=== PATIENT | male | born 1950 | race Caucasian/White ===

== ENCOUNTER 2024-11-09 11:34 | Day surgery (SDC) | payer MEDICARE, SELFPAY ==
--- NOTE | 2024-11-06 12:59 | PAT.ANESEVAL ---
Pre-Assessment Diagnosis/Proposed Procedure Planned Operative Procedure(s): LEFT ANKLE OPEN REDUCTION W/ SYNDESMOSIS FIXATION Anesthesia History Anesthesia History - building services coordinator: Anesthesia History - building services coordinator Hx Hospitalization No 11/06/24 10:42 Any Problems With Anesthesia Yes: N&V 11/06/24 10:42 Cholinesterase deficiency No 11/06/24 10:42 You/Your Family Experience No 11/06/24 10:42 fever (hyperthermia) with Relationship Recent Exposure to Contagious Disease Does patient have nerve No 11/06/24 10:42 stimulator Patient instructed to have device shut off --Does patient have Pacemaker or ICD? When Was Last Pacemaker Check QUESTION #4 FULL TEXT: You/Your Family Experience fever (hyperthermia) with Anesthesia Last Oral Intake Last Oral intake: Last Oral Intake NPO since Meds taken in AM with sips of water? Meds patient instructed to take am of surgery PONV PONV - building services coordinator: PONV - building services coordinator Female No 11/06/24 10:42 HX of Motion Sickness Yes 11/06/24 10:42 HX of N/V After Surgery Yes 11/06/24 10:42 Non-Smoker Yes 11/06/24 10:42 Duration of Surgery greater Yes 11/06/24 10:42 than 60 minutes Number of Risk Factors 4 11/06/24 10:42 PONV Score Severe Risk 11/06/24 10:42 Respiratory Assessment Respiratory Assessment - building services coordinator: Respiratory Tract Infection Hx - building services coordinator Hx Respiratory Tract Infection No 11/06/24 10:42 STOP Sleep Apnea STOP Sleep Apnea - building services coordinator: STOP Sleep Apnea - building services coordinator Hx Hypertension Yes: CONTROLLED ON MED 11/06/24 10:42 Hx Sleep Apnea No 11/06/24 10:42 CPAP BIPAP Do you snore loudly (louder No 11/06/24 10:42 than talking or can be heard Do you often feel tired/ No 11/06/24 10:42 fatigued/ sleepy during daytime? Has anyone observed you stop No 11/06/24 10:42 breathing during sleep? STOP Results Negative 11/06/24 10:42 QUESTION #5 FULL TEXT : Do you snore loudly (louder than talking or can be heard through closed doors)? Tobacco Use History Tobacco Use History - building services coordinator: Tobacco Use History - building services coordinator Tobacco Use Smoking Status Never smoker 11/06/24 10:42 Hx Tobacco Use No 11/06/24 10:42 Years Smoking Packs Smoked per Day Smoking Cessation Date was within the last 15 years Hx Smoking Cessation Date Hx Smoking Cessation Counseling Hematologic Medial History Hematologic Hx - building services coordinator: Hematologic Medical Hx - treasury director Hx of Blood Transfusion No 11/06/24 10:42 Hx of Transfusion in last 3 No 11/06/24 10:42 Months Date of Last Transfusion (if within last 3 months) Ever experience any problems No 11/06/24 10:42 with transfusion(s)? Specify any problems Hx of Preganancy in last 3 N/A 11/06/24 10:42 Months Nurse Filling Out Transfusion VCHRISTIN 11/06/24 10:42 & Questions: Date: 11/06/24 11/06/24 10:42 Time: 10:44 11/06/24 10:42 Patient unable to answer at this time (ie. confused, unrespo /Reproduction History /Reproductive History - building services coordinator: /Reproductive Hx- building services coordinator Hx Now No 11/06/24 10:42 Gestational Age (in weeks): EDC: Hx Hx Para Hx Section SAB No 11/06/24 10:42 Active Medications Active Medications: Current Medications Generic Name Dose Route Start Last Admin Trade Name Freq PRN Reason Stop Dose Admin Cefazolin Sodium 2 gm/ Sodium 110 mls @ 150 mls/hr 11/09/24 13:15 Chloride IV 11/09/24 13:58 INTRAOP ONE REPLACED BY [facility] Medical History (Updated 11/06/24 @ 10:42 by Erin Xiao) Wears hearing aid Wears glasses History of steroid therapy Lyme disease Swartz's palsy Gout Kidney stones High cholesterol Non-smoker History of stress test Hypertension Hx of sepsis Home Medications ?Medication ?Instructions ?Recorded ?Last Taken ?Type acyclovir 400 mg tablet 400 mg PO 5X/DAY 11/06/24 Unknown History allopurinol 300 mg tablet 300 mg PO DAILY 11/06/24 Unknown History aspirin 81 mg tablet 81 mg PO BID 11/06/24 Unknown History atenolol 50 mg tablet 50 mg PO QPM 11/06/24 Unknown History coenzyme Q10 100 mg capsule (Co 100 mg PO DAILY 11/06/24 11/05/24 History Q-10) doxycycline monohydrate 100 mg 100 mg PO BID 11/06/24 Unknown History tablet fenofibrate micronized 134 mg 134 mg PO DAILY 11/06/24 Unknown History capsule ginkgo biloba 40 mg tablet 40 mg PO DAILY 11/06/24 11/05/24 History losartan 100 mg tablet 100 mg PO DAILY 11/06/24 Unknown History niacin 500 mg tablet 500 mg PO BID 11/06/24 Unknown History omega 6-zta-olv-fish oil 1,200 mg 1 cap PO DAILY 11/06/24 11/05/24 History (144 mg-216 mg) capsule (Fish Oil) prednisone 20 mg tablet 20 mg PO BID 11/06/24 Unknown History psyllium husk 0.4 gram capsule 0.4 g PO DAILY 11/06/24 Unknown History (Daily Fiber) rosuvastatin 40 mg tablet 40 mg PO DAILY 11/06/24 Unknown History Allergy/AdvReac Type Severity Reaction Status Date / Time DOMONIQUE Inhibitors Allergy Severe Rash Verified 11/06/24 10:27 gemfibrozil Allergy Severe Other Verified 11/06/24 10:27 Surgical History (Updated 11/06/24 @ 10:42 by Erin Xiao) Hx of hemorrhoidectomy Hx of hernia repair Hx of appendectomy 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 Sinus rhythm frequent premature ventricular contractions. 78 bpm. Pulmonary disease pattern looks like approximately 10 PVCs per minute. [facility] Recommendation Anesthesia Recommendation Anesthesia recommendation: OPTIMIZED for anesthesia
[2024-11-09] VITALS (9 sets, daily range): BP systolic 132–172; BP diastolic 77–94; PULSE 59–63; RESP 16; TEMP 36.2–36.4; O2SAT 96–100; BMI 24.5
[2024-11-09] MEDS: Lactated Ringers 1,000 ML 15 ML IV (12:21)
--- NOTE | 2024-11-09 12:50 | PCM.PRE.AN2 ---
ASA Classification* ASA Classification ASA Classification: 2 Assessment & Plan Anesthesia* Anesthesia Assessment Anesthesia Assessment: Discussed sedation and/or anesthesia options, risks, benefits, and alternatives with patient/parents/legal guardian/POA. Questions invited. The patient/parents/legal guardian/POA seems to understand and agrees to proceed with anesthesia plan. Reviewed the physical assessment, medical history, allergy history and patient home medications list prior to surgery/procedure/anesthetic and documented any changes. Performed airway and anesthesia risk assessments. Anesthesia Type Anesthesia Type: General and Block (Patient is consented for postop block for pain.) History Source History Obtained from:: Patient and Chart Anesthesia Focused Assessment* Temperature: 97.4 F Pulse Rate: 63 Blood Pressure: 132/94 Respiratory Rate: 16 Pulse Ox: 99 Oxygen Delivery Method: Room Air Airway Assessment Mouth opens: >3 cm Mallampati Score: IV Teeth Condition: Intact Neck Range of motion (ROM): Limited ROM (Slight decrease in extension) Labs Anesthesia Preop lab: CBC CHEMISTRY COAG Pre-Assessment Diagnosis/Proposed Procedure Planned Operative Procedure(s): LEFT ANKLE OPEN REDUCTION W/ SYNDESMOSIS FIXATION Anesthesia History 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 When Was Last Pacemaker Check QUESTION #4 FULL TEXT: You/Your Family Experience fever (hyperthermia) with Anesthesia Last Oral Intake Last Oral intake: Last Oral Intake NPO since 19:30 11/09/24 12:05 Meds taken in AM with sips of Yes 11/09/24 12:05 water? Meds patient instructed to take am of surgery Any additional information?: Yes Meds taken in AM with sips of water?: Yes Meds patient instructed to take am of surgery: Losartan PONV PONV - sewing machine repairer: PONV - sewing machine repairer Female No 11/06/24 10:42 HX of Motion Sickness Yes 11/06/24 10:42 HX of N/V After Surgery Yes 11/06/24 10:42 Non-Smoker Yes 11/06/24 10:42 Duration of Surgery greater Yes 11/06/24 10:42 than 60 minutes Number of Risk Factors 4 11/06/24 10:42 PONV Score Severe Risk 11/06/24 10:42 Height & Weight Height & Weight: Anesthesia: Height & Weight Height 5 ft 4 in 11/09/24 12:05 Weight: 65 kg 11/09/24 12:05 Body Mass Index (BMI) 24.5 11/09/24 12:05 Respiratory Assessment Respiratory Assessment - sewing machine repairer: Respiratory Tract Infection Hx - sewing machine repairer Hx Respiratory Tract Infection No 11/06/24 10:42 STOP Sleep Apnea STOP Sleep Apnea - sewing machine repairer: STOP Sleep Apnea - sewing machine repairer Hx Hypertension Yes: CONTROLLED ON MED 11/06/24 10:42 Hx Sleep Apnea No 11/06/24 10:42 CPAP BIPAP Do you snore loudly (louder No 11/06/24 10:42 than talking or can be heard Do you often feel tired/ No 11/06/24 10:42 fatigued/ sleepy during daytime? Has anyone observed you stop No 11/06/24 10:42 breathing during sleep? STOP Results Negative 11/06/24 10:42 QUESTION #5 FULL TEXT : Do you snore loudly (louder than talking or can be heard through closed doors)? Tobacco Use History Tobacco Use History - sewing machine repairer: Tobacco Use History - sewing machine repairer Tobacco Use Smoking Status Never smoker 11/06/24 10:42 Hx Tobacco Use No 11/06/24 10:42 Years Smoking Packs Smoked per Day Smoking Cessation Date was within the last 15 years Hx Smoking Cessation Date Hx Smoking Cessation Counseling Hematologic Medial History Hematologic Hx - sewing machine repairer: Hematologic Medical Hx - orthopedic dentist Hx of Blood Transfusion No 11/06/24 10:42 Hx of Transfusion in last 3 No 11/06/24 10:42 Months Date of Last Transfusion (if within last 3 months) Ever experience any problems No 11/06/24 10:42 with transfusion(s)? Specify any problems Hx of Preganancy in last 3 N/A 11/06/24 10:42 Months Nurse Filling Out Transfusion VCHRISTIN 11/06/24 10:42 & Questions: Date: 11/06/24 11/06/24 10:42 Time: 10:44 11/06/24 10:42 Patient unable to answer at this time (ie. confused, unrespo /Reproduction History /Reproductive History - sewing machine repairer: /Reproductive Hx- sewing machine repairer Hx Now No 11/06/24 10:42 Gestational Age (in weeks): EDC: Hx Hx Para Hx Section SAB No 11/06/24 10:42 Active Medications Active Medications: Current Medications Generic Name Dose Route Start Last Admin Trade Name Freq PRN Reason Stop Dose Admin Cefazolin Sodium 2 gm/ Sodium 110 mls @ 150 mls/hr 11/09/24 13:15 Chloride IV 11/09/24 13:58 INTRAOP ONE Lactated Ringer's 1,000 mls @ 15 mls/hr 11/09/24 12:00 11/09/24 12:21 IV 15 mls/hr .Q48H RODOLFO Administration PFSH Medical History Wears hearing aid Wears glasses History of steroid therapy Lyme disease Swartz's palsy Gout Kidney stones High cholesterol Non-smoker History of stress test Hypertension Hx of sepsis Home Medications ?Medication ?Instructions ?Recorded ?Last Taken ?Type acyclovir 400 mg tablet 400 mg PO 5X/DAY 11/06/24 Unknown History allopurinol 300 mg tablet 300 mg PO DAILY 11/06/24 Unknown History aspirin 81 mg tablet 81 mg PO BID 11/06/24 11/08/24 History atenolol 50 mg tablet 50 mg PO QPM 11/06/24 11/08/24 History coenzyme Q10 100 mg capsule (Co 100 mg PO DAILY 11/06/24 11/05/24 History Q-10) doxycycline monohydrate 100 mg 100 mg PO BID 11/06/24 Unknown History tablet fenofibrate micronized 134 mg 134 mg PO DAILY 11/06/24 Unknown History capsule ginkgo biloba 40 mg tablet 40 mg PO DAILY 11/06/24 11/05/24 History losartan 100 mg tablet 100 mg PO DAILY 11/06/24 11/09/24 07:00 History niacin 500 mg tablet 500 mg PO BID 11/06/24 Unknown History omega 9-kgo-bww-fish oil 1,200 mg 1 cap PO DAILY 11/06/24 11/05/24 History (144 mg-216 mg) capsule (Fish Oil) prednisone 20 mg tablet 20 mg PO BID 11/06/24 Unknown History psyllium husk 0.4 gram capsule 0.4 g PO DAILY 11/06/24 Unknown History (Daily Fiber) rosuvastatin 40 mg tablet 40 mg PO DAILY 11/06/24 Unknown History Allergy/AdvReac Type Severity Reaction Status Date / Time DOMONIQUE Inhibitors Allergy Severe Rash Verified 11/09/24 12:02 gemfibrozil Allergy Severe Other Verified 11/09/24 12:02 Surgical History Hx of hemorrhoidectomy Hx of hernia repair Hx of appendectomy 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
[2024-11-09] MEDS: Cefazolin 2 GM in 0.9% Normal Saline (100mL Bag) 100 ML IV (13:06)
--- NOTE | 2024-11-09 13:20 | RAD_ITS ---
PROCEDURE: ANKLE 2 VIEWS 11/09/2024 REASON FOR EXAM: ORIF LT ANKLE TECHNIQUE: ANKLE 2 VIEWS Intraoperative fluoroscopic images. Fluoroscopy time 10.5 seconds. Radiation dose 0.47 mGy. COMPARISON: None. FINDINGS: Intraoperative fluoroscopic images. Unremarkable distal tibial and fibular metallic hardware. RAD/Ankle 2 Views IMPRESSION: Intraoperative fluoroscopic images. Reading Location: [facility]
[2024-11-09] MEDS: Bupiv/Epi 0.25% 30 ML Vial (13:46)
--- NOTE | 2024-11-09 13:46 | PCM.OPRPT ---
Operative Report (Standard) Operative Information Date of Procedure: 11/09/24 Pre-Operative Diagnosis: Left ankle syndesmosis rupture with Maisonneuve fracture Post-Operative Diagnosis: Left ankle syndesmosis rupture with Maisonneuve fracture Surgery/Procedure Performed: Open reduction internal fixation left ankle syndesmosis portrait consultant: Yes Hydroelectric Machinery Mechanic Helper: Shauna Prescott Tasks completed by first coat operator: Opening & closing and Hemostasis: Electrocautery Type of Anesthesia: General RN Documented Start/Stop Times: Operation Date: 11/09/24 13:15 Case Time Into Pre-Op 11/09/24 11:46 Out of Pre-Op 11/09/24 13:04 Anesthesia Start 11/09/24 13:06 Into Room 11/09/24 13:06 Procedure Start 11/09/24 13:24 Procedure Start Time: 13:24 Procedure Stop Time: 13:53 Select all DRAINS/GRAFTS/IMPLANTS that apply: Implanted device Implanted device details: Arthrex tight rope 2 x 2, 2 hole third tubular plate Estimated Blood Loss: 2 cc Specimen collected: No Description of surgery: Patient was greeted in the same-day surgery holding area and identified by name, medical record number, and date of . The operative extremity was marked. All questions were answered to the patient's satisfaction. At time of his procedure, patient was brought the operative suite positioned supine a standard operating table. General anesthesia was induced and LMA placed. The left lower extremity was then prepared for surgery. Leg was elevated on bath blankets and a hip was placed in the patient's left hip. We prepped and draped the left lower extremity in a normal, sterile orthopedic fashion. We performed a timeout confirming the side, site, and operation to be performed. No concerns were voiced and we opted to proceed with surgery. 2 g Ancef administered IV prior to incision by anesthesia staff. I then exsanguinated the left lower extremity with Esmarch bandage. Tourniquet was inflated 250 mmHg which remained elevated for 14 minutes. Esmarch was removed. Lateral approach to the distal fibula was performed in standard fashion, approximately 4 cm incision. Skin flaps were developed down to level of the periosteum. Periosteum was left intact. I then performed external rotation stress test which revealed syndesmotic instability as well as a cotton test. I then proceeded with reduction of the syndesmosis. I was able to palpate the syndesmosis and without articular incongruity noted I applied a gentle press on the lateral fibula. I then selected our 2 hole plate and secured to bone with a BB tack. Appropriate positioning was noted on orthogonal fluoroscopy. I then used a long K wire to plantar trajectory of the tight ropes which were placed in the orientation of the syndesmosis parallel with the tibial plafond. I then drilled across the 4 cortices. Tight ropes were placed in standard fashion and deployed and sequentially tightened. Repeat stress testing was now stable. Orthogonal fluoroscopy was obtained demonstrated good positioning. Tourniquet deflated. Hemostasis was excellent. Wound was irrigated with saline. Dermis was reapproximated buried 2-0 Vicryl suture and skin reapproximated with interrupted horizontal mattress 3-0 nylon suture. Medial and lateral field blocks were administered with 10 cc total quarter percent bupivacaine with epinephrine. Bulky sterile compression dressing was applied. Patient was placed in a short leg 3 sided AO type fiberglass splint in maximal dorsiflexion. He was safely awakened in the operative suite and extubated. He was transferred to his gurney and subsequently PACU in stable condition. He tolerated the procedure well without apparent complication. Need for skilled assistant manager bilingual: Shauna Prescott PA-C was critical to the outcome of the case. During the course of the procedure the physician assistant manager bilingual played a vital role. Her intimate knowledge of my steps in the procedure aided in safe and expedient completion of the procedure. The PA played a vital role in positioning particularly in obtaining the appropriate positioning. The PA was also vital in the retraction of soft tissues during the exposure and protecting vital structures. The PA was also vital and obtaining bony reduction and assisting with hardware placement. She also played a vital role in closure and splint application with my direct supervision. Postoperative plan: Nonweightbearing to the operative extremity x 6 weeks. Transition to cam boot in 2 weeks for early range of motion of physical therapy. Multimodal pain management with Tylenol, NSAIDs and oxycodone. Ice and elevation. X-rays in splint 2 weeks postop. Aspirin 81 mg twice daily for DVT prophylaxis x 6 weeks. Surgical Findings: Syndesmosis instability, stable following failure of fixation x 2 Complications Complications: No Admit VTE Documentation VTE Present on Admission: No VTE Mechan Device Prophylaxis: SCD's VTE Pharm Prophylaxis ordered?: Yes
--- NOTE | 2024-11-09 14:04 | PCM.POST.ANE ---
Anesthesia: Postop Eval I Current Vital Signs Temperature: 97.2 F Pulse Rate: 62 Blood Pressure: 148/84 Respiratory Rate: 16 Pulse Ox: 96 Oxygen Delivery Method: Room Air Assessment Airway patent: Yes Spontaneous unlabored respirations: Yes Mental status: Awake nausea: No Vomiting: No Anesthesia Complication: No Fluid Hydration Crystalloid volume administer (ml): 800 Total IV fluid infused: 800 Progress Note Anesthesia document: Postop Eval 1 completed: Yes
--- NOTE | 2024-11-09 18:48 | POSTOPAN2_ITS ---
Anesthesia Postop Eval I Sum Postop Eval Completion status Anesthesia document: Postop Eval 1 completed: Yes Anesthesia Postop Eval I Summary Anesthesia Postop Eval I Summary: Anesthesia Postop Eval I: Assessment Summary Airway patent Yes 11/09/24 14:05 SENIOR CONSTRUCTION ESTIMATOR.JDEF Spontaneous unlabored Yes 11/09/24 14:05 SENIOR CONSTRUCTION ESTIMATOR.JDEF respirations Mental status Awake 11/09/24 14:05 SENIOR CONSTRUCTION ESTIMATOR.JDEF nausea No 11/09/24 14:05 SENIOR CONSTRUCTION ESTIMATOR.JDEF Vomiting No 11/09/24 14:05 SENIOR CONSTRUCTION ESTIMATOR.JDEF Anesthesia Postop Eval I: Fluid Summary Crystalloid volume administer 800 11/09/24 14:05 SENIOR CONSTRUCTION ESTIMATOR.JDEF (ml) Colloids volume administered ( ml) Blood Product volume administered (ml) Total IV fluid infused 800 11/09/24 14:05 SENIOR CONSTRUCTION ESTIMATOR.JDEF Anesthesia Postop Eval I: Summary Notes Anesthesia Complication No 11/09/24 14:05 SENIOR CONSTRUCTION ESTIMATOR.JDEF Anesthesia Complication Comment: Post-operative progress note Anesthesia: Postop Eval II Evaluation Mental status: Awake and Calm Pain Level: 2 (Postop block done in PACU with good relief of pain.) nausea: No Vomiting: No Complications Anesthesia Complication: No
--- NOTE | 2024-11-09 18:48 | PCM.POSTANE2 ---
Anesthesia Postop Eval I Sum Postop Eval Completion status Anesthesia document: Postop Eval 1 completed: Yes Anesthesia Postop Eval I Summary Anesthesia Postop Eval I Summary: Anesthesia Postop Eval I: Assessment Summary Airway patent Yes 11/09/24 14:05 SHANK INSPECTOR.JDEF Spontaneous unlabored Yes 11/09/24 14:05 SHANK INSPECTOR.JDEF respirations Mental status Awake 11/09/24 14:05 SHANK INSPECTOR.JDEF nausea No 11/09/24 14:05 SHANK INSPECTOR.JDEF Vomiting No 11/09/24 14:05 SHANK INSPECTOR.JDEF Anesthesia Postop Eval I: Fluid Summary Crystalloid volume administer 800 11/09/24 14:05 SHANK INSPECTOR.JDEF (ml) Colloids volume administered ( ml) Blood Product volume administered (ml) Total IV fluid infused 800 11/09/24 14:05 SHANK INSPECTOR.JDEF Anesthesia Postop Eval I: Summary Notes Anesthesia Complication No 11/09/24 14:05 SHANK INSPECTOR.JDEF Anesthesia Complication Comment: Post-operative progress note Anesthesia: Postop Eval II Evaluation Mental status: Awake and Calm Pain Level: 2 (Postop block done in PACU with good relief of pain.) nausea: No Vomiting: No Complications Anesthesia Complication: No
--- OUTSIDE RECORDS SUMMARY | 2024-11-09 23:01 | XMS RPT_ITS | CCD ---
Author Organization [facility] Care Team Providers Care Vegetable I Farmworker Name Role Phone JOVAN KRISHNA Unavailable Unavailable Lee HOLBROOK Unavailable Unavailable JOVAN KRISHNA Unavailable Unavailable JOVAN KRISHNA Unavailable Unavailable Lee HOLBROOK Unavailable Unavailable NAJMA OCONNOR Unavailable Unavailable Lee HOLBROOK Unavailable Unavailable Leonardo Holbrook Primary Care Provider Leonardo Holbrook MD Primary Care Provider Aurea Mckenna MD Unavailable Leonardo Holbrook MD Primary Care Provider Aurea Mckenna MD Unavailable Isaias Kaba MD Primary Care Provider ISAIAS KABA MD Attending Unavailable ISAIAS KABA MD Admitting Unavailable ISAIAS KABA MD Consulting Unavailable ISAIAS KABA MD Primary Care Unavailable PROVIDER, UNKNOWN Consulting Unavailable PROVIDER, UNKNOWN Consulting Unavailable PROVIDER, UNKNOWN Consulting Unavailable ISAIAS KABA MD Consulting Unavailable ISAIAS KABA MD Attending Unavailable ISAIAS KABA MD Admitting Unavailable ISAIAS KABA MD Primary Care Unavailable PROVIDER, UNKNOWN Consulting Unavailable PROVIDER, UNKNOWN Consulting Unavailable PROVIDER, UNKNOWN Consulting Unavailable CALIN, OMAR PAC Primary Care Unavailable CALIN, OMAR PAC Attending Unavailable ISAIAS KABA MD Consulting Unavailable CALIN, OMAR PAC Admitting Unavailable PROVIDER, UNKNOWN Consulting Unavailable PROVIDER, UNKNOWN Consulting Unavailable PROVIDER, UNKNOWN Consulting Unavailable ISAIAS KABA MD Primary Care Unavailable ISAIAS KABA MD Consulting Unavailable ISAIAS KABA MD Attending Unavailable ISAIAS KABA MD Admitting Unavailable PROVIDER, UNKNOWN Consulting Unavailable PROVIDER, UNKNOWN Consulting Unavailable PROVIDER, UNKNOWN Consulting Unavailable PITO CASE DO Primary Care Unavailable PITO CASE DO Attending Unavailable ISAIAS KABA MD Consulting Unavailable PITO CASE DO Admitting Unavailable PROVIDER, UNKNOWN Consulting Unavailable PROVIDER, UNKNOWN Consulting Unavailable PROVIDER, UNKNOWN Consulting Unavailable ISAIAS KABA MD Primary Care Unavailable ISAIAS KABA MD Consulting Unavailable ISAIAS KABA MD Attending Unavailable ISAIAS KABA MD Admitting Unavailable PROVIDER, UNKNOWN Consulting Unavailable PROVIDER, UNKNOWN Consulting Unavailable PROVIDER, UNKNOWN Consulting Unavailable ISAIAS KABA MD Consulting Unavailable ISAIAS KABA MD Attending Unavailable LATISAIAS PRADO MD Admitting Unavailable ISAIAS KABA MD Primary Care Unavailable PROVIDER, UNKNOWN Consulting Unavailable PROVIDER, UNKNOWN Consulting Unavailable PROVIDER, UNKNOWN Consulting Unavailable SESAR, ISAIAS Primary Care Unavailable AUREA MCKENNA Referring Unavailable Dawood Hernandez Attending Unavailable Sesar, Isaias Primary Care Unavailable Dr. Dawood Hernandez DO Attending Provider Dr. Dawood Hernandez DO Referring Provider Dr. Isaias Kaba MD Primary Care Provider [phone] Allergies Allergy Classification Reported Allergen(s) Allergy Type Date of Onset Reaction(s) Facility (2 sources) Angiotensin-conv erting enzyme inhibitor agent; Translations: [DOMONIQUE INHIBITORS] Drug Allergy 05-16-2021 Rash [facility] (5 sources) cefTRIAXone; Translations: [CEFTRIAXONE] Drug Allergy 05-16-2021 Myalgia [facility] (6 sources) Gemfibrozil; Translations: [GEMFIBROZIL] Drug Allergy 05-16-2021 Rash [facility] Comment on above: [facility] (3 sources) Angiotensin-conv erting enzyme inhibitor agent Drug Allergy 05-16-2021 Rash [facility] (1 source) Angiotensin Converting Enzyme (Domonique) Inhibitors Drug allergy (disorder) [facility] (1 source) Gemfibrozil Drug Allergy [facility] (1 source) Angiotensin Converting Enzyme (Domonique) Inhibitors Drug allergy (disorder) 11-06-2024 [facility] Rep[facility] (1 source) Gemfibrozil Drug Allergy 11-06-2024 [facility] (1 source) Angiotensin Converting Enzyme (Domonique) Inhibitors Allergy to substance 11-09-2024 [facility] Medications Current Medications Medication Drug Class(es) Dates Sig (Normalized) Sig (Original) acyclovir 400 mg oral tablet (1 source) Herpesvirus Nucleoside Analog DNA Polymerase Inhibitor, Herpes Simplex Virus Nucleoside Analog DNA Polymerase Inhibitor, Herpes Zoster Virus Nucleoside Analog DNA Polymerase Inhibitor Start: 11-06-2024 take 1 tablet by mouth five times daily Acyclovir 400 mg tablet Active 400 mg PO 5 TIMES DAILY November 06, 2024 12:00am allopurinol 300 mg oral tablet (5 sources) Xanthine Oxidase Inhibitor Start: 11-06-2024 take 1 tablet by mouth once daily Allopurinol 300 mg tablet Active 300 mg PO DAILY November 06, 2024 12:00am Start: 12-07-2008 ALLOPURINOL 30 0 MG TAB Indications: Unspecified essential hypertension , Mixed hyperlipidemia Take one(1) tablet daily. 30 11 12/07/2008 Active Comment on above: Take one(1) tablet d aily. aspirin 81 mg oral tablet (5 sources) Platelet Aggregation Inhibitor, Nonsteroidal Anti-inflammatory Drug Start: 11-06-2024 take 1 tablet by mouth twice daily Aspirin 81 mg tablet Active 81 mg PO TWICE A DAY November 06, 2024 12:00am Start: 06-27-2007 aspirin(JAVIER LOW STRENGTH 81 MG TAB) Indications: Unspecified essential hypertension , Mixed hyperlipidemia Take one(1) tablet daily. 0 06/27/2007 Active Comment on above: Take one(1) tablet d aily. atenolol 50 mg oral tablet (5 sources) beta-Adrenergic Chyna Start: 11-06-2024 take 1 tablet by mouth once daily in the evening Atenolol 50 mg tablet Active 50 mg PO EVERY EVENING November 06, 2024 12:00am take 1 tablet by joan th once daily in the evening atenolol (TENORMIN) 50 mg tablet Take 50 mg by mouth every evening. Active Comment on above: Take 50 mg by mouth every evening. doxycycline monohydrate 100 mg oral tablet (1 source) Tetracycline-class Drug Start: take 1 tablet by mouth twice daily Doxycycline Monohydrate 100 mg tablet Active 100 mg PO TWICE A DAY November 06, 2024 12:00am fenofibrate 134 mg oral capsule (6 sources) Peroxisome Proliferator Receptor alpha Agonist Start: 5 take 1 capsule by mouth once daily Fenofibrate Micronized 134 mg capsule Active 134 mg PO DAILY November 06, 2024 12:00am Start: 02-24-2022 [facility] fenofibrate (LOFIBRA) 134 mg capsule Take 134 mg by mouth once daily. 02/24/2022 Active Start: 05-31-2009 End: 06-19-2022 FENOFIBRATE 54 MG TAB one ta b daily with breakfast 30 3 05/31/2009 06/19/2022 Discontinued (.All criteria met for discontinuation) Comment on above: one tab daily with b reakfast Take 134 mg by mouth once daily. Ginkgo Biloba (1 source) Start: 11-06-2024 take 1 tablet by mouth once daily Ginkgo Biloba 40 mg tablet Active 40 mg PO DAILY November 06, 2024 12:00am give with meal/snack linezolid 600 mg oral tablet (1 source) Oxazolidinone Antibacterial Start: 05-23-2021 End: 06-02-2021 take 1 tablet by mouth every twelve hours linezolid (ZYVOX) 600 mg tablet Take 1 tablet by mouth every 12 hours for 10 days. 20 tablet 0 05/23/2021 06/02/2021 Active Comment on above: Take 1 tablet by joan every 12 hours for 10 days. losartan potassium 100 mg oral tablet (4 sources) Angiotensin 2 Receptor Chyna Start: 11-06-2024 take 1 tablet by mouth once daily Losartan 100 mg tablet Active 100 mg PO DAILY November 06, 2024 12:00am Start: 09-30-2021 take 1 tablet by joan once daily at bedtime losartan (COZAAR) 100 mg tablet Take 100 mg by mouth daily at bedtime. 09/30/2021 Active Comment on above: Take 100 mg by mouth daily at bedtime. MULTIVITAMIN TABLET (4 sources) Start: 2 MULTIVITAMIN TABLET Take one(1) tablet daily. 0 04/16/2002 Active Comment on above: Take one(1) tablet d aily. niacin 500 mg oral tablet (1 source) Nicotinic Acid Start: take 1 tablet by mouth twice daily Niacin 500 mg tablet Active 500 mg PO TWICE A DAY November 06, 2024 12:00am Graham 2-Rcp-Exi-Fish Oil (Fish Oil) 1,200 (144-216) mg capsule (1 source) Start: Graham 1-Faf-Czw-Fish Oil (Fish Oil) 1,200 (144-216) mg capsule Active 1 NMA PO DAILY November 06, 2024 12:00am Znmby-5-JOP-EPA-Fish Oil (FISH OIL) 1,000 mg (120 mg-180 mg) cap (4 sources) take 1 capsule by mouth three times daily Grpkp-0-WRP-EPA-Fish Oil (FISH OIL) 1,000 mg (120 mg-180 mg) cap Take 4 g by mouth three times daily. Active take 1 capsule by [facility] three times daily Hulza-9-QMZ-EPA-Fish Oil (FISH OIL) 1,00 0 mg (120 mg-180 mg) cap Take 4 g by mouth three times daily. 0 Active Comment on above: Take 4 g by mouth th ree times daily. ondansetron 4 mg oral tablet (1 source) Serotonin-3 Receptor Antagonist Start: 11-10-19 25 take 1 tablet by mouth every eight hours as needed for nausea and vomiting Ondansetron Hcl 4 mg tablet Active 4 mg PO Q8H as needed for nausea and vomiting 15 5 November 09, 2024 12:00am oxyCODONE hydrochloride 5 mg oral tablet (1 source) Opioid Agonist Start: 11-10-19 25 take 1 tablet by mouth every six hours as needed for pain Oxycodone 5 mg tablet Active 5 mg PO EVERY 6 HOURS as needed for pain 20 5 November 09, 2024 predniSONE 20 mg oral tablet (1 source) Start: 11-07-19 25 take 1 tablet by mouth twice daily Prednisone 20 mg tablet Active 20 mg PO TWICE A DAY November 06, 2024 12:00am psyllium 400 mg oral capsule (1 source) Start: 11-07-19 25 Psyllium Husk (Daily Fiber) 0.4 gram capsule Active 0.4 g PO DAILY November 06, 2024 12:00am psyllium seed/sucrose(METAMUCIL ORAL POWDER) (4 sources) Start: 05-31-19 10 psyllium seed/sucrose(METAMUC IL ORAL POWDER) Take one powder packet daily 0 05/31/2009 Active Comment on above: Take one powder pack et daily rosuvastatin calcium 40 mg oral tablet (5 sources) HMG-CoA Reductase Inhibitor Start: 11-07-19 take 1 tablet by mouth once daily Rosuvastatin 40 mg tablet Active 40 mg PO DAILY November 06, 2024 12:00am Start: 05-16-2021 rosuvastatin c alcium(CRESTOR 20 MG TAB) Take 40 mg by mouth once daily. 30 11 05/16/2021 Active Comment on above: Take 40 mg by mouth once daily. ubidecarenone 100 mg oral capsule (1 source) Start: 11-06-2024 Coenzyme Q10 (Co Q-10) 100 mg capsule Active 100 mg PO DAILY November 06, 2024 12:00am ubidecarenone/vitamin E mixed (COQ10 SG 100 ORAL) (4 sources) ubidecarenone/vi tamin E mixed (COQ10 SG 100 ORAL) Take 100 mg by mouth five times a week. sat thrsat Active ubidecarenone/vi tamin E mixed (COQ10 SG 100 ORAL) Take 100 mg by mouth five times a week. sat thrsat 0 Active Comment on above: Take 100 mg by mouth five times a week. sat thru sat Completed/Discontinued Medications Medication Drug Class(es) Dates Sig (Normalized) Sig (Original) cholecalciferol 2000 unt / soy protein isolate 64 mg oral tablet (2 sources) Vitamin D Start: 06-07-2021 End: 06-20-2022 take 1 tablet by mouth once daily Cholecalciferol-So y Isoflavone 2,000-64 unit-mg tab Indications: Chronic kidney disease, unspecified CKD stage , Hyponatremia , Essential hypertension, benign Take 1 tablet by mouth once daily. 30 tablet 5 06/07/2021 06/20/2022 Discontinued (.All criteria met for discontinuation) Comment on above: Take 1 tablet by joan th once daily. ferrous sulfate 325 mg oral tablet (2 sources) Start: 06-07-2021 End: 06-20-2022 take 1 tablet by mouth once daily at breakfast ferrous sulfate (IRON) 325 mg (65 mg iron) tablet Indications: Chronic kidney disease, unspecified CKD stage , Hyponatremia , Essential hypertension, benign Take 1 tablet by mouth daily with breakfast. 30 tablet 5 06/07/2021 06/20/2022 Discontinued (.All criteria met for discontinuation) Comment on above: Take 1 tablet by joan th daily with breakfast. meclizine hydrochloride 25 mg oral tablet (2 sources) Antiemetic Start: 05-23-2021 End: 12-20-2021 take 1 tablet by mouth every eight hours as needed meclizine (ANTIVERT) 25 mg tab Take 1 tablet by mouth three times daily as needed (Dizziness). 30 tablet 0 05/23/2021 12/20/2021 Discontinued (.All criteria met for discontinuation) Comment on above: Take 1 tablet by joan th three times daily as needed (Dizziness). Problems Active Problems Problem Classification Problem Date Documented Date Episodic/Chronic Acute and unspecified renal failure (4 sources) Acute injury of kidney; Translations: [Acute kidney failure, unspecified] 05-23-2021 Episodic Administrative/socia l admission (3 sources) Patient encounter status; Translations: [Dietary counseling and surveillance] Episodic Chronic kidney disease (12 sources) Chronic kidney disease; Translations: [Chronic kidney disease, unspecified] Onset: 5 Chronic Chronic kidney disease (2 sources) Chronic kidney disease; Translations: [Chronic kidney disease, stage 3b] Onset: 5 Deficiency and other anemia (1 source) Anemia in chronic kidney disease; Translations: [Anemia of renal disease] Onset: 5 Chronic Disorders of lipid metabolism (5 sources) Mixed hyperlipidemia; Translations: [Mixed hyperlipidemia] Onset: 3 09-20-2003 Chronic Essential hypertension (13 sources) Benign essential hypertension; Translations: [Essential (primary) hypertension] Onset: 7 Chronic Gout and other crystal arthropathies (1 source) Gout, unspecified; Translations: [Gout, unspecified] Onset: 5 Chronic Nutritional deficiencies (9 sources) Vitamin D deficiency; Translations: [Vitamin D deficiency, unspecified] Onset: 1 Chronic Other connective tissue disease (2 sources) Unspecified rotator cuff tear or rupture of right shoulder, not specified as traumatic; Translations: [UNS ROT CUFF TEAR/RUPT R] Onset: 8 Episodic Other diseases of kidney and ureters (1 source) Hyperparathyroidism due to renal insufficiency; Translations: [Secondary hyperparathyroidism of renal origin] Chronic Other male genital disorders (3 sources) Male erectile dysfunction, unspecified; Translations: [Male erectile dysfunction, unspecified] Onset: 5 Chronic Other nutritional; endocrine; and metabolic disorders (3 sources) Hyperuricemia; Translations: [Hyperuricemia without signs of inflammatory arthritis and tophaceous disease] Episodic Other screening for suspected conditions (not mental disorders or infectious disease) (1 source) Encounter for screening for malignant neoplasm of prostate; Translations: [Encounter for screening for malignant neoplasm of prostate] Onset: 5 Episodic Unclassified (1 source) Unknown / UNK(Unknown) Onset: 8 Past or Other Problems Problem Classification Problem Date Documented Date Episodic/Chronic Biliary tract disease (4 sources) Biliary calculus; Translations: [Calculus of gallbladder without cholecystitis without obstruction] Onset: 05-16-2021 05-23-2021 Episodic Diabetes mellitus without complication (1 source) Hyperglycemia, unspecified; Translations: [Hyperglycemia, unspecified] Onset: 01-24-2024 Episodic Fluid and electrolyte disorders (5 sources) Hyponatremia; Translations: [Hypo-osmolality and hyponatremia] Onset: 05-17-2021 Resolved: 05-23-2021 05-23-2021 Episodic Genitourinary symptoms and ill-defined conditions (4 sources) Proteinuria; Translations: [Other proteinuria] Onset: 06-02-2024 Episodic Other liver diseases (4 sources) Enzyme level - finding; Translations: [Transaminitis] Onset: 05-16-2021 05-23-2021 Episodic Skin and subcutaneous tissue infections (4 sources) Cellulitis of left upper limb; Translations: [Cellulitis of left upper limb] Onset: 05-16-2021 05-23-2021 Episodic Unclassified (1 source) M75.101 Onset: 12-18-2017 Results Test Name Value Interpretation Reference Range Facility MR/Hortensia 11-06-2024 /[facility] Department [address] [place] [address] PAT - Anesthesia 11/06/24 1259 MR#: [id number] Acct: [id number] Name: MYCHAL SWANSON Rep #: [id number] : 1950 74 From: Moses John MD PCP: Dr. 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 When Was Last Pacemaker Check QUESTION #4 FULL TEXT: You/Your Family Experience fever (hyperthermia) with Anesthesia Last Oral Intake Last Oral intake: Last Oral Intake NPO since Meds taken in AM with sips of water? Meds patient instructed to take am of surgery PONV PONV - school guidance counselor: PONV - school guidance counselor Female No 11/06/24 10:42 HX of Motion Sickness Yes 11/06/24 10:42 HX of N/V After Surgery Yes 11/06/24 10:42 Non-Smoker Yes 11/06/24 10:42 Duration of Surgery greater Yes 11/06/24 10:42 than 60 minutes Number of Risk Factors 4 11/06/24 10:42 PONV Score Severe Risk 11/06/24 10:42 Respiratory Assessment Respiratory Assessment - school guidance counselor: Respiratory Tract Infection Hx - school guidance counselor Hx Respiratory Tract Infection No 11/06/24 10:42 STOP Sleep Apnea STOP Sleep Apnea - school guidance counselor: STOP Sleep Apnea - school guidance counselor Hx Hypertension Yes: CONTROLLED ON MED 11/06/24 10:42 Hx Sleep Apnea No 11/06/24 10:42 CPAP BIPAP Do you snore loudly (louder No 11/06/24 10:42 than talking or can be heard Do you often feel tired/ No 11/06/24 10:42 fatigued/ sleepy during daytime? Has anyone observed you stop No 11/06/24 10:42 breathing during sleep? STOP Results Negative 11/06/24 10:42 QUESTION #5 FULL TEXT : Do you snore loudly (louder than talking or can be heard through closed doors)? 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 Specify any problems Hx of Preganancy in last 3 N/A 11/06/24 10:42 Months Nurse Filling Out Transfusion VCHRISTIN 11/06/24 10:42 Questions: Date: 11/06/24 11/06/24 10:42 Time: 10:44 11/06/24 10:42 Patient unable to answer at this time (ie. confused, unrespo /Reproduction History /Reproductive History - school guidance counselor: /Reproductive Hx- school guidance counselor Hx Now No 11/06/24 10:42 Gestational Age (in weeks): EDC: Hx Hx Para Hx Section SAB No 11/06/24 10:42 Active Medications Active Medications: Current Medications Generic Name Dose Route Start Last Admin Trade Name Freq PRN Reason Stop Dose Admin Cefazolin Sodium 2 gm/ Sodium 110 mls @ 150 mls/hr 11/09/24 13:15 Chloride IV 11/09/24 13:58 INTRAOP [facility] Medical History (Updated 11/06/24 @ 10:42 by Erin Xiao) Wears hearing aid Wears glasses History of steroid therapy Lyme disease Swartz's palsy Gout Kidney stones High cholesterol Non-smoker History of stress test Hypertension Hx of sepsis Home Medications ???Medication ???Instructions ???Recorded ???Last Taken ???Type acyclovir 400 mg tablet 400 mg PO 5X/DAY 11/06/24 Unknown History allopurinol 300 mg tablet 300 mg PO DAILY 11/06/24 Unknown H istory aspirin 81 mg tablet 81 mg PO BID 11/06/24 Unknown Hist ory atenolol 50 mg tablet 50 mg PO QPM 11/06/24 Unknown Hist ory coenzyme Q10 100 mg capsule (Co 100 mg PO DAILY 11/06/24 11/05/24 History Q-10) doxycycline monohydrate 100 mg 100 mg PO BID 11/06/24 Unknown His (more content not included)... Normal [facility] ED MED ADMINISTRATION DETAIL on 11-05-2024 ED MED ADMINISTRATION DETAIL Tack Driller Medication Administration Record [address] [address] [id number] 11/04/2024 Patient: MYCHAL SWANSON Sex: Male : 1950 Age: 74y MEASUREMENTS: Wt: 63.5 kg, Ht/Chacorta: 64.0 in, BMI: 24.03 ALLERGIES: gemfibrozil Medication Ordered Medication Administration Date/Time 1 of 1 Normal [facility] ED NURSES CLINICAL NOTEon ED NURSES CLINICAL NOTE Nurse Narrative Nurse Clinical Narrative [address] [address] [id number] 11/04/2024 12:19:00 Patient: MYCHAL SWANSON Sex: Male : 1950 Age: 74y Disposition: Discharge to Home Disposition Decision Time: 16:20 11/04/2024 Departure Time: 16:29 11/04/2024 TRIAGE Historian: (patient). Arrived in wheelchair (surgery) and accompanied by family. Primary physician (LAtgarrickf). Triage time: 14:33 11/04/2024. Acuity: LEVEL 2. Chief Complaint: ALTERED MENTAL STATUS. This started yesterday. Patient was last known well (09:30 11/03/2024). -- 14:44 11/04/24 SAET Alyx Powers R.N. 14:43 11/04/24. BP: 164/89 MAP: 114. HR: 63. RR: 17. O2 saturation: 98% Temperature: 98.5 F. -- 14:44 11/04/24 LOKESH Powers R.N. 14:55 11/04/24. SEPSIS SCREEN: NEGATIVE. SIRS criteria negative. No possible sources of infection. -- 14:55 11/04/24 LOKESH Powers R.N. Measurements: 14:43 11/04/24 Wt: 63.5 kg, Ht/Chacorta: 64.0 in, BMI: 24.03 -- 14:43 11/04/24 LOKESH Powers R.N. Medications: coenzyme Q10 (ubiquinol) 200 mg capsule: 1 capsule once a day. -- 14:53 11/04/24 LOKESH Powers R.N. Fish Oil 120 mg-180 mg capsule: 4 capsule twice a day. -- 14:11/04/24 LOKESH Powers R.N. 1 of 4 Nurse Narrative ginkgo biloba 40 mg tablet: 1 tablet twice a day. -- 14:11/04/24 LOKESH Powers R.N. Metamucil 3.4 gram/5.4 gram oral powder: 1 scoop once a day. -- 14:11/04/24 LOKESH Powers R.N. niacin 500 mg tablet: 2 tablet once a day. -- 14:11/04/24 LOKESH Powers R.N. tadalafil 10 mg tablet: TAKE 1 TABLET BY MOUTH APPROXIMATELY 30 MINUTES PRIOR TO SEXUAL ACTIVITY. DO NOT USE MORE THAN 1 DOSE PER 24 HOURS Stopped 11/04/2024. -- 14:11/04/24 LOKESH Powers R.N. losartan 100 mg tablet: TAKE ONE TABLET BY MOUTH EVERY MORNING -- 14:11/04/24 LOKESH Powers R.N. fenofibrate micronized 134 mg capsule: 1 capsule once a day TAKE ONE CAPSULE BY MOUTH DAILY. -- 14:11/04/24 LOKESH Powers R.N. rosuvastatin 40 mg tablet: TAKE ONE TABLET BY MOUTH EVERY DAY -- 14:11/04/24 LOKESH Powers R.N. aspirin 81 mg tablet: 1 tablet twice a day. -- 14:11/04/24 LOKESH Powers R.N. atenolol 50 mg tablet: 1 tablet once a day. -- 14:53 11/04/24 LOKESH Powers R.N. allopurinol 300 mg tablet: TAKE ONE TABLET BY MOUTH DAILY -- 14:53 11/04/24 LOKESH Powers R.N. 14:33 11/04/24. Preferred Pharmacy: ([facility] in [place]). -- 14:44 11/04/24 LOKESH Powers R.N. Allergies: gemfibrozil -- 14:39 11/04/24 LOKESH Powers R.N. Home Medications/Allergy Information Source: patient -- 14:39 11/04/24 LOKESH Powers R.N. Problems: Hypercholesterolemia -- 14:39 11/04/24 LOKESH Powers R.N. Hypertension -- 14:39 11/04/24 LOKESH Powers R.N. Gout -- 14:39 11/04/24 LOKESH Powers R.N. Fibromyalgia -- 14:39 11/04/24 LOKESH Powers R.N. Surgeries: Appendectomy -- 14:40 11/04/24 LOKESH Powers R.N. kidney stone -- 14:40 11/04/24 LOKESH Powers R.N. Hip Surgery. left -- 14:40 11/04/24 LOKESH Powers R.N. 2 of 4 Nurse Narrative Hernia Repair -- 14:40 11/04/24 LOKESH Powers R.N. Rotator Cuff Surgery -- 14:40 11/04/24 LOKESH Powers R.N. History 14:33 11/04/24. PAST MEDICAL HX: Immunizations: up-to-date. SOCIAL HX: Never smoker. No alcohol use or drug use. The patient has not traveled outside the [place] Infectious disease exposure: No infectious disease exposure. ABUSE ASSESSMENT: The patient answered yes to the question(s) Do you feel safe in your home? and no to the question(s) Are you afraid to go home?. Abuse denied. No suspicion of abuse. SELF HARM ASSESSMENT: Self harm assessment was performed. The patient answered no to the question(s) Have you recently felt down, depressed, or hopeless? and Do you have thoughts of harming or killing yourself?. FALL RISK ASSESSMENT: Fall risk assessment completed. Risk factors identified include patient medications, age greater than 65 years and impairment of mobility. Fall interventions initiated. Bed in low position. Brakes on. Patient identified as a fall risk by ID band. -- 14:44 11/04/24 EDT Alyx Powers R.N. Interventions 14:33 11/04/24. Advanced care plan discussed with patient (Full Code). -- 14:44 11/04/24 EDT Alyx Powers R.N. PHYSICAL ASSESSMENT 14:58 11/04/24. GENERAL / NEURO / PSYCH: Alert. Oriented X 4. Appears in no acute distress. Speech within normal limits. NIH Stroke Scale: score 2. Level of Consciousness: alert (0). LOC Questions: both (0). LOC Commands: both (0). Best gaze: normal (0). Visual field loss: none (0). Facial palsy: partial (2). Motor arm: no drift right arm (0) and no drift left arm (0). Motor leg: no drift right leg (0) and no drift left leg (0). Limb ataxia: none (0). Sensory loss: none (0). A (more content not included)... Normal [facility] ED ORDER SHEET (CPOE ONLY)on 11-05-2024 ED ORDER SHEET (CPOE ONLY) Order Sheet Order Sheet [address] [address] [id number] 11/04/2024 Patient: MYCHAL SWANSON Sex: Male : 1950 Age: 74y MEASUREMENTS: Wt: 63.5 kg, Ht/Chacorta: 64.0 in, BMI: 24.03 ALLERGIES: gemfibrozil MEDICATION/IV/DRIP/FLUID ORDERS Order Description Priority Entered Acknowledged Completed LAB ORDERS Order Description Priority Entered Acknowledged Collected Completed CBC w Diff Stat Stat 15:13 11/04/2024 15:14 11/04/2024 15:14 11/04/2024 Emerald Chavez Alisha Whytsell, D.O. R.N. R.N. CMP Stat Stat 15:13 11/04/2024 15:14 11/04/2024 15:14 11/04/2024 Emerald Chavez Alisha Whytsell, D.O. R.NKristina R.N. Glucose Bedside Stat Stat 15:13 11/04/2024 15:14 11/04/2024 15:14 11/04/2024 Emerald Chavez Alisha Whytsell, D.O. R.N. R.N. EKG - ED Stat Stat 15:13 11/04/2024 15:14 11/04/2024 15:14 11/04/2024 Emerald Chavez Alisha Whytsell, 1 of 2 Order Sheet D.O. R.N. R.N. Lyme Early Stat 15:35 11/04/2024 15:52 11/04/2024 15:52 11/04/2024 (Signs/Symp <=30 Emerald Chavez, Emerald Hernandez, Days) [CCL] Stat D.O. R.N. R.N. DIAGNOSTIC STUDY ORDERS Order Description Priority Entered Acknowledged Completed CT Brain wo Cont Stat Stat 15:13 11/04/2024 15:14 15:35 Eusebio Wu, 11/04/2024 11/04/2024 D.OEmerald Fernandes, R.N. R.N. Reason for Study: Weakness STAFF ORDERS Order Description Priority Entered Acknowledged Collected Completed IV Saline Lock 15:13 11/04/2024 15:14 11/04/2024 15:14 11/04/2024 Emerald Chavez Alisha Whytsell, D.O. R.N. R.N. [Electronically signed by Eusebio Wu D.O. (11/05/2024 17:32 EDT)] 2 of 2 Normal [facility] ED PHYSICIAN CLINICAL REPORT on 11-05-2024 ED PHYSICIAN CLINICAL REPORT Narrative Physician Clinical [address] [address] [id number] 11/04/2024 12:19:00 Patient: MYCHAL SWANSON Sex: Male : 1950 Age: 74y Disposition: Discharge to Home Disposition Decision Time: 16:20 11/04/2024 Departure Time: 16:29 11/04/2024 Measurements Wt: 63.5 kg, Ht/Chacorta: 64.0 in, BMI: 24.03 Initial Vital Sign Measured Time BP MAP HR RR O2Sat ETCO2 Temp Pain GCS RTS 14:43 11/04/2024 164/89 114 63 17 98% 98.5 F 0 Time Seen: 15:01 11/04/2024. Arrived- By private vehicle. Historian- patient. Independent historian- family. HISTORY OF PRESENT ILLNESS Chief Complaint: FACIAL DROOP. Patient came in he had left-sided facial droop. He can not tell me close his eyes he had a hard time talking and putting a straw to his lips to drink. He denied any problems with his arms or legs. Was all on the left side of the face. He is not able to wrinkle his forehead totally. He actually had surgery on his left ankle scheduled. However because of this weakness they were concerned about a stroke and sent him into the emergency department to be further evaluated. This started yesterday and patient was last known well (17:02 11/03/2024). The patient has had weakness and difficulty with speech. No numbness, tingling, visual disturbance or impaired swallowing. No difficulty walking. No dizziness or seizure. REVIEW OF SYSTEMS 11 Narrative GI: No abdominal pain, nausea or vomiting. RESPIRATORY: No difficulty breathing. CVS: No chest pain. NEUROLOGICAL: No headache or head injury. CONSTITUTIONAL: No fever. SKIN: No skin rash. THROAT: No sore throat. PAST HISTORY See nurses notes. Fibromyalgia Gout Hypercholesterolemia Hypertension Surgeries: Appendectomy Hernia Repair Hip Surgery: Body Site left kidney stone Rotator Cuff Surgery Medications: allopurinol 300 mg tablet: TAKE ONE TABLET BY MOUTH DAILY aspirin 81 mg tablet: 1 tablet twice a day. atenolol 50 mg tablet: 1 tablet once a day. coenzyme Q10 (ubiquinol) 200 mg capsule: 1 capsule once a day. fenofibrate micronized 134 mg capsule: 1 capsule once a day TAKE ONE CAPSULE BY MOUTH DAILY. Fish Oil 120 mg-180 mg capsule: 4 capsule twice a day. ginkgo biloba 40 mg tablet: 1 tablet twice a day. losartan 100 mg tablet: TAKE ONE TABLET BY MOUTH EVERY MORNING Metamucil 3.4 gram/5.4 gram oral powder: 1 scoop once a day. niacin 500 mg tablet: 2 tablet once a day. rosuvastatin 40 mg tablet: TAKE ONE TABLET BY MOUTH EVERY DAY tadalafil 10 mg tablet: TAKE 1 TABLET BY MOUTH APPROXIMATELY 30 MINUTES PRIOR TO SEXUAL ACTIVITY. DO NOT USE MORE THAN 1 DOSE PER 24 HOURS Stopped 11/04/2024. Allergies: gemfibrozil 2 of 11 Narrative Home Medications/Allergy Information Source: patient - David HubbardKristinaVikaKristina, 11/04/2024 14:39 EDT SOCIAL HISTORY Never smoker. No alcohol use. ADDITIONAL NOTES The nursing notes have been reviewed. PHYSICAL EXAM Appearance: Alert. No acute distress. Head: Head atraumatic. Eyes: Pupils equal, round and reactive to light. No nystagmus. ENT: Normal ENT inspection. Airway intact. Neck: Normal inspection. Neck supple. CVS: Normal heart rate and rhythm. Heart sounds normal. Respiratory: No respiratory distress. Painless inspiration. Abdomen: Soft and nontender. Skin: Skin warm. Normal skin color. Normal skin turgor. Extremities: Extremities exhibit normal ROM. No lower extremity edema. Neuro: Alert. Oriented X 3. No alteration in mental status. Not disoriented. Alertness is not decreased. Verbal response is not abnormal. Response to pain is not abnormal. No aphasia. Mood/affect normal. Abnormal speech. Cranial nerves normal (as tested). Moderate left-sided facial weakness. No sparing of forehead. The patient has constant, localized weakness of the left face (mild). Sensory deficit present. Altered sensation to light touch on the left face. No pronator drift. LABS, X-RAYS, AND EKG 12-LEAD EKG: EKG time: 14:41 11/04/2024. No acute process. Q waves in lead II, III and aVF. Normal axis. Left axis deviation. Interpretation time: 15:00 11/04/2024. Laboratory Tests: CBC + DIFF Final MAAME: 11/04/2024 14:37:00 EDT MsgRcvd: 11/04/2024 15:34 EDT 3 of 11 Narrative Lab Test Result Reference Status Received Comments 11/04/2024 15:34 CBC-COMPLETE CBC + DIFF Final EDT BLOOD COUNT 11/04/2024 15:34 WBC 8.5 x 10/UL 4.5 - 10.8 Final EDT 3.93 x 10/UL 11/04/2024 15:34 RBC 4.50 - 6.00 Final Below low normal EDT 11.7 g/dl 11/04/2024 15:34 HEMOGLOBIN 13.0 - 17.5 Final Below low normal EDT 33.6 % 11/04/2024 15:34 HEMATOCRIT 40.0 - 52.0 Final Below low normal EDT 11/04/2024 15:34 MCV 86 fl 81 - 98 Final EDT 11/04/2024 15:34 MCH 30 pg 27 - 33 Final EDT 11/04/2024 15:34 MCHC 35 X10 3 3 (more content not included)... Normal [facility] ED SUPER BILLon 11-05-2024 ED [facility]ILL [facility] [address] [place] [address] [id number] 11/04/2024 Patient: MYCHAL SWANSON Sex: Male : 1950 Age: 74y Professional Category Item Description Facility Code Code Quantity Fee Total Nurse/E/M EMERGENCY 244101 1 $0.00 $0.00 DEPT VISIT HIGH SEVERITYFUNCJ (42239-69) Grand Total $0.00 Providers Eusebio Wu D.O. Chief Complaint FACIAL DROOP. Patient came in he had left-sided facial droop. He can not tell me close his eyes he had a hard time talking and putting a straw to his lips to drink. He denied any problems with his arms or legs. Was all on the left side of the face. He is not able to wrinkle his forehead totally. He actually had surgery on his left ankle scheduled. However because of this weakness they were concerned about a stroke and sent him into the emergency department to be further evaluated. 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 1 of 2 [facility] ICD-10 Codes G51.0: Swartz's palsy 2 of 2 Normal [facility] ED VISIT SUMMARYon ED VISIT SUMMARY Visit Overview Visit Overview [address] [place] [address] [id number] 11/04/2024 Patient: MYCHAL SWANSON Sex: Male : 1950 Age: 74y 11/05/2024 05:32 PM EDT ED Arrival:14:32 11/04/2024 EDT Status: Recent Travel:no Language:eng Adv Directive: Isolation Status: Ethnicity:N Fall Risk:risk Infectious Disease Exposure:no Measurements:5'4 / 162.6 Self-Harm Status:risk Sepsis Screen:negative cm 140.0 lb / 63.5 kg Chief Complaint:ALTERED MENTAL STATUS, ([place]), and (surgery ) ALLERGIES gemfibrozil HOME MEDICATIONS allopurinol 300 mg tablet: TAKE ONE TABLET BY MOUTH DAILY aspirin 81 mg tablet: 1 tablet twice a day. atenolol 50 mg tablet: 1 tablet once a day. coenzyme Q10 (ubiquinol) 200 mg capsule: 1 capsule once a day. fenofibrate micronized 134 mg capsule: 1 capsule once a day TAKE ONE CAPSULE BY MOUTH DAILY. 4 Visit Overview Fish Oil 120 mg-180 mg capsule: 4 capsule twice a day. ginkgo biloba 40 mg tablet: 1 tablet twice a day. losartan 100 mg tablet: TAKE ONE TABLET BY MOUTH EVERY MORNING Metamucil 3.4 gram/5.4 gram oral powder: 1 scoop once a day. niacin 500 mg tablet: 2 tablet once a day. rosuvastatin 40 mg tablet: TAKE ONE TABLET BY MOUTH EVERY DAY tadalafil 10 mg tablet: TAKE 1 TABLET BY MOUTH APPROXIMATELY 30 MINUTES PRIOR TO SEXUAL ACTIVITY. DO NOT USE MORE THAN 1 DOSE PER 24 HOURS Stopped 11/04/2024. PAST MEDICAL HISTORY / PROBLEMS Fibromyalgia Gout Hypercholesterolemia Hypertension Immunizations: up-to-date See nurses notes PAST SURGICAL HISTORY Appendectomy Hernia Repair Hip Surgery. left kidney stone Rotator Cuff Surgery SOCIAL HISTORY Smoking status: No Alcohol use: No Drug use: No ED COURSE MEDICATIONS GIVEN IN EMERGENCY DEPARTMENT IV SITE INFORMATION INTAKE 4 Visit Overview OUTPUT REASSESMENT (most recent) 14:58 11/04/24. GENERAL / NEURO / PSYCH: Alert. Oriented X 4. Appears in no acute distress. Speech within normal limits. NIH Stroke Scale: score 2. Level of Consciousness: alert (0). LOC Questions: both (0). LOC Commands: both (0). Best gaze: normal (0). Visual field loss: none (0). Facial palsy: partial (2). Motor arm: no drift right arm (0) and no drift left arm (0). Motor leg: no drift right leg (0) and no drift left leg (0). Limb ataxia: none (0). Sensory loss: none (0). Aphasia: none (0). Dysarthria: normal (0). Extinction and inattention: none (0). RESPIRATORY: Respirations not labored. Breath sounds within normal limits. CVS: Normal sinus rhythm noted. Capillary refill less than 2 seconds. SKIN: Skin is warm and dry. Normal skin turgor. VITAL SIGNS First Vitals Last Vitals Temp 14:43 11/04/24 98.5 F Temp 16:23 11/04/24 BP 14:43 11/04/24 164/89 BP 16:23 11/04/24 HR 14:43 11/04/24 63 HR 16:23 11/04/24 69 RR 14:43 11/04/24 17 RR 16:23 11/04/24 O2 Sat 14:43 11/04/24 98% O2 Sat 16:23 11/04/24 96% Pain 14:43 11/04/24 0 Pain 16:23 11/04/24 ETCO2 14:43 11/04/24 ETCO2 16:23 11/04/24 GCS 14:43 11/04/24 GCS 16:23 11/04/24 RTS 14:43 11/04/24 RTS 16:23 11/04/24 PROCEDURES NURSING INTERVENTIONS LABS / STUDIES LABS / STUDIES ORDERED CBC w Diff CMP CT Brain wo Cont EKG - ED Glucose Bedside Lyme Early (Signs/Symp <=30 Days) [CCL] 3 of 4 Visit Overview CLINICAL IMPRESSION SWARTZ'S PALSY ON THE LEFT SIDE 4 of 4 Normal [facility] ED VITALS FLOW SHEETon 11-05 ED VITALS FLOW SHEET Vitals Vital Sign Flow Sheet [place] [address] [place] [address] [phone] 11/04/2024 Patient: MYCHAL SWANSON Sex: Male : 1950 Age: 74y Measurements Wt: 63.5 kg, Ht/Chacorta: 64.0 in, BMI: 24.03 Measured Time BP MAP HR RR O2Sat ETCO2 Temp Pain GCS RTS 16:23 11/04/2024 69 96% 16:19 11/04/2024 141/78 109 69 16:18 11/04/2024 60 97% 16:13 11/04/2024 67 97% 16:08 11/04/2024 67 93% 16:05 11/04/2024 158/75 102 70 16:03 11/04/2024 71 95% 15:58 11/04/2024 63 97% 15:53 11/04/2024 60 95% 15:50 11/04/2024 146/82 91 68 15:48 11/04/2024 52 97% 15:43 11/04/2024 59 95% 15:38 11/04/2024 67 96% 15:34 11/04/2024 135/85 94 68 15:33 11/04/2024 55 98% 1 of 2 Vitals Measured Time BP MAP HR RR O2Sat ETCO2 Temp Pain GCS RTS 15:28 11/04/2024 51 97% 15:23 11/04/2024 74% 15:20 11/04/2024 68 97% 15:19 11/04/2024 158/76 103 69 15:15 11/04/2024 57 95% 15:14 11/04/2024 51 96% 15:09 11/04/2024 61 97% 15:04 11/04/2024 157/90 138 72 15:04 11/04/2024 66 97% 14:59 11/04/2024 63 96% 14:54 11/04/2024 65 97% 14:50 11/04/2024 147/85 126 69 14:49 11/04/2024 60 98% 14:43 11/04/2024 164/89 114 63 17 98% 98.5 F 0 2 of 2 Normal [facility] LYME EARLY (SIGNS/SYMP <=30 DAYS) [CCL]on 11-05-2024 Lyme Antibodies, Screen Positive Abnormal Negative [facility] Comment on above: Result Comment: Borr willie burgdorferi antibody screening test indicates possible presence of Lyme-specific antibodies. Current testing guidelines recommend that all positive or equivocal screen test results be confirmed by a standardized Lyme immunoblot assay following CDC criteria. For final interpretation please refer to Lyme immunoblot result(s). Clinical and epidemiological correction is required. Lyme Western Blot confirmation test has been ordered and billed. [facility] [address] [place] [address] Marques Joseph III, M.D. [id number] Performed By: #### 2 [id number] #### [facility],[address] [place] [address] B. burgdorferi IgG and IgM p toni (S)on 11-04-2024 B. burgdorferi IgG+IgM Qn (S) Positive Abnormal Negative [facility] Comment on above: Order Comment: Speci men Type: BLOOD SPECIMEN Ordering Facility: [facility] Address: [address] [place] [address] Result Comment: Borr willie burgdorferi antibody screening test indicates possible presence of Lyme-specific antibodies. Current testing guidelines recommend that all positive or equivocal screen test results be confirmed by a standardized Lyme immunoblot assay following CDC criteria. For final interpretation please refer to Lyme immunoblot result(s). Clinical and epidemiological correction is required. Lyme Western Blot confirmation test has been ordered and billed. Performed By: #### 3 4942-3 #### [facility] CLIA [id number] [address] [place] [address] [place] B. burgdorferi IgG+IgM IB Ql (S)on 11-04-2024 B. burgdorferi Ab band pattern IB (S) [Interp] Both IgM and IgG antibodies against Borrelia burgdorferi were detected by Western Blot. 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 Normal [facility] Comment on above: Order Comment: Speci men Type: BLOOD SPECIMEN Ordering Facility: [facility] Address: [address] [place] [address] Performed By: #### 2 986-8, 2731-8 #### [facility] CLIA [id number] [address] [place] [address] [place] B. burgdorferi IgG band pattern IB (S) [Interp] p-66 Normal [facility] Comment on above: Order Comment: Speci men Type: BLOOD SPECIMEN Ordering Facility: [facility] Address: [address] [place] [address] Result Comment: p-45 p-41 p-39 p-23 p-18 Performed By: #### 2 986-8, 8 #### [facility] CLIA [id number] [address] [place] [address] [place] B. burgdorferi IgG IB Ql (S) Positive Abnormal Negative [facility] Comment on above: Order Comment: Speci men Type: BLOOD SPECIMEN Ordering Facility: [facility] Address: [address] [place] [address] Result Comment: CDC criteria for a positive Western blot are the presence of >=5 bands for IgG. Performed By: #### 2 986-8, 8 #### [facility] CLIA [id number] [address] [place] [address] [place] B. burgdorferi IgM band pattern IB (S) [Interp] p-41 Normal [facility] Comment on above: Order Comment: Speci arvin Type: BLOOD SPECIMEN Ordering Facility: [facility] Address: [address] [place] [address] Result Comment: p-39 p-23 Performed By: #### 2 986-8, 2730-12 #### [facility] CLIA [id number] [address] [place] [address] [place] B. burgdorferi IgM IB Ql (S) Positive Abnormal Negative [facility] Comment on above: Order Comment: Speci men Type: BLOOD SPECIMEN Ordering Facility: [facility] Address: [address] [place] [address] Result Comment: CDC criteria for a positive Western Blot are the presence of >=2 bands for IgM. Performed By: #### 2 986-8, 2738 #### [facility] CLIA [id number] [address] [place] [address] [place] CBC + DIFFon 11-04-2024 Baso # 0.06 x10EE3/UL Normal 0.00 - 0.10 [facility] Comment on above: Performed By: #### 2 37149 #### [place] [address] Basophils/100 WBC (Bld) 0.7 % Normal 0.0 - 2.0 [facility] Comment on above: Performed By: #### 2 77034 #### [facility],[address] [place] [address] CBC + DIFF Normal [facility] Comment on above: Result Comment: CBC- COMPLETE BLOOD COUNT Performed By: #### 2 30596 #### [place] [address] EO # 0.27 x10EE3/UL Normal 0.00 - 0.50 [facility] Comment on above: Performed By: #### 2 27502 #### [place] [address] Eosinophils/100 WBC (Bld) 3.2 % Normal 0.0 - 7.0 [facility] Comment on above: Performed By: #### 2 36133 #### [place] [address] Erythrocyte distribution width (RBC) [Ratio] 14.1 % Normal 12.0 - 15.6 [facility] Comment on above: Performed By: #### 2 73517 #### [place] [address] Hematocrit (Bld) [Volume fraction] 33.6 % Low 40.0 - 52.0 [facility] Comment on above: Performed By: #### 2 09898 #### [place] [address] Hemoglobin (Bld) [Mass/Vol] 11.7 g/dL Low 13.0 - 17.5 [facility] Comment on above: Performed By: #### 2 98757 #### [facility],[address] [place] [address] Lymph # 3.19 x10EE3/UL High 0.80 - 2.80 [facility] Comment on above: Performed By: #### 2 56763 #### [facility],[address] [place] [address] Lymphocytes/100 WBC (Bld) 37.7 % Normal 20.0 - 45.0 [facility] Comment on above: Performed By: #### 2 25308 #### [facility],[address] [place] [address] MANUAL DIFF N/A Normal [facility] Comment on above: Performed By: #### 2 63092 #### [facility],[address] [place] [address] MCH (RBC) [Entitic mass] 30 pg Normal 27 - 33 [facility] Comment on above: Performed By: #### 2 03623 #### [place] [address] MCHC 35 X10 3 Normal 32 - 36 [facility] Comment on above: Performed By: #### 2 58728 #### [place] [address] MCV (RBC) [Entitic vol] 86 fL Normal 81 - 98 [facility] Comment on above: Performed By: #### 2 02259 #### [place] [address] [place] # 0.63 x10EE3/UL Normal 0.20 - 1.00 [facility] Comment on above: Performed By: #### 2 55087 #### [place] [address] MONOS % 7.5 % Normal 0.0 - 10.0 [facility] Comment on above: Performed By: #### 2 55315 #### [facility],[address],[place] [address] Morphology [place] (Bld) [Interp] N/A Normal [facility] Comment on above: Performed By: #### 2 06938 #### [facility],[address] [place], [place] [id number] Neut # 4.30 x10EE3/UL Normal 1.50 - 7.10 [facility] Comment on above: Performed By: #### 2 89915 #### [facility],[address] [place] [address] Neutrophils/100 WBC (Bld) 50.9 % Normal 46.0 - 76.0 [facility] Comment on above: Performed By: #### 2 67749 #### [facility],[address] [place] [address] PLATELET 346 x10EE3/UL Normal 150 - 450 [facility] Comment on above: Performed By: #### 2 62583 #### [facility],[address] [place] [address] Platelet mean volume (Bld) [Entitic vol] 7.7 fL Normal 6.4 - 10.5 [facility] Comment on above: Result Comment: AUTO MATED DIFFERENTIAL Performed By: #### 2 80134 #### [facility],[address] [place] [address] RBC 3.93 x 10EE6/UL Low 4.50 - 6.00 [facility] Comment on above: Performed By: #### 2 85408 #### [facility],[address] [place], [place] [id number] WBC 8.5 x 10EE3/UL Normal 4.5 - 10.8 [facility] Comment on above: Performed By: #### 2 04236 #### [facility],[address] [place] [address] CMP with eGFRon 11-04-2024 AGE 74 years Normal [facility] Comment on above: Performed By: #### 2 70756 ####[facility],[address] [place] [address] Albumin [Mass/Vol] 3.3 g/dL Low 3.4 - 5.0 [facility] Comment on above: Performed By: #### 2 41647 ####[facility],[address] [place] [address] Albumin/Globulin [Mass ratio] 0.7 {ratio} Low 0.9 - 1.6 [facility] Comment on above: Performed By: #### 2 83982 ####[facility],[address] [place] [address] 58989 ALK PHOS 76 U/L Normal 46 - 116 [facility] Comment on above: Performed By: #### 2 58314 ####[facility],[address] [place] [address] 30136 ALT [Catalytic activity/Vol] 26 U/L Normal 16 - 63 [facility] Comment on above: Performed By: #### 2 11580 ####[facility],[address] [place] [address]100 Anion gap [Moles/Vol] 19 mmol/L Normal 10 - 20 [facility] Comment on above: Performed By: #### 2 23358 ####[facility],[address] [place] [address] 72747 AST [Catalytic activity/Vol] 33 U/L Normal 15 - 37 [facility] Comment on above: Performed By: #### 2 36686 ####[facility],[address] [place] [address]307 B/C RATIO 17 ratio Normal 0 - 30 [facility] Comment on above: Performed By: #### 2 71823 ####[facility],[address] [place] [address] 57748 Bilirubin [Mass/Vol] 0.4 mg/dL Normal 0.2 - 1.0 [facility] Comment on above: Performed By: #### 2 13881 ####[facility],[address] [place] [address]2818 Calcium [Mass/Vol] 9.4 mg/dL Normal 8.5 - 10.1 [facility] Comment on above: Performed By: #### 2 77807 ####[facility],[address] [place] [address] 11442 Chloride [Moles/Vol] 99 mmol/L Normal 98 - 107 [facility] Comment on above: Performed By: #### 2 12494 ####[facility],[address] [place] [address] [address] CMP with eGFR Normal [facility] Comment on above: Result Comment: COMP REHENSIVE METABOLIC PANEL Performed By: #### 2 08788 ####[facility],[address] [place] [address] 46179 CO2 [Moles/Vol] 22.5 mmol/L Normal 21.0 - 32.0 [facility] Comment on above: Performed By: #### 2 85461 ####[facility],[address] [place] [address] 21144 Creatinine [Mass/Vol] 1.52 mg/dL High 0.70 - 1.30 [facility] Comment on above: Performed By: #### 2 10656 ####[facility],[address] [place] [address] 74753 eGFR 45 ML/MINUTE Low 60 - 999 [facility] Comment on above: Performed By: #### 2 84785 ####[facility],[address] [place] [address] 43863 eGFR(AA) 55 ML/MINUTE Low 60 - 999 [facility] Comment on above: Result Comment: ACCO RDING TO THE NATIONAL KIDNEY DISEASE EDUCATION PROGRAM(NKDE), A NORMAL eGFR IS A VALUE GREATER THAN OR EQUAL TO 60 ML/MIN/1.73 SQ METERS. CHRONIC KIDNEY DISEASE: <60mL/MIN/1.73 SQ METERS KIDNEY FAILURE: <15mL/MIN/1.73 SQ METERS THIS TEST SHOULD ONLY BE USED FOR PATIENTS 18 YEARS OF AGE AND OLDER. Performed By: #### 2 69836 ####[facility],[address] [place] [address] 62832 Globulin (S) [Mass/Vol] 4.5 g/dL High 1.5 - 3.8 [facility] Comment on above: Performed By: #### 2 68466 ####[facility],[address] [place] [address] 16791 Glucose [Mass/Vol] 68 mg/dL Low 74 - 106 [facility] Comment on above: Performed By: #### 2 33446 ####[facility],[address] [place] [address] 32078 Potassium [Moles/Vol] 4.8 mmol/L Normal 3.5 - 5.1 [facility] Comment on above: Performed By: #### 2 92253 ####[facility],[address] [place] [address] 37116 Protein [Mass/Vol] 7.8 g/dL Normal 6.4 - 8.2 [facility] Comment on above: Performed By: #### 2 52652 ####[facility],[address] [place] [address] 14487 Sodium [Moles/Vol] 136 mmol/L Normal 136 - 145 [facility] Comment on above: Performed By: #### 2 41587 ####[facility],[address] [place] [address] 34502 Urea nitrogen [Mass/Vol] 26 mg/dL High 7 - 18 [facility] Comment on above: Performed By: #### 2 87243 ####[facility],[address] [place] [address] BRAIN W/O CONTRASTon 10-25 CT BRAIN W/O CONTRAST [place] [id number] Patient: MYCHAL SWANSON Phone#: : [phone] Age: 74 Gender: M Pt. Type: ER Account: [id number] Location: 052 Ordering: DR. PITO CASE Exam Date: 11/04/2024/15:18 Family Phys: ISAIAS KABA Charge Code: 722628 Physician: Patrick Order #: [id number] Dose#: [id number] PROCEDURE: CT BRAIN WITHOUT CONTRAST COMPARISON: None. INDICATIONS: Slurred Speech. TECHNIQUE: CT images were obtained without contrast material. All CT scans at this facility use dose modulation, iterative reconstruction, and/or weight based dosing when appropriate to reduce radiation dose to as low as reasonably achievable. IV CONTRAST: No IV contrast used,0ml TOTAL DOSE: 57.5 CTDIvol(mGy) FINDINGS: CEREBRUM: Age-appropriate atrophy is present, without visible acute hemorrhage or lesion. CEREBELLUM: No edema, hemorrhage, mass, acute infarction, or inappropriate atrophy. BRAINSTEM: No edema, hemorrhage, mass, acute infarction, or inappropriate atrophy. CSF SPACES: Ventricles, cisterns, and sulci are appropriate for age. No hydrocephalus, subarachnoid hemorrhage, or mass. SKULL: No mass or other significant visible lesion. SINUSES: There is partial opacification of the right mastoid air cells. Mucosal thickening is present in the ethmoid and sphenoid sinuses. ORBITS: Limited views are unremarkable. OTHER: Negative. CONCLUSION: 1. There is no evidence of acute intracranial abnormality. 2. Paranasal sinus disease. Dictated by: Kimmy Bravo MD on 11/04/2024 at 15:24 Approved by: Kimmy Bravo MD on 11/04/2024 at 15:26 Normal [facility] BMP with eGFRon 10-29-2024 AGE 74 years Normal [facility] Comment on above: Performed By: #### 2 29087 #### [facility],[address] [place] [address] Anion gap [Moles/Vol] 14 mmol/L Normal 10 - 20 [facility] Comment on above: Performed By: #### 2 87075 #### [facility],[address] [place] [address] BMP with eGFR Normal [facility] Comment on above: Result Comment: BASI C METABOLIC PANEL Performed By: #### 2 62530 #### [facility],[address] [place], [place] [address] Calcium [Mass/Vol] 9.4 mg/dL Normal 8.5 - 10.1 [facility] Comment on above: Performed By: #### 2 62992 #### [facility],[address] [place], [place] [address] Chloride [Moles/Vol] 103 mmol/L Normal 98 - 107 [facility] Comment on above: Performed By: #### 2 98632 #### [place] [id number] CO2 [Moles/Vol] 27.4 mmol/L Normal 21.0 - 32.0 [facility] Comment on above: Performed By: #### 2 30051 #### [facility],[address] [place], [place] [address] Creatinine [Mass/Vol] 1.76 mg/dL High 0.70 - 1.30 [facility] Comment on above: Performed By: #### 2 43896 #### [facility],[address] [place] [address] 45917 eGFR 38 ML/MINUTE Low 60 - 999 [facility] Comment on above: Performed By: #### 2 48013 #### [address] [address] eGFR(AA) 46 ML/MINUTE Low 60 - 999 [facility] Comment on above: Result Comment: ACCO RDING TO THE NATIONAL KIDNEY DISEASE EDUCATION PROGRAM(NKDE), A NORMAL eGFR IS A VALUE GREATER THAN OR EQUAL TO 60 ML/MIN/1.73 SQ METERS. CHRONIC KIDNEY DISEASE: <60mL/MIN/1.73 SQ METERS KIDNEY FAILURE: <15mL/MIN/1.73 SQ METERS THIS TEST SHOULD ONLY BE USED FOR PATIENTS 18 YEARS OF AGE AND OLDER. Performed By: #### 2 46334 #### [place] [address],[place] [address] Glucose [Mass/Vol] 76 mg/dL Normal 74 - 106 [facility] Comment on above: Performed By: #### 2 98935 #### [facility],[address] [place] [address] 76024 Potassium [Moles/Vol] 4.9 mmol/L Normal 3.5 - 5.1 [facility] Comment on above: Performed By: #### 2 03159 #### [facility],[address] [place] [address] 25609 Sodium [Moles/Vol] 139 mmol/L Normal 136 - 145 [facility] Comment on above: Performed By: #### 2 79451 #### [facility],[address] [place] [address] 99500 Urea nitrogen [Mass/Vol] 34 mg/dL High 7 - 18 [facility] Comment on above: Performed By: #### 2 82394 #### [facility],[address] [place] [address] 49903 CBC + DIFFon 10-29-2024 Baso # 0.07 x10EE3/UL Normal 0.00 - 0.10 [facility] Comment on above: Performed By: #### 2 02548 #### [facility],[address] [place] [address] 89985 Basophils/100 WBC (Bld) 0.9 % Normal 0.0 - 2.0 [facility] Comment on above: Performed By: #### 2 64656 #### [facility],[address] [place] [address] 55367 CBC + DIFF Normal [facility] Comment on above: Result Comment: CBC- COMPLETE BLOOD COUNT Performed By: #### 2 76194 #### [facility],[address] [place] [address] 89501 EO # 0.23 x10EE3/UL Normal 0.00 - 0.50 [facility] Comment on above: Performed By: #### 2 47430 #### [facility],[address] [place], [place] [address] Eosinophils/100 WBC (Bld) 2.9 % Normal 0.0 - 7.0 [facility] Comment on above: Performed By: #### 2 69787 #### [facility],[address] [place] [address] Erythrocyte distribution width (RBC) [Ratio] 14.1 % Normal 12.0 - 15.6 [facility] Comment on above: Performed By: #### 2 62269 #### [place] [address] Hematocrit (Bld) [Volume fraction] 32.2 % Low 40.0 - 52.0 [facility] Comment on above: Performed By: #### 2 09133 #### [facility],[address] [place] [address] Hemoglobin (Bld) [Mass/Vol] 11.0 g/dL Low 13.0 - 17.5 [facility] Comment on above: Performed By: #### 2 43672 #### [place] [address] Lymph # 2.90 x10EE3/UL High 0.80 - 2.80 [facility] Comment on above: Performed By: #### 2 85533 #### [place] [address] Lymphocytes/100 WBC (Bld) 35.7 % Normal 20.0 - 45.0 [facility] Comment on above: Performed By: #### 2 07610 #### [place] [address] MANUAL DIFF N/A Normal [facility] Comment on above: Performed By: #### 2 63571 #### [place] [address] MCH (RBC) [Entitic mass] 29 pg Normal 27 - 33 [facility] Comment on above: Performed By: #### 2 48068 #### [facility],[address] [place] [address] 34585 MCHC 34 X10 3 Normal 32 - 36 [facility] Comment on above: Performed By: #### 2 45533 #### [facility],[address] [place] [address] 47051 MCV (RBC) [Entitic vol] 86 fL Normal 81 - 98 [facility] Comment on above: Performed By: #### 2 95899 #### [facility],[address] [place] [address] 40664 [place] # 0.63 x10EE3/UL Normal 0.20 - 1.00 [facility] Comment on above: Performed By: #### 2 03625 #### [facility],[address] [place] [address] 14138 MONOS % 7.8 % Normal 0.0 - 10.0 [facility] Comment on above: Performed By: #### 2 86355 #### [facility],[address] [place] [address] 97680 Morphology Chaparro (Bld) [Interp] N/A Normal [facility] Comment on above: Performed By: #### 2 96151 #### [facility],[address] [place] [address] 36656 Neut # 4.28 x10EE3/UL Normal 1.50 - 7.10 [facility] Comment on above: Performed By: #### 2 72890 #### [address] [address] Neutrophils/100 WBC (Bld) 52.8 % Normal 46.0 - 76.0 [facility] Comment on above: Performed By: #### 2 48806 #### [address] [address] PLATELET 462 x10EE3/UL High 150 - 450 [facility] Comment on above: Performed By: #### 2 92207 #### [facility],[address] [place] [address] 49141 Platelet mean volume (Bld) [Entitic vol] 7.0 fL Normal 6.4 - 10.5 [facility] Comment on above: Result Comment: AUTO MATED DIFFERENTIAL Performed By: #### 2 80921 #### [facility],[address] [place] [address] 86366 RBC 3.76 x 10EE6/UL Low 4.50 - 6.00 [facility] Comment on above: Performed By: #### 2 94643 #### [facility],[address] [place], [place] [address] WBC 8.1 x 10EE3/UL Normal 4.5 - 10.8 [facility] Comment on above: Performed By: #### 2 90339 #### [facility],[address] [place], [place] [address] 25(OH)D3 [facility] 2024 25-hydroxyvitamin D3 [Mass/Vol] 34.3 ng/mL Normal 31.0-80.0 [facility] Comment on above: Order Comment: Speci men Type: BLOOD SPECIMEN Ordering Facility: [facility] Address: [address] [place] [address] Result Comment: Clas sification of 25 [place] Vitamin D status: Deficiency/Insufficiency: < or = 30 ng/ml. Sufficiency/Optimal Levels: 31-80 ng/mL Toxicity: > 100 ng/mL. Test performed by chemiluminescent immunoassay. Performed By: #### 1 989-3 #### [facility] CLIA [id number] [address] [place] [address] [place] ALBUMIN/CREATININE RATIO, UR INEon 06-02-2024 Albumin DL <= 20 mg/L (U) [Mass/Vol] 35.8 mg/L Normal [facility] Comment on above: Order Comment: Speci men Type: URINE SPECIMEN Ordering Facility: [facility] Address: [address] [place] [address] Performed By: #### U ACR #### [facility] CLIA [id number] [address] [place] [address] [place] Albumin/Creatinine (U) [Mass ratio] 43 mg/g High <30 [facility] Comment on above: Order Comment: Speci men Type: URINE SPECIMEN Ordering Facility: [facility] Address: [address] [place] [address] Result Comment: Adul t Male and Female Nephrotic Criteria: <30 mg/g is considered normal to mildly increased 30-300 mg/g is considered moderately increased >300 mg/g is considered severely increased KDIGO. (2013). KDIGO 2012 Clinical Practice Guideline for the Evaluation and Management of Chronic Kidney Disease. Official Journal of the International Society of Nephrology, 3(1), 1-150. Performed By: #### U ACR #### [facility] CLIA [id number] [address] [place] [address] [place] Creatinine (U) [Mass/Vol] 83.2 mg/dL Normal 20.0-300.0 [facility] Comment on above: Order Comment: Speci men Type: URINE SPECIMEN Ordering Facility: [facility] Address: [address] [place] [address] Performed By: #### U ACR #### [facility] CLIA [id number] [address] [place] [address] [place] CBC W Auto Differential pane l (Bld)on 06-02-2024 Basophils (Bld) [#/Vol] 0.08 10*3/uL Normal <0.11 [facility] Comment on above: Order Comment: Speci men Type: BLOOD SPECIMEN Ordering Facility: [facility] Address: [address] [place] [address] Performed By: #### 5 7021-8 #### [facility] CLIA [id number] [address] [place] [address] [place] Basophils/100 WBC (Bld) 0.9 % Normal [facility] Comment on above: Order Comment: Speci men Type: BLOOD SPECIMEN Ordering Facility: [facility] Address: [address] [place] [address] Performed By: #### 5 7021-8 #### [facility] CLIA [id number] [address] [place] [address] [place] Differential cell count method Nom (Bld) Auto Normal [facility] Comment on above: Order Comment: Speci men Type: BLOOD SPECIMEN Ordering Facility: [facility] Address: [address] [place] [address] Performed By: #### 5 7021-8 #### [facility] CLIA [id number] [address] [place] [address] [place] Eosinophils (Bld) [#/Vol] 0.15 10*3/uL Normal <0.46 [facility] Comment on above: Order Comment: Speci men Type: BLOOD SPECIMEN Ordering Facility: [facility] Address: [address] [place] [address] Performed By: #### 5 7021-8 #### [facility] CLIA [id number] [address] [place] [address] [place] Eosinophils/100 WBC (Bld) 1.7 % Normal [facility] Comment on above: Order Comment: Speci men Type: BLOOD SPECIMEN Ordering Facility: [facility] Address: [address] [place] [address] Performed By: #### 5 7021-8 #### [facility] CLIA [id number] [address] [place] [address] [place] Erythrocyte distribution width (RBC) [Ratio] 13.9 % Normal 11.5-15.0 [facility] Comment on above: Order Comment: Speci men Type: BLOOD SPECIMEN Ordering Facility: [facility] Address: [address] [place] [address] Performed By: #### 5 7021-8 #### [facility] CLIA [id number] [address] [place] [address] [place] Hematocrit (Bld) [Volume fraction] 37.0 % Low 39.0-51.0 [facility] Comment on above: Order Comment: Speci men Type: BLOOD SPECIMEN Ordering Facility: [facility] Address: [address] [place] [address] Performed By: #### 5 7021-8 #### [facility] CLIA [id number] [address] [place] [address] [place] Hemoglobin (Bld) [Mass/Vol] 12.0 g/dL Low 13.0-17.0 [facility] Comment on above: Order Comment: Speci men Type: BLOOD SPECIMEN Ordering Facility: [facility] Address: [address] [place] [address] Performed By: #### 5 7021-8 #### [facility] CLIA [id number] [address] [place] [address] [place] Immature granulocytes (Bld) [#/Vol] 10*3/uL Normal <0.10 [facility] Comment on above: Order Comment: Speci men Type: BLOOD SPECIMEN Ordering Facility: [facility] Address: [address] [place] [address] Performed By: #### 5 7021-8 #### [facility] CLIA [id number] [address] [place] [address] [place] Immature granulocytes/100 WBC (Bld) 0.2 % Normal [facility] Comment on above: Order Comment: Speci men Type: BLOOD SPECIMEN Ordering Facility: [facility] Address: [address] [place] [address] Performed By: #### 5 7021-8 #### [facility] CLIA [id number] [address] [place] [address] [place] Lymphocytes (Bld) [#/Vol] 3.05 10*3/uL Normal 1.00-4.00 [facility] Comment on above: Order Comment: Speci men Type: BLOOD SPECIMEN Ordering Facility: [facility] Address: [address] [place] [address] Performed By: #### 5 7021-8 #### [facility] CLIA [id number] [address] [place] [address] [place] Lymphocytes/100 WBC (Bld) 35.0 % Normal [facility] Comment on above: Order Comment: Speci men Type: BLOOD SPECIMEN Ordering Facility: [facility] Address: [address] [place] [address] Performed By: #### 5 7021-8 #### [id number] [address] [place] [address] [place] MCH (RBC) [Entitic mass] 28.6 pg Normal 26.0-34.0 [facility] Comment on above: Order Comment: Speci men Type: BLOOD SPECIMEN Ordering Facility: [facility] Address: [address] [place] [address] Performed By: #### 5 7021-8 #### [id number] [address] [place] [address] [place] MCHC (RBC) [Mass/Vol] 32.4 g/dL Normal 30.5-36.0 [facility] Comment on above: Order Comment: Speci men Type: BLOOD SPECIMEN Ordering Facility: [facility] Address: [address] [place] [address] Performed By: #### 5 7021-8 #### [id number] [address] [place] [address] [place] MCV (RBC) [Entitic vol] 88.3 fL Normal 80.0-100.0 [facility] Comment on above: Order Comment: Speci men Type: BLOOD SPECIMEN Ordering Facility: [facility] Address: [address] [place] [address] [place] [address] Performed By: #### 5 7021-8 #### [facility] CLIA [id number] [address] [place] [address] [place] Monocytes (Bld) [#/Vol] 0.61 10*3/uL Normal <0.87 [facility] Comment on above: Order Comment: Speci men Type: BLOOD SPECIMEN Ordering Facility: [facility] Address: [address] [place] [address] Performed By: #### 5 7021-8 #### [facility] CLIA [id number] [address] [place] [address] [place] Monocytes/100 WBC (Bld) 7.0 % Normal [facility] Comment on above: Order Comment: Speci men Type: BLOOD SPECIMEN Ordering Facility: [facility] Address: [address] [place] [address] Performed By: #### 5 7021-8 #### [facility] CLIA [id number] [address] [place] [address] [place] Neutrophils (Bld) [#/Vol] 4.80 10*3/uL Normal 1.45-7.50 [facility] Comment on above: Order Comment: Speci men Type: BLOOD SPECIMEN Ordering Facility: [facility] Address: [address] [place] [address] Performed By: #### 5 7021-8 #### [facility] CLIA [id number] [address] [place] [address] [place] Neutrophils/100 WBC (Bld) 55.2 % Normal [facility] Comment on above: Order Comment: Speci men Type: BLOOD SPECIMEN Ordering Facility: [facility] Address: [address] [place] [address] Performed By: #### 5 7021-8 #### [facility] CLIA [id number] [address] [place] [address] [place] Nucleated RBC (Bld) [#/Vol] 10*3/uL Normal <0.01 [facility] Comment on above: Order Comment: Speci men Type: BLOOD SPECIMEN Ordering Facility: [facility] Address: [address] [place] [address] Performed By: #### 5 7021-8 #### [facility] CLIA [id number] [address] [place] [address] [place] Nucleated RBC/100 WBC (Bld) [Ratio] 0.0 /100 WBC Normal [facility] Comment on above: Order Comment: Speci men Type: BLOOD SPECIMEN Ordering Facility: [facility] Address: [address] [place] [address] Performed By: #### 5 7021-8 #### [facility] CLIA [id number] [address] [place] [address] [place] Platelet mean volume (Bld) [Entitic vol] 9.7 fL Normal 9.0-12.7 [facility] Comment on above: Order Comment: Speci men Type: BLOOD SPECIMEN Ordering Facility: [facility] Address: [address] [place] [address] Performed By: #### 5 7021-8 #### [facility] CLIA [id number] [address] [place] [address] [place] Platelets (Bld) [#/Vol] 311 10*3/uL Normal 150-400 [facility] Comment on above: Order Comment: Speci men Type: BLOOD SPECIMEN Ordering Facility: [facility] Address: [address] [place] [address] Performed By: #### 5 7021-8 #### [facility] CLIA [id number] [address] [place] [address] [place] RBC (Bld) [#/Vol] 4.19 10*6/uL Low 4.20-6.00 [facility] Comment on above: Order Comment: Speci men Type: BLOOD SPECIMEN Ordering Facility: [facility] Address: [address] [place] [address] Performed By: #### 5 7021-8 #### [facility] CLIA [id number] [address] [place] [address] [place] WBC (Bld) [#/Vol] 8.71 10*3/uL Normal 3.70-11.00 [facility] Comment on above: Order Comment: Speci men Type: BLOOD SPECIMEN Ordering Facility: [facility] Address: [address] [place] [address] Performed By: #### 5 7021-8 #### [id number] [address] [place] [address] [place] Magnesium SerPl-nc 06-02 Magnesium [Mass/Vol] 2.1 mg/dL Normal 1.7-2.3 [facility] Comment on above: Order Comment: Speci men Type: BLOOD SPECIMEN Ordering Facility: [facility] Address: [address] [place] [address] Performed By: #### 3 084-1, 61475-5, 91210-9 #### [id number] [address] [place] [address] [place] PTH-Intact SerPl-mCncon -0 Parathyrin.intact [Mass/Vol] 31 pg/mL Normal 15-65 [facility] Comment on above: Order Comment: Speci men Type: BLOOD SPECIMEN Ordering Facility: [facility] Address: [address] [place] [address] Performed By: #### 2 986-8, 2731-8 #### [facility] CLIA [id number] [address] [place] [address] [place] [address] [place] Renal function 2000 panelon 06-02-2024 Albumin [Mass/Vol] 4.5 g/dL Normal 3.9-4.9 [facility] Comment on above: Order Comment: Speci men Type: BLOOD SPECIMEN Ordering Facility: [facility] Address: [address] [place] [address] Performed By: #### 3 084-1, 98207-0, #### [facility] CLIA [id number] [address] [place] [address] [place] Anion gap [Moles/Vol] 16 mmol/L High 8-15 [facility] Comment on above: Order Comment: Speci men Type: BLOOD SPECIMEN Ordering Facility: [facility] Address: [address] [place] [address] Performed By: #### 3 084-1, 63687-6, #### [facility] CLIA [id number] [address] [place] [address] [place] Calcium [Mass/Vol] 9.6 mg/dL Normal 8.5-10.2 [facility] Comment on above: Order Comment: Speci men Type: BLOOD SPECIMEN Ordering Facility: [facility] Address: [address] [place] [address] Performed By: #### 3 084-1, , #### [facility] CLIA [id number] [address] [place] [address] [place] Chloride [Moles/Vol] 98 mmol/L Normal 98-107 [facility] Comment on above: Order Comment: Speci men Type: BLOOD SPECIMEN Ordering Facility: [facility] Address: [address] [place] [address] Performed By: #### 3 084-1, 34983-0, #### [facility] CLIA [id number] [address] [place] [address] [place] CO2 [Moles/Vol] 23 mmol/L Normal 22-30 [facility] Comment on above: Order Comment: Speci men Type: BLOOD SPECIMEN Ordering Facility: [facility] Address: [address] [place], [place] [address] Performed By: #### 3 084-1, 89049-3, #### [facility] CLIA [id number] [address] [place] [address] [place] Creatinine [Mass/Vol] 1.32 mg/dL High 0.73-1.22 [facility] Comment on above: Order Comment: Speci men Type: BLOOD SPECIMEN Ordering Facility: [facility] Address: [address] [place], [place] [address] Performed By: #### 3 084-1, 19731-2, #### [facility] CLIA [id number] [address] [place] [address] [place] Creatinine and Glomerular filtration rate.predicted panel (S/P/Bld) 57 mL/min/1.73m??? Low >=60 [facility] Comment on above: Order Comment: Sherri sheridan Type: BLOOD SPECIMEN Ordering Facility: [facility] Address: [address] [place] [address] Result Comment: Iris mated Glomerular Filtration Rate (eGFR) is calculated using the 2020 CKD-EPI creatinine equation. This equation utilizes serum creatinine, sex, and age as parameters. The creatinine assay has traceable calibration to isotope dilution-mass spectrometry. Refer to KDIGO guidelines for clinical interpretation. In patients with unstable renal function, e.g. those with acute kidney injury, the eGFR may not accurately reflect actual GFR. Performed By: #### 3 084-1, 09184-8, #### [facility] CLIA [id number] [address] [place] [address] [place] Glucose [Mass/Vol] 80 mg/dL Normal 74-99 [facility] Comment on above: Order Comment: Sherri sheridan Type: BLOOD SPECIMEN Ordering Facility: [facility] Address: [address] [place], [place] [address] Result Comment: The [place] Diabetes Association (ADA) provides guidance for cutoff values for fasting glucose and random glucose. The ADA defines fasting as no caloric intake for at least 8 hours. Fasting plasma glucose results between 100 to 125 mg/dL indicate increased risk for diabetes (prediabetes). Fasting plasma glucose results greater than or equal to 126 mg/dL meet the criteria for diagnosis of diabetes. In the absence of unequivocal hyperglycemia, results should be confirmed by repeat testing. In a patient with classic symptoms of hyperglycemia or hyperglycemic crisis, random plasma glucose results greater than or equal to 200 mg/dL meet the criteria for diagnosis of diabetes. Reference: Standards of Medical Care in Diabetes 2016, [place] Diabetes Association. Diabetes Care. 2016.39(Suppl 1). Performed By: #### 3 084-1, 07173-9, #### [facility] CLIA [id number] [address] [place] [address] [place] Phosphate [Mass/Vol] 3.3 mg/dL Normal 2.7-4.8 [facility] Comment on above: Order Comment: Specmalina sheridan Type: BLOOD SPECIMEN Ordering Facility: [facility] Address: [address] [place] [address] Performed By: #### 3 084-1, 07000-3, #### [id number] [address] [place] [address] [place] Potassium [Moles/Vol] 4.4 mmol/L Normal 3.7-5.1 [facility] Comment on above: Order Comment: Bunnyi arvin Type: BLOOD SPECIMEN Ordering Facility: [facility] Address: [address] [place], [place] [address] Performed By: #### 3 084-1, 45753-7, #### [facility] [id number] [address] [place] [address] [place] Sodium [Moles/Vol] 137 mmol/L Normal 136-144 [facility] Comment on above: Order Comment: Bunnyi men Type: BLOOD SPECIMEN Ordering Facility: [facility] Address: [address] [place] [address] Performed By: #### 3 084-1, 35539-8, #### [facility] CLIA [id number] [address] [place] [address] [place] Urea nitrogen [Mass/Vol] 27 mg/dL High 9-24 [facility] Comment on above: Order Comment: Speci men Type: BLOOD SPECIMEN Ordering Facility: [facility] Address: [address] [place], [place] [address] Performed By: #### 3 084-1, 36985-1, #### [facility] CLIA [id number] [address] [place] [address] [place] Testost SerPl-mCncon 025 Testosterone [Mass/Vol] 425 ng/dL Normal 193-824 [facility] Comment on above: Order Comment: Speci men Type: BLOOD SPECIMEN Ordering Facility: [facility] Address: [address] [place] [address] Result Comment: A te stosterone level in the 193-320 ng/dL range with associated clinical symptoms is considered low and may indicate hypogonadism (from [facility] 2010 363:123-135). Results >320 ng/dL are considered normal. Performed By: #### 2 986-8, 2731-8 #### [facility] CLIA [id number] [address] [place] [address] [place] Urate SerPl-mCncon 5 Urate [Mass/Vol] 5.8 mg/dL Normal 4.0-8.1 [facility] Comment on above: Order Comment: Speci men Type: BLOOD SPECIMEN Ordering Facility: [facility] Address: [address] [place] [address] Performed By: #### 3 084-1, 40757-7, #### [facility] CLIA [id number] [address] [place] [address] [place] Urinalysis complete panel (U )on 06-02-2024 Bacteria LM.HPF (Urine sed) [#/Area] Negative Normal Negative [facility] Comment on above: Order Comment: Speci men Type: URINE SPECIMEN Ordering Facility: [facility] Address: [address] [place] [address] Performed By: #### 2 4356-8 #### [facility] CLIA [id number] [address] [place] [address] [place] Bilirubin Ql (U) Negative Normal Negative [facility] Comment on above: Order Comment: Speci men Type: URINE SPECIMEN Ordering Facility: [facility] Address: [address] [place] [address] Performed By: #### 2 4356-8 #### [facility] CLIA [id number] [address] [place] [address] [place] Clarity (Unsp spec) Clear Normal Clear [facility] Comment on above: Order Comment: Speci men Type: URINE SPECIMEN Ordering Facility: [facility] Address: [address] [place] [address] Performed By: #### 2 4356-8 #### [facility] CLIA [id number] [address] [place] [address] [place] Color (U) Yellow Normal Yellow [facility] Comment on above: Order Comment: Speci men Type: URINE SPECIMEN Ordering Facility: [facility] Address: [address] [place] [address] Performed By: #### 2 4356-8 #### [facility] CLIA [id number] [address] [place] [address] [place] Epithelial cells LM.HPF (Urine sed) [#/Area] None Seen Normal [facility] Comment on above: Order Comment: Speci men Type: URINE SPECIMEN Ordering Facility: [facility] Address: [address] [place] [address] Performed By: #### 2 4356-8 #### [facility] CLIA [id number] [address] [place] [id number] [place] Glucose Test strip (U) [Mass/Vol] Negative Normal Negative [facility] Comment on above: Order Comment: Speci men Type: URINE SPECIMEN Ordering Facility: [facility] Address: [address] [place] [address] Performed By: #### 2 4356-8 #### [facility] CLIA [id number] [address] [place] [address] [place] Hemoglobin Ql (U) Negative Normal Negative [facility] Comment on above: Order Comment: Speci men Type: URINE SPECIMEN Ordering Facility: [facility] Address: [address] [place] [address] Performed By: #### 2 4356-8 #### [facility] CLIA [id number] [address] [place] [address] [place] Hyaline casts (Urine sed) [#/Area] 0 /[LPF] Normal 0 /LPF [facility] Comment on above: Order Comment: Speci men Type: URINE SPECIMEN Ordering Facility: [facility] Address: [address] [place] [address] Performed By: #### 2 4356-8 #### [facility] CLIA [id number] [address] [place] [address] [place] Ketones Ql (U) Negative Normal Negative [facility] Comment on above: Order Comment: Speci men Type: URINE SPECIMEN Ordering Facility: [facility] Address: [address] [place], [place] [address] Performed By: #### 2 4356-8 #### [facility] CLIA [id number] [address] [place] [address] [place] Leukocyte esterase Test strip Ql (U) Negative Normal Negative [facility] Comment on above: Order Comment: Speci men Type: URINE SPECIMEN Ordering Facility: [facility] Address: [address] [place] [address] Performed By: #### 2 4356-8 #### [facility] CLIA [id number] [address] [place] [address] [place] Nitrite Ql (U) Negative Normal Negative [facility] Comment on above: Order Comment: Speci men Type: URINE SPECIMEN Ordering Facility: [facility] Address: [address] [place] [address] Performed By: #### 2 4356-8 #### [facility] CLIA [id number] [address] [place] [address] [place] pH (U) 6.5 [pH] Normal <8.5 [facility] Comment on above: Order Comment: Speci men Type: URINE SPECIMEN Ordering Facility: [facility] Address: [address] [place] [address] Performed By: #### 2 4356-8 #### [facility] CLIA [id number] [address] [place] [address] [place] Protein (U) [Mass/Vol] Negative Normal Negative [facility] Comment on above: Order Comment: Speci men Type: URINE SPECIMEN Ordering Facility: [facility] Address: [address] [place] [address] Performed By: #### 2 4356-8 #### [facility] CLIA [id number] [address] [place] [address] [place] RBC LM.HPF (Urine sed) [#/Area] 0-2 /HPF Normal 0-2 /HPF [facility] Comment on above: Order Comment: Speci men Type: URINE SPECIMEN Ordering Facility: [facility] Address: [address] [place] [address] Performed By: #### 2 4356-8 #### [facility] CLIA [id number] [address] [place] [address] [place] Specific gravity (U) [Rel density] 1.014 Normal 1.005-1.030 [facility] Comment on above: Order Comment: Speci men Type: URINE SPECIMEN Ordering Facility: [facility] Address: [address] [place] [address] Performed By: #### 2 4356-8 #### [facility] CLIA [id number] [address] [place] [address] [place] Urobilinogen Ql (U) 0.2 EU/dL Normal 0.2-1.0 EU/dL [facility] Comment on above: Order Comment: Speci men Type: URINE SPECIMEN Ordering Facility: [facility] Address: [address] [place] [address] Performed By: #### 2 4356-8 #### [facility] CLIA [id number] [address] [place] [address] [place] WBC LM.HPF (Urine sed) [#/Area] 0-5 /HPF Normal 0-5 /HPF [facility] Comment on above: Order Comment: Speci men Type: URINE SPECIMEN Ordering Facility: [facility] Address: [address] [place] [address] Performed By: #### 2 4356-8 #### [facility] CLIA [id number] [address] [place] [address] [place] CV ECHO COMPLETE CV ECHO COMPLETE [place] [address] Patient: MYCHAL SWANSON Phone#: : 1950 Age: 73 Gender: M Pt. Type: Out Account: [id number] Location: [facility] Ordering: ISAIAS TAMAYO Exam Date: 02/04/2024/8:51 Family Phys: Charge Code: [id number] Physician: Patrick Order #: [id number] Dose#: PROCEDURE: ECHOCARDIOGRAM WITH DOPPLER AND COLOR FLOW HISTORY: lithotripsy x3 INDICATIONS: CARDIAC MURMUR COMPARISON: None. TECHNIQUE: A 2-D ultrasound, color spectral Doppler and M-mode evaluation of the heart and great vessels. PATIENT MEASUREMENTS: Height (in.): 64 BSA: 1.7 Weight (lbs.): 144 BP: 147/77 [employer] Velvet: STACY M MODE 2D MEASUREMENTS AND CALCULATIONS: LVIDd: 4.6 cm LVIDs: 2.5 cm IVSd: 0.7 cm LVPWd: 0.7 cm LVOT diam: 2.0 cm FS: 46 % Ao Root diam: 3.07 cm LA diam: 3.5 cm LA Volume Index: 25 mL/m2 LA A4 Area: 15.21 cm2 RA A4 Area: 14.3 cm2 RVDd: 3.15 cm TAPSE: 19 mm DOPPLER MEASUREMENTS AND CALCULATIONS MITRAL MV E MAX laverne: 0.64 m/s MV A MAX laverne: 0.92 m/s MV E-A ratio: 0.70 Lat Peak E' Laverne 7 cm/sec Septal Peak E' LAVERNE 5 cm/sec E/E' lateral 10 E/E' medial 13 Continued Report - Page 2 of 3 Patient: MYCHAL SWANSON Phone#: : 1950 Age: 73 Gender: M Pt. Type: Out Account: [id number] Location: 2 Ordering: OSWALDODIAZ RONIBg Exam Date: 02/04/2024/8:51 Family Phys: Charge Code: [id number] Physician: Patrick Order #: [id number] Dose#: AORTIC Ao V2 max: 1.69 m/s Ao max P.42 mm[Hg] AI max laverne 3.83 m/s AI max PG 58.78 mm[Hg] AI dec Dimmit 2.95 m/s2 AI PHT 376.36 ms LV V1 Max 0.92 m/s LV V1 Max PG 3.39 mm[Hg] PULMONIC PA V2 Max 1.10 m/s PA Max PG 4.81 mm[Hg] TRICUSPID TR Max Laverne 2.55 m/s TR max PG 26.08 mm[Hg] RVSP 29 mm Hg 2D/M-MODE AND COLOR FLOW LEFT VENTRICLE: Left ventricle is normal in size and thickness. Systolic ejection fraction is 55-60%. There are no regional wall motion abnormality seen. Normal diastolic function WALL MOTION: 1 - Basal anterior: Normal. 7 - Mid anterior: Normal. 13 - Apical anterior: Normal. 2 - Basal anteroseptal: Normal. 8 - Mid anteroseptal: Normal. 14 - Apical septal: Normal. 3 - Basal inferoseptal: Normal. 9 - Mid inferoseptal: Normal. 15 - Apical inferior: Normal. 4 - Basal inferior: Normal. 10-Mid inferior: Normal. 16 - Apical lateral: Normal. 5 - Basal inferolateral: Normal. 11-Mid inferolateral: Normal. 6 - Basal anterolateral: Normal. 12-Mid anterolateral: Normal. RIGHT VENTRICLE: Right ventricle is normal in size and systolic function. LEFT ATRIUM: Left atrium is normal size. RIGHT ATRIUM: Right atrium is normal size ATRIAL SEPTUM: There is no large interatrial shunt seen. PFO was not assessed. MITRAL VALVE: There is mild mitral annular calcification seen. Mitral valve leaflets are normal in thickness. There is trivial regurgitation and no stenosis seen. TRICUSPID VALVE: Tricuspid valve is normal structure. There is mild regurgitation and no stenosis seen AORTIC VALVE: Aortic valve is trileaflet with sclerosis. There is mild regurgitation and no stenosis seen. PULMONIC VALVE: Pulmonic valve is inadequately visualized. Doppler shows no significant stenosis or regurgitation. AORTIC ROOT: Aortic root is normal in size. AORTIC ARCH: Inadequately visualized DESC THORACIC AORTA: Inadequately visualized. Doppler shows normal flow Continued Report - Page 3 of 3 Patient: MYCHAL SWANSON Phone#: : 1950 Age: 73 Gender: M Pt. Type: Out Account: [id number] Location: 052 Ordering: ISAIAS KABA Exam Date: 02/04/2024/8:51 Family Phys: Charge Code: [id number] Physician: Patrick Order #: [id number] Dose#: IVC/SVC: IVC is normal in size with no collapse of inspiration. Estimated atrial pressure is 3 mm Hg. PULMONARY VEINS: Normal pulmonic vein flow PERICARDIUM: There is no pericardial effusion seen CONCLUSION: 1. Left ventricle is normal in size and thickness. Systolic ejection fraction 55-60% with normal wall motion. 2. There is mild mitral annular calcification seen and trivial mitral valve regurgitation 3. There is mild tricuspid valve regurgitation seen 4. Aortic valve is trileaflet with sclerosis without stenosis. There is mild aortic valve regurgitation seen 5. Right ventricle is normal in size and systolic function. 6. Estimated right ventricular systolic pressure is 29 mm Hg. Dictated by: GARFIELD DUQUE MD on 02/04/2024 at 9:56 Approved by: GARFIELD DUQUE MD on 02/04/2024 at 10:10 Normal [facility] BMP with eGFRon 01-24-2024 AGE 73 years Normal [facility] Comment on above: Performed By: #### 2 84154 #### [facility],[address] [place] [address] Anion gap [Moles/Vol] 15 mmol/L Normal 10 - 20 [facility] Comment on above: Performed By: #### 2 03046 #### [facility],[address] [place], [place] [address] BMP with eGFR Normal [facility] Comment on above: Result Comment: BASI C METABOLIC PANEL Performed By: #### 2 05527 #### [facility],[address] [place], [place] [address] Calcium [Mass/Vol] 9.3 mg/dL Normal 8.5 - 10.1 [facility] Comment on above: Performed By: #### 2 94819 #### [facility],[address] [place], [place] [address] Chloride [Moles/Vol] 102 mmol/L Normal 98 - 107 [facility] Comment on above: Performed By: #### 2 61993 #### [facility],[address] [place] [address] CO2 [Moles/Vol] 25.7 mmol/L Normal 21.0 - 32.0 [facility] Comment on above: Performed By: #### 2 41648 #### [facility],[address] [place] [address] Creatinine [Mass/Vol] 1.81 mg/dL High 0.70 - 1.30 [facility] Comment on above: Performed By: #### 2 32660 #### [facility],[address] [place] [address] eGFR 37 ML/MINUTE Low 60 - 999 [facility] Comment on above: Performed By: #### 2 89402 #### [facility],[address] [place] [address] eGFR(AA) 45 ML/MINUTE Low 60 - 999 [facility] Comment on above: Result Comment: ACCO RDING TO THE NATIONAL KIDNEY DISEASE EDUCATION PROGRAM(NKDE), A NORMAL eGFR IS A VALUE GREATER THAN OR EQUAL TO 60 ML/MIN/1.73 SQ METERS. CHRONIC KIDNEY DISEASE: <60mL/MIN/1.73 SQ METERS KIDNEY FAILURE: <15mL/MIN/1.73 SQ METERS THIS TEST SHOULD ONLY BE USED FOR PATIENTS 18 YEARS OF AGE AND OLDER. Performed By: #### 2 24049 #### [facility],[address] [place] [address] Glucose [Mass/Vol] 76 mg/dL Normal 74 - 106 [facility] Comment on above: Performed By: #### 2 30260 #### [facility],[address] [place] [address] Potassium [Moles/Vol] 4.8 mmol/L Normal 3.5 - 5.1 [facility] Comment on above: Performed By: #### 2 45180 #### [facility],[address] [place] [address] Sodium [Moles/Vol] 138 mmol/L Normal 136 - 145 [facility] Comment on above: Performed By: #### 2 29565 #### [facility],[address] [place] [address] Urea nitrogen [Mass/Vol] 24 mg/dL High 7 - 18 [facility] Comment on above: Performed By: #### 2 83749 #### [facility],[address] [place] [address] HEMOGLOBIN A1C (POM)on 01-23 Glucose [Mass/Vol] 128.4 mg/dL High 0.0 - 0.0 [facility] Comment on above: Result Comment: BLDo HEMOGLOBIN A1C REFERENCE RANGESBLDo Suggested Diagnosis HbA1c(%) HbA1C (mmol/mol Diabetic >/=6.5 >/=48 Prediabetes 5.7 - 6.4 39 - 47 Normal <5.7 <39 Performed By: #### 2 92492 #### [facility],[address] [place] [address] HbA1c (Bld) [Mass fraction] 6.1 % Normal 0.0 - 6.5 [facility] Comment on above: Performed By: #### 2 12384 #### [facility],[address] [place], [place] [address] AORTA 11-19-2023 [place] [address] Patient: MYCHAL SWANSON Phone#: : 1950 Age: 73 Gender: M Pt. Type: Out Account: [id number] Location: [facility] Ordering: ISAIAS KABA Exam Date: 11/19/2023/9:57 Family Phys: Charge Code: [id number] Physician: Patrick Order #: [id number] Dose#: PROCEDURE: AORTA ULTRASOUND COMPARISON: None. INDICATIONS: Screening TECHNIQUE: Ultrasound was performed of the abdominal aorta. FINDINGS: AORTA: Normal. No aneurysm, significant atherosclerosis, or visible occlusion. OTHER: Negative. CONCLUSION: 1. There is no evidence of aneurysmal dilatation of the aorta. Maximum diameter is 2.2 centimeters. Dictated by: Kimmy Bravo MD on 11/19/2023 at 16:22 Approved by: Kmimy Bravo MD on 11/19/2023 at 16:23 Normal [facility] Final Surgical Pathology Rep ranulfo 09-13-2023 Final Surgical Pathology Report . Pathology Reports Accession: Collected Date/Time: Received Date/Time: Pathologist: [id number] 09/11/2023 12:13 EDT 09/12/2023 09:39 EDT YOLANDA MEDINA MD Final Surgical Pathology Report DIAGNOSIS: A. COLON POLYP AT 25 CM: - CONSISTENT WITH HYPERPLASTIC POLYP B. 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 C. COLON POLYP AT 75 CM: - TUBULAR ADENOMA D. COLON POLYP AT 50 CM: - TUBULAR ADENOMA E. COLON POLYP AT 23 CM: - TUBULAR ADENOMA. F. HEMORRHOID TISSUE AT 2 CM, BIOPSY: - MINUTE, SUPERFICIAL FRAGMENT OF SQUAMOUS MUCOSA WITH NO SIGNIFICANT PATHOLOGIC CHANGES COMMENT: [facility] - [id number] CLINICAL INFORMATION: HISTORY OF COLON POLYPS SPECIMEN: A COLON POLYP BX @ 25 CM B COLON POLYP BX @ 110 CM C COLON POLYP BX @ 75 CM D COLON POLYP BX @ 50 CM E COLON POLYP BX @ 23 CM F HEMORRHOIDAL TISSUE BX @ 2 CM GROSS DESCRIPTION: All parts labelled with patient name and [id number] A. Received in formalin labelled colon polyp BX at 25 cm 3 baird tissue fragments ranging from 0.2 to 0.3 cm. TS-1 B. Received in formalin labelled colon polyp at 110 cm Are 2 baird tissue fragments measuring 0.5 and 0.7 cm. TS-1 C. Received in formalin labelled colon polyp BX at 75 cm 2 baird tissue fragments measuring 0.5 and 0.6 cm. TS-1 D. Received in formalin labelled colon polyp BX at 50 cm 2 baird tissue fragments measuring 0.2 and 0.4 cm. TS-1 E. Received in formalin labelled colon polyp BX at 23 cm Are 2 baird tissue fragments measuring 0.2 and 0.4 cm. TS-1 F. Received in formalin labelled hemorrhoid tissue at 2 cm Is a baird-white tissue fragment measuring 0.2 cm greatest dimension. TS-1 Pathology Reports Accession: Collected Date/Time: Received Date/Time: Pathologist: [id number] 09/11/2023 12:13 EDT 09/12/2023 09:39 EDT YOLANDA MEDINA MD GROSS DESCRIPTION: Geraldine Blackwell, Pathologists' Equipment Validation Specialist (ASCP) Dictated by GERALDINE BLACKWELL MICROSCOPIC DESCRIPTION: The microscopic examination is performed, except in the case of Gross Only. Electronically Signed by Pathology Report verified by [facility] YOLANDA MEDINA Sign out Date: 09/13/2023 10:06 Performing Lab: [facility], [address] [place] [address] Pathology Dept Disclaimer If ancillary studies were utilized, the following Laboratory Developed Test (LDT) disclaimer will apply: Under CLIA requirements, [facility] Pathology Laboratory is qualified to perform high complexity testing. For all ancillary stains, positive and negative controls stain appropriately. Performance characteristics of immunohistochemical and chromogenic in-situ hybridization tests have been determined by [facility] Pathology [facility]. These tests are used for clinical purposes, They should not be regarded as investigational or for research. Normal [facility] ([place]) ALBUMIN/CREAT RATIO RND URon 06-19-2022 Albumin DL <= 20 mg/L (U) [Mass/Vol] [facility] Albumin/Creatinine (U) [Mass ratio] <30 mg/g [facility] Creatinine (U) [Mass/Vol] 60.8 mg/dL 20.0 - 300.0 mg/dL [facility] CBC W Auto Differential pane l (Bld)on 06-19-2022 Basophils (Bld) [#/Vol] 0.12 10*3/uL High <0.11 k/uL [facility] Basophils/100 WBC (Bld) 1.3 % [facility] Differential cell count method Nom (Bld) Auto [facility] Eosinophils (Bld) [#/Vol] 0.42 10*3/uL <0.46 k/uL [facility] Eosinophils/100 WBC (Bld) 4.4 % [facility] Erythrocyte distribution width (RBC) [Ratio] 14.0 % 11.5 - 15.0 % [facility] Hematocrit (Bld) [Volume fraction] 33.5 % Low 39.0 - 51.0 % [facility] Hemoglobin (Bld) [Mass/Vol] 10.7 g/dL Low 13.0 - 17.0 g/dL [facility] Immature granulocytes (Bld) [#/Vol] 0.03 10*3/uL <0.10 k/uL [facility] Immature granulocytes/100 WBC (Bld) 0.3 % [facility] Lymphocytes (Bld) [#/Vol] 3.24 10*3/uL 1.00 - 4.00 k/uL [facility] Lymphocytes/100 WBC (Bld) 33.8 % [facility] MCH (RBC) [Entitic mass] 28.6 pg 26.0 - 34.0 pg [facility] MCHC (RBC) [Mass/Vol] 31.9 g/dL 30.5 - 36.0 g/dL [facility] MCV (RBC) [Entitic vol] 89.6 fL 80.0 - 100.0 fL [facility] Monocytes (Bld) [#/Vol] 0.61 10*3/uL <0.87 k/uL [facility] Monocytes/100 WBC (Bld) 6.4 % [facility] Neutrophils (Bld) [#/Vol] 5.18 10*3/uL 1.45 - 7.50 k/uL [facility] Neutrophils/100 WBC (Bld) 53.8 % [facility] Nucleated RBC (Bld) [#/Vol] <0.01 k/uL [facility] Nucleated RBC/100 WBC (Bld) [Ratio] 0.0 /100 WBC [facility] Platelet mean volume (Bld) [Entitic vol] 9.3 fL 9.0 - 12.7 fL [facility] Platelets (Bld) [#/Vol] 333 10*3/uL 150 - 400 k/uL [facility] RBC (Bld) [#/Vol] 3.74 10*6/uL Low 4.20 - 6.0 0 m/uL [facility] WBC (Bld) [#/Vol] 9.60 10*3/uL 3.70 - 11.00 k/uL [facility] MAGNESIUM [facility] 06-19-2022 Magnesium [Mass/Vol] 2.0 mg/dL 1.7 - 2.3 mg/dL [facility] PTH INTACT [facility] 06-19-2022 Parathyrin.intact [Mass/Vol] 30 pg/mL 15 - 65 pg/mL [facility] Renal function 2000 panelon 06-19-2022 Albumin [Mass/Vol] 4.5 g/dL 3.9 - 4.9 g/dL [facility] Anion gap [Moles/Vol] 14 mmol/L 9 - 18 mmol/L [facility] Calcium [Mass/Vol] 9.1 mg/dL 8.5 - 10. 2 mg/dL [facility] Chloride [Moles/Vol] 103 mmol/L 97 - 105 mmol/L [facility] CO2 [Moles/Vol] 21 mmol/L Low 22 - 30 mmol/L [facility] Creatinine [Mass/Vol] 1.10 mg/dL 0.73 - 1.22 mg/dL [facility] Estimated Glomerular Filtration Rate 72 mL/min/1.73m >=60 mL/min/1.73 m [facility] Glucose [Mass/Vol] 124 mg/dL High 74 - 99 mg/dL [facility] Phosphate [Mass/Vol] 2.6 mg/dL Low 2.7 - 4.8 mg/dL [facility] Potassium [Moles/Vol] 3.9 mmol/L 3.7 - 5.1 mmol/L [facility] Sodium [Moles/Vol] 138 mmol/L 136 - 144 mmol/L [facility] Urea nitrogen [Mass/Vol] 25 mg/dL High 9 - 24 mg/dL [facility] URIC ACID BLOODon 06-19-2022 Urate [Mass/Vol] 5.3 mg/dL 4.0 - 8.1 mg/dL [facility] Urinalysis complete panel (U )on 06-19-2022 Bilirubin Ql (U) Negative Negative [facility] Clarity (Unsp spec) Clear Clear [facility] Color (U) Colorless Yellow [facility] Glucose Test strip (U) [Mass/Vol] Negative Trace, Negative [facility] Hemoglobin Ql (U) Negative Negative, Trace [facility] Ketones Ql (U) Negative Trace, Negative [facility] Leukocyte esterase Test strip Ql (U) Negative Negative, 25 Eve/mL [facility] Nitrite Ql (U) Negative Negative [facility] pH (U) 6.0 [pH] 5.0 - 8.0 [facility] Protein (U) [Mass/Vol] Negative Trace, Negative [facility] RBC LM.HPF (Urine sed) [#/Area] 0-3 /HPF 0-3 /HPF [facility] Specific gravity (U) [Rel density] 1.014 1.005 - 1.030 [facility] Urobilinogen Ql (U) Negative Negative [facility] WBC LM.HPF (Urine sed) [#/Area] 0-5 /HPF 0-5 /HPF [facility] VITAMIN D 25 HYDROXYon 06-19 25-hydroxyvitamin D3 [Mass/Vol] 33.0 ng/mL 31.0 - 80.0 ng/mL [facility] CNCOon 05-24-2021 CNCO Letter Text [facility] CBCon 05-23-2021 Absolute nRBC <0.01 Normal <0.01 [facility] Comment on above: Performed By: #### D NAAB, ANCAP, ANCAC, IFESC, ASO, SEPGRX, ANCA, C3COMP, C4COMP, ANAIFS, KLFRS #### [place] [address] #### GBMBG #### [place] [address] Erythrocyte distribution width (RBC) [Ratio] 14.6 % Normal 11.5-15.0 [facility] Comment on above: Performed By: #### D NAAB, ANCAP, ANCAC, IFESC, ASO, SEPGRX, ANCA, C3COMP, C4COMP, ANAIFS, KLFRS #### [place] [phone] #### GBMBG #### [place] [address] Hematocrit (Bld) [Volume fraction] 26.4 % Low 39.0-51.0 [facility] Comment on above: Performed By: #### D NAAB, ANCAP, ANCAC, IFESC, ASO, SEPGRX, ANCA, C3COMP, C4COMP, ANAIFS, KLFRS #### [facility] [employer] [address] [place] [address] #### GBMBG #### [place] [address] Hemoglobin (Bld) [Mass/Vol] 8.7 g/dL Low 13.0-17.0 [facility] Comment on above: Performed By: #### D NAAB, ANCAP, ANCAC, IFESC, ASO, SEPGRX, ANCA, C3COMP, C4COMP, ANAIFS, KLFRS #### [place] [phone] #### GBMBG #### [facility] [address] [place] [address] MCH 28.7 pG Normal 26.0-34.0 [facility] Comment on above: Performed By: #### D NAAB, ANCAP, ANCAC, IFESC, ASO, SEPGRX, ANCA, C3COMP, C4COMP, ANAIFS, KLFRS #### [place] [phone] [place] [phone] #### GBMBG #### [facility] [address] [place] [address] MCHC (RBC) [Mass/Vol] 33.0 g/dL Normal 30.5-36.0 [facility] Comment on above: Performed By: #### D NAAB, ANCAP, ANCAC, IFESC, ASO, SEPGRX, ANCA, C3COMP, C4COMP, ANAIFS, KLFRS #### [place] [phone] #### GBMBG #### [facility] [address] [place] [address] MCV (RBC) [Entitic vol] 87.1 fL Normal 80.0-100.0 [facility] Comment on above: Performed By: #### D NAAB, ANCAP, ANCAC, IFESC, ASO, SEPGRX, ANCA, C3COMP, C4COMP, ANAIFS, KLFRS #### [place] [address] #### GBMBG #### [facility] [address], [place] [id number] Platelet mean volume (Bld) [Entitic vol] 10.5 fL Normal 9.0-12.7 [facility] Comment on above: Performed By: #### D NAAB, ANCAP, ANCAC, IFESC, ASO, SEPGRX, ANCA, C3COMP, C4COMP, ANAIFS, KLFRS #### [place] [address] #### GBMBG #### [facility] [address] [place] [address] Platelets (Bld) [#/Vol] 281 10*3/uL Normal 150-400 [facility] Comment on above: Performed By: #### D NAAB, ANCAP, ANCAC, IFESC, ASO, SEPGRX, ANCA, C3COMP, C4COMP, ANAIFS, KLFRS #### [place] [phone] [place] [phone] #### GBMBG #### [facility] [address] [place] [address] RBC (Bld) [#/Vol] 3.03 10*6/uL Low 4.20-6.00 [facility] Comment on above: Performed By: #### D NAAB, ANCAP, ANCAC, IFESC, ASO, SEPGRX, ANCA, C3COMP, C4COMP, ANAIFS, KLFRS #### [place] [phone] [place] [phone] #### GBMBG #### [facility] [address] [place] [address] WBC (Bld) [#/Vol] 8.68 10*3/uL Normal 3.70-11.00 [facility] Comment on above: Performed By: #### D NAAB, ANCAP, ANCAC, IFESC, ASO, SEPGRX, ANCA, C3COMP, C4COMP, ANAIFS, KLFRS #### [place] [phone] [place] [address] #### GBMBG #### [facility] [address] [place] [address] CNDSon 05-23-2021 CNDS HNO ID: [id number] Author: Smiley Acosta APRN.OPERATING SYSTEM DESIGNER Service: Hospital Medicine Author Type: Nurse Practitioner Type: Discharge Summary Filed: 05/23/2021 2:55 PM Note Text: Attestation signed by Yusra Nick MD at 06/07/2021 1:11 PM Attending Note I have personally reviewed the PA/LEGAL ANALYST note. Agree with above assessment and plan. Other additions or changes: None SIGNATURE: Yusra Nick MD DATE: June 07, 2021 TIME: 1:11 PM DISCHARGE SUMMARY PATIENT NAME: Mychal Swanson ADMISSION DATE: 05/16/2021 DISCHARGE DATE: 05/23/2021 ATTENDING PHYSICIAN: Yusra Nick MD Code Status: Not on file Highest Readmission Risk Score: 24 The 30 day readmissions risk score is derived from an internally validated risk model which evaluates patient level characteristics, utilization history, medication orders and lab results up until the day of discharge. Patients with a score of 40 or above are considered highest risk for readmission. Specific patient level drivers will be listed at the bottom of the summary. Treatment Team: Attending Provider: Yusra Nick MD Consulting: Jose Francisco Glez MD Consulting: Aurea Mckenna MD Consulting: Lambert Farmer MD Consulting: Caio Mijares MD Nurse Practitioner: Smiley Acosta APRN.OPERATING SYSTEM DESIGNER REASON FOR HOSPITALIZATION: Left arm cellulitis DIAGNOSIS: Principal Problem: Cellulitis of left arm POA: Yes Active Problems: Essential hypertension, benign POA: Yes Acute kidney injury (HCC) POA: Yes Transaminitis POA: Yes Cholelithiasis POA: Yes Hyponatremia POA: Yes Malnutrition of mild degree (HCC) POA: Yes Resolved Problems: Hyperkalemia POA: Yes OPERATIONS DURING HOSPITALIZATION: None PROCEDURES DURING HOSPITALIZATION: ECHO HOSPITAL COURSE: Mychal Swanson is a 70 year old male with a past medical history of HTN and normocytic anemia who presented for evaluation of 5 day history of worsening erythema and edema of the left upper extremity with origin along the olecranon process. Suspect may have started as possible olecranon bursitis with now progression to cellulitis. There was concern for possible septic left elbow joint given significant limited ROM. Ortho consulted, MRI obtained reassuring of cellulitis. Treated empirically with IV Vanco and Zosyn. ID consulted and transitioned to oral linezolid x 10 days at discharge. Leukocytosis resolved, he remained afebrile, and blood cultures NGTD. He was also noted to have LLUVIA with Creatinine on admission 6.95; most recent creatinine prior to admission was 1.01. Nephrology consulted and he was started on bicarb infusion. Losartan and ramipril held on admission. Suspect LLUVIA 2/2 prerenal, intravascular volume depletion, ATN possible post infection GN. Renal US obtained showing normal appearance of the kidneys. Detailed work-up for GN per nephro. Cr improved with bicarb and IVF- down to 3.43 at time of discharge. Will continue to hold losartan and ramipril at discharge. Renal panel in 1 week ordered and to have results faxed to Dr. Aurea Mckenna. During hospitalization, the patient complained of dizziness associated with nausea and precipitated by moving head from side to side. Orthos were negative, no focal neurological deficit on exam. He was started meclizine for possible vertigo component with improvement in symptoms. He also endorsed intermittent shortness of breath, reports gasping for air in the middle of the night, wakes him up from sleep. HDS on room air, no respiratory distress, physical exam is benign. CXR with interval development of bilateral patchy airspace opacities representing atelectasis or infiltrates- suspect FVO, received 1 x dose IV lasix 40mg with resolution of symptoms. Recommend outpatient sleep apnea work up. 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 He remained hemodynamically stable and afebrile on room air. Symptoms overall much improved. He was eager to be discharged home. Follow up with PCP as outpatient, nephrology in 4 weeks and cardiology as outpatient. HOSPITAL PROBLEMS: ? Cellulitis of left arm - Patient presenting with 5 day history of worsening erythema and edema of the left upper extremity with origin along the olecranon process - Suspect may have started as possible olecranon bursitis with now progression to cellulitis - There was concern for possible septic left elbow joint given significant limited ROM - Ortho consulted, MRI obtained reassuring of cellulitis - Started Vanco and Zosyn - ID consulted and transitioned to oral linezolid - Leukocytosis resolved, afebrile, blood cultures NGTD ? Acute kidney injury (HCC) - Creatinine on admission 6.95; most rece (more content not included)... [facility] CONSULT PROGon 05-23-2021 CONSULT PROG HNO ID: [id number] Author: Darvin Coughlin PA-C Service: Orthopaedic Surgery Author Type: Physician Equipment Validation Specialist Type: Consult Progress Note Filed: 05/23/2021 9:58 AM Note Text: ORTHOPAEDIC SURGERY Inpatient Progress Note ERVICE DATE: 05/23/2021 SERVICE TIME: 9:53 AM PRIMARY CARE PHYSICIAN: Lee Holbrook MD ASSESSMENT AND PLAN Cellulitis of left arm - MRI findings consistent with cellulitis. No evidence of abscess or osteomyelitis - Continue Antibiotics/management of cellulitis per ID and primary team - Monitor for worsening elbow pain - No indication for orthopaedic surgical intervention at this time - Orthopaedics will continue following SUBJECTIVE: Patient states that they are comfortable. He denies any pain in the left arm or elbow. Patient states the swelling and redness continues to improve. Denies any new complaints. OBJECTIVE PHYSICAL EXAM: Vitals: BP 140/73 Pulse 67 Temp 36.7 ?C (98.1 ?F) (Oral) Resp 18 Ht 162.6 cm (5' 4) Wt 79.1 kg (174 lb 4.8 oz) SpO2 93% BMI 29.92 kg/m? GENERAL: Alert, no distress, cooperative LUNGS: Normal respiratory rate and rhythm CARDIAC: Palpable peripheral pulses Left Upper extremity Inspection: margin of erythema over the brachium and antebrachium which is receding and improved from prior exam. Edema continues to improve. No tenderness over the erythematous areas Compartments Soft. Neurovascularly intact Radial and Brachial pulses 2+ Cap refill <2sec No pain with PROM or AROM?sup/pro and flex/ext at elbow Sensory: SILT to M/R/U distributions Motor: + FPL/EPL/Finger flexion/extension, sup/pro, elbow flex/ext Problem Review and Assessment: Skin and Abdominal Wall: Patient monitored, no new events overnight Cardiovascular and Vascular: Patient monitored, no new events overnight Respiratory: Patient monitored, no new events overnight Endocrine and Metabolic: Patient monitored, no new events overnight Gastrointestinal: Patient monitored, no new events overnight Genitourinary and Nephrology: Patient monitored, no new events overnight Behavioral, Cerebrovascular and Nervous: Patient monitored, no new events overnight Infectious: Patient monitored, no new events overnight DATA: Diagnostic tests reviewed for today's visit: Most recent labs and imaging results. LABS: Coags: No results for input(s): PT, INR, APTT in the last 24 hours. Hemoglobin Date Value Ref Range Status 05/23/2021 8.7 (L) 13.0 - 17.0 g/dL Final 05/22/2021 8.6 (L) 13.0 - 17.0 g/dL Final Hematocrit Date Value Ref Range Status 05/23/2021 26.4 (L) 39.0 - 51.0 % Final 05/22/2021 25.8 (L) 39.0 - 51.0 % Final Platelet Count Date Value Ref Range Status 05/23/2021 281 150 - 400 k/uL Final 05/22/2021 236 150 - 400 k/uL Final WBC Date Value Ref Range Status 05/23/2021 8.68 3.70 - 11.00 k/uL Final 05/22/2021 8.19 3.70 - 11.00 k/uL Final Creatinine Date Value Ref Range Status 05/23/2021 3.48 (H) 0.73 - 1.22 mg/dL Final 05/23/2021 3.43 (H) 0.73 - 1.22 mg/dL Final Potassium Date Value Ref Range Status 05/23/2021 3.9 3.7 - 5.1 mmol/L Final 05/23/2021 3.9 3.7 - 5.1 mmol/L Final SIGNATURE: Darvin Coughlin PA-C PATIENT NAME: Mychal Swanson DATE: May 23, 2021 TIME: 9:53 AM [facility] CONSULT PROG HNO ID: [id number] Author: Aurea Mckenna MD Service: Nephrology Author Type: Physician Type: Consult Progress Note Filed: 05/23/2021 8:07 AM Note Text: NEPHROLOGY CONSULT PROGRESS NOTE Subjective INTERVAL HISTORY: The patient was seen and examined . No acute event overnight. PERTINENT ROS: GENERAL: No fever/chills. RESPIRATORY: Negative for cough, wheezing or shortness of breath. CARDIOVASCULAR: Negative for chest pain or palpitations. GI: Negative for nausea, vomiting, Diarrhea, abdominal pain. : Negative for dysuria and hematuria MEDICATIONS: Current Facility-Administered Medications Medication Dose Route Frequency - atenolol 50 mg tab(s) (TENORMIN) 50 mg ORAL DAILY - docusate sodium 100 mg cap(s) (COLACE) 100 mg ORAL BID PRN - heparin 5,000 Units injection 5,000 Units SUBCUTANEOUS q 12 H - NaCl 0.9% iv flush bag 20 mL INTRAVENOUS PRN - sodium chloride 0.9 % (flush) 3-5 mL (BD POSIFLUSH) 3-5 mL INTRAVENOUS q 12 H - ondansetron orally disintegrating 4 mg tab(s) (ZOFRAN ODT) 4 mg ORAL q 6 H PRN Or - ondansetron (PF) 4 mg injection (ZOFRAN) 4 mg INTRAVENOUS q 6 H PRN - melatonin 3 mg tab(s) 3 mg ORAL DAILY (8 PM) - psyllium 1 Packet (METAMUCIL) 1 Packet ORAL AT BEDTIME - linezolid 600 mg tab(s) (ZYVOX) 600 mg ORAL q 12 H - sodium chloride 0.65 % 2 [place] (AYR, OCEAN) 2 [place] EACH NOSTRIL PRN - acetaminophen 650 mg tab(s) (TYLENOL) 650 mg ORAL q 6 H PRN - traMADol 50 mg tab(s) (ULTRAM) 50 mg ORAL q 12 H PRN - famotidine 20 mg tab(s) (PEPCID) 20 mg ORAL DAILY - meclizine 25 mg tab(s) (ANTIVERT) 25 mg ORAL TID - LORazepam 0.25 mg tab(s) (ATIVAN) 0.25 mg ORAL HS PRN - benzocaine-menthol 1 Lozenge (CEPACOL) 1 Lozenge MUCOUS MEMBRANE (TOPICAL MOUTH AND THROAT) q 2 H PRN - ipratropium-albuterol 3 mL nebulizer solution (DUONEB) 3 mL INHALATION q 4 H PRN - sodium chloride 0.9 % (flush) 2-10 mL (BD POSIFLUSH) 2-10 mL INTRAVENOUS DIRECTED PRN And - perflutren lipid microspheres 1.1 mg/mL 1.3 mL injection (DEFINITY) 1.3 mL INTRAVENOUS DIRECTED PRN Objective PHYSICAL EXAM: BP 140/73 Pulse 67 Temp 36.7 ?C (98.1 ?F) (Oral) Resp 18 Ht 162.6 cm (5' 4) Wt 79.1 kg (174 lb 4.8 oz) SpO2 93% BMI 29.92 kg/m? Patient Vitals for the past 24 hrs: BP 05/18/21 0741 106/59 05/17/21 2326 105/58 05/17/21 1455 105/50 Intake/Output Summary (Last 24 hours) at 05/23/2021 0805 Last data filed at 05/23/2021 0715 Gross per 24 hour Intake ? Output 2035 ml Net -2035 ml GENERAL: Awake, cooperative, NAD, Orientated x 3 HEENT : NCAT, MMM and pink , oropharynx clear, EYES: Conjunctiva -Pallor, Non icterus sclera. NECK: supple, No JVD, no carotid bruits, , No cervical mass or thyromegaly. LUNGS: clear to auscultation, without rales or wheeze, diminished breath sounds, CV: normal, Regular rate and rhythm, no murmurs, clicks, or gallops. ABDOMEN: Abdomen soft, non-tender, BS normal, No masses or organomegaly EDEMA : no Lower extremity/ mno Dependent edema DATA: Diagnostic tests reviewed for today's visit: Most recent labs and imaging results. Recent Labs 05/23/21 0422 05/22/21 0544 05/21/21 0456 05/20/21 0447 05/19/21 1045 NA 133* 134* 135* 133* 130* 129* 128* K 3.9 3.9 3.8 3.9 3.6* 3.9 3.8 CHLOR 94* 94* 94* 91* 87* 87* 86* CO2 23 25 23 27 24 22 22 BUN 51* 54* 61* 73* 84* 80* 80* CREAT 3.43* 3.48* 3.85* 4.60* 5.12* 6.02* 6.02* GLUC 90 92 84 82 112* 138* 138* ANION 16 15 18 15 19* 20* 20* CA 8.2* 8.1* 7.8* 7.7* 7.6* 7.8* 7.7* P 5.9* 5.6* 5.7* 4.9* 4.2 MG 1.9 1.8 1.9 1.9 2.0 Recent Labs 05/23/21 0422 05/22/21 0544 05/21/21 0456 WBC 8.68 8.19 7.12 HB 8.7* 8.6* 8.1* HCT 26.4* 25.8* 24.0* PLT 281 236 212 Assessment/Plan 1. Acute kidney injury- ATN, --Likely etiology for acute kidney injury is ATN given no active sediment or casts. Also FENa more than 1%. -- Patient also had a significant use of NSAIDs in last 5 days. 2. Hyperkalemia 3. Hypovolemic hyponatremia and in the setting of renal failure 5. Severe metabolic acidosis 6. Hypocalcemia 7. Anemia 8. Bilateral perinephric stranding on the CAT scan 9. Urinary retention with bladder distention partially although no hydronephrosis 10. Left upper extremity cellulitis 11. Elevated LFTs likely in the setting of sepsis or drug-related 12. Leukocytosis/sepsis 13. Cholelithiasis 4. Recent use of NSAIDs ? Plan of management Renal function: Creatinine continues to improve and decreased to 3.43 mg deciliter Serum bicarbonate improved to 23.. All other electrolytes are in acceptable range Patient received IV Lasix yesterday. Urine output of 900 mL documented. Urine output of 1.1 L this morning -Hyponatremia improving, serum sodium is 133 mg/L Continue current IV fluid. GN work-up revealed C4 48 C3 of 147 ASO titer less than 120. Vancomycin level 13.4. P-ANCA and c-ANCA is negative anti-GBM is pendin (more content not included)... [facility] Comp Metabolic Panelon 05-23 Albumin [Mass/Vol] 2.4 g/dL Low 3.9-4.9 [facility] Comment on above: Performed By: #### D NAAB, ANCAP, ANCAC, IFESC, ASO, SEPGRX, ANCA, C3COMP, C4COMP, ANAIFS, KLFRS #### [place] [id number] [place] [phone] #### GBMBG #### [facility] [address] [place] [address] ALP [Catalytic activity/Vol] 90 U/L Normal 38-113 [facility] Comment on above: Performed By: #### D NAAB, ANCAP, ANCAC, IFESC, ASO, SEPGRX, ANCA, C3COMP, C4COMP, ANAIFS, KLFRS #### [place] [address] #### GBMBG #### [address] [address] ALT [Catalytic activity/Vol] 24 U/L Normal 10-54 [facility] Comment on above: Performed By: #### D NAAB, ANCAP, ANCAC, IFESC, ASO, SEPGRX, ANCA, C3COMP, C4COMP, ANAIFS, KLFRS #### [place] [address] #### GBMBG #### [facility] [address] [place] [address] Anion gap [Moles/Vol] 16 mmol/L Normal 9-18 [facility] Comment on above: Performed By: #### D NAAB, ANCAP, ANCAC, IFESC, ASO, SEPGRX, ANCA, C3COMP, C4COMP, ANAIFS, KLFRS #### [place] [id number] [place] [address] #### GBMBG #### [facility] [address] [place] [address] AST [Catalytic activity/Vol] 18 U/L Normal 14-40 [facility] [facility] Comment on above: Performed By: #### D NAAB, ANCAP, ANCAC, IFESC, ASO, SEPGRX, ANCA, C3COMP, C4COMP, ANAIFS, KLFRS #### [place] [phone] #### GBMBG #### [facility] [address] [place] [address] Bilirubin [Mass/Vol] 0.3 mg/dL Normal 0.2-1.3 [facility] Comment on above: Performed By: #### D NAAB, ANCAP, ANCAC, IFESC, ASO, SEPGRX, ANCA, C3COMP, C4COMP, ANAIFS, KLFRS #### [place] [phone] #### GBMBG #### [place] [address] Calcium [Mass/Vol] 8.2 mg/dL Low 8.5-10.2 [facility] Comment on above: Performed By: #### D NAAB, ANCAP, ANCAC, IFESC, ASO, SEPGRX, ANCA, C3COMP, C4COMP, ANAIFS, KLFRS #### [place] [address] #### GBMBG #### [place] [address] CO2 [Moles/Vol] 23 mmol/L Normal 22-30 [facility] Comment on above: Performed By: #### D NAAB, ANCAP, ANCAC, IFESC, ASO, SEPGRX, ANCA, C3COMP, C4COMP, ANAIFS, KLFRS #### [place] [address] #### GBMBG #### [place] [address] Creatinine [Mass/Vol] 3.43 mg/dL High 0.73-1.22 [facility] Comment on above: Performed By: #### D NAAB, ANCAP, ANCAC, IFESC, ASO, SEPGRX, ANCA, C3COMP, C4COMP, ANAIFS, KLFRS #### [facility] [address] [place] [phone] #### GBMBG #### [facility] [address] [place] [address] eGFR- Amer. 22 [facility] Comment on above: Performed By: #### D NAAB, ANCAP, ANCAC, IFESC, ASO, SEPGRX, ANCA, C3COMP, C4COMP, ANAIFS, KLFRS #### [facility] [employer] [facility] [place] [phone] #### GBMBG #### [facility] [address] [place], [place] [id number] Glucose [Mass/Vol] 90 mg/dL Normal 74-99 [facility] Comment on above: Result Comment: The [place] Diabetes Association (ADA) provides guidance for cutoff values for fasting glucose and random glucose. The ADA defines fasting as no caloric intake for at least 8 hours. Fasting plasma glucose results between 100 to 125 mg/dL indicate increased risk for diabetes (prediabetes). Fasting plasma glucose results greater than or equal to 126 mg/dL meet the criteria for diagnosis of diabetes. In the absence of unequivocal hyperglycemia, results should be confirmed by repeat testing. In a patient with classic symptoms of hyperglycemia or hyperglycemic crisis, random plasma glucose results greater than or equal to 200 mg/dL meet the criteria for diagnosis of diabetes. Reference: Standards of Medical Care in Diabetes 2016, [place] Diabetes Association. Diabetes Care. 2016.39(Suppl 1). Performed By: #### D NAAB, ANCAP, ANCAC, IFESC, ASO, SEPGRX, ANCA, C3COMP, C4COMP, ANAIFS, KLFRS #### [facility] [place] [address] #### GBMBG #### [facility] [address] [place] [address] Protein [Mass/Vol] 5.8 g/dL Low 6.3-8.0 [facility] Comment on above: Performed By: #### D NAAB, ANCAP, ANCAC, IFESC, ASO, SEPGRX, ANCA, C3COMP, C4COMP, ANAIFS, KLFRS #### [facility] [address] [place], [place] [address] #### GBMBG #### [address] [address] Sodium [Moles/Vol] 133 mmol/L Low 136-144 [facility] Comment on above: Performed By: #### D NAAB, ANCAP, ANCAC, IFESC, ASO, SEPGRX, ANCA, C3COMP, C4COMP, ANAIFS, KLFRS #### [address] [address] #### GBMBG #### [address] [address] Urea nitrogen [Mass/Vol] 51 mg/dL High 9-24 [facility] Comment on above: Performed By: #### D NAAB, ANCAP, ANCAC, IFESC, ASO, SEPGRX, ANCA, C3COMP, C4COMP, ANAIFS, KLFRS #### [facility] [address] [place], [place] [address] #### GBMBG #### [address] [address] Magnesiumon 05-23-2021 Magnesium [Mass/Vol] 1.9 mg/dL Normal 1.7-2.3 [facility] Comment on above: Performed By: #### D NAAB, ANCAP, ANCAC, IFESC, ASO, SEPGRX, ANCA, C3COMP, C4COMP, ANAIFS, KLFRS #### [place] [address] [place], [place] [address] #### GBMBG #### [address] [address] NUTRITIONon 05-23-2021 NUTRITION HNO ID: [id number] Author: Yen Anderson RD Service: Nutrition Therapy Author Type: Registered Dietitian Type: Nutrition Filed: 05/23/2021 1:18 PM Note Text: NUTRITION THERAPY INITIAL ASSESSMENT SERVICE DATE: 05/23/2021 SERVICE TIME: 11:15 AM Nutrition Assessment: Recommended Malnutrition Diagnosis: Mild Protein-Calorie Malnutrition In the context of: Acute Illness or Injury Based on: Insufficient Energy Intake Nutrition Diagnosis: Estimated kilocalorie needs: Calorie Calculation Method: 20-25 kcals/kg Estimated protein needs (grams): 79-95 Grams protein determined by: 1.0 - 1.2 g/kg Care Plan: Continue current diet Supplements: Mighty Shake No Sugar Added;Zone Perfect Bar Monitor and Evaluation: Meet greater than 75% of estimated needs Physician progress notes and labs reviewed. HPI: 70 year old male admitted with LLUVIA, Nephrology following. Cellulitis of left upper arm present. Recent Hemorrhoidectomy this past October. HTN, Gout, HLD. Intake History: Nutrition Intake Prior to Admission: Less than 75% estimated energy needs greater than 7 days Current Intake: Less than 75% estimated energy needs Over: 6 days Pt reports a decreased appetite with early satiety. Agreeable to Mighty Shake and Zone bar. Diet Orders (From admission, onward) Start Ordered 05/23/21 1315 DIET SUPPLEMENTS NOW Question Answer Comment Supplement 1 MIGHTY SHAKE REDUCED SUGAR STRAWBERRY BANANA Supplement 1 Frequency LUNCH Supplement 2 ZONE BAR STRAWBERRY YOGURT Supplement 2 Frequency DINNER 05/23/21 1312 05/18/21 1730 DIET REGULAR START NOW 05/18/21 1715 Anthropometrics: Height: 162.6 cm (5' 4) Weight: 79.1 kg (174 lb 4.8 oz) Dosing Weight: 79.1 kg (174 lb 6.1 oz) Usual Weight: 68 kg (150 lb) Body mass index is 29.92 kg/m?. Overweight Weight change percentage over time: Pt states Epic weight is inaccurate, denies any significant weight manager change the last year Physical Exam: Subcutaneous fat loss: No fat loss Muscle loss: No muscle loss Potential micronutrient deficiency: Skin GI Symptoms: Early satiety Potential Signs of Inflammation: Chronic condition;Hypoalbuminemia MNT Billing: $ Initial Assessment: 1-15 minutes SIGNATURE: Yen Anderson RD PATIENT NAME: Mychal Swanson DATE: May 23, 2021 TIME: 1:14 PM [facility] Renal Function Panelon 05-23 Albumin [Mass/Vol] 2.6 g/dL Low 3.9-4.9 [facility] Comment on above: Performed By: #### D NAAB, ANCAP, ANCAC, IFESC, ASO, SEPGRX, ANCA, C3COMP, C4COMP, ANAIFS, KLFRS #### [facility] [employer] [address] [place], [place] [address] #### GBMBG #### [address] [address] Anion gap [Moles/Vol] 15 mmol/L Normal 9-18 [facility] Comment on above: Performed By: #### D NAAB, ANCAP, ANCAC, IFESC, ASO, SEPGRX, ANCA, C3COMP, C4COMP, ANAIFS, KLFRS #### [facility] [employer] [address] [place], [place] [address] #### GBMBG #### [address] [address] Calcium [Mass/Vol] 8.1 mg/dL Low 8.5-10.2 [facility] Comment on above: Performed By: #### D NAAB, ANCAP, ANCAC, IFESC, ASO, SEPGRX, ANCA, C3COMP, C4COMP, ANAIFS, KLFRS #### [facility] [employer] [address] [place], [place] [address] #### GBMBG #### [facility] [address] [place] [address] Chloride [Moles/Vol] 94 mmol/L Low 97-105 [facility] Comment on above: Performed By: #### D NAAB, ANCAP, ANCAC, IFESC, ASO, SEPGRX, ANCA, C3COMP, C4COMP, ANAIFS, KLFRS #### [place] [address] [place] [phone] #### GBMBG #### [place] [address] CO2 [Moles/Vol] 25 mmol/L Normal 22-30 [facility] Comment on above: Performed By: #### D NAAB, ANCAP, ANCAC, IFESC, ASO, SEPGRX, ANCA, C3COMP, C4COMP, ANAIFS, KLFRS #### [place] [phone] #### GBMBG #### [place] [address] Creatinine [Mass/Vol] 3.48 mg/dL High 0.73-1.22 [facility] Comment on above: Performed By: #### D NAAB, ANCAP, ANCAC, IFESC, ASO, SEPGRX, ANCA, C3COMP, C4COMP, ANAIFS, KLFRS #### [place] [phone] #### GBMBG #### [place] [address] eGFR- Amer. 21 [facility] Comment on above: Performed By: #### D NAAB, ANCAP, ANCAC, IFESC, ASO, SEPGRX, ANCA, C3COMP, C4COMP, ANAIFS, KLFRS #### [place] [address] #### GBMBG #### [place] [address] eGFR-All Other Races 18 . [facility] Comment on above: Result Comment: eGFR (Estimated GFR) Units of measure: mL/min/1.73 meters squared eGFR is derived from the reexpressed MDRD Study equation using the following parameters: serum creatinine, age, gender and race. The creatinine assay has been calibrated to be traceable to IDMS. An eGFR <60 mL/min/1.73m2 for >3 months is consistent with chronic kidney disease. Refer to KDOQI guidelines for clinical interpretation. In patients with unstable renal function, e.g. those with acute kidney injury, the eGFR may not accurately reflect actual GFR. Note: On 2021, the eGFR calculation will be updated to the NKF-ASN Task Force recommended 2020 CKD-EPI creatinine equation which does not include a race variable. For more information or to access a 2020 CKD-EPI calculator, visit the National Kidney Foundation website at kidney.org/professionals/kdoqi/gfr_calculator. Performed By: #### D NAAB, ANCAP, ANCAC, IFESC, ASO, SEPGRX, ANCA, C3COMP, C4COMP, ANAIFS, KLFRS #### [facility] [employer] [address] [place] [address] #### GBMBG #### [facility] [employer] [address] [place] [address] Glucose [Mass/Vol] 92 mg/dL Normal 74-99 [facility] Comment on above: Result Comment: The [place] Diabetes Association (ADA) provides guidance for cutoff values for fasting glucose and random glucose. The ADA defines fasting as no caloric intake for at least 8 hours. Fasting plasma glucose results between 100 to 125 mg/dL indicate increased risk for diabetes (prediabetes). Fasting plasma glucose results greater than or equal to 126 mg/dL meet the criteria for diagnosis of diabetes. In the absence of unequivocal hyperglycemia, results should be confirmed by repeat testing. In a patient with classic symptoms of hyperglycemia or hyperglycemic crisis, random plasma glucose results greater than or equal to 200 mg/dL meet the criteria for diagnosis of diabetes. Reference: Standards of Medical Care in Diabetes 2016, [place] Diabetes Association. Diabetes Care. 2016.39(Suppl 1). Performed By: #### D NAAB, ANCAP, ANCAC, IFESC, ASO, SEPGRX, ANCA, C3COMP, C4COMP, ANAIFS, KLFRS #### [facility] [employer] [address] [place], [place] [address] #### GBMBG #### [facility] [address] [place] [address] Phosphate [Mass/Vol] 5.9 mg/dL High 2.7-4.8 [facility] Comment on above: Performed By: #### D NAAB, ANCAP, ANCAC, IFESC, ASO, SEPGRX, ANCA, C3COMP, C4COMP, ANAIFS, KLFRS #### [place] [address] [place] [phone] #### GBMBG #### [facility] [address] [place] [address] Potassium [Moles/Vol] 3.9 mmol/L Normal 3.7-5.1 [facility] Comment on above: Performed By: #### D NAAB, ANCAP, ANCAC, IFESC, ASO, SEPGRX, ANCA, C3COMP, C4COMP, ANAIFS, KLFRS #### [place] [phone] #### GBMBG #### [facility] [address] [place] [address] Sodium [Moles/Vol] 134 mmol/L Low 136-144 [facility] Comment on above: Performed By: #### D NAAB, ANCAP, ANCAC, IFESC, ASO, SEPGRX, ANCA, C3COMP, C4COMP, ANAIFS, KLFRS #### [facility] [employer] [address] [place] [phone] #### GBMBG #### [facility] [address] [place] [address] Urea nitrogen [Mass/Vol] 54 mg/dL High 9-24 [facility] Comment on above: Performed By: #### D NAAB, ANCAP, ANCAC, IFESC, ASO, SEPGRX, ANCA, C3COMP, C4COMP, ANAIFS, KLFRS #### [place] [address] #### GBMBG #### [facility] [address] [place] [address] ALLIED HEALTHon 05-22-2021 ALLIED HEALTH HNO ID: [id number] Author: RT Golden(R) Service: ? Author Type: Technologist Type: Allied Health Filed: 05/21/2021 10:32 PM Note Text: Radiology Service Progress Note PATIENT NAME: Mychal Swanson DATE OF SERVICE: May 21, 2021 TIME: 10:32 PM PATIENT IDENTITY VERIFICATION COMPLETED USING TWO (2) IDENTIFIERS: Name and Date of confirmed by patient verbally. FALL SCREENING: Has the patient had 2 falls in the last year or 1 fall with injury or currently using an Ambulatory Assistive Device (Walker, Cane, Wheelchair, Crutches, etc.)? Inpatient: Screened on floor PATIENT GENDER DATA: Male PATIENT RELEVANT IMPLANT DATA REVIEWED: Not Applicable RADIOLOGY DEPARTMENT: General X-ray: Exam(s) Completed: Chest X-Ray PERIPHERAL IV DATA: Not applicable SIGNED BY: RT Golden(R) May 21, 2021 10:32 PM [facility] CASE MANAGEMon 05-22-2021 CASE MANAGEM HNO ID: [id number] Author: TONY Meadows Service: ? Author Type: Special Tester Type: Care Mgt Progress Note Filed: 05/22/2021 10:28 AM Note Text: CARE MANAGEMENT PROGRESS NOTE SERVICE DATE: 05/22/2021 SERVICE TIME: 10:25 am LOS: 6 days EMR reviewed. Renal function and cellulitis improving. Per ID, plan to d/c on oral ABX. CM to continue to follow. SIGNATURE: TONY Meadows PATIENT NAME: Mychal Swanson DATE: May 22, 2021 TIME: 10:26 AM PAGER/CONTACT #: [phone] [facility] CBCon 05-22-2021 Absolute nRBC <0.01 Normal <0.01 [facility] Comment on above: Performed By: #### D NAAB, ANCAP, ANCAC, IFESC, ASO, SEPGRX, ANCA, C3COMP, C4COMP, ANAIFS, KLFRS #### [facility] [address] [place] [address] #### GBMBG #### [facility] [address] [place] [address] Erythrocyte distribution width (RBC) [Ratio] 14.6 % Normal 11.5-15.0 [facility] Comment on above: Performed By: #### D NAAB, ANCAP, ANCAC, IFESC, ASO, SEPGRX, ANCA, C3COMP, C4COMP, ANAIFS, KLFRS #### [place] [phone] #### GBMBG #### [place] [address] Hematocrit (Bld) [Volume fraction] 25.8 % Low 39.0-51.0 [facility] Comment on above: Performed By: #### D NAAB, ANCAP, ANCAC, IFESC, ASO, SEPGRX, ANCA, C3COMP, C4COMP, ANAIFS, KLFRS #### [place] [phone] #### GBMBG #### [place] [address] Hemoglobin (Bld) [Mass/Vol] 8.6 g/dL Low 13.0-17.0 [facility] Comment on above: Performed By: #### D NAAB, ANCAP, ANCAC, IFESC, ASO, SEPGRX, ANCA, C3COMP, C4COMP, ANAIFS, KLFRS #### [place] [address] #### GBMBG #### [facility] [address] [place] [address] MCH 28.5 pG Normal 26.0-34.0 [facility] Comment on above: Performed By: #### D NAAB, ANCAP, ANCAC, IFESC, ASO, SEPGRX, ANCA, C3COMP, C4COMP, ANAIFS, KLFRS #### [place] [address] [place] [phone] #### GBMBG #### [facility] [address] [place] [address] MCHC (RBC) [Mass/Vol] 33.3 g/dL Normal 30.5-36.0 [facility] Comment on above: Performed By: #### D NAAB, ANCAP, ANCAC, IFESC, ASO, SEPGRX, ANCA, C3COMP, C4COMP, ANAIFS, KLFRS #### [place] [address] #### GBMBG #### [place] [address] MCV (RBC) [Entitic vol] 85.4 fL Normal 80.0-100.0 [facility] Comment on above: Performed By: #### D NAAB, ANCAP, ANCAC, IFESC, ASO, SEPGRX, ANCA, C3COMP, C4COMP, ANAIFS, KLFRS #### [place] [address] #### GBMBG #### [facility] [address] [place] [address] Platelet mean volume (Bld) [Entitic vol] 10.5 fL Normal 9.0-12.7 [facility] Comment on above: Performed By: #### D NAAB, ANCAP, ANCAC, IFESC, ASO, SEPGRX, ANCA, C3COMP, C4COMP, ANAIFS, KLFRS #### [place] [address] #### GBMBG #### [facility] [address] [place] [address] Platelets (Bld) [#/Vol] 236 10*3/uL Normal 150-400 [facility] Comment on above: Performed By: #### D NAAB, ANCAP, ANCAC, IFESC, ASO, SEPGRX, ANCA, C3COMP, C4COMP, ANAIFS, KLFRS #### [place] [address] [place] [phone] #### GBMBG #### [facility] [address] [place] [address] RBC (Bld) [#/Vol] 3.02 10*6/uL Low 4.20-6.00 [facility] Comment on above: Performed By: #### D NAAB, ANCAP, ANCAC, IFESC, ASO, SEPGRX, ANCA, C3COMP, C4COMP, ANAIFS, KLFRS #### [place] [phone] #### GBMBG #### [place] [address] WBC (Bld) [#/Vol] 8.19 10*3/uL Normal 3.70-11.00 [facility] Comment on above: Performed By: #### D NAAB, ANCAP, ANCAC, IFESC, ASO, SEPGRX, ANCA, C3COMP, C4COMP, ANAIFS, KLFRS #### [place] [address] #### GBMBG #### [place] [address] CONSULT PROGon 05-22-2021 CONSULT PROG HNO ID: [id number] Author: Aurea Mckenna MD Service: Nephrology Author Type: Physician Type: Consult Progress Note Filed: 05/22/2021 11:34 AM Note Text: NEPHROLOGY CONSULT PROGRESS NOTE Subjective INTERVAL HISTORY: The patient was seen and examined . No acute event overnight. PERTINENT ROS: GENERAL: No fever/chills. RESPIRATORY: Negative for cough, wheezing or shortness of breath. CARDIOVASCULAR: Negative for chest pain or palpitations. GI: Negative for nausea, vomiting, Diarrhea, abdominal pain. : Negative for dysuria and hematuria MEDICATIONS: Current Facility-Administered Medications Medication Dose Route Frequency - atenolol 50 mg tab(s) (TENORMIN) 50 mg ORAL DAILY - docusate sodium 100 mg cap(s) (COLACE) 100 mg ORAL BID PRN - heparin 5,000 Units injection 5,000 Units SUBCUTANEOUS q 12 H - NaCl 0.9% iv flush bag 20 mL INTRAVENOUS PRN - sodium chloride 0.9 % (flush) 3-5 mL (BD POSIFLUSH) 3-5 mL INTRAVENOUS q 12 H - ondansetron orally disintegrating 4 mg tab(s) (ZOFRAN ODT) 4 mg ORAL q 6 H PRN Or - ondansetron (PF) 4 mg injection (ZOFRAN) 4 mg INTRAVENOUS q 6 H PRN - melatonin 3 mg tab(s) 3 mg ORAL DAILY (8 PM) - psyllium 1 Packet (METAMUCIL) 1 Packet ORAL AT BEDTIME - linezolid 600 mg tab(s) (ZYVOX) 600 mg ORAL q 12 H - sodium chloride 0.65 % 2 [place] (AYR, OCEAN) 2 [place] EACH NOSTRIL PRN - acetaminophen 650 mg tab(s) (TYLENOL) 650 mg ORAL q 6 H PRN - traMADol 50 mg tab(s) (ULTRAM) 50 mg ORAL q 12 H PRN - famotidine 20 mg tab(s) (PEPCID) 20 mg ORAL DAILY - meclizine 25 mg tab(s) (ANTIVERT) 25 mg ORAL TID - LORazepam 0.25 mg tab(s) (ATIVAN) 0.25 mg ORAL HS PRN - benzocaine-menthol 1 Lozenge (CEPACOL) 1 Lozenge MUCOUS MEMBRANE (TOPICAL MOUTH AND THROAT) q 2 H PRN - ipratropium-albuterol 3 mL nebulizer solution (DUONEB) 3 mL INHALATION q 4 H PRN Objective PHYSICAL EXAM: BP 135/77 Pulse 66 Temp 36.7 ?C (98.1 ?F) (Oral) Resp 20 Ht 162.6 cm (5' 4) Wt 79.1 kg (174 lb 4.8 oz) SpO2 94% BMI 29.92 kg/m? Patient Vitals for the past 24 hrs: BP 05/18/21 0741 106/59 05/17/21 2326 105/58 05/17/21 1455 105/50 Intake/Output Summary (Last 24 hours) at 05/22/2021 1133 Last data filed at 05/22/2021 0547 Gross per 24 hour Intake 1239 ml Output 450 ml Net 789 ml GENERAL: Awake, cooperative, NAD, Orientated x 3 HEENT : NCAT, MMM and pink , oropharynx clear, EYES: Conjunctiva -Pallor, Non icterus sclera. NECK: supple, No JVD, no carotid bruits, , No cervical mass or thyromegaly. LUNGS: clear to auscultation, without rales or wheeze, diminished breath sounds, CV: normal, Regular rate and rhythm, no murmurs, clicks, or gallops. ABDOMEN: Abdomen soft, non-tender, BS normal, No masses or organomegaly EDEMA : no Lower extremity/ mno Dependent edema DATA: Diagnostic tests reviewed for today's visit: Most recent labs and imaging results. Recent Labs 05/22/21 0544 05/21/21 0456 05/20/21 0447 05/19/21 1045 05/18/21 0656 NA 135* 133* 130* 129* 128* 128* K 3.8 3.9 3.6* 3.9 3.8 4.1 CHLOR 94* 91* 87* 87* 86* 92* CO2 23 27 24 22 22 16* BUN 61* 73* 84* 80* 80* 86* CREAT 3.85* 4.60* 5.12* 6.02* 6.02* 7.09* GLUC 84 82 112* 138* 138* 117* ANION 18 15 19* 20* 20* 20* CA 7.8* 7.7* 7.6* 7.8* 7.7* 7.6* P 5.6* 5.7* 4.9* 4.2 -- MG 1.8 1.9 1.9 2.0 2.0 Recent Labs 05/22/21 0544 05/21/21 0456 05/20/21 0447 WBC 8.19 7.12 10.30 HB 8.6* 8.1* 8.9* HCT 25.8* 24.0* 25.2* PLT 236 212 250 Assessment/Plan 1. Acute kidney injury-exact etiology is not clear. Differential diagnosis including prerenal/intravascular volume depletion, ATN, postinfectious GN or other glomera nephritis. Patient also had a significant use of NSAIDs in last 5 days. Cannot rule out for streptococcal glomera nephritis given patient with left upper extremity cellulitis. Patient with elevated transaminitis cannot rule out component of acute interstitial nephritis 2. Hyperkalemia 3. Hypovolemic hyponatremia and in the setting of renal failure 5. Severe metabolic acidosis 6. Hypocalcemia 7. Anemia 8. Bilateral perinephric stranding on the CAT scan 9. Urinary retention with bladder distention partially although no hydronephrosis 10. Left upper extremity cellulitis 11. Elevated LFTs likely in the setting of sepsis or drug-related 12. Leukocytosis/sepsis 13. Cholelithiasis 4. Recent use of NSAIDs ? Plan of management Renal function: Continues to improve,, creatinine down to 3.85 mg/dL. Urine output of 700 mL in last 24 hours Serum bicarbonate improved to 23.. Patient with lower extremity edema and abdominal distention/bloating We will give Lasix 40 mg IV x1 dose 135 from 130 -Hyponatremia improving, serum sodium is up to 130 from 128. --Likely etiology for acute kidney injury is ATN given no active sediment or casts. Also FENa more than 1%. Continue current IV fluid. GN work-up revealed C4 48 C3 of 147 A (more content not included)... [facility] CONSULT PROG HNO ID: [id number] Author: Refugio Greene MD Service: Gastroenterology Author Type: Physician Type: Consult Progress Note Filed: 05/22/2021 1:12 PM Note Text: GASTROENTEROLOGY CONSULT PROGRESS NOTE Patient Name: Mychal Swanson SERVICE DATE: May 22, 2021 SERVICE TIME: 11:25 AM ASSESSMENT 1. Elevated LFT's - suspect elevation related to underlying sepsis however biliary vs drug related adverse medication s/e (Clindamycin) can also be considered. Resolved. 2. New onset abdominal bloating / early satiety 3. Acute Kidney Injury 4. Leukocytosis / Sepsis - improved 5. Normocytic anemia with low iron 6. Cholelithiasis 7. Recent increase in NSAID use (Max 24 tablets/day for the past 5 days) 8. Fecal retention and hepatic steatosis on imaging ? ? PLAN - Follow LFT trends - Statin placed on hold?by primary team - Pepcid 20 mg po daily - Metamucil 1 packet qHS - Atb per ID (Zyvox) - Miralax 17 gm daily - Daily CBC and CMP - Regular diet - IV Lasix per nephrology - ID, Ortho and nephrology following Patient seen and examined. Discussed with mid level provider. Swenson findings confirmed. Plan as outlined. LFT's normalized. OK to restart statin from GI standpoint, will defer to IM. Will sign off, please call with questions. Refugio Greene MD May 22, 2021 1:10 PM INTERVAL HPI: Feels overall better. Has some abdominal bloating but no pain. No nausea or vomiting. Appetite is poor and mostly eating fruit and green beans. Had 2 brown soft stools yesterday and one soft stool this am. LFT's normal. Nephrology giving IV Lasix today for lower extremity edema and abdominal distension. PHYSICAL EXAM: Patient Vitals for the past 24 hrs: BP Temp Temp src Pulse Resp SpO2 Weight 05/22/21 0745 135/77 36.7 ?C (98.1 ?F) Oral 66 20 94 % ? 05/22/21 0547 ? 79.1 kg (174 lb 4.8 oz) 05/21/21 2345 141/69 36.6 ?C (97.9 ?F) Oral 67 18 96 % ? 05/21/21 1552 136/69 ? 91 % ? 05/21/21 1543 139/63 36.5 ?C (97.7 ?F) Oral (!) 56 18 94 % ? GENERAL: Alert AND oriented x 3. Cooperative. NAD EYES: No scleral icterus SKIN:?Mild pallor?in color. No jaundice LUNGS: Clear to auscultation anteriorly CARDIAC: RRR ABDOMEN: BS x 4. Abdomen mildly distended but soft,?non tender,?distended. No palpable masses or organomegaly. No guarding or rebound tenderness elicited EXTREMITIES: +1 pitting edema BLE. Right hand with edema. LUE with erythema and swelling. MEDICATIONS: Current Facility-Administered Medications Medication Dose Route Frequency - atenolol 50 mg tab(s) (TENORMIN) 50 mg ORAL DAILY - docusate sodium 100 mg cap(s) (COLACE) 100 mg ORAL BID PRN - heparin 5,000 Units injection 5,000 Units SUBCUTANEOUS q 12 H - NaCl 0.9% iv flush bag 20 mL INTRAVENOUS PRN - sodium chloride 0.9 % (flush) 3-5 mL (BD POSIFLUSH) 3-5 mL INTRAVENOUS q 12 H - ondansetron orally disintegrating 4 mg tab(s) (ZOFRAN ODT) 4 mg ORAL q 6 H PRN Or - ondansetron (PF) 4 mg injection (ZOFRAN) 4 mg INTRAVENOUS q 6 H PRN - melatonin 3 mg tab(s) 3 mg ORAL DAILY (8 PM) - psyllium 1 Packet (METAMUCIL) 1 Packet ORAL AT BEDTIME - linezolid 600 mg tab(s) (ZYVOX) 600 mg ORAL q 12 H - sodium chloride 0.65 % 2 [place] (AYR, OCEAN) 2 [place] EACH NOSTRIL PRN - acetaminophen 650 mg tab(s) (TYLENOL) 650 mg ORAL q 6 H PRN - traMADol 50 mg tab(s) (ULTRAM) 50 mg ORAL q 12 H PRN - famotidine 20 mg tab(s) (PEPCID) 20 mg ORAL DAILY - meclizine 25 mg tab(s) (ANTIVERT) 25 mg ORAL TID - LORazepam 0.25 mg tab(s) (ATIVAN) 0.25 mg ORAL HS PRN - benzocaine-menthol 1 Lozenge (CEPACOL) 1 Lozenge MUCOUS MEMBRANE (TOPICAL MOUTH AND THROAT) q 2 H PRN - ipratropium-albuterol 3 mL nebulizer solution (DUONEB) 3 mL INHALATION q 4 H PRN LABS: CBC, Coags, BMP, Mg, Phos Recent Labs 05/22/21 0544 05/21/21 0456 05/20/21 0447 WBC 8.19 7.12 10.30 HB 8.6* 8.1* 8.9* HCT 25.8* 24.0* 25.2* PLT 236 212 250 NA 135* 133* 130* K 3.8 3.9 3.6* CHLOR 94* 91* 87* CO2 23 27 24 BUN 61* 73* 84* CREAT 3.85* 4.60* 5.12* GLUC 84 82 112* CA 7.8* 7.7* 7.6* MG 1.8 1.9 1.9 P 5.6* 5.7* 4.9* Liver Function, Amylase, AND Lipase Recent Labs 05/22/21 0544 05/21/21 0456 05/20/21 0600 05/20/21 0447 TPROT 5.9* 5.5* -- 5.9* ALB 2.6* 2.3* -- 2.4* ALT 30 36 -- 53 AST 15 14 -- 21 ALKPHOS 97 95 -- 133* TBILI 0.3 0.2 -- 0.3 LIPASE -- -- 91* -- 07/01/2020 @ [facility]?via [facility]where ALP?38 ALT ?18 AST ?22 Total Bili?0.40 BUN ?24 Creatinine ?1.01 ? 05/16/2021 [facility] ED WBC 11.7 Hgb 10.5 Hct 30.7 Plt 286 % Neut 89.3% BUN 73 Creatinine 6.95 ALT 260 AST 550 AP 121 Bilirubin 0.7 CRP 63 ? [facility]? Component Latest Ref Rng AND Units 05/17/2021 Hep A Ab, IgM Negative Negative Hep B Surfa (more content not included)... [facility] CONSULT PROG HNO ID: [id number] Author: Darvin Coughlin PA-C Service: Orthopaedic Surgery Author Type: Physician Equipment Validation Specialist Type: Consult Progress Note Filed: 05/22/2021 9:15 AM Note Text: Attestation signed by Jose Francisco Glez MD at 05/22/2021 4:38 PM Agree with above ORTHOPAEDIC SURGERY Inpatient Progress Note ASTRIDREMBERTOCher DATE: 05/22/2021 SERVICE TIME: 8:24 AM PRIMARY CARE PHYSICIAN: Lee Holbrook MD ASSESSMENT AND PLAN Cellulitis of left arm - MRI findings consistent with cellulitis. No evidence of abscess or osteomyelitis - Continue Antibiotics/management of cellulitis per ID and Primary team - Monitor for worsening elbow pain - No indication for orthopaedic surgical intervention at this time - Orthopaedics will continue following SUBJECTIVE: No o/n issues. He denies any elbow pain. Denies any new complaints. OBJECTIVE PHYSICAL EXAM: Vitals: BP 135/77 Pulse 66 Temp 36.7 ?C (98.1 ?F) (Oral) Resp 20 Ht 162.6 cm (5' 4) Wt 79.1 kg (174 lb 4.8 oz) SpO2 94% BMI 29.92 kg/m? GENERAL: Alert, no distress, cooperative LUNGS: Normal respiratory rate and rhythm CARDIAC: Palpable peripheral pulses Left Upper extremity Inspection: margin of erythema with blistering over the brachium and antebrachium improved from prior. Edema improved. Minimal tenderness over the erythematous areas Compartments Soft. Neurovascularly intact Radial and Brachial pulses 2+ Cap refill <2sec No pain with PROM or AROM sup/pro and flex/ext at elbow Sensory: SILT to M/R/U distributions Motor: + FPL/EPL/Finger flexion/extension, sup/pro, elbow flex/ext Problem Review and Assessment: Skin and Abdominal Wall: Patient monitored, no new events overnight Cardiovascular and Vascular: Patient monitored, no new events overnight Respiratory: Patient monitored, no new events overnight Endocrine and Metabolic: Patient monitored, no new events overnight Gastrointestinal: Patient monitored, no new events overnight Genitourinary and Nephrology: Patient monitored, no new events overnight Behavioral, Cerebrovascular and Nervous: Patient monitored, no new events overnight Infectious: Patient monitored, no new events overnight DATA: Diagnostic tests reviewed for today's visit: Most recent labs and imaging results. LABS: Coags: No results for input(s): PT, INR, APTT in the last 24 hours. Hemoglobin Date Value Ref Range Status 05/22/2021 8.6 (L) 13.0 - 17.0 g/dL Final 05/21/2021 8.1 (L) 13.0 - 17.0 g/dL Final Hematocrit Date Value Ref Range Status 05/22/2021 25.8 (L) 39.0 - 51.0 % Final 05/21/2021 24.0 (L) 39.0 - 51.0 % Final Platelet Count Date Value Ref Range Status 05/22/2021 236 150 - 400 k/uL Final 05/21/2021 212 150 - 400 k/uL Final WBC Date Value Ref Range Status 05/22/2021 8.19 3.70 - 11.00 k/uL Final 05/21/2021 7.12 3.70 - 11.00 k/uL Final Creatinine Date Value Ref Range Status 05/22/2021 3.85 (H) 0.73 - 1.22 mg/dL Final 05/21/2021 4.60 (H) 0.73 - 1.22 mg/dL Final Potassium Date Value Ref Range Status 05/22/2021 3.8 3.7 - 5.1 mmol/L Final 05/21/2021 3.9 3.7 - 5.1 mmol/L Final IMAGING: Narrative AND Impression * * *Final Report* * * ? DATE OF EXAM: May 17 2021 4:53PM ? [facility] 0188 - MRI ELBOW WO IVCON LT / ? PROCEDURE REASON: Elbow erythema, swelling, cellulitis suspected * * * * Physician Interpretation * * * * ? LEFT ELBOW ? CLINICAL HISTORY: cellulitis vs abscess vs less likely septic arthritis or osteomyelitis SEPTIC LEFT ELBOW ? TECHNIQUE: Multiplanar multisequence MR imaging of the left elbow was performed without the administration of gadolinium. ? COMPARISON: Radiograph from May 16, 2021 ? FINDINGS: Small elbow joint effusion. Large areas of rate for cartilage irregularity involving the radial head and capitellum with associated osteophyte formation. No intra-articular bodies are seen. Medial and lateral ulnar collateral ligaments, radial collateral ligament, and annular ligament are intact. Low level signal involving the common extensor tendons at and adjacent to their insertions on the humeral epicondyles (series 5 images 11 through 14). Common flexor tendons are normal. ? Distal biceps tendon, brachialis tendon, and triceps tendon are intact. No evidence of bone fracture or contusion. ? Diffuse subcutaneous soft tissue edema or findings related to cellulitis. Possible prominent lymph nodes in the medial soft tissues of the distal forearm (series 3 image 6 and series 3 image 9). No defined abscess is seen. ? ? IMPRESSION IMPRESSION: 1. Diffuse soft tissue edema or findings related to cellulitis. No abscess is seen. No evidence of osteomyelitis. ? 2. Probable prominent lymph nodes in the medial soft tissues of the (more content not included)... [facility] Comp Metabolic Panelon 05-22 Albumin [Mass/Vol] 2.6 g/dL Low 3.9-4.9 [facility] Comment on above: Performed By: #### D NAAB, ANCAP, ANCAC, IFESC, ASO, SEPGRX, ANCA, C3COMP, C4COMP, ANAIFS, KLFRS #### [facility] [address] [address] #### GBMBG #### [facility] [address] [place] [address] ALP [Catalytic activity/Vol] 97 U/L Normal 38-113 [facility] Comment on above: Performed By: #### D NAAB, ANCAP, ANCAC, IFESC, ASO, SEPGRX, ANCA, C3COMP, C4COMP, ANAIFS, KLFRS #### [facility] [employer] [address] [address] #### GBMBG #### [facility] [address] [place] [address] ALT [Catalytic activity/Vol] 30 U/L Normal 10-54 [facility] Comment on above: Performed By: #### D NAAB, ANCAP, ANCAC, IFESC, ASO, SEPGRX, ANCA, C3COMP, C4COMP, ANAIFS, KLFRS #### [facility] [employer] [facility] [place], [place] [address] #### GBMBG #### [facility] [address] [place] [address] Anion gap [Moles/Vol] 18 mmol/L Normal 9-18 [facility] Comment on above: Performed By: #### D NAAB, ANCAP, ANCAC, IFESC, ASO, SEPGRX, ANCA, C3COMP, C4COMP, ANAIFS, KLFRS #### [facility] [employer] [facility] [place], [place] [address] #### GBMBG #### [address] [address] AST [Catalytic activity/Vol] 15 U/L Normal 14-40 [facility] Comment on above: Performed By: #### D NAAB, ANCAP, ANCAC, IFESC, ASO, SEPGRX, ANCA, C3COMP, C4COMP, ANAIFS, KLFRS #### [facility] [employer] [facility] [place], [place] [address] #### GBMBG #### [address] [address] Bilirubin [Mass/Vol] 0.3 mg/dL Normal 0.2-1.3 [facility] Comment on above: Performed By: #### D NAAB, ANCAP, ANCAC, IFESC, ASO, SEPGRX, ANCA, C3COMP, C4COMP, ANAIFS, KLFRS #### [facility] [employer] [facility] [place], [place] [address] #### GBMBG #### [address] [phone] Calcium [Mass/Vol] 7.8 mg/dL Low 8.5-10.2 [facility] Comment on above: Performed By: #### D NAAB, ANCAP, ANCAC, IFESC, ASO, SEPGRX, ANCA, C3COMP, C4COMP, ANAIFS, KLFRS #### [facility] [employer] [address] [place], [place] [address] #### GBMBG #### [facility] [address] [place] [address] Chloride [Moles/Vol] 94 mmol/L Low 97-105 [facility] Comment on above: Performed By: #### D NAAB, ANCAP, ANCAC, IFESC, ASO, SEPGRX, ANCA, C3COMP, C4COMP, ANAIFS, KLFRS #### [facility] [employer] [address] [place], [place] [address] #### GBMBG #### [address] [address] CO2 [Moles/Vol] 23 mmol/L Normal 22-30 [facility] Comment on above: Performed By: #### D NAAB, ANCAP, ANCAC, IFESC, ASO, SEPGRX, ANCA, C3COMP, C4COMP, ANAIFS, KLFRS #### [facility] [employer] [address] [place], [place] [address] #### GBMBG #### [address] [address] Creatinine [Mass/Vol] 3.85 mg/dL High 0.73-1.22 [facility] Comment on above: Performed By: #### D NAAB, ANCAP, ANCAC, IFESC, ASO, SEPGRX, ANCA, C3COMP, C4COMP, ANAIFS, KLFRS #### [facility] [employer] [address] [place], [place] [address] #### GBMBG #### [facility] [address] [place] [address] eGFR- Amer. 19 [facility] Comment on above: Performed By: #### D NAAB, ANCAP, ANCAC, IFESC, ASO, SEPGRX, ANCA, C3COMP, C4COMP, ANAIFS, KLFRS #### [facility] [address] [phone] #### GBMBG #### [address] [address] eGFR-All Other Races 16 . [facility] Comment on above: Result Comment: eGFR (Estimated GFR) Units of measure: mL/min/1.73 meters squared eGFR is derived from the reexpressed MDRD Study equation using the following parameters: serum creatinine, age, gender and race. The creatinine assay has been calibrated to be traceable to IDMS. An eGFR <60 mL/min/1.73m2 for >3 months is consistent with chronic kidney disease. Refer to KDOQI guidelines for clinical interpretation. In patients with unstable renal function, e.g. those with acute kidney injury, the eGFR may not accurately reflect actual GFR. Note: On 2021, the eGFR calculation will be updated to the NKF-ASN Task Force recommended 2020 CKD-EPI creatinine equation which does not include a race variable. For more information or to access a 2020 CKD-EPI calculator, visit the National Kidney Foundation website at kidney.org/professionals/kdoqi/gfr_calculator. Performed By: #### D NAAB, ANCAP, ANCAC, IFESC, ASO, SEPGRX, ANCA, C3COMP, C4COMP, ANAIFS, KLFRS #### [facility] [address] [phone] #### GBMBG #### [address] [address] Glucose [Mass/Vol] 84 mg/dL Normal 74-99 [facility] Comment on above: Result Comment: The [place] Diabetes Association (ADA) provides guidance for cutoff values for fasting glucose and random glucose. The ADA defines fasting as no caloric intake for at least 8 hours. Fasting plasma glucose results between 100 to 125 mg/dL indicate increased risk for diabetes (prediabetes). Fasting plasma glucose results greater than or equal to 126 mg/dL meet the criteria for diagnosis of diabetes. In the absence of unequivocal hyperglycemia, results should be confirmed by repeat testing. In a patient with classic symptoms of hyperglycemia or hyperglycemic crisis, random plasma glucose results greater than or equal to 200 mg/dL meet the criteria for diagnosis of diabetes. Reference: Standards of Medical Care in Diabetes 2016, [place] Diabetes Association. Diabetes Care. 2016.39(Suppl 1). Performed By: #### D NAAB, ANCAP, ANCAC, IFESC, ASO, SEPGRX, ANCA, C3COMP, C4COMP, ANAIFS, KLFRS #### [facility] [employer] [address] [place] [phone] #### GBMBG #### [facility] [address] [phone] Potassium [Moles/Vol] 3.8 mmol/L Normal 3.7-5.1 [facility] Comment on above: Performed By: #### D NAAB, ANCAP, ANCAC, IFESC, ASO, SEPGRX, ANCA, C3COMP, C4COMP, ANAIFS, KLFRS #### [facility] [employer] [address] [place] [phone] #### GBMBG #### [address] [phone] Protein [Mass/Vol] 5.9 g/dL Low 6.3-8.0 [facility] Comment on above: Performed By: #### D NAAB, ANCAP, ANCAC, IFESC, ASO, SEPGRX, ANCA, C3COMP, C4COMP, ANAIFS, KLFRS #### [facility] [employer] [address] [place] [phone] #### GBMBG #### [address] [phone] Sodium [Moles/Vol] 135 mmol/L Low 136-144 [facility] Comment on above: Performed By: #### D NAAB, ANCAP, ANCAC, IFESC, ASO, SEPGRX, ANCA, C3COMP, C4COMP, ANAIFS, KLFRS #### [facility] [employer] [address] [place] [phone] #### GBMBG #### [facility] [address] [place] [address] Urea nitrogen [Mass/Vol] 61 mg/dL High 9-24 [facility] Comment on above: Performed By: #### D NAAB, ANCAP, ANCAC, IFESC, ASO, SEPGRX, ANCA, C3COMP, C4COMP, ANAIFS, KLFRS #### [place] [phone] #### GBMBG #### [facility] [address] [place] [address] Magnesiumon 05-22-2021 Magnesium [Mass/Vol] 1.8 mg/dL Normal 1.7-2.3 [facility] Comment on above: Performed By: #### D NAAB, ANCAP, ANCAC, IFESC, ASO, SEPGRX, ANCA, C3COMP, C4COMP, ANAIFS, KLFRS #### [place] [phone] #### GBMBG #### [facility] [address] [phone] Phosphoruson 05-22-2021 Phosphate [Mass/Vol] 5.6 mg/dL High 2.7-4.8 [facility] Comment on above: Performed By: #### D NAAB, ANCAP, ANCAC, IFESC, ASO, SEPGRX, ANCA, C3COMP, C4COMP, ANAIFS, KLFRS #### [place] [phone] #### GBMBG #### [address] [address] Procalcitoninon 05-22-2021 Procalcitonin 2.52 ng/mL High <0.09 [facility] Comment on above: Result Comment: For a guided interpretation of test results, please visit the Change in Procalcitonin Calculator, [email or web address]. Performed By: #### D NAAB, ANCAP, ANCAC, IFESC, ASO, SEPGRX, ANCA, C3COMP, C4COMP, ANAIFS, KLFRS #### [facility] [employer] [address] [phone] #### GBMBG #### [facility] [address] [place] [address] Procalcitonin 2.79 ng/mL High <0.09 [facility] Comment on above: Result Comment: For a guided interpretation of test results, please visit the Change in Procalcitonin Calculator, [email or web address]. Performed By: #### D NAAB, ANCAP, ANCAC, IFESC, ASO, SEPGRX, ANCA, C3COMP, C4COMP, ANAIFS, KLFRS #### [address] [id number] [place] [address] #### GBMBG #### [facility] [address] [place] [address] XR CHEST 1V FRONTAL PORTon 1 07-23-2020 XR CHEST 1V FRONTAL PORT * * *Final Report* * * DATE OF EXAM: May 21 2021 10:31PM MDX [id number] - XR CHEST 1V FRONTAL PORT / PROCEDURE REASON: Cough, new onset * * * * Physician Interpretation * * * * EXAMINATION: CHEST RADIOGRAPH (PORTABLE SINGLE VIEW AP) Exam Date/Time: 05/21/2021 10:31 PM CLINICAL HISTORY: Cough, new onset MQ: XCPR_5 Comparison: 05/20/2021 RESULT: See impression. IMPRESSION: Lines, tubes, and devices: None. Lungs and pleura: Interval development of bilateral patchy airspace opacities representing atelectasis or infiltrates. Correlate with signs of infection and follow-up recommended. Upper lung espinoza show no consolidation. No pneumothorax. No visualized pleural effusion. Cardiomediastinal silhouette: Stable cardiomediastinal silhouette. Other: Right shoulder arthroplasty. Degenerative changes left shoulder joint. Plastic Maker: ORALIA Transcribe Date/Time: May 21 2021 10:35P Dictated by : HILARIO ANDRADE MD This examination was interpreted and the report reviewed and electronically signed by: HILARIO ANDRADE MD on May 21 2021 10:37PM EST [id number] [facility] CASE MANAGEMon 05-21-2021 CASE MANAGEM HNO ID: [id number] Author: Marcia Meehan RN Service: ? Author Type: Registered Nurse Type: Care Mgt Progress Note Filed: 05/21/2021 2:26 PM Note Text: CARE MANAGEMENT PROGRESS NOTE SERVICE DATE: 05/21/2021 SERVICE TIME: 2:26 PM LOS: 5 days Pt found to be in renal failure with Creatinine near 7 ( 4.60 today) Associated electrolyte disturbances, high anion gap acidosis, bicarb 10. Nephrology following SIGNATURE: Marcia Meehan RN PATIENT NAME: Mychal Swanson DATE: May 21, 2021 TIME: 2:26 PM PAGER/CONTACT #: [phone] [facility] CBCon 05-21-2021 Absolute nRBC <0.01 Normal <0.01 [facility] Comment on above: Performed By: #### M G1, CMP, URIC, CBC #### [facility] [address] [place] [address] #### HACUTP, WSR #### [facility] [employer] [address] [phone] Erythrocyte distribution width (RBC) [Ratio] 14.1 % Normal 11.5-15.0 [facility] Comment on above: Performed By: #### M G1, CMP, URIC, CBC #### [facility] [address] [place] [address] #### HACUTP, WSR #### [facility] [employer] [address] [place] [phone] Hematocrit (Bld) [Volume fraction] 24.0 % Low 39.0-51.0 [facility] Comment on above: Performed By: #### M G1, CMP, URIC, CBC #### [facility] [address] [place], [place] [phone] #### HACUTP, WSR #### [place] [phone] Hemoglobin (Bld) [Mass/Vol] 8.1 g/dL Low 13.0-17.0 [facility] Comment on above: Performed By: #### M G1, CMP, URIC, CBC #### [place] [address] #### HACUTP, WSR #### [place] [phone] MCH 28.3 pG Normal 26.0-34.0 [facility] Comment on above: Performed By: #### M G1, CMP, URIC, CBC #### [place] [address] #### HACUTP, WSR #### [place] [phone] MCHC (RBC) [Mass/Vol] 33.8 g/dL Normal 30.5-36.0 [facility] Comment on above: Performed By: #### M G1, CMP, URIC, CBC #### [place] [address] #### HACUSTEVIE, WSR #### [place] [phone] MCV (RBC) [Entitic vol] 83.9 fL Normal 80.0-100.0 [facility] Comment on above: Performed By: #### M G1, CMP, URIC, CBC #### [place] [address] #### HACUTP, WSR #### [place] [phone] Platelet mean volume (Bld) [Entitic vol] 10.5 fL Normal 9.0-12.7 [facility] Comment on above: Performed By: #### M G1, CMP, URIC, CBC #### [place] [address] #### HACUTP, WSR #### [address] [place], [place] [address] Platelets (Bld) [#/Vol] 212 10*3/uL Normal 150-400 [facility] Comment on above: Performed By: #### M G1, CMP, URIC, CBC #### [facility] [address] [place] [address] #### HACUTP, WSR #### [address] [phone] [place] [address] RBC (Bld) [#/Vol] 2.86 10*6/uL Low 4.20-6.00 [facility] Comment on above: Performed By: #### M G1, CMP, URIC, CBC #### [facility] [address] [place] [address] #### HACUTP, WSR #### [place] [address] WBC (Bld) [#/Vol] 7.12 10*3/uL Normal 3.70-11.00 [facility] Comment on above: Performed By: #### M G1, CMP, URIC, CBC #### [place] [address] #### HACUTP, WSR #### [place] [address] CONSULT PROGon 05-21-2021 CONSULT PROG HNO ID: [id number] Author: Temo Blue MD Service: Nephrology Author Type: Physician Type: Consult Progress Note Filed: 05/21/2021 9:20 PM Note Text: NEPHROLOGY CONSULT PROGRESS NOTE Subjective INTERVAL HISTORY: The patient was seen and examined . No acute event overnight. PERTINENT ROS: GENERAL: No fever/chills. RESPIRATORY: Negative for cough, wheezing or shortness of breath. CARDIOVASCULAR: Negative for chest pain or palpitations. GI: Negative for nausea, vomiting, Diarrhea, abdominal pain. : Negative for dysuria and hematuria MEDICATIONS: Current Facility-Administered Medications Medication Dose Route Frequency - atenolol 50 mg tab(s) (TENORMIN) 50 mg ORAL DAILY - docusate sodium 100 mg cap(s) (COLACE) 100 mg ORAL BID PRN - heparin 5,000 Units injection 5,000 Units SUBCUTANEOUS q 12 H - NaCl 0.9% iv flush bag 20 mL INTRAVENOUS PRN - sodium chloride 0.9 % (flush) 3-5 mL (BD POSIFLUSH) 3-5 mL INTRAVENOUS q 12 H - ondansetron orally disintegrating 4 mg tab(s) (ZOFRAN ODT) 4 mg ORAL q 6 H PRN Or - ondansetron (PF) 4 mg injection (ZOFRAN) 4 mg INTRAVENOUS q 6 H PRN - melatonin 3 mg tab(s) 3 mg ORAL DAILY (8 PM) - psyllium 1 Packet (METAMUCIL) 1 Packet ORAL AT BEDTIME - linezolid 600 mg tab(s) (ZYVOX) 600 mg ORAL q 12 H - sodium chloride 0.65 % 2 [place] (AYR, OCEAN) 2 [place] EACH NOSTRIL PRN - NaCl 0.9% iv infusion 100 mL/hr INTRAVENOUS CONTINUOUS - acetaminophen 650 mg tab(s) (TYLENOL) 650 mg ORAL q 6 H PRN - traMADol 50 mg tab(s) (ULTRAM) 50 mg ORAL q 12 H PRN - famotidine 20 mg tab(s) (PEPCID) 20 mg ORAL DAILY - meclizine 25 mg tab(s) (ANTIVERT) 25 mg ORAL TID - LORazepam 0.25 mg tab(s) (ATIVAN) 0.25 mg ORAL HS PRN Objective PHYSICAL EXAM: BP 136/69 Pulse (!) 56 Temp 36.5 ?C (97.7 ?F) (Oral) Resp 18 Ht 162.6 cm (5' 4) Wt 73.6 kg (162 lb 4.1 oz) SpO2 91% BMI 27.85 kg/m? Patient Vitals for the past 24 hrs: BP 05/18/21 0741 106/59 05/17/21 2326 105/58 05/17/21 1455 105/50 Intake/Output Summary (Last 24 hours) at 05/21/2021 2119 Last data filed at 05/21/2021 1759 Gross per 24 hour Intake 1239 ml Output 700 ml Net 539 ml GENERAL: Awake, cooperative, NAD, Orientated x 3 HEENT : NCAT, MMM and pink , oropharynx clear, EYES: Conjunctiva -Pallor, Non icterus sclera. NECK: supple, No JVD, no carotid bruits, , No cervical mass or thyromegaly. LUNGS: clear to auscultation, without rales or wheeze, diminished breath sounds, CV: normal, Regular rate and rhythm, no murmurs, clicks, or gallops. ABDOMEN: Abdomen soft, non-tender, BS normal, No masses or organomegaly EDEMA : no Lower extremity/ mno Dependent edema DATA: Diagnostic tests reviewed for today's visit: Most recent labs and imaging results. Recent Labs 05/21/216 05/20/217 05/19/21 1045 05/18/21 0656 05/17/21 0529 NA 133* 130* 129* 128* 128* 128* K 3.9 3.6* 3.9 3.8 4.1 5.3* CHLOR 91* 87* 87* 86* 92* 94* CO2 27 24 22 22 16* 10* BUN 73* 84* 80* 80* 86* 77* CREAT 4.60* 5.12* 6.02* 6.02* 7.09* 6.96* GLUC 82 112* 138* 138* 117* 26* ANION 15 19* 20* 20* 20* 24* CA 7.7* 7.6* 7.8* 7.7* 7.6* 7.5* P 5.7* 4.9* 4.2 -- -- MG 1.9 1.9 2.0 2.0 1.8 Recent Labs 05/21/216 05/20/21 0447 05/19/21 1045 WBC 7.12 10.30 13.99* 13.46* HB 8.1* 8.9* 9.3* 9.1* HCT 24.0* 25.2* 26.7* 26.3* PLT 212 250 237 239 Assessment/Plan 1. Acute kidney injury-exact etiology is not clear. Differential diagnosis including prerenal/intravascular volume depletion, ATN, postinfectious GN or other glomera nephritis. Patient also had a significant use of NSAIDs in last 5 days. Cannot rule out for streptococcal glomera nephritis given patient with left upper extremity cellulitis. Patient with elevated transaminitis cannot rule out component of acute interstitial nephritis 2. Hyperkalemia 3. Hypovolemic hyponatremia and in the setting of renal failure 5. Severe metabolic acidosis 6. Hypocalcemia 7. Anemia 8. Bilateral perinephric stranding on the CAT scan 9. Urinary retention with bladder distention partially although no hydronephrosis 10. Left upper extremity cellulitis 11. Elevated LFTs likely in the setting of sepsis or drug-related 12. Leukocytosis/sepsis 13. Cholelithiasis 4. Recent use of NSAIDs ? Plan of management Renal function: Renal function slowly improving, creatinine is down to 4.6 mg/dL from work 5.1 mg/dL and BUN is down to 73 from 84. Urine output is 1.1 L in the last 24 hours and hyponatremia is improving, serum sodium is up to 133 from 130. -Patient remains on normal saline at 100 cc/h. -Chest x-ray is negative for any pleural effusion or pulmonary edema. Continue with IV hydration. -Corrected calcium within the normal range. --Likely etiology for acute kidney injury is ATN given no active sediment or casts. Also FENa more than 1%. Continue current IV fluid. GN work-up revealed C4 48 (more content not included)... [facility] Comp Metabolic Panelon 05-21 Albumin [Mass/Vol] 2.3 g/dL Low 3.9-4.9 [facility] Comment on above: Performed By: #### M G1, CMP, URIC, CBC #### [facility] [address] [place] [address] #### ERNESTINA WSR #### [facility] [address] [place] [address] ALP [Catalytic activity/Vol] 95 U/L Normal 38-113 [facility] Comment on above: Performed By: #### M G1, CMP, URIC, CBC #### [facility] [address] [place], [place] [id number] #### ERNESTINA, WSR #### [facility] [address] [place] [address] ALT [Catalytic activity/Vol] 36 U/L Normal 10-54 [facility] Comment on above: Performed By: #### M G1, CMP, URIC, CBC #### [facility] [address] [place] [address] #### HACUTP, WSR #### [address] [place] [id number] [place] [phone] Anion gap [Moles/Vol] 15 mmol/L Normal 9-18 [facility] Comment on above: Performed By: #### M G1, CMP, URIC, CBC #### [facility] [address] [place] [address] #### HACUTP, WSR #### [phone] AST [Catalytic activity/Vol] 14 U/L Normal 14-40 [facility] Comment on above: Performed By: #### M G1, CMP, URIC, CBC #### [facility] [address] [place] [address] #### HACUSTEVIE, WSR #### [phone] Bilirubin [Mass/Vol] 0.2 mg/dL Normal 0.2-1.3 [facility] Comment on above: Performed By: #### M G1, CMP, URIC, CBC #### [facility] [address] [place] [address] #### HACUTP, WSR #### [phone] Calcium [Mass/Vol] 7.7 mg/dL Low 8.5-10.2 [facility] Comment on above: Performed By: #### M G1, CMP, URIC, CBC #### [facility] [address] [place] [address] #### HACUTP, WSR #### [phone] Chloride [Moles/Vol] 91 mmol/L Low 97-105 [facility] Comment on above: Performed By: #### M G1, CMP, URIC, CBC #### [facility] [address] [place] [address] #### HACUTP, WSR #### [facility] [place] [address] CO2 [Moles/Vol] 27 mmol/L Normal 22-30 [facility] Comment on above: Performed By: #### M G1, CMP, URIC, CBC #### [facility] [address] [place] [address] #### HACUTP, WSR #### [facility] [place] [address] Creatinine [Mass/Vol] 4.60 mg/dL High 0.73-1.22 [facility] Comment on above: Performed By: #### M G1, CMP, URIC, CBC #### [facility] [address] [place] [address] #### HACUTP, WSR #### [place] [address] eGFR- Amer. 15 Normal [facility] Comment on above: Performed By: #### M G1, CMP, URIC, CBC #### [facility] [address] [place] [address] #### HACUTP, WSR #### [place] [address] eGFR-All Other Races 13 . Normal [facility] Comment on above: Result Comment: eGFR (Estimated GFR) Units of measure: mL/min/1.73 meters squared eGFR is derived from the reexpressed MDRD Study equation using the following parameters: serum creatinine, age, gender and race. The creatinine assay has been calibrated to be traceable to IDMS. An eGFR <60 mL/min/1.73m2 for >3 months is consistent with chronic kidney disease. Refer to KDOQI guidelines for clinical interpretation. In patients with unstable renal function, e.g. those with acute kidney injury, the eGFR may not accurately reflect actual GFR. Note: On 2021, the eGFR calculation will be updated to the NKF-ASN Task Force recommended 2020 CKD-EPI creatinine equation which does not include a race variable. For more information or to access a 2020 CKD-EPI calculator, visit the National Kidney Foundation website at kidney.org/professionals/kdoqi/gfr_calculator. Performed By: #### M G1, CMP, URIC, CBC #### [facility] [address] [place] [phone] #### ERNESTINA, WSR #### [place] [id number] [place] [address] Glucose [Mass/Vol] 82 mg/dL Normal 74-99 [facility] Comment on above: Result Comment: The [place] Diabetes Association (ADA) provides guidance for cutoff values for fasting glucose and random glucose. The ADA defines fasting as no caloric intake for at least 8 hours. Fasting plasma glucose results between 100 to 125 mg/dL indicate increased risk for diabetes (prediabetes). Fasting plasma glucose results greater than or equal to 126 mg/dL meet the criteria for diagnosis of diabetes. In the absence of unequivocal hyperglycemia, results should be confirmed by repeat testing. In a patient with classic symptoms of hyperglycemia or hyperglycemic crisis, random plasma glucose results greater than or equal to 200 mg/dL meet the criteria for diagnosis of diabetes. Reference: Standards of Medical Care in Diabetes 2016, [place] Diabetes Association. Diabetes Care. 2016.39(Suppl 1). Performed By: #### M G1, CMP, URIC, CBC #### [facility] [address] [place] [address] #### ERNESTINA, WSR #### [place] [id number] [place] [address] Potassium [Moles/Vol] 3.9 mmol/L Normal 3.7-5.1 [facility] Comment on above: Performed By: #### M G1, CMP, URIC, CBC #### [facility] [address] [place] [address] #### HACUTP, WSR #### [facility] [address] [place], [place] [address] Protein [Mass/Vol] 5.5 g/dL Low 6.3-8.0 [facility] Comment on above: Performed By: #### M G1, CMP, URIC, CBC #### [facility] [address] [place] [address] #### HACUTP, WSR #### [facility] [address] [place] [address] Sodium [Moles/Vol] 133 mmol/L Low 136-144 [facility] Comment on above: Performed By: #### M G1, CMP, URIC, CBC #### [facility] [address] [place] [address] #### HACUTP, WSR #### [facility] [address] [place] [address] Urea nitrogen [Mass/Vol] 73 mg/dL High 9-24 [facility] Comment on above: Performed By: #### M G1, CMP, URIC, CBC #### [facility] [address] [place] [address] #### HACUTP, WSR #### [facility] [address] [place] [phone] Magnesiumon 05-21-2021 Magnesium [Mass/Vol] 1.9 mg/dL Normal 1.7-2.3 [facility] Comment on above: Performed By: #### M G1, CMP, URIC, CBC #### [facility] [address] [place] [address] #### HACUTP, WSR #### [facility] [address] [place] [address] Phosphoruson 05-21-2021 Phosphate [Mass/Vol] 5.7 mg/dL High 2.7-4.8 [facility] Comment on above: Performed By: #### M G1, CMP, URIC, CBC #### [facility] [address] [place] [address] #### HACUTP, WSR #### [facility] [address] [place] [address] ALLIED HEALTHon 05-20-2021 ALLIED HEALTH HNO ID: [id number] Author: MIKE Xiao) Service: Radiology Author Type: Technologist Type: Allied Health Filed: 05/20/2021 8:47 AM Note Text: Radiology Service Progress Note PATIENT NAME: Mychal Swanson DATE OF SERVICE: May 20, 2021 TIME: 8:47 AM PATIENT IDENTITY VERIFICATION COMPLETED USING TWO (2) IDENTIFIERS: Name and Date of confirmed by patient verbally. FALL SCREENING: Has the patient had 2 falls in the last year or 1 fall with injury or currently using an Ambulatory Assistive Device (Walker, Cane, Wheelchair, Crutches, etc.)? Inpatient: Screened on floor PATIENT GENDER DATA: Male PATIENT RELEVANT IMPLANT DATA REVIEWED: Not Applicable RADIOLOGY DEPARTMENT: General X-ray: Exam(s) Completed: Chest X-Ray PERIPHERAL IV DATA: Not applicable SIGNED BY: RT Dameon(R) May 20, 2021 8:47 AM [facility] CBCon 05-20-2021 Absolute nRBC <0.01 Normal <0.01 [facility] Comment on above: Performed By: #### D NAAB, ANCAP, ANCAC, IFESC, ASO, SEPGRX, ANCA, C3COMP, C4COMP, ANAIFS, KLFRS #### [facility] [address] [place] [address] #### GBMBG #### [facility] [address] [place] [address] Erythrocyte distribution width (RBC) [Ratio] 14.1 % Normal 11.5-15.0 [facility] Comment on above: Performed By: #### D NAAB, ANCAP, ANCAC, IFESC, ASO, SEPGRX, ANCA, C3COMP, C4COMP, ANAIFS, KLFRS #### [facility] [address] [place] [address] #### GBMBG #### [facility] [address] [place] [address] Hematocrit (Bld) [Volume fraction] 25.2 % Low 39.0-51.0 [facility] Comment on above: Performed By: #### D NAAB, ANCAP, ANCAC, IFESC, ASO, SEPGRX, ANCA, C3COMP, C4COMP, ANAIFS, KLFRS #### [place] [phone] #### GBMBG #### [address] [address] Hemoglobin (Bld) [Mass/Vol] 8.9 g/dL Low 13.0-17.0 [facility] Comment on above: Performed By: #### D NAAB, ANCAP, ANCAC, IFESC, ASO, SEPGRX, ANCA, C3COMP, C4COMP, ANAIFS, KLFRS #### [place] [address] #### GBMBG #### [place] [phone] MCH 29.2 pG Normal 26.0-34.0 [facility] Comment on above: Performed By: #### D NAAB, ANCAP, ANCAC, IFESC, ASO, SEPGRX, ANCA, C3COMP, C4COMP, ANAIFS, KLFRS #### [place] [address] #### GBMBG #### [place] [address] MCHC (RBC) [Mass/Vol] 35.3 g/dL Normal 30.5-36.0 [facility] Comment on above: Performed By: #### D NAAB, ANCAP, ANCAC, IFESC, ASO, SEPGRX, ANCA, C3COMP, C4COMP, ANAIFS, KLFRS #### [place] [phone] #### GBMBG #### [address] [address] MCV (RBC) [Entitic vol] 82.6 fL Normal 80.0-100.0 [facility] Comment on above: Performed By: #### D NAAB, ANCAP, ANCAC, IFESC, ASO, SEPGRX, ANCA, C3COMP, C4COMP, ANAIFS, KLFRS #### [facility] [address] [place] [phone] #### GBMBG #### [facility] [address] [place] [address] Platelet mean volume (Bld) [Entitic vol] 10.4 fL Normal 9.0-12.7 [facility] Comment on above: Performed By: #### D NAAB, ANCAP, ANCAC, IFESC, ASO, SEPGRX, ANCA, C3COMP, C4COMP, ANAIFS, KLFRS #### [place] [address] [place] [phone] #### GBMBG #### [facility] [address] [place], [place] [phone] Platelets (Bld) [#/Vol] 250 10*3/uL Normal 150-400 [facility] Comment on above: Performed By: #### D NAAB, ANCAP, ANCAC, IFESC, ASO, SEPGRX, ANCA, C3COMP, C4COMP, ANAIFS, KLFRS #### [place] [address] [place] [address] #### GBMBG #### [facility] [address] [place], [place] [phone] RBC (Bld) [#/Vol] 3.05 10*6/uL Low 4.20-6.00 [facility] Comment on above: Performed By: #### D NAAB, ANCAP, ANCAC, IFESC, ASO, SEPGRX, ANCA, C3COMP, C4COMP, ANAIFS, KLFRS #### [facility] [address] [place] [address] #### GBMBG #### [facility] [address] [place], [place] [phone] WBC (Bld) [#/Vol] 10.30 10*3/uL Normal 3.70-11.00 [facility] Comment on above: Performed By: #### D NAAB, ANCAP, ANCAC, IFESC, ASO, SEPGRX, ANCA, C3COMP, C4COMP, ANAIFS, KLFRS #### [facility] [address] [place], [place] [address] #### GBMBG #### [facility] [address] [place] [address] CONSULT PROGon 05-20-2021 CONSULT PROG HNO ID: [id number] Author: Temo Blue MD Service: Nephrology Author Type: Physician Type: Consult Progress Note Filed: 05/20/2021 1:50 PM Note Text: NEPHROLOGY CONSULT PROGRESS NOTE Subjective INTERVAL HISTORY: The patient was seen and examined . No acute event overnight. PERTINENT ROS: GENERAL: No fever/chills. RESPIRATORY: Negative for cough, wheezing or shortness of breath. CARDIOVASCULAR: Negative for chest pain or palpitations. GI: Negative for nausea, vomiting, Diarrhea, abdominal pain. : Negative for dysuria and hematuria MEDICATIONS: Current Facility-Administered Medications Medication Dose Route Frequency - atenolol 50 mg tab(s) (TENORMIN) 50 mg ORAL DAILY - docusate sodium 100 mg cap(s) (COLACE) 100 mg ORAL BID PRN - heparin 5,000 Units injection 5,000 Units SUBCUTANEOUS q 12 H - NaCl 0.9% iv flush bag 20 mL INTRAVENOUS PRN - sodium chloride 0.9 % (flush) 3-5 mL (BD POSIFLUSH) 3-5 mL INTRAVENOUS q 12 H - ondansetron orally disintegrating 4 mg tab(s) (ZOFRAN ODT) 4 mg ORAL q 6 H PRN Or - ondansetron (PF) 4 mg injection (ZOFRAN) 4 mg INTRAVENOUS q 6 H PRN - melatonin 3 mg tab(s) 3 mg ORAL DAILY (8 PM) - psyllium 1 Packet (METAMUCIL) 1 Packet ORAL AT BEDTIME - linezolid 600 mg tab(s) (ZYVOX) 600 mg ORAL q 12 H - sodium chloride 0.65 % 2 [place] (AYR, OCEAN) 2 [place] EACH NOSTRIL PRN - NaCl 0.9% iv infusion 100 mL/hr INTRAVENOUS CONTINUOUS Objective PHYSICAL EXAM: BP 127/72 Pulse 70 Temp 37 ?C (98.6 ?F) (Oral) Resp 18 Ht 162.6 cm (5' 4) Wt 73.6 kg (162 lb 4.1 oz) SpO2 93% BMI 27.85 kg/m? Patient Vitals for the past 24 hrs: BP 05/18/21 0741 106/59 05/17/21 2326 105/58 05/17/21 1455 105/50 Intake/Output Summary (Last 24 hours) at 05/20/2021 1347 Last data filed at 05/20/2021 0953 Gross per 24 hour Intake 1488 ml Output 1151 ml Net 337 ml GENERAL: Awake, cooperative, NAD, Orientated x 3 HEENT : NCAT, MMM and pink , oropharynx clear, EYES: Conjunctiva -Pallor, Non icterus sclera. NECK: supple, No JVD, no carotid bruits, , No cervical mass or thyromegaly. LUNGS: clear to auscultation, without rales or wheeze, diminished breath sounds, CV: normal, Regular rate and rhythm, no murmurs, clicks, or gallops. ABDOMEN: Abdomen soft, non-tender, BS normal, No masses or organomegaly EDEMA : no Lower extremity/ mno Dependent edema DATA: Diagnostic tests reviewed for today's visit: Most recent labs and imaging results. Recent Labs 05/20/21 0447 05/19/21 1045 05/18/21 0656 05/17/21 0529 05/17/21 0139 NA 130* 129* 128* 128* 128* 128* K 3.6* 3.9 3.8 4.1 5.3* 4.7 CHLOR 87* 87* 86* 92* 94* 92* CO2 16* 10* 10* BUN 84* 80* 80* 86* 77* 79* CREAT 5.12* 6.02* 6.02* 7.09* 6.96* 6.97* GLUC 112* 138* 138* 117* 26* 75 ANION 19* 20* 20* 20* 24* 26* CA 7.6* 7.8* 7.7* 7.6* 7.5* 7.8* P 4.9* 4.2 -- -- -- MG 1.9 2.0 2.0 1.8 1.8 Recent Labs 05/20/21 0447 05/19/21 1045 05/18/21 0656 WBC 10.30 13.99* 13.46* 14.61* HB 8.9* 9.3* 9.1* 9.1* HCT 25.2* 26.7* 26.3* 26.2* PLT 250 237 239 244 Assessment/Plan 1. Acute kidney injury-exact etiology is not clear. Differential diagnosis including prerenal/intravascular volume depletion, ATN, postinfectious GN or other glomera nephritis. Patient also had a significant use of NSAIDs in last 5 days. Cannot rule out for streptococcal glomera nephritis given patient with left upper extremity cellulitis. Patient with elevated transaminitis cannot rule out component of acute interstitial nephritis 2. Hyperkalemia 3. Hypovolemic hyponatremia and in the setting of renal failure 5. Severe metabolic acidosis 6. Hypocalcemia 7. Anemia 8. Bilateral perinephric stranding on the CAT scan 9. Urinary retention with bladder distention partially although no hydronephrosis 10. Left upper extremity cellulitis 11. Elevated LFTs likely in the setting of sepsis or drug-related 12. Leukocytosis/sepsis 13. Cholelithiasis 4. Recent use of NSAIDs ? Plan of management Renal function: Renal function improving, creatinine is down to 5.1 mg/dL from 6.0 mg/dL and urine output is 1.9 L in the last 24 hours. Serum bicarbonate improved to 24 from 22. Patient is currently on sodium bicarbonate drip and I switched to normal saline at 100 cc/h. -Hyponatremia improving, serum sodium is up to 130 from 128. Expect improvement with IV hydration with normal saline. --Likely etiology for acute kidney injury is ATN given no active sediment or casts. Also FENa more than 1%. Continue current IV fluid. GN work-up revealed C4 48 C3 of 147 ASO titer less than 120. Vancomycin level 13.4. P-ANCA and c-ANCA is negative anti-GBM is pending. Noted free light chain ratio 1.94. Avoid nephrotoxins including NSAID aminoglycosides contrast Monitor vancomycin level Urinalysis with no active sediment. Urine protein/creatinine 7.0. Urine sodium 55 urine crea (more content not included)... [facility] Comp Metabolic Panelon 05-20 Albumin [Mass/Vol] 2.4 g/dL Low 3.9-4.9 [facility] Comment on above: Performed By: #### D NAAB, ANCAP, ANCAC, IFESC, ASO, SEPGRX, ANCA, C3COMP, C4COMP, ANAIFS, KLFRS #### [facility] [employer] [address] [place] [phone] #### GBMBG #### [facility] [address] [place] [address] ALP [Catalytic activity/Vol] 133 U/L High 38-113 [facility] Comment on above: Performed By: #### D NAAB, ANCAP, ANCAC, IFESC, ASO, SEPGRX, ANCA, C3COMP, C4COMP, ANAIFS, KLFRS #### [facility] [employer] [address] [place] [address] #### GBMBG #### [address] [address] ALT [Catalytic activity/Vol] 53 U/L Normal 10-54 [facility] Comment on above: Performed By: #### D NAAB, ANCAP, ANCAC, IFESC, ASO, SEPGRX, ANCA, C3COMP, C4COMP, ANAIFS, KLFRS #### [facility] [employer] [address] [place] [address] #### GBMBG #### [facility] [address] [place] [address] Anion gap [Moles/Vol] 19 mmol/L High 9-18 [facility] Comment on above: Performed By: #### D NAAB, ANCAP, ANCAC, IFESC, ASO, SEPGRX, ANCA, C3COMP, C4COMP, ANAIFS, KLFRS #### [facility] [employer] [address] [place] [phone] #### GBMBG #### [facility] [address] [place] [address] AST [Catalytic activity/Vol] 21 U/L Normal 14-40 [facility] Comment on above: Performed By: #### D NAAB, ANCAP, ANCAC, IFESC, ASO, SEPGRX, ANCA, C3COMP, C4COMP, ANAIFS, KLFRS #### [place] [address] #### GBMBG #### [facility] [address] [place] [address] Bilirubin [Mass/Vol] 0.3 mg/dL Normal 0.2-1.3 [facility] Comment on above: Performed By: #### D NAAB, ANCAP, ANCAC, IFESC, ASO, SEPGRX, ANCA, C3COMP, C4COMP, ANAIFS, KLFRS #### [place] [phone] #### GBMBG #### [place] [address] Calcium [Mass/Vol] 7.6 mg/dL Low 8.5-10.2 [facility] Comment on above: Performed By: #### D NAAB, ANCAP, ANCAC, IFESC, ASO, SEPGRX, ANCA, C3COMP, C4COMP, ANAIFS, KLFRS #### [facility] [employer] [facility] [address] [place] [phone] #### GBMBG #### [place] [address] Chloride [Moles/Vol] 87 mmol/L Low 97-105 [facility] Comment on above: Performed By: #### D NAAB, ANCAP, ANCAC, IFESC, ASO, SEPGRX, ANCA, C3COMP, C4COMP, ANAIFS, KLFRS #### [place] [address] #### GBMBG #### [address] [address] CO2 [Moles/Vol] 24 mmol/L Normal 22-30 [facility] Comment on above: Performed By: #### D NAAB, ANCAP, ANCAC, IFESC, ASO, SEPGRX, ANCA, C3COMP, C4COMP, ANAIFS, KLFRS #### [place] [phone] #### GBMBG #### [place] [address] Creatinine [Mass/Vol] 5.12 mg/dL High 0.73-1.22 [facility] Comment on above: Performed By: #### D NAAB, ANCAP, ANCAC, IFESC, ASO, SEPGRX, ANCA, C3COMP, C4COMP, ANAIFS, KLFRS #### [place] [phone] #### GBMBG #### [place] [address] eGFR- Amer. 14 Normal [facility] Comment on above: Performed By: #### D NAAB, ANCAP, ANCAC, IFESC, ASO, SEPGRX, ANCA, C3COMP, C4COMP, ANAIFS, KLFRS #### [place] [phone] #### GBMBG #### [place] [address] eGFR-All Other Races 11 . Normal [facility] Comment on above: Result Comment: eGFR (Estimated GFR) Units of measure: mL/min/1.73 meters squared eGFR is derived from the reexpressed MDRD Study equation using the following parameters: serum creatinine, age, gender and race. The creatinine assay has been calibrated to be traceable to IDMS. An eGFR <60 mL/min/1.73m2 for >3 months is consistent with chronic kidney disease. Refer to KDOQI guidelines for clinical interpretation. In patients with unstable renal function, e.g. those with acute kidney injury, the eGFR may not accurately reflect actual GFR. Note: On 2021, the eGFR calculation will be updated to the NKF-ASN Task Force recommended 2020 CKD-EPI creatinine equation which does not include a race variable. For more information or to access a 2020 CKD-EPI calculator, visit the National Kidney Foundation website at kidney.org/professionals/kdoqi/gfr_calculator. Performed By: #### D NAAB, ANCAP, ANCAC, IFESC, ASO, SEPGRX, ANCA, C3COMP, C4COMP, ANAIFS, KLFRS #### [facility] [employer] [address] [place] [address] #### GBMBG #### [facility] [address] [place], [place] [id number] Glucose [Mass/Vol] 112 mg/dL High 74-99 [facility] Comment on above: Result Comment: The [place] Diabetes Association (ADA) provides guidance for cutoff values for fasting glucose and random glucose. The ADA defines fasting as no caloric intake for at least 8 hours. Fasting plasma glucose results between 100 to 125 mg/dL indicate increased risk for diabetes (prediabetes). Fasting plasma glucose results greater than or equal to 126 mg/dL meet the criteria for diagnosis of diabetes. In the absence of unequivocal hyperglycemia, results should be confirmed by repeat testing. In a patient with classic symptoms of hyperglycemia or hyperglycemic crisis, random plasma glucose results greater than or equal to 200 mg/dL meet the criteria for diagnosis of diabetes. Reference: Standards of Medical Care in Diabetes 2016, [place] Diabetes Association. Diabetes Care. 2016.39(Suppl 1). Performed By: #### D NAAB, ANCAP, ANCAC, IFESC, ASO, SEPGRX, ANCA, C3COMP, C4COMP, ANAIFS, KLFRS #### [facility] [employer] [address] [place] [phone] #### GBMBG #### [facility] [address] [place], [place] [phone] Potassium [Moles/Vol] 3.6 mmol/L Low 3.7-5.1 [facility] Comment on above: Performed By: #### D NAAB, ANCAP, ANCAC, IFESC, ASO, SEPGRX, ANCA, C3COMP, C4COMP, ANAIFS, KLFRS #### [place] [phone] #### GBMBG #### [facility] [address] [place] [address] Protein [Mass/Vol] 5.9 g/dL Low 6.3-8.0 [facility] Comment on above: Performed By: #### D NAAB, ANCAP, ANCAC, IFESC, ASO, SEPGRX, ANCA, C3COMP, C4COMP, ANAIFS, KLFRS #### [place] [phone] #### GBMBG #### [place] [address] Sodium [Moles/Vol] 130 mmol/L Low 136-144 [facility] Comment on above: Performed By: #### D NAAB, ANCAP, ANCAC, IFESC, ASO, SEPGRX, ANCA, C3COMP, C4COMP, ANAIFS, KLFRS #### [place] [address] #### GBMBG #### [facility] [address] [place] [address] Urea nitrogen [Mass/Vol] 84 mg/dL High 9-24 [facility] Comment on above: Performed By: #### D NAAB, ANCAP, ANCAC, IFESC, ASO, SEPGRX, ANCA, C3COMP, C4COMP, ANAIFS, KLFRS #### [place] [address] #### GBMBG #### [address] [address] Lipaseon 05-20-2021 Lipase [Catalytic activity/Vol] 91 U/L High 16-61 [facility] Comment on above: Performed By: #### M G1, CMP, URIC, CBC #### [facility] [address] [facility] [place] [facility] [phone] #### HACUTP, WSR #### [facility] [address] [place] [address] Magnesiumon 05-20-2021 Magnesium [Mass/Vol] 1.9 mg/dL Normal 1.7-2.3 [facility] Comment on above: Performed By: #### D NAAB, ANCAP, ANCAC, IFESC, ASO, SEPGRX, ANCA, C3COMP, C4COMP, ANAIFS, KLFRS #### [facility] [address] [place] [address] #### GBMBG #### [facility] [address] [place] [address] NURSING PROGon 05-20-2021 NURSING PROG HNO ID: [id number] Author: Jeanna Moser RN Service: Nursing Author Type: Registered Nurse Type: Nursing Progress Note Filed: 05/20/2021 12:57 PM Note Text: Nursing Progress Note Patient Name: Mychal Swanson Patient Location: [place] [id number] Daily Note: C/o chest discomfort EKG no change from 05/17/21, troponins, chest xray and pepcid ordered, Smiley bedside. Messaged for headache and nausea, Zofran and Tylenol given. This note was completed by: Jeanna Moser [facility] NURSING PROG HNO ID: [id number] Author: Nickie Vickers RN Service: ? Author Type: Registered Nurse Type: Nursing Progress Note Filed: 05/20/2021 4:53 AM Note Text: 0320 Patient complaining of weakness, SOB and heartburn. VS stable, Hospitalist paged. [phone] Hospitalist aware, no new orders at this time. 0345 Pt still complaining of weakness/SOB, Pt states He feels like he is dying. Pt placed on 1L NC for comfort, blood sugar obtained (blood sugar 123). 0350 Hospitalist paged [phone] Hospitalist aware and stated she will be down to assess the pt. 0445 Hospitalist at bedside, pt assessed, new orders received. [facility] Phosphoruson 05-20-2021 Phosphate [Mass/Vol] 4.9 mg/dL High 2.7-4.8 [facility] Comment on above: Performed By: #### D NAAB, ANCAP, ANCAC, IFESC, ASO, SEPGRX, ANCA, C3COMP, C4COMP, ANAIFS, KLFRS #### [facility] [address] [place] [address] #### GBMBG #### [address] [address] Troponin Ton 05-20-2021 Troponin T <0.010 Normal 0.000-0.029 [facility] Comment on above: Performed By: #### M G1, CMP, URIC, CBC #### [facility] [address] [facility] [place] [facility] [phone] #### HACUTP, WSR #### [facility] [address] [place] [address] XR CHEST 1V FRONTAL PORTon 1 07-21-2020 XR CHEST 1V FRONTAL PORT * * *Final Report* * * DATE OF EXAM: May 20 2021 8:00AM MDX 5376 - XR CHEST 1V FRONTAL PORT / PROCEDURE REASON: Chest pain * * * * Physician Interpretation * * * * EXAMINATION: CHEST RADIOGRAPH (PORTABLE SINGLE VIEW AP) Exam Date/Time: 05/20/2021 8:00 AM CLINICAL HISTORY: Chest pain, Shortness of breath MQ: XCPR_5 Comparison: Chest x-ray on 05/19/2021. RESULT: Lines, tubes, and devices: None. Lungs and pleura: No consolidative opacities or mass lesion visualized in the bilateral lungs. No large pleural effusions or pneumothorax. Cardiomediastinal silhouette: Stable cardiomediastinal silhouette. Other: Status post right shoulder reverse arthroplasty. Loss of left acromiohumeral interval, with remodeling of the acromion and subluxation of the glenohumeral joint, suggestive of rotator cuff arthropathy. IMPRESSION: No acute findings in the lungs. Plastic Maker: PSCSuyapa Transcribe Date/Time: May 20 2021 8:50A Dictated by : AVERY PEDROZA MD This examination was interpreted and the report reviewed and electronically signed by: AVERY PEDROZA MD on May 20 2021 8:53AM EST [id number] [facility] ALLIED HEALTHon 05-19-2021 ALLIED HEALTH HNO ID: [id number] Author: RT Golden(R) Service: ? Author Type: Technologist Type: Allied Health Filed: 05/19/2021 4:10 PM Note Text: Radiology Service Progress Note PATIENT NAME: Mychal Swanson DATE OF SERVICE: May 19, 2021 TIME: 4:10 PM PATIENT IDENTITY VERIFICATION COMPLETED USING TWO (2) IDENTIFIERS: Name and Date of confirmed by patient verbally. FALL SCREENING: Has the patient had 2 falls in the last year or 1 fall with injury or currently using an Ambulatory Assistive Device (Walker, Cane, Wheelchair, Crutches, etc.)? Inpatient: Screened on floor PATIENT GENDER DATA: Male PATIENT RELEVANT IMPLANT DATA REVIEWED: Not Applicable RADIOLOGY DEPARTMENT: General X-ray: Exam(s) Completed: Chest X-Ray PERIPHERAL IV DATA: Not applicable SIGNED BY: RT Golden(R) May 19, 2021 4:10 PM [facility] CBCon 05-19-2021 Absolute nRBC <0.01 Normal <0.01 [facility] Comment on above: Performed By: #### M G1, CMP, URIC, CBC #### [facility] [address] [facility] [place] [facility] [phone] #### HACUTP, WSR #### [facility] [address] [place] [address] Absolute nRBC 0.02 k/uL High <0.01 [facility] Comment on above: Performed By: #### M G1, CMP, URIC, CBC #### [facility] [address] [place] [address] #### HACUTP, WSR #### [facility] [address] [phone] Erythrocyte distribution width (RBC) [Ratio] 13.7 % Normal 11.5-15.0 [facility] Comment on above: Performed By: #### M G1, CMP, URIC, CBC #### [facility] [address] [place] [address] #### HACUTP, WSR #### [place] [address] Erythrocyte distribution width (RBC) [Ratio] 14.1 % Normal 11.5-15.0 [facility] Comment on above: Performed By: #### M G1, CMP, URIC, CBC #### [facility] [address] [place] [address] #### HACUTP, WSR #### [facility] [address] [place] [address] Hematocrit (Bld) [Volume fraction] 26.3 % Low 39.0-51.0 [facility] Comment on above: Performed By: #### M G1, CMP, URIC, CBC #### [facility] [address] [place] [address] #### HACUTP, WSR #### [facility] [address] [place] [address] Hematocrit (Bld) [Volume fraction] 26.7 % Low 39.0-51.0 [facility] Comment on above: Performed By: #### M G1, CMP, URIC, CBC #### [facility] [address] [place] [address] #### HACUTP, WSR #### [facility] [address] [phone] Hemoglobin (Bld) [Mass/Vol] 9.1 g/dL Low 13.0-17.0 [facility] Comment on above: Performed By: #### M G1, CMP, URIC, CBC #### [facility] [address] [place], [place] [phone] #### HACUTP, WSR #### [facility] [address] [place] [phone] Hemoglobin (Bld) [Mass/Vol] 9.3 g/dL Low 13.0-17.0 [facility] Comment on above: Performed By: #### M G1, CMP, URIC, CBC #### [facility] [address] [place], [place] [phone] #### HACUTP, WSR #### [place] [phone] MCH 27.9 pG Normal 26.0-34.0 [facility] Comment on above: Performed By: #### M G1, CMP, URIC, CBC #### [facility] [address] [place] [address] #### HACUTP, WSR #### [place] [phone] MCH 29.0 pG Normal 26.0-34.0 [facility] Comment on above: Performed By: #### M G1, CMP, URIC, CBC #### [facility] [address] [place], [place] [phone] #### HACUTP, WSR #### [facility] [address] [place], [place] [phone] MCHC (RBC) [Mass/Vol] 34.6 g/dL Normal 30.5-36.0 [facility] Comment on above: Performed By: #### M G1, CMP, URIC, CBC #### [facility] [address] [place], [place] [phone] #### HACUTP, WSR #### [place] [address] MCHC (RBC) [Mass/Vol] 34.8 g/dL Normal 30.5-36.0 [facility] Comment on above: Performed By: #### M G1, CMP, URIC, CBC #### [facility] [address] [place] [address] #### HACUTP, WSR #### [facility] [phone] MCV (RBC) [Entitic vol] 80.7 fL Normal 80.0-100.0 [facility] Comment on above: Performed By: #### M G1, CMP, URIC, CBC #### [facility] [address] [place] [address] #### HACUTP, WSR #### [place] [address] MCV (RBC) [Entitic vol] 83.2 fL Normal 80.0-100.0 [facility] Comment on above: Performed By: #### M G1, CMP, URIC, CBC #### [facility] [address] [place] [address] #### HACUTP, WSR #### [place] [address] Platelet mean volume (Bld) [Entitic vol] 10.4 fL Normal 9.0-12.7 [facility] Comment on above: Performed By: #### M G1, CMP, URIC, CBC #### [facility] [address] [place] [address] #### HACUTP, WSR #### [place] [address] Platelet mean volume (Bld) [Entitic vol] 10.5 fL Normal 9.0-12.7 [facility] Comment on above: Performed By: #### M G1, CMP, URIC, CBC #### [facility] [address] [place] [address] #### HACUTP, WSR #### [place] [phone] [place] [address] Platelets (Bld) [#/Vol] 239 10*3/uL Normal 150-400 [facility] Comment on above: Performed By: #### M G1, CMP, URIC, CBC #### [facility] [address] [place] [address] #### HACUTP, WSR #### [place] [address] Platelets (Bld) [#/Vol] 237 10*3/uL Normal 150-400 [facility] Comment on above: Performed By: #### M G1, CMP, URIC, CBC #### [facility] [address] [place] [address] #### HACUTP, WSR #### [place] [address] RBC (Bld) [#/Vol] 3.26 10*6/uL Low 4.20-6.00 [facility] Comment on above: Performed By: #### M G1, CMP, URIC, CBC #### [facility] [address] [place] [address] #### HACUTP, WSR #### [place] [address] RBC (Bld) [#/Vol] 3.21 10*6/uL Low 4.20-6.00 [facility] Comment on above: Performed By: #### M G1, CMP, URIC, CBC #### [facility] [address] [place] [address] #### HACUTP, WSR #### [facility] [address] [place] [address] WBC (Bld) [#/Vol] 13.46 10*3/uL High 3.70-11.00 [facility] Comment on above: Performed By: #### M G1, CMP, URIC, CBC #### [facility] [address] [place] [address] #### HACUTP, WSR #### [place] [address] WBC (Bld) [#/Vol] 13.99 10*3/uL High 3.70-11.00 [facility] Comment on above: Performed By: #### M G1, CMP, URIC, CBC #### [facility] [address] [facility] [place] [facility] [phone] #### HACUTP, WSR #### [facility] [address] [place] [address] CONSULT PROGon 05-19-2021 CONSULT PROG HNO ID: [id number] Author: Marichuy James [facility] Service: Pharmacy Author Type: Pharmacist Type: Consult Progress Note Filed: 05/19/2021 4:31 PM Note Text: PHARMACY VANCOMYCIN DOSING NOTE Patient Name: Mychal Swanson Admission Date: 05/16/2021 Date of Consult: 05/19/2021 Time of Consult: 4:30 PM RECOMMENDATIONS/PLAN: 1. Vancomycin therapy has been discontinued. Vancomycin level(s) have been discontinued: Yes. Pharmacy vancomycin dosing service will sign off. Thank you for allowing us to participate in this patient's care. Please contact pharmacy if there are questions. Marichuy James [facility] CONSULT PROG HNO ID: [id number] Author: Refugio Greene MD Service: Gastroenterology Author Type: Physician Type: Consult Progress Note Filed: 05/19/2021 2:21 PM Note Text: GASTROENTEROLOGY CONSULT PROGRESS NOTE Patient Name: Mychal Swanson SERVICE DATE: May 19, 2021 SERVICE TIME: 12:36 PM ASSESSMENT 1. Elevated LFT's - suspect elevation related to underlying sepsis however biliary vs drug related adverse medication s/e (Clindamycin) can also be considered 2. New onset abdominal bloating / early satiety 3. Acute Kidney Injury 4. Leukocytosis / Sepsis 5. Normocytic anemia with low iron 6. Hyperkalemia / Hyponatremia 7. Cholelithiasis 8. Recent increase in NSAID use (Max 24 tablets/day for the past 5 days) 9. Fecal retention and hepatic steatosis on imaging ? ? PLAN - Follow LFT trends - Statin placed on hold by primary team - Atb per ID (Vancomycin) - Miralax 17 gm daily - Daily CBC and CMP - Regular diet - ID, Ortho and nephrology following Patient seen and examined. Discussed with mid level provider. Swenson findings confirmed. Plan as outlined. Refugio Gerene MD May 19, 2021 2:18 PM INTERVAL HPI: LFT's continue to improve. Patient and present at time of exam. Patient overall reports feeling improved. Denies abdominal pain. No nausea or vomiting. Tolerating a regular diet with no concerns. Passing multiple stools and increased amount of flatus. Continues to report early satiety and decreased appetite. PHYSICAL EXAM: Patient Vitals for the past 24 hrs: BP Temp Temp src Pulse Resp SpO2 05/19/21 0747 114/54 36.4 ?C (97.5 ?F) Oral 66 20 92 % 05/18/21 2355 147/76 36.4 ?C (97.5 ?F) Oral 71 18 93 % 05/18/21 1452 126/64 36.5 ?C (97.7 ?F) Oral 67 20 95 % GENERAL: Alert AND oriented x 3. Cooperative. NAD EYES: No scleral icterus SKIN:?Mild pallor?in color. No jaundice LUNGS: Clear to auscultation anteriorly CARDIAC: RRR ABDOMEN: BS x 4. Abdomen soft, non tender, distended. No palpable masses or organomegaly. No guarding or rebound tenderness elicited EXTREMITIES: No edema to WARD lower extremities. LUE with erythema and swelling - improved from previous assessments. MEDICATIONS: Current Facility-Administered Medications Medication Dose Route Frequency - atenolol 50 mg tab(s) (TENORMIN) 50 mg ORAL DAILY - docusate sodium 100 mg cap(s) (COLACE) 100 mg ORAL BID PRN - heparin 5,000 Units injection 5,000 Units SUBCUTANEOUS q 12 H - NaCl 0.9% iv flush bag 20 mL INTRAVENOUS PRN - sodium chloride 0.9 % (flush) 3-5 mL (BD POSIFLUSH) 3-5 mL INTRAVENOUS q 12 H - ondansetron orally disintegrating 4 mg tab(s) (ZOFRAN ODT) 4 mg ORAL q 6 H PRN Or - ondansetron (PF) 4 mg injection (ZOFRAN) 4 mg INTRAVENOUS q 6 H PRN - polyethylene glycol 3350 17 g packet (MIRALAX, GLYCOLAX) 17 g ORAL DAILY - melatonin 3 mg tab(s) 3 mg ORAL DAILY (8 PM) - traMADol 50 mg tab(s) (ULTRAM) 50 mg ORAL q 6 H PRN - vancomycin dosing and monitoring per pharmacy OTHER As Directed - sodium bicarbonate 150 mEq in D5W 1,000 mL iv infusion 150 mEq INTRAVENOUS CONTINUOUS LABS: CBC, Coags, BMP, Mg, Phos Recent Labs 05/19/21 1045 05/18/21 0656 05/17/21 0529 WBC 13.99* 13.46* 14.61* 14.65* HB 9.3* 9.1* 9.1* 9.1* HCT 26.7* 26.3* 26.2* 27.0* PLT 237 239 244 253 NA 129* 128* 128* 128* K 3.9 3.8 4.1 5.3* CHLOR 87* 86* 92* 94* CO2 22 22 16* 10* BUN 80* 80* 86* 77* CREAT 6.02* 6.02* 7.09* 6.96* GLUC 138* 138* 117* 26* CA 7.8* 7.7* 7.6* 7.5* MG 2.0 2.0 1.8 P 4.2 -- -- Liver Function, Amylase, AND Lipase Recent Labs 05/19/21 1045 05/18/21 0656 05/17/21 1418 05/17/21 0529 TPROT 5.7* 5.8* 4.6* 6.1* ALB 2.2* 2.3* 2.4* -- 2.7* ALT 68* 113* -- 199* AST 30 99* -- 371* ALKPHOS 144* 137* -- 184* TBILI 0.3 0.3 -- 0.3 07/01/2020 @ [facility]?via [facility] ALP?38 ALT ?18 AST ?22 Total Bili?0.40 BUN ?24 Creatinine ?1.01 ? 05/16/2021 [facility] WBC 11.7 Hgb 10.5 Hct 30.7 Plt 286 % Neut 89.3% BUN 73 Creatinine 6.95 ALT 260 AST 550 AP 121 Bilirubin 0.7 CRP 63 ? MISC LABS? Component Latest Ref Rng AND Units 05/17/2021 Hep A Ab, IgM Negative Negative Hep B Surface Ag Negative Negative Hep C Antibody IA Negative Negative Hep B Core Ab, IgM Negative Negative Uric Acid 4.0 - 8.1 mg/dL 6.7 Sed Rate, Westergren 0 - 15 mm/hr 137 (H) ? 05/17/2021 Urine Culture: No growth 05/17/2021 Blood culture x 2: No growth x 2 days Component Latest Ref Rng AND Units 05/18/2021 Iron 41 - 186 ug/dL 32 (L) TIBC 232 - 386 ug/dL 129 (L) Transferrin Saturation 15 - 57 % 25 Ferritin 30.3 - 565.7 ng/mL 1,102.0 (H) Folate >4.7 ng/mL 15.9 Vitamin B12 232 - 1,245 pg/mL >2,000 (H) ? RADIOLOGY? 05/17/2021 RUQ US R (more content not included)... [facility] CONSULT PROG HNO ID: [id number] Author: Aurea Mckenna MD Service: Nephrology Author Type: Physician Type: Consult Progress Note Filed: 05/19/2021 10:43 AM Note Text: NEPHROLOGY CONSULT PROGRESS NOTE Subjective INTERVAL HISTORY: The patient was seen and examined . No acute event overnight. PERTINENT ROS: GENERAL: No fever/chills. RESPIRATORY: Negative for cough, wheezing or shortness of breath. CARDIOVASCULAR: Negative for chest pain or palpitations. GI: Negative for nausea, vomiting, Diarrhea, abdominal pain. : Negative for dysuria and hematuria MEDICATIONS: Current Facility-Administered Medications Medication Dose Route Frequency - atenolol 50 mg tab(s) (TENORMIN) 50 mg ORAL DAILY - docusate sodium 100 mg cap(s) (COLACE) 100 mg ORAL BID PRN - heparin 5,000 Units injection 5,000 Units SUBCUTANEOUS q 12 H - NaCl 0.9% iv flush bag 20 mL INTRAVENOUS PRN - sodium chloride 0.9 % (flush) 3-5 mL (BD POSIFLUSH) 3-5 mL INTRAVENOUS q 12 H - ondansetron orally disintegrating 4 mg tab(s) (ZOFRAN ODT) 4 mg ORAL q 6 H PRN Or - ondansetron (PF) 4 mg injection (ZOFRAN) 4 mg INTRAVENOUS q 6 H PRN - polyethylene glycol 3350 17 g packet (MIRALAX, GLYCOLAX) 17 g ORAL DAILY - melatonin 3 mg tab(s) 3 mg ORAL DAILY (8 PM) - traMADol 50 mg tab(s) (ULTRAM) 50 mg ORAL q 6 H PRN - vancomycin dosing and monitoring per pharmacy OTHER As Directed - sodium bicarbonate 150 mEq in D5W 1,000 mL iv infusion 150 mEq INTRAVENOUS CONTINUOUS Objective PHYSICAL EXAM: BP 114/54 Pulse 66 Temp 36.4 ?C (97.5 ?F) (Oral) Resp 20 Ht 162.6 cm (5' 4) Wt 73.6 kg (162 lb 4.1 oz) SpO2 92% BMI 27.85 kg/m? Patient Vitals for the past 24 hrs: BP 05/18/21 0741 106/59 05/17/21 2326 105/58 05/17/21 1455 105/50 Intake/Output Summary (Last 24 hours) at 05/19/2021 1042 Last data filed at 05/19/2021 0800 Gross per 24 hour Intake 2661 ml Output 1975 ml Net 686 ml GENERAL: Awake, cooperative, NAD, Orientated x 3 HEENT : NCAT, MMM and pink , oropharynx clear, EYES: Conjunctiva -Pallor, Non icterus sclera. NECK: supple, No JVD, no carotid bruits, , No cervical mass or thyromegaly. LUNGS: clear to auscultation, without rales or wheeze, diminished breath sounds, CV: normal, Regular rate and rhythm, no murmurs, clicks, or gallops. ABDOMEN: Abdomen soft, non-tender, BS normal, No masses or organomegaly EDEMA : no Lower extremity/ mno Dependent edema DATA: Diagnostic tests reviewed for today's visit: Most recent labs and imaging results. Recent Labs 05/18/21 0656 05/17/21 0529 05/17/21 0139 NA 128* 128* 128* K 4.1 5.3* 4.7 CHLOR 92* 94* 92* CO2 16* 10* 10* BUN 86* 77* 79* CREAT 7.09* 6.96* 6.97* GLUC 117* 26* 75 ANION 20* 24* 26* CA 7.6* 7.5* 7.8* MG 2.0 1.8 1.8 Recent Labs 05/18/21 0656 05/17/21 0529 05/17/21 0139 WBC 14.61* 14.65* 13.30* HB 9.1* 9.1* 9.2* HCT 26.2* 27.0* 27.0* PLT 244 253 232 Assessment/Plan 1. Acute kidney injury-exact etiology is not clear. Differential diagnosis including prerenal/intravascular volume depletion, ATN, postinfectious GN or other glomera nephritis. Patient also had a significant use of NSAIDs in last 5 days. Cannot rule out for streptococcal glomera nephritis given patient with left upper extremity cellulitis. Patient with elevated transaminitis cannot rule out component of acute interstitial nephritis 2. Hyperkalemia 3. Hypovolemic hyponatremia and in the setting of renal failure 5. Severe metabolic acidosis 6. Hypocalcemia 7. Anemia 8. Bilateral perinephric stranding on the CAT scan 9. Urinary retention with bladder distention partially although no hydronephrosis 10. Left upper extremity cellulitis 11. Elevated LFTs likely in the setting of sepsis or drug-related 12. Leukocytosis/sepsis 13. Cholelithiasis 4. Recent use of NSAIDs ? Plan of management Renal function: No new labs today. A.m. labs are still pending. Lab is being drawn right now. Urine output of 1 950 mL in last 24 hours. Patient already had 1025 mL of urine since morning. Patient is now with increased urine output and seems to have early renal recovery. We will check and follow-up renal function panel to confirm solute clearance. Likely etiology for acute kidney injury is ATN given no active sediment or casts. Also FENa more than 1%. Continue current IV fluid. Follow-up a.m. labs. Check for dialysis need on daily basis GN work-up revealed C4 48 C3 of 147 ASO titer less than 120. Vancomycin level 13.4. P-ANCA and c-ANCA is negative anti-GBM is pending. Noted free light chain ratio 1.94. Avoid nephrotoxins including NSAID aminoglycosides contrast Monitor vancomycin level Urinalysis with no active sediment. Urine protein/creatinine 7.0. Urine sodium 55 urine creatinine 70.9 and FENa more than 1%. Strict intake and output measurement [facility] CONSULT PROG HNO ID: [id number] Author: Suresh Schwab [facility] Service: Pharmacy Author Type: Pharmacist Type: Consult Progress Note Filed: 05/19/2021 1:04 AM Note Text: PHARMACY VANCOMYCIN DOSING NOTE Patient Name: Mychal Swanson Admission Date: 05/16/2021 Date of Consult: 05/19/2021 Time of Consult: 12:59 AM Indication: Skin/Soft tissue infection Goal Range: 10-20 mcg/mL RECOMMENDATIONS/PLAN: Pharmacy consulted for vancomycin dosing for Mychal Swanson, a 70 year old, male who is being treated with vancomycin 1. Patient is currently ordered Vancomycin dosed by level. Today is day 4 of therapy. 2. The most recent vancomycin level was 26.1 mcg/mL drawn at 00:00 on 05/19/21. This is a 23 hour level on the 4th day of therapy. 3. Vancomycin level above therapeutic goal range. Continue to hold further vancomycin IV doses. 4. The next vancomycin level has been ordered for 05/20/21 (Completed) We will follow patient renal function, vancomycin levels and doses with you during the course of therapy. Additional recommendations will appear in follow up notes. If you have any questions, please contact pharmacy at [phone]. Age: [age] year old Allergies: ALLERGIES Allergen Reactions - Domonique Inhibitors Rash - Ceftriaxone Myalgia - Gemfibrozil Rash Last 3 Encounter Wt Readings: Date: Wt: 05/16/2021 73.6 kg (162 lb 4.1 oz) 05/31/2009 69.7 kg (153 lb 11.2 oz) 12/07/2008 68.4 kg (150 lb 14.4 oz) Last 1 Encounter Ht Readings: Date: Ht: 05/16/2021 162.6 cm (5' 4) CrCl: 8.9 mL/min Temp (24hrs), Av.4 ?C (97.6 ?F), Min:36.4 ?C (97.5 ?F), Max:36.5 ?C (97.7 ?F) - Current Temp: 36.4 ?C (97.5 ?F) Labs BUN (mg/dL) Date Value 05/18/2021 86 (H) 05/17/2021 77 (H) 05/17/2021 79 (H) Creatinine (mg/dL) Date Value 05/18/2021 7.09 (H) 05/17/2021 6.96 (H) 05/17/2021 6.97 (H) WBC (k/uL) Date Value 05/18/2021 14.61 (H) 05/17/2021 14.65 (H) 05/17/2021 13.30 (H) Vancomycin Levels: Vancomycin, result (ug/mL) Date/Time Value 05/19/2021 0002 26.1 (H) 05/17/2021 2314 13.4 Suresh Schwab [facility] Comp Metabolic Panelon 05-19 Albumin [Mass/Vol] 2.2 g/dL Low 3.9-4.9 [facility] Comment on above: Performed By: #### M G1, CMP, URIC, CBC #### [facility] [address] [place] [address] #### HACUTP, WSR #### [facility] [address] [place] [address] ALP [Catalytic activity/Vol] 144 U/L High 38-113 [facility] Comment on above: Performed By: #### M G1, CMP, URIC, CBC #### [facility] [address] [place] [address] #### HACUTP, WSR #### [facility] [address] [place] [address] ALT [Catalytic activity/Vol] 68 U/L High 10-54 [facility] Comment on above: Performed By: #### M G1, CMP, URIC, CBC #### [facility] [address] [place] [address] #### HACUTP, WSR #### [facility] [address] [place] [address] Anion gap [Moles/Vol] 20 mmol/L High 9-18 [facility] Comment on above: Performed By: #### M G1, CMP, URIC, CBC #### [facility] [address] [place] [address] #### HACUTP, WSR #### [place] [phone] AST [Catalytic activity/Vol] 30 U/L Normal 14-40 [facility] Comment on above: Performed By: #### M G1, CMP, URIC, CBC #### [facility] [address] [place] [address] #### HACUTP, WSR #### [place] [phone] Bilirubin [Mass/Vol] 0.3 mg/dL Normal 0.2-1.3 [facility] Comment on above: Performed By: #### M G1, CMP, URIC, CBC #### [facility] [address] [place] [address] #### HACUTP, WSR #### [place] [phone] Calcium [Mass/Vol] 7.8 mg/dL Low 8.5-10.2 [facility] Comment on above: Performed By: #### M G1, CMP, URIC, CBC #### [facility] [address] [place] [address] #### HACUTP, WSR #### [place] [address] Chloride [Moles/Vol] 87 mmol/L Low 97-105 [facility] Comment on above: Performed By: #### M G1, CMP, URIC, CBC #### [facility] [address] [place] [address] #### HACUTP, WSR #### [facility] [address] [place] [address] CO2 [Moles/Vol] 22 mmol/L Normal 22-30 [facility] Comment on above: Performed By: #### M G1, CMP, URIC, CBC #### [facility] [address] [place] [address] #### HACUTP, WSR #### [facility] [address] [place] [phone] Creatinine [Mass/Vol] 6.02 mg/dL High 0.73-1.22 [facility] Comment on above: Performed By: #### M G1, CMP, URIC, CBC #### [facility] [address] [place] [address] #### HACUTP, WSR #### [place] [phone] eGFR- Amer. 11 [facility] Comment on above: Performed By: #### M G1, CMP, URIC, CBC #### [facility] [address] [place] [address] #### HACUTP, WSR #### [place] [phone] eGFR-All Other Races 9 . [facility] Comment on above: Result Comment: eGFR (Estimated GFR) Units of measure: mL/min/1.73 meters squared eGFR is derived from the reexpressed MDRD Study equation using the following parameters: serum creatinine, age, gender and race. The creatinine assay has been calibrated to be traceable to IDMS. An eGFR <60 mL/min/1.73m2 for >3 months is consistent with chronic kidney disease. Refer to KDOQI guidelines for clinical interpretation. In patients with unstable renal function, e.g. those with acute kidney injury, the eGFR may not accurately reflect actual GFR. Note: On 2021, the eGFR calculation will be updated to the NKF-ASN Task Force recommended 2020 CKD-EPI creatinine equation which does not include a race variable. For more information or to access a 2020 CKD-EPI calculator, visit the National Kidney Foundation website at kidney.org/professionals/kdoqi/gfr_calculator. Performed By: #### M G1, CMP, URIC, CBC #### [facility] [address] [place] [address] #### HACUTP, WSR #### [place] [address] Glucose [Mass/Vol] 138 mg/dL High 74-99 [facility] Comment on above: Result Comment: The [place] Diabetes Association (ADA) provides guidance for cutoff values for fasting glucose and random glucose. The ADA defines fasting as no caloric intake for at least 8 hours. Fasting plasma glucose results between 100 to 125 mg/dL indicate increased risk for diabetes (prediabetes). Fasting plasma glucose results greater than or equal to 126 mg/dL meet the criteria for diagnosis of diabetes. In the absence of unequivocal hyperglycemia, results should be confirmed by repeat testing. In a patient with classic symptoms of hyperglycemia or hyperglycemic crisis, random plasma glucose results greater than or equal to 200 mg/dL meet the criteria for diagnosis of diabetes. Reference: Standards of Medical Care in Diabetes 2016, [place] [employer] Association. Diabetes Care. 2016.39(Suppl 1). Performed By: #### M G1, CMP, URIC, CBC #### [facility] [address] [place] [address] #### HACUTP, WSR #### [facility] [employer] [address] [place] [address] Potassium [Moles/Vol] 3.9 mmol/L Normal 3.7-5.1 [facility] Comment on above: Performed By: #### M G1, CMP, URIC, CBC #### [facility] [address] [place] [address] #### HACUTP, WSR #### [facility] [address] [address] Protein [Mass/Vol] 5.7 g/dL Low 6.3-8.0 [facility] Comment on above: Performed By: #### M G1, CMP, URIC, CBC #### [facility] [address] [place] [address] #### HACUTP, WSR #### [facility] [address] [place] [address] Sodium [Moles/Vol] 129 mmol/L Low 136-144 [facility] Comment on above: Performed By: #### M G1, CMP, URIC, CBC #### [facility] [address] [place], [place] [phone] #### HACUTP, WSR #### [facility] [place] [phone] Urea nitrogen [Mass/Vol] 80 mg/dL High -24 [facility] Comment on above: Performed By: #### M G1, CMP, URIC, CBC #### [facility] [address] [place] [address] #### HACUTP, WSR #### [phone] Magnesiumon 05-19-2021 Magnesium [Mass/Vol] 2.0 mg/dL Normal 1.7-2.3 [facility] Comment on above: Performed By: #### M G1, CMP, URIC, CBC #### [facility] [address] [place] [address] #### HACUTP, WSR #### [place] [phone] Renal Function Panelon 05-19 Albumin [Mass/Vol] 2.3 g/dL Low 3.9-4.9 [facility] Comment on above: Performed By: #### M G1, CMP, URIC, CBC #### [facility] [address] [place] [address] #### HACUTP, WSR #### [facility] [place] [phone] Calcium [Mass/Vol] 7.7 mg/dL Low 8.5-10.2 [facility] Comment on above: Performed By: #### M G1, CMP, URIC, CBC #### [facility] [address] [place] [address] #### HACUTP, WSR #### [facility] [address] [place] [phone] Chloride [Moles/Vol] 86 mmol/L Low 97-105 [facility] Comment on above: Performed By: #### M G1, CMP, URIC, CBC #### [facility] [address] [place] [address] #### HACUTP, WSR #### [address] [phone] [place] [address] Phosphate [Mass/Vol] 4.2 mg/dL Normal 2.7-4.8 [facility] Comment on above: Performed By: #### M G1, CMP, URIC, CBC #### [facility] [address] [place] [address] #### HACUTP, WSR #### [place] [phone] Potassium [Moles/Vol] 3.8 mmol/L Normal 3.7-5.1 [facility] Comment on above: Performed By: #### M G1, CMP, URIC, CBC #### [facility] [address] [place] [address] #### HACUTP, WSR #### [address] [phone] [place] [phone] Sodium [Moles/Vol] 128 mmol/L Low 136-144 [facility] Comment on above: Performed By: #### M G1, CMP, URIC, CBC #### [facility] [address] [place] [address] #### HACUTP, WSR #### [place] [address] Vancomycinon 05-19-2021 Vancomycin 26.1 ug/mL High 10.0-20.0 [facility] Comment on above: Result Comment: Refe rence ranges and high/low indicator flags are provided as general guidelines only. The treating physician must determine appropriate target levels/dosing based on the specific clinical situation. Performed By: #### D NAAB, ANCAP, ANCAC, IFESC, ASO, SEPGRX, ANCA, C3COMP, C4COMP, ANAIFS, KLFRS #### [facility] [employer] [address] [place], [place] [id number] #### GBMBG #### [address] [address] XR CHEST 1V FRONTAL PORTon 1 07-20-2020 XR CHEST 1V FRONTAL PORT * * *Final Report* * * DATE OF EXAM: May 19 2021 4:09PM MDX [id number] - XR CHEST 1V FRONTAL PORT / PROCEDURE REASON: Shortness of breath * * * * Physician Interpretation * * * * EXAMINATION: CHEST RADIOGRAPH (PORTABLE SINGLE VIEW AP) Exam Date/Time: 05/19/2021 4:09 PM CLINICAL HISTORY: Shortness of breath MQ: XCPR_5 Comparison: None RESULT: Lines, tubes, and devices: Right shoulder prosthesis. Lungs and pleura: There is minimal streaky density in the left lower lung. This may indicate minimal infiltrate and/or atelectasis. Cardiomediastinal silhouette: Stable cardiomediastinal silhouette. Other: . IMPRESSION: Minimal streaky density left lower lung consistent with atelectasis and/or scarring. Plastic Maker: PSCB Transcribe Date/Time: May 19 2021 4:45P Dictated by : ROBB VELEZ MD This examination was interpreted and the report reviewed and electronically signed by: ROBB VELEZ MD on May 19 2021 4:46PM EST [id number] [facility] CBCon 05-18-2021 Absolute nRBC <0.01 Normal <0.01 [facility] Comment on above: Performed By: #### M G1, CMP, URIC, CBC #### [facility] [address] [place] [address] #### HACUTP, WSR #### [facility] [address] [place], [place] [address] Erythrocyte distribution width (RBC) [Ratio] 14.1 % Normal 11.5-15.0 [facility] Comment on above: Performed By: #### M G1, CMP, URIC, CBC #### [facility] [address] [address] #### HACUSTEVIE, WSR #### [place] [phone] Hematocrit (Bld) [Volume fraction] 26.2 % Low 39.0-51.0 [facility] Comment on above: Performed By: #### M G1, CMP, URIC, CBC #### [facility] [address] [place] [address] #### HACUSTEVIE, WSR #### [place] [phone] Hemoglobin (Bld) [Mass/Vol] 9.1 g/dL Low 13.0-17.0 [facility] Comment on above: Performed By: #### M G1, CMP, URIC, CBC #### [place] [address] #### ERNESTINA, WSR #### [place] [phone] MCH 29.2 pG Normal 26.0-34.0 [facility] Comment on above: Performed By: #### M G1, CMP, URIC, CBC #### [facility] [address] [place] [address] #### ERNESTINA, WSR #### [place] [phone] MCHC (RBC) [Mass/Vol] 34.7 g/dL Normal 30.5-36.0 [facility] Comment on above: Performed By: #### M G1, CMP, URIC, CBC #### [facility] [address] [place] [address] #### HACUTP, WSR #### [place] [phone] MCV (RBC) [Entitic vol] 84.0 fL Normal 80.0-100.0 [facility] Comment on above: Performed By: #### M G1, CMP, URIC, CBC #### [facility] [address] [place] [address] #### HACUTP, WSR #### [facility] [address] [place] [phone] Platelet mean volume (Bld) [Entitic vol] 10.4 fL Normal 9.0-12.7 [facility] Comment on above: Performed By: #### M G1, CMP, URIC, CBC #### [facility] [address] [place] [address] #### HACUTP, WSR #### [place] [phone] [place] [address] Platelets (Bld) [#/Vol] 244 10*3/uL Normal 150-400 [facility] Comment on above: Performed By: #### M G1, CMP, URIC, CBC #### [facility] [address] [place] [address] #### HACUTP, WSR #### [place] [phone] RBC (Bld) [#/Vol] 3.12 10*6/uL Low 4.20-6.00 [facility] Comment on above: Performed By: #### M G1, CMP, URIC, CBC #### [facility] [address] [place] [address] #### HACUTP, WSR #### [place] [phone] [place] [address] WBC (Bld) [#/Vol] 14.61 10*3/uL High 3.70-11.00 [facility] Comment on above: Performed By: #### M G1, CMP, URIC, CBC #### [facility] [address] [place] [address] #### HACUTP, WSR #### [place] [address] CONSULT PROGon 05-18-2021 CONSULT PROG HNO ID: [id number] Author: Jose Francisco Glez MD Service: Orthopaedic Surgery Author Type: Physician Type: Consult Progress Note Filed: 05/18/2021 12:14 PM Note Text: Orthopedic consult progress note Subjective: Patient reports left arm improving in terms of pain and limited motion. Continues to have swelling and is leaking edema fluid Objective: Left brachium/antebrachium shows a receding margin of erythema. Minimally tender to palpation over the olecranon process Active/passive range of motion left elbow shows full mobility all planes Left arm neurovascularly intact Last MRI Elbow - Impression Only MRI ELBOW WO IVCON LT Exam End: 05/17/2021 4:53 PM (Final result) Impression: IMPRESSION: 1. Diffuse soft tissue edema or findings related to cellulitis. No abscess is seen. No evidence of osteomyelitis. 2. Probable prominent lymph nodes in the medial soft tissues of the distal upper arm. 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 4. Intact medial and lateral collateral ligaments.... Complete Results Assessment: Left elbow/forearm improving cellulitis. No signs of abscess that would benefit from incision and drainage. Crepitance in elbow secondary to osteoarthritis Plan: 1. Continue IV antibiotics as per infectious disease 2. No plans for surgical intervention at this time. If his clinical condition deteriorates will reconsider surgical options. 3. We will continue to follow during his hospitalization. Jose Francisco Glez MD [facility] CONSULT PROG HNO ID: [id number] Author: Lambert Farmer MD Service: Gastroenterology Author Type: Physician Type: Consult Progress Note Filed: 05/19/2021 7:30 AM Note Text: GASTROENTEROLOGY CONSULT PROGRESS NOTE Patient Name: Mychal Swanson SERVICE DATE: May 18, 2021 SERVICE TIME: 10:56 AM ASSESSMENT 1. Elevated LFT's - suspect elevation related to underlying sepsis however biliary vs drug related dverse medication s/e (Clindamycin) can also be considered 2. New onset abdominal bloating / early satiety 3. Acute Kidney Injury 4. Leukocytosis / Sepsis 5. Normocytic anemia 6. Hyperkalemia / Hyponatremia 7. Cholelithiasis 8. Recent increase in NSAID use (Max 24 tablets/day for the past 5 days) 9. Fecal retention and hepatic steatosis on imaging ? ? PLAN - Follow LFT trends - Statin placed on hold by primary team - Atb per ID (Zosyn / Vancomycin) - Miralax 17 gm daily - Daily CBC and CMP - Obtain iron studies, vitamin b12 and folate levels - NPO. May advance diet from GI standpoint - ID, Ortho and nephrology following INTERVAL HPI: Patient reports improvement from a GI standpoint this am. Abdominal distention has improved. Denies abdominal pain or nausea. Passing a large amount of flatus and had a BM today as well. Remains NPO -- awaiting to see if ortho has any surgical plans prior to advancing his diet. LFTs continue to trend downwards. PHYSICAL EXAM: Patient Vitals for the past 24 hrs: BP Temp Temp src Pulse Resp SpO2 05/18/21 0938 ? ? ? 65 ? 96 % 05/18/21 0741 106/59 36.4 ?C (97.5 ?F) Oral ? 18 ? 05/17/21 2326 105/58 36.5 ?C (97.7 ?F) Oral 74 16 94 % 05/17/21 1455 105/50 36.6 ?C (97.9 ?F) Oral 79 20 95 % GENERAL: Alert AND oriented x 3. Cooperative. NAD EYES: No scleral icterus SKIN: Mild pallor in color. No jaundice LUNGS: Clear to auscultation anteriorly CARDIAC: RRR ABDOMEN: BS x 4 - hypoactive. Abdomen soft, non tender, distended. No palpable masses or organomegaly. No guarding or rebound tenderness elicited ? MEDICATIONS: Current Facility-Administered Medications Medication Dose Route Frequency - atenolol 50 mg tab(s) (TENORMIN) 50 mg ORAL DAILY - docusate sodium 100 mg cap(s) (COLACE) 100 mg ORAL BID PRN - heparin 5,000 Units injection 5,000 Units SUBCUTANEOUS q 12 H - NaCl 0.9% iv flush bag 20 mL INTRAVENOUS PRN - sodium chloride 0.9 % (flush) 3-5 mL (BD POSIFLUSH) 3-5 mL INTRAVENOUS q 12 H - ondansetron orally disintegrating 4 mg tab(s) (ZOFRAN ODT) 4 mg ORAL q 6 H PRN Or - ondansetron (PF) 4 mg injection (ZOFRAN) 4 mg INTRAVENOUS q 6 H PRN - polyethylene glycol 3350 17 g packet (MIRALAX, GLYCOLAX) 17 g ORAL DAILY - melatonin 3 mg tab(s) 3 mg ORAL DAILY (8 PM) - traMADol 50 mg tab(s) (ULTRAM) 50 mg ORAL q 6 H PRN - piperacillin-tazobactam iv piggyback 3.375 g in dextrose (iso-osmotic) 50 mL (ZOSYN) 3.375 g INTRAVENOUS q 12 H - vancomycin dosing and monitoring per pharmacy OTHER As Directed - sodium bicarbonate 150 mEq in D5W 1,000 mL iv infusion 150 mEq INTRAVENOUS CONTINUOUS - calcium gluconate 2 g in NaCl 0.9% 100 mL 2 g INTRAVENOUS ONCE LABS: CBC, Coags, BMP, Mg, Phos Recent Labs 05/18/21 0656 05/17/21 0529 05/17/21 0139 WBC 14.61* 14.65* 13.30* HB 9.1* 9.1* 9.2* HCT 26.2* 27.0* 27.0* PLT 244 253 232 NA 128* 128* 128* K 4.1 5.3* 4.7 CHLOR 92* 94* 92* CO2 16* 10* 10* BUN 86* 77* 79* CREAT 7.09* 6.96* 6.97* GLUC 117* 26* 75 CA 7.6* 7.5* 7.8* MG 2.0 1.8 1.8 Liver Function, Amylase, AND Lipase Recent Labs 05/18/21 0656 05/17/21 1418 05/17/21 0529 05/17/21 0139 TPROT 5.8* 4.6* 6.1* 6.2* ALB 2.4* -- 2.7* 2.7* ALT 113* -- 199* 210* AST 99* -- 371* 415* ALKPHOS 137* -- 184* 128* TBILI 0.3 -- 0.3 0.3 07/01/2020 @ [facility] via [facility] ALP 38 ALT 18 AST 22 Total Bili 0.40 BUN 24 Creatinine 1.01 05/16/2021 [facility] ED WBC 11.7 Hgb 10.5 Hct 30.7 Plt 286 % Neut 89.3% BUN 73 Creatinine 6.95 ALT 260 AST 550 AP 121 Bilirubin 0.7 CRP 63 ? MISC LABS? Component Latest Ref Rng AND Units 05/17/2021 Hep A Ab, IgM Negative Negative Hep B Surface Ag Negative Negative Hep C Antibody IA Negative Negative Hep B Core Ab, IgM Negative Negative Uric Acid 4.0 - 8.1 mg/dL 6.7 Sed Rate, Westergren 0 - 15 mm/hr 137 (H) 05/17/2021 Urine Culture: Pending 05/17/2021 Blood culture x 2: No growth < 24 hrs ? RADIOLOGY 05/17/2021 RUQ US RESULT: Pancreas: Normal sonographic appearance. Portions obscured: tail Liver: Echotexture: ?Normal, homogeneous. Echogenicity: ?Increased. Surface contour: ?Smooth. Lesions: ?None. Spleen: 10.7 cm in craniocaudal dimension, normal. Biliary: No intrahepatic biliary duct dilation. CBD: 5 mm at the hilum. Gallbladder: Normal caliber. Contents: ?Cholelithiasis. Wall: ?Normal. Other: ?No pericholecystic fluid. Ascites (more content not included)... [facility] CONSULT PROG HNO ID: [id number] Author: Aurea Mckenna MD Service: Nephrology Author Type: Physician Type: Consult Progress Note Filed: 05/18/2021 9:01 AM Note Text: NEPHROLOGY CONSULT PROGRESS NOTE SERVICE DATE: 05/18/2021 SERVICE TIME: 8:57 AM Subjective INTERVAL HISTORY: The patient was seen and examined . No acute event overnight. PERTINENT ROS: GENERAL: No fever/chills. RESPIRATORY: Negative for cough, wheezing or shortness of breath. CARDIOVASCULAR: Negative for chest pain or palpitations. GI: Negative for nausea, vomiting, Diarrhea, abdominal pain. : Negative for dysuria and hematuria MEDICATIONS: Current Facility-Administered Medications Medication Dose Route Frequency - atenolol 50 mg tab(s) (TENORMIN) 50 mg ORAL DAILY - docusate sodium 100 mg cap(s) (COLACE) 100 mg ORAL BID PRN - heparin 5,000 Units injection 5,000 Units SUBCUTANEOUS q 12 H - NaCl 0.9% iv flush bag 20 mL INTRAVENOUS PRN - sodium chloride 0.9 % (flush) 3-5 mL (BD POSIFLUSH) 3-5 mL INTRAVENOUS q 12 H - ondansetron orally disintegrating 4 mg tab(s) (ZOFRAN ODT) 4 mg ORAL q 6 H PRN Or - ondansetron (PF) 4 mg injection (ZOFRAN) 4 mg INTRAVENOUS q 6 H PRN - polyethylene glycol 3350 17 g packet (MIRALAX, GLYCOLAX) 17 g ORAL DAILY - melatonin 3 mg tab(s) 3 mg ORAL DAILY (8 PM) - traMADol 50 mg tab(s) (ULTRAM) 50 mg ORAL q 6 H PRN - piperacillin-tazobactam iv piggyback 3.375 g in dextrose (iso-osmotic) 50 mL (ZOSYN) 3.375 g INTRAVENOUS q 12 H - vancomycin dosing and monitoring per pharmacy OTHER As Directed - sodium bicarbonate 150 mEq in D5W 1,000 mL iv infusion 150 mEq INTRAVENOUS CONTINUOUS Objective PHYSICAL EXAM: BP 106/59 Pulse 74 Temp 36.4 ?C (97.5 ?F) (Oral) Resp 18 Ht 162.6 cm (5' 4) Wt 73.6 kg (162 lb 4.1 oz) SpO2 94% BMI 27.85 kg/m? Patient Vitals for the past 24 hrs: BP 05/18/21 0741 106/59 05/17/21 2326 105/58 05/17/21 1455 105/50 Intake/Output Summary (Last 24 hours) at 05/18/2021 0857 Last data filed at 05/18/2021 0500 Gross per 24 hour Intake 1689 ml Output 500 ml Net 1189 ml GENERAL: Awake, cooperative, NAD, Orientated x 3 HEENT : NCAT, MMM and pink , oropharynx clear, EYES: Conjunctiva -Pallor, Non icterus sclera. NECK: supple, No JVD, no carotid bruits, , No cervical mass or thyromegaly. LUNGS: clear to auscultation, without rales or wheeze, diminished breath sounds, CV: normal, Regular rate and rhythm, no murmurs, clicks, or gallops. ABDOMEN: Abdomen soft, non-tender, BS normal, No masses or organomegaly EDEMA : no Lower extremity/ mno Dependent edema DATA: Diagnostic tests reviewed for today's visit: Most recent labs and imaging results. Recent Labs 05/17/21 0529 05/17/21 0139 NA 128* 128* K 5.3* 4.7 CHLOR 94* 92* CO2 10* 10* BUN 77* 79* CREAT 6.96* 6.97* GLUC 26* 75 ANION 24* 26* CA 7.5* 7.8* MG 1.8 1.8 Recent Labs 05/18/21 0656 05/17/21 0529 05/17/219 WBC 14.61* 14.65* 13.30* HB 9.1* 9.1* 9.2* HCT 26.2* 27.0* 27.0* PLT 244 253 232 Assessment/Plan 1. Acute kidney injury-exact etiology is not clear. Differential diagnosis including prerenal/intravascular volume depletion, ATN, postinfectious GN or other glomera nephritis. Patient also had a significant use of NSAIDs in last 5 days. Cannot rule out for streptococcal glomera nephritis given patient with left upper extremity cellulitis. Patient with elevated transaminitis cannot rule out component of acute interstitial nephritis 2. Hyperkalemia 3. Hypovolemic hyponatremia and in the setting of renal failure 5. Severe metabolic acidosis 6. Hypocalcemia 7. Anemia 8. Bilateral perinephric stranding on the CAT scan 9. Urinary retention with bladder distention partially although no hydronephrosis 10. Left upper extremity cellulitis 11. Elevated LFTs likely in the setting of sepsis or drug-related 12. Leukocytosis/sepsis 13. Cholelithiasis 4. Recent use of NSAIDs ? Plan of management Renal function: No new labs today. A.m. labs are still pending. Urine output of 100 mL in last 24 hours. Likely etiology for acute kidney injury is ATN given no active sediment or casts. Also FENa more than 1%. Continue current IV fluid. Follow-up a.m. labs. Check for dialysis need on daily basis GN work-up revealed C4 48 C3 of 147 ASO titer less than 120. Vancomycin level 13.4. Avoid nephrotoxins including NSAID aminoglycosides contrast Monitor vancomycin level Urinalysis with no active sediment. Urine protein/creatinine 7.0. Urine sodium 55 urine creatinine 70.9 and FENa more than 1%. Strict intake and output measurement SIGNATURE: Aurea Mckenna MD PATIENT NAME: Mychal Swanson DATE: May 18, 2021 TIME: 8:57 AM [facility] CONSULT PROG HNO ID: [id number] Author: Suresh Schwab [facility] Service: Pharmacy Author Type: Pharmacist Type: Consult Progress Note Filed: 05/18/2021 12:23 AM Note Text: PHARMACY VANCOMYCIN DOSING NOTE Patient Name: Mychal Swanson Admission Date: 05/16/2021 Date of Consult: 05/18/2021 Time of Consult: 12:19 AM Indication: Skin/Soft tissue infection Goal Range: 10-20 mcg/mL RECOMMENDATIONS/PLAN: Pharmacy consulted for vancomycin dosing for Mychal Swanson, a 70 year old, male who is being treated with vancomycin 1. Patient is currently ordered Vancomycin dosed by level. Today is day 3 of therapy. 2. The most recent vancomycin level was 13.4 mcg/mL drawn at 23:00 on 05/17/21. This is a 23 hour level on the 2nd day of therapy. 3. Vancomycin level is below or within therapeutic goal. Will re dose vancomycin 1 g x 1 dose today. 4. The next vancomycin level has been ordered for 05/19/21 (Completed) We will follow patient renal function, vancomycin levels and doses with you during the course of therapy. Additional recommendations will appear in follow up notes. If you have any questions, please contact pharmacy at [phone]. Age: [age] year old Allergies: ALLERGIES Allergen Reactions - Domonique Inhibitors Rash - Ceftriaxone Myalgia - Gemfibrozil Rash Last 3 Encounter Wt Readings: Date: Wt: 05/16/2021 73.6 kg (162 lb 4.1 oz) 05/31/2009 69.7 kg (153 lb 11.2 oz) 12/07/2008 68.4 kg (150 lb 14.4 oz) Last 1 Encounter Ht Readings: Date: Ht: 05/16/2021 162.6 cm (5' 4) CrCl: 9.1 mL/min Temp (24hrs), Av.5 ?C (97.7 ?F), Min:36.4 ?C (97.5 ?F), Max:36.6 ?C (97.9 ?F) - Current Temp: 36.5 ?C (97.7 ?F) Labs BUN (mg/dL) Date Value 05/17/2021 77 (H) 05/17/2021 79 (H) Creatinine (mg/dL) Date Value 05/17/2021 6.96 (H) 05/17/2021 6.97 (H) WBC (k/uL) Date Value 05/17/2021 14.65 (H) 05/17/2021 13.30 (H) Vancomycin Levels: Vancomycin, result (ug/mL) Date/Time Value 05/17/2021 2314 13.4 Suresh Schwab [facility] Comp Metabolic Panelon 05-18 Albumin [Mass/Vol] 2.4 g/dL Low 3.9-4.9 [facility] Comment on above: Performed By: #### M G1, CMP, URIC, CBC #### [facility] [address] [place] [address] #### HACUTP, WSR #### [place] [id number] [place] [phone] ALP [Catalytic activity/Vol] 137 U/L High 38-113 [facility] Comment on above: Performed By: #### M G1, CMP, URIC, CBC #### [facility] [address] [place] [address] #### HACUTP, WSR #### [facility] [place] [phone] ALT [Catalytic activity/Vol] 113 U/L High 10-54 [facility] Comment on above: Performed By: #### M G1, CMP, URIC, CBC #### [facility] [address] [place] [address] #### HACUTP, WSR #### [facility] [phone] Anion gap [Moles/Vol] 20 mmol/L High 9-18 [facility] Comment on above: Performed By: #### M G1, CMP, URIC, CBC #### [facility] [address] [place] [address] #### HACUTP, WSR #### [phone] AST [Catalytic activity/Vol] 99 U/L High 14-40 [facility] Comment on above: Performed By: #### M G1, CMP, URIC, CBC #### [facility] [address] [place] [address] #### HACUTP, WSR #### [facility] [address] [place] [address] Bilirubin [Mass/Vol] 0.3 mg/dL Normal 0.2-1.3 [facility] Comment on above: Performed By: #### M G1, CMP, URIC, CBC #### [facility] [address] [place] [address] #### HACUTP, WSR #### [place] [address] Calcium [Mass/Vol] 7.6 mg/dL Low 8.5-10.2 [facility] Comment on above: Performed By: #### M G1, CMP, URIC, CBC #### [facility] [address] [place] [address] #### HACUTP, WSR #### [facility] [address] [place] [address] Chloride [Moles/Vol] 92 mmol/L Low 97-105 [facility] Comment on above: Performed By: #### M G1, CMP, URIC, CBC #### [facility] [address] [place] [address] #### HACUTP, WSR #### [facility] [address] [place] [address] CO2 [Moles/Vol] 16 mmol/L Low 22-30 [facility] Comment on above: Performed By: #### M G1, CMP, URIC, CBC #### [facility] [address] [place] [address] #### HACUTP, WSR #### [place] [address] Creatinine [Mass/Vol] 7.09 mg/dL High 0.73-1.22 [facility] Comment on above: Performed By: #### M G1, CMP, URIC, CBC #### [facility] [address] [place] [phone] #### HACUTP, WSR #### [facility] [address] [place] [address] eGFR- Amer. 9 [facility] Comment on above: Performed By: #### M G1, CMP, URIC, CBC #### [facility] [address] #### HACUTP, WSR #### [facility] [place] [address] eGFR-All Other Races 8 . [facility] Comment on above: Result Comment: eGFR (Estimated GFR) Units of measure: mL/min/1.73 meters squared eGFR is derived from the reexpressed MDRD Study equation using the following parameters: serum creatinine, age, gender and race. The creatinine assay has been calibrated to be traceable to IDMS. An eGFR <60 mL/min/1.73m2 for >3 months is consistent with chronic kidney disease. Refer to KDOQI guidelines for clinical interpretation. In patients with unstable renal function, e.g. those with acute kidney injury, the eGFR may not accurately reflect actual GFR. Note: On 2021, the eGFR calculation will be updated to the NKF-ASN Task Force recommended 2020 CKD-EPI creatinine equation which does not include a race variable. For more information or to access a 2020 CKD-EPI calculator, visit the National Kid[employer] website at kidney.org/professionals/kdoqi/gfr_calculator. Performed By: #### M G1, CMP, URIC, CBC #### [facility] [address] [place] [phone] #### HACUTP, WSR #### [place] [id number] [place] [address] Glucose [Mass/Vol] 117 mg/dL High 74-99 [facility] Comment on above: Result Comment: The [place] Diabetes Association (ADA) provides guidance for cutoff values for fasting glucose and random glucose. The ADA defines fasting as no caloric intake for at least 8 hours. Fasting plasma glucose results between 100 to 125 mg/dL indicate increased risk for diabetes (prediabetes). Fasting plasma glucose results greater than or equal to 126 mg/dL meet the criteria for diagnosis of diabetes. In the absence of unequivocal hyperglycemia, results should be confirmed by repeat testing. In a patient with classic symptoms of hyperglycemia or hyperglycemic crisis, random plasma glucose results greater than or equal to 200 mg/dL meet the criteria for diagnosis of diabetes. Reference: Standards of Medical Care in Diabetes 2016, [place] Diabetes Association. Diabetes Care. 2016.39(Suppl 1). Performed By: #### M G1, CMP, URIC, CBC #### [facility] [address] [place] [address] #### HACUTP, WSR #### [facility] [address] [address] Potassium [Moles/Vol] 4.1 mmol/L Normal 3.7-5.1 [facility] Comment on above: Performed By: #### M G1, CMP, URIC, CBC #### [facility] [address] [place] [address] #### HACUTP, WSR #### [facility] [address] [address] Protein [Mass/Vol] 5.8 g/dL Low 6.3-8.0 [facility] Comment on above: Performed By: #### M G1, CMP, URIC, CBC #### [facility] [address] [place] [address] #### HACUTP, WSR #### [facility] [address] Sodium [Moles/Vol] 128 mmol/L Low 136-144 [facility] Comment on above: Performed By: #### M G1, CMP, URIC, CBC #### [facility] [address] [place] [address] #### HACUTP, WSR #### [facility] [place] [address] Urea nitrogen [Mass/Vol] 86 mg/dL High 9-24 [facility] Comment on above: Performed By: #### M G1, CMP, URIC, CBC #### [facility] [address] [place] [address] #### BRITTANICUSTEVIE, WSR #### [place] [address] Ferritinon 05-18-2021 Ferritin [Mass/Vol] 1102.0 ng/mL High 30.3-565.7 [facility] Comment on above: Performed By: #### D NAAB, ANCAP, ANCAC, IFESC, ASO, SEPGRX, ANCA, C3COMP, C4COMP, ANAIFS, KLFRS #### [place] [address] #### GBMBG #### [address] [address] Folate, Serumon 05-18-2021 Folate [Mass/Vol] 15.9 ng/mL Normal >4.7 [facility] Comment on above: Performed By: #### D NAAB, ANCAP, ANCAC, IFESC, ASO, SEPGRX, ANCA, C3COMP, C4COMP, ANAIFS, KLFRS #### [place] [address] #### GBMBG #### [address] [address] Iron and TIBCon 05-18-2021 Iron [Mass/Vol] 32 ug/dL Low 41-186 [facility] Comment on above: Performed By: #### M G1, CMP, URIC, CBC #### [facility] [address] [place] [address] #### HACUTP, WSR #### [place] [address] TIBC 129 ug/dL Low 232-386 [facility] Comment on above: Performed By: #### M G1, CMP, URIC, CBC #### [facility] [address] [place] [address] #### HACUTP, WSR #### [facility] [address] [address] Transferrin Saturatn 25 % Normal 15-57 [facility] Comment on above: Performed By: #### M G1, CMP, URIC, CBC #### [facility] [address] [place], [place] [address] #### HACUTP, WSR #### [place] [address] [place] [phone] Magnesiumon 05-18-2021 Magnesium [Mass/Vol] 2.0 mg/dL Normal 1.7-2.3 [facility] Comment on above: Performed By: #### M G1, CMP, URIC, CBC #### [facility] [address] [place], [place] [address] #### HACUTP, WSR #### [address] [address] [place] [phone] NURSING PROGon 05-18-2021 NURSING PROG HNO ID: [id number] Author: Jeanna Moser RN Service: Nursing Author Type: Registered Nurse Type: Nursing Progress Note Filed: 05/18/2021 10:56 AM Note Text: Nursing Progress Note Patient Name: Mychal Swanson Patient Location: [place] [address] [address] Daily Note: 1000 - BILINGUAL HR GENERALIST notified L arm weeping with edema, wrapped in ABD with kerlix. R arm edematous near and distal to wrist. This note was completed by: Jeanna Moser [facility] Vancomycinon 05-18-2021 Vancomycin 13.4 ug/mL Normal 10.0-20.0 [facility] Comment on above: Result Comment: Refe rence ranges and high/low indicator flags are provided as general guidelines only. The treating physician must determine appropriate target levels/dosing based on the specific clinical situation. Performed By: #### D NAAB, ANCAP, ANCAC, IFESC, ASO, SEPGRX, ANCA, C3COMP, C4COMP, ANAIFS, KLFRS #### [facility] [address] [phone] #### GBMBG #### [facility] [address] [place] [address] Vitamin B12on 05-18-2021 Cobalamin (Vitamin B12) [Mass/Vol] pg/mL High 232-1245 [facility] Comment on above: Performed By: #### D NAAB, ANCAP, ANCAC, IFESC, ASO, SEPGRX, ANCA, C3COMP, C4COMP, ANAIFS, KLFRS #### [place] [phone] [place] [address] #### GBMBG #### [facility] [address] [place] [address] ALLIED HEALTHon 05-17-2021 ALLIED HEALTH HNO ID: [id number] Author: RT Mague(David) Service: Radiology Author Type: Technologist Type: Allied Health Filed: 05/17/2021 4:28 PM Note Text: Radiology Service Progress Note PATIENT NAME: Mychal Swanson DATE OF SERVICE: May 17, 2021 TIME: 4:28 PM PATIENT IDENTITY VERIFICATION COMPLETED USING TWO (2) IDENTIFIERS: Name and Date of confirmed by patient verbally and Name and Date of confirmed by identification band. FALL SCREENING: Has the patient had 2 falls in the last year or 1 fall with injury or currently using an Ambulatory Assistive Device (Walker, Cane, Wheelchair, Crutches, etc.)? Inpatient: Screened on floor PATIENT GENDER DATA: Male PATIENT RELEVANT IMPLANT DATA REVIEWED: Yes RADIOLOGY DEPARTMENT: MR; Exam(s) Completed: Upper MSK: Elbow, left PERIPHERAL IV DATA: Not applicable SIGNED BY: RT Mague(R) May 17, 2021 4:28 PM [facility] HEALTH HNO ID: [id number] Author: SALOME Cain Service: ? Author Type: Technologist Type: Allied Health Filed: 05/16/2021 11:58 PM Note Text: Radiology Service Progress Note PATIENT NAME: Mychal Swanson DATE OF SERVICE: May 16, 2021 TIME: 11:57 PM PATIENT IDENTITY VERIFICATION COMPLETED USING TWO (2) IDENTIFIERS: Name and Date of confirmed by patient verbally. FALL SCREENING: Has the patient had 2 falls in the last year or 1 fall with injury or currently using an Ambulatory Assistive Device (Walker, Cane, Wheelchair, Crutches, etc.)? Inpatient: Screened on floor PATIENT GENDER DATA: Male PATIENT RELEVANT IMPLANT DATA REVIEWED: Not Applicable RADIOLOGY DEPARTMENT: General X-ray: Exam(s) Completed: Upper Extremity X-Ray(s): Elbow, left and Forearm, left PERIPHERAL IV DATA: Not applicable SIGNED BY: SALOME Cain May 16, 2021 11:57 PM [facility] MARQUITA by IFAon 05-17-2021 MARQUITA Pattern Negative [facility] Comment on above: Performed By: #### M G1, CMP, URIC, CBC #### [facility] [address] [place] [address] #### HACUTP, WSR #### [place] [phone] [place] [address] MARQUITA Titer Negative Normal Negative [facility] Comment on above: Result Comment: Norm al range : negative at <1:80 serum dilution. Performed By: #### M G1, CMP, URIC, CBC #### [facility] [address] [place] [address] #### HACUTP, WSR #### [facility] [address] [address] Nuclear Ab IF (S) [Titer] Negative Normal Negative [facility] Comment on above: Result Comment: Norm al range : negative at <1:80 serum dilution. Approximately 6% of patients with connective tissue diseases with low positive EIA values are negative by IFA. Recommend follow-up with specific antinuclear antibodies if clinically indicated. Test performed using Indirect Fluorescence Immunoassay technology (IFA) using HEp-2 cells. Performed By: #### M G1, CMP, URIC, CBC #### [facility] [address] [facility] [phone] #### HACUTP, WSR #### [place] [address] Anti-Neutro.Cyto.Abon 2020 ANCA Interpretation Negative for C-ANCA and P-ANCA by indirect immunofluorescence. [facility] Comment on above: Performed By: #### D NAAB, ANCAP, ANCAC, IFESC, ASO, SEPGRX, ANCA, C3COMP, C4COMP, ANAIFS, KLFRS #### [place] [address] #### GBMBG #### [address] [address] C-ANCA Fluorescence Negative Normal Negative [facility] Comment on above: Performed By: #### D NAAB, ANCAP, ANCAC, IFESC, ASO, SEPGRX, ANCA, C3COMP, C4COMP, ANAIFS, KLFRS #### [place] [address] #### GBMBG #### [address] [address] [phone] Myeloperoxidase Ab Test not performed o n samples negative by immunofluorescence. Normal <1.0 [facility] Comment on above: Performed By: #### D NAAB, ANCAP, ANCAC, IFESC, ASO, SEPGRX, ANCA, C3COMP, C4COMP, ANAIFS, KLFRS #### [place] [address] #### GBMBG #### [address] [address] P-ANCA Fluorescence Negative Normal Negative [facility] Comment on above: Performed By: #### D NAAB, ANCAP, ANCAC, IFESC, ASO, SEPGRX, ANCA, C3COMP, C4COMP, ANAIFS, KLFRS #### [address] [place] [address] [place], [place] [address] #### GBMBG #### [address] [address] Proteinase-3 Ab Test not performed o n samples negative by immunofluorescence. Normal <1.0 [facility] Comment on above: Performed By: #### D NAAB, ANCAP, ANCAC, IFESC, ASO, SEPGRX, ANCA, C3COMP, C4COMP, ANAIFS, KLFRS #### [place] [phone] [place] [phone] #### GBMBG #### [address] [address] Staff Review Staff review not per formed on samples negative by immunofluorescence. Normal [facility] Comment on above: Performed By: #### D NAAB, ANCAP, ANCAC, IFESC, ASO, SEPGRX, ANCA, C3COMP, C4COMP, ANAIFS, KLFRS #### [place] [phone] [place] [phone] #### GBMBG #### [address] [address] Anti-Streptolysin Oon 2020 Anti-Streptolysin O <20 Normal <201 [facility] Comment on above: Performed By: #### D NAAB, ANCAP, ANCAC, IFESC, ASO, SEPGRX, ANCA, C3COMP, C4COMP, ANAIFS, KLFRS #### [address] [address] [place], [place] [address] #### GBMBG #### [address] [address] Blood Cultureon 05-17-2021 Bacteria identified Cx Nom (Bld) Culture Result - No growth 5 days [facility] Comment on above: Performed By: #### M G1, CMP, URIC, CBC #### [facility] [address] [phone] #### HACUTP, WSR #### [place] [address] [place] [address] Bacteria identified Cx Nom (Bld) Culture Result - No growth 5 days [facility] Comment on above: Performed By: #### M G1, CMP, URIC, CBC #### [facility] [address] [phone] #### HACUTP, WSR #### [address] [address] [place] [phone] C3 Complementon 05-17-2021 C3 Complement 147 mg/dL Normal 86-166 [facility] Comment on above: Performed By: #### D NAAB, ANCAP, ANCAC, IFESC, ASO, SEPGRX, ANCA, C3COMP, C4COMP, ANAIFS, KLFRS #### [place] [phone] #### GBMBG #### [facility] [address] [place] [address] C4 Complementon 05-17-2021 C4 Complement 48 mg/dL High 13-46 [facility] Comment on above: Performed By: #### D NAAB, ANCAP, ANCAC, IFESC, ASO, SEPGRX, ANCA, C3COMP, C4COMP, ANAIFS, KLFRS #### [place] [phone] #### GBMBG #### [facility] [address] [place] [address] CBCon 05-17-2021 Absolute nRBC <0.01 Normal <0.01 [facility] Comment on above: Performed By: #### D NAAB, ANCAP, ANCAC, IFESC, ASO, SEPGRX, ANCA, C3COMP, C4COMP, ANAIFS, KLFRS #### [place] [address] [place] [phone] #### GBMBG #### [facility] [address] [place] [address] Erythrocyte distribution width (RBC) [Ratio] 14.2 % Normal 11.5-15.0 [facility] Comment on above: Performed By: #### D NAAB, ANCAP, ANCAC, IFESC, ASO, SEPGRX, ANCA, C3COMP, C4COMP, ANAIFS, KLFRS #### [place] [phone] #### GBMBG #### [facility] [address] [place] [address] Hematocrit (Bld) [Volume fraction] 27.0 % Low 39.0-51.0 [facility] Comment on above: Performed By: #### D NAAB, ANCAP, ANCAC, IFESC, ASO, SEPGRX, ANCA, C3COMP, C4COMP, ANAIFS, KLFRS #### [place] [phone] #### GBMBG #### [place] [phone] Hemoglobin (Bld) [Mass/Vol] 9.1 g/dL Low 13.0-17.0 [facility] Comment on above: Performed By: #### D NAAB, ANCAP, ANCAC, IFESC, ASO, SEPGRX, ANCA, C3COMP, C4COMP, ANAIFS, KLFRS #### [place] [address] #### GBMBG #### [address] [phone] MCH 29.3 pG Normal 26.0-34.0 [facility] Comment on above: Performed By: #### D NAAB, ANCAP, ANCAC, IFESC, ASO, SEPGRX, ANCA, C3COMP, C4COMP, ANAIFS, KLFRS #### [place] [phone] #### GBMBG #### [facility] [address] [place] [address] MCHC (RBC) [Mass/Vol] 33.7 g/dL Normal 30.5-36.0 [facility] Comment on above: Performed By: #### D NAAB, ANCAP, ANCAC, IFESC, ASO, SEPGRX, ANCA, C3COMP, C4COMP, ANAIFS, KLFRS #### [place] [phone] #### GBMBG #### [facility] [address] [place] [address] MCV (RBC) [Entitic vol] 86.8 fL Normal 80.0-100.0 [facility] Comment on above: Performed By: #### D NAAB, ANCAP, ANCAC, IFESC, ASO, SEPGRX, ANCA, C3COMP, C4COMP, ANAIFS, KLFRS #### [place] [phone] #### GBMBG #### [facility] [address] [place] [address] Platelet mean volume (Bld) [Entitic vol] 10.5 fL Normal 9.0-12.7 [facility] Comment on above: Performed By: #### D NAAB, ANCAP, ANCAC, IFESC, ASO, SEPGRX, ANCA, C3COMP, C4COMP, ANAIFS, KLFRS #### [place] [phone] #### GBMBG #### [facility] [address] [place], [place] [phone] Platelets (Bld) [#/Vol] 253 10*3/uL Normal 150-400 [facility] Comment on above: Performed By: #### D NAAB, ANCAP, ANCAC, IFESC, ASO, SEPGRX, ANCA, C3COMP, C4COMP, ANAIFS, KLFRS #### [place] [address] #### GBMBG #### [facility] [address] [place] [address] RBC (Bld) [#/Vol] 3.11 10*6/uL Low 4.20-6.00 [facility] Comment on above: Performed By: #### D NAAB, ANCAP, ANCAC, IFESC, ASO, SEPGRX, ANCA, C3COMP, C4COMP, ANAIFS, KLFRS #### [place] [address] #### GBMBG #### [place] [address] WBC (Bld) [#/Vol] 14.65 10*3/uL High 3.70-11.00 [facility] Comment on above: Performed By: #### D NAAB, ANCAP, ANCAC, IFESC, ASO, SEPGRX, ANCA, C3COMP, C4COMP, ANAIFS, KLFRS #### [place] [address] #### GBMBG #### [facility] [address] [place] [address] Absolute nRBC <0.01 Normal <0.01 [facility] Comment on above: Performed By: #### M G1, CMP, URIC, CBC #### [address] [phone] #### HACUTP, WSR #### [place] [address] Erythrocyte distribution width (RBC) [Ratio] 14.2 % Normal 11.5-15.0 [facility] Comment on above: Performed By: #### M G1, CMP, URIC, CBC #### [address] [phone] #### HACUTP, WSR #### [place] [phone] Hematocrit (Bld) [Volume fraction] 27.0 % Low 39.0-51.0 [facility] Comment on above: Performed By: #### M G1, CMP, URIC, CBC #### [facility] [address] [place] [address] #### HACUTP, WSR #### [place] [phone] Hemoglobin (Bld) [Mass/Vol] 9.2 g/dL Low 13.0-17.0 [facility] Comment on above: Performed By: #### M G1, CMP, URIC, CBC #### [place] [address] #### HACUSTEVIE, WSR #### [place] [phone] MCH 30.2 pG Normal 26.0-34.0 [facility] Comment on above: Performed By: #### M G1, CMP, URIC, CBC #### [facility] [address] [place] [address] #### HACUTP, WSR #### [place] [phone] MCHC (RBC) [Mass/Vol] 34.1 g/dL Normal 30.5-36.0 [facility] Comment on above: Performed By: #### M G1, CMP, URIC, CBC #### [facility] [address] [place] [address] #### HACUTP, WSR #### [place] [phone] MCV (RBC) [Entitic vol] 88.5 fL Normal 80.0-100.0 [facility] Comment on above: Performed By: #### M G1, CMP, URIC, CBC #### [facility] [address] [place] [address] #### HACUTP, WSR #### [place] [address] [place] [address] Platelet mean volume (Bld) [Entitic vol] 9.8 fL Normal 9.0-12.7 [facility] Comment on above: Performed By: #### M G1, CMP, URIC, CBC #### [facility] [address] [place] [address] #### HACUTP, WSR #### [facility] [place] [address] Platelets (Bld) [#/Vol] 232 10*3/uL Normal 150-400 [facility] Comment on above: Performed By: #### M G1, CMP, URIC, CBC #### [facility] [address] [place] [address] #### HACUTP, WSR #### [place] [address] RBC (Bld) [#/Vol] 3.05 10*6/uL Low 4.20-6.00 [facility] Comment on above: Performed By: #### M G1, CMP, URIC, CBC #### [facility] [address] [place] [address] #### HACUTP, WSR #### [place] [phone] [place] [address] WBC (Bld) [#/Vol] 13.30 10*3/uL High 3.70-11.00 [facility] Comment on above: Performed By: #### M G1, CMP, URIC, CBC #### [facility] [address] [place] [address] #### HACUTP, WSR #### [place] [phone] [place] [address] CNCOon 05-17-2021 CNCO Letter Text [facility] CONSULTon 05-17-2021 CONSULT HNO ID: [id number] Author: Zara Conn APRN.OPERATING SYSTEM DESIGNER Service: Infectious Disease Author Type: Nurse Practitioner Type: Consults Filed: 05/17/2021 4:11 PM Note Text: CONSULT: INFECTIOUS DISEASE SERVICE SERVICE DATE: 05/17/2021 SERVICE TIME: 3:42 PM REASON FOR CONSULT: Bursitis vs Septic Joint REQUESTING PHYSICIAN: Yen Goldstein PRIMARY CARE PHYSICIAN: Lee Holbrook MD Subjective Mr. Swanson is a 70 year old male with a PMH significant for HTN, gout and HLD who presented to [facility] ED for evaluation of left arm pain and swelling. Patient states that on Saturday he noted some pain to his left elbow and upon further evaluation found a small red excoriation to his mid elbow with some surrounding erythema and swelling. Since that time patient reports that the elbow has become significantly more swollen, now with extension of the edema to the forearm, hand and up towards his shoulder. There is associated erythema extending from the elbow up the arm into his axillary region. He reports limited ROM of the elbow over the past 2 days secondary to the significant pain and swelling. He has been using advil four times daily since Saturday to manage the pain. He does note a fever of 100.9 F on Saturday evening for which he took a dose of alleve with resolution and no further recurrence. He does also note some abdominal bloating as well as diminished appetite and nausea which also started on Saturday. He reports inability tolerate any solid foods aside from some sips of water secondary to the discomfort from the bloating. Saw pcp and was started on Clindamycin (took 3 doses). In the ED, denies any dysuria, decreased urine output, hematuria, or flank pain. Denies any CP, SOB, palpitations, URI symptoms, chills, melena, hematochezia, vomiting, numbness, tingling. Denies ETOH use. In the ED, afebrile 36.6, SpO2 95% on RA. Negative for MRSA by PCR. UA negative. WBC 14.65. Cr 6.96, ALT 199, AST 371 Urine and Blood cultures obtained and in process. Was started on Vanco and Zosyn. XR elbow/Forearm- Diffuse soft tissue swelling elbow and forearm without radiographic evidence of osteomyelitis. Left elbow intra-articular loose body 4 mm. MRI elbow ordered, not yet performed. PAST MEDICAL HISTORY Diagnosis Date - BENIGN HYPERTENSION - GOUT NOS - MIXED HYPERLIPIDEMIA PAST SURGICAL HISTORY Procedure Laterality Date - PAST SURGICAL HISTORY OF Appendix removed - PAST SURGICAL HISTORY OF Kidney stone removed by lithotripsy FAMILY HISTORY Problem Relation Age of Onset - Heart No Family History - Stroke No Family History - Diabetes No Family History Social History Tobacco Use - Smoking status: Never Smoker - Smokeless tobacco: Not on file Substance Use Topics - Alcohol use: No - Drug use: No clindamycin (CLEOCIN) 300 mg capsule, Take 600 mg by mouth three times daily., Disp: , Rfl: , 05/16/2021 at Unknown time ubidecarenone/vitamin E mixed (COQ10 SG 100 ORAL), Take 100 mg by mouth five times a week. mon thru sat, Disp: , Rfl: , 05/15/2021 at Unknown time Ktbae-6-NHG-EPA-Fish Oil (FISH OIL) 1,000 mg (120 mg-180 mg) cap, Take 4 g by mouth three times daily., Disp: , Rfl: , 05/15/2021 at Unknown time losartan (COZAAR) 100 mg tablet, Take 100 mg by mouth every evening., Disp: , Rfl: , 05/15/2021 at Unknown time atenolol (TENORMIN) 50 mg tablet, Take 50 mg by mouth every evening., Disp: , Rfl: , 05/15/2021 at Unknown time rosuvastatin calcium(CRESTOR 20 MG TAB), Take 40 mg by mouth once daily. , Disp: 30, Rfl: 11, 05/15/2021 at Unknown time psyllium seed/sucrose(METAMUCIL ORAL POWDER), Take one powder packet daily, Disp: , Rfl: 0, 05/15/2021 at Unknown time FENOFIBRATE 54 MG TAB, one tab daily with breakfast (Patient taking differently: Take 134 mg by mouth once daily. ), Disp: 30, Rfl: 3, 05/15/2021 at Unknown time ALLOPURINOL 300 MG TAB, Take one(1) tablet daily., Disp: 30, Rfl: 11, 05/15/2021 at Unknown time aspirin(JAVIER LOW STRENGTH 81 MG TAB), Take one(1) tablet daily., Disp: , Rfl: 0, 05/15/2021 at Unknown time ramipril(ALTACE 5 MG CAP), Take one(1) capsule daily., Disp: 30, Rfl: 11 MULTIVITAMIN TABLET, Take one(1) tablet daily., Disp: , Rfl: 0 Current Facility-Administered Medications Medication Dose Route Frequency - atenolol 50 mg tab(s) (TENORMIN) 50 mg ORAL DAILY - docusate sodium 100 mg cap(s) (COLACE) 100 mg ORAL BID PRN - heparin 5,000 Units injection 5,000 Units SUBCUTANEOUS q 12 H - NaCl 0.9% iv flush bag 20 mL INTRAVENOUS PRN - sodium chloride 0.9 % (flush) 3-5 mL (BD POSIFLUSH) 3-5 mL INTRAVENOUS q 12 H - ondansetron orally disintegrating 4 mg tab(s) (ZOFRAN ODT) 4 mg ORAL q 6 H PRN Or - ondansetron (PF) 4 mg injection (ZOFRAN) 4 mg INTRAVENOUS q 6 H PRN - polyethylene glycol 3350 17 g packet (MIRALAX, GLYCOLAX) 17 g ORAL DAILY - melatonin 3 mg tab(s) 3 mg ORAL DAILY (8 PM) - traMADol 50 mg tab(s) (ULTRAM) 50 mg ORAL q 6 H PRN - pip (more content not included)... [facility] CONSULT HNO ID: [id number] Author: Aurea Mckenna MD Service: Nephrology Author Type: Physician Type: Consults Filed: 05/17/2021 12:17 PM Note Text: INPATIENT INITIAL NEPHROLOGY CONSULT SERVICE DATE: 05/17/2021 SERVICE TIME: 12:07 PM REASON FOR CONSULT: Acute kidney injury REQUESTING PHYSICIAN: Sherita wynne PA-C PRIMARY CARE PHYSICIAN: Isaias Kaba MD CC: Acute kidney injury and a left upper extremity swelling Subjective Mr. Swanson is a 70 year old male with past medical history significant for: Hypertension, gout, hyperlipidemia, hemorrhoidectomy who presented to [facility] in emergency room with left elbow pain and swelling as well as excoriation and erythema starting on Saturday. He was evaluated by PCP on Saturday started on clindamycin 60 mg 3 times daily. His swelling was getting worse and patient was advised to go to the emergency room. In emergency room patient was anemic, normal WBC, LLUVIA BUN 23 creatinine 6.95 CRP 63 sodium 127 potassium 4.3 AST 550 ALT 260. Urinalysis 6-10 WBC +[address] scan abdomen pelvis cholelithiasis with multiple calculi in the gallbladder however no reported obstruction or evidence of cholecystitis. There was also noted bilateral nephrolithiasis without evidence of hydronephrosis or obstruction but with some associated perinephric stranding. There was also finding of fecal retention as well as small fat containing L inguinal hernia. CD of imaging was sent down to radiology for further read/upload. In regards to renal history patient denies any previous history of kidney problem. Does not know his baseline creatinine. Last BUN was 77 creatinine was 6.96. PAST MEDICAL HISTORY Diagnosis Date - BENIGN HYPERTENSION - GOUT NOS - MIXED HYPERLIPIDEMIA PAST SURGICAL HISTORY Procedure Laterality Date - PAST SURGICAL HISTORY OF Appendix removed - PAST SURGICAL HISTORY OF Kidney stone removed by lithotripsy FAMILY HISTORY Problem Relation Age of Onset - Heart No Family History - Stroke No Family History - Diabetes No Family History Social History Tobacco Use - Smoking status: Never Smoker - Smokeless tobacco: Not on file Substance Use Topics - Alcohol use: No - Drug use: No Prior to Admission Medications Prescriptions Last Dose Informant Patient Reported? Taking? ALLOPURINOL 300 MG TAB 05/15/2021 at Unknown time No Yes Sig: Take one(1) tablet daily. FENOFIBRATE 54 MG TAB 05/15/2021 at Unknown time No Yes Sig: one tab daily with breakfast Patient taking differently: Take 134 mg by mouth once daily. MULTIVITAMIN TABLET No No Sig: Take one(1) tablet daily. Lvvvk-0-WSK-EPA-Fish Oil (FISH OIL) 1,000 mg (120 mg-180 mg) cap 05/15/2021 at Unknown time Yes Yes Sig: Take 4 g by mouth three times daily. aspirin(JAVIER LOW STRENGTH 81 MG TAB) 05/15/2021 at Unknown time Yes Yes Sig: Take one(1) tablet daily. atenolol (TENORMIN) 50 mg tablet 05/15/2021 at Unknown time Yes Yes Sig: Take 50 mg by mouth every evening. clindamycin (CLEOCIN) 300 mg capsule 05/16/2021 at Unknown time Yes Yes Sig: Take 600 mg by mouth three times daily. losartan (COZAAR) 100 mg tablet 05/15/2021 at Unknown time Yes Yes Sig: Take 100 mg by mouth every evening. psyllium seed/sucrose(METAMUCIL ORAL POWDER) 05/15/2021 at Unknown time Yes Yes Sig: Take one powder packet daily ramipril(ALTACE 5 MG CAP) No No Sig: Take one(1) capsule daily. rosuvastatin calcium(CRESTOR 20 MG TAB) 05/15/2021 at Unknown time Yes Yes Sig: Take 40 mg by mouth once daily. ubidecarenone/vitamin E mixed (COQ10 SG 100 ORAL) 05/15/2021 at Unknown time Yes Yes Sig: Take 100 mg by mouth five times a week. mon thru fri Facility-Administered Medications: None Current Facility-Administered Medications Medication Dose Route Frequency - atenolol 50 mg tab(s) (TENORMIN) 50 mg ORAL DAILY - docusate sodium 100 mg cap(s) (COLACE) 100 mg ORAL BID PRN - heparin 5,000 Units injection 5,000 Units SUBCUTANEOUS q 12 H - NaCl 0.9% iv flush bag 20 mL INTRAVENOUS PRN - sodium chloride 0.9 % (flush) 3-5 mL (BD POSIFLUSH) 3-5 mL INTRAVENOUS q 12 H - NaCl 0.9% iv infusion 100 mL/hr INTRAVENOUS CONTINUOUS - ondansetron orally disintegrating 4 mg tab(s) (ZOFRAN ODT) 4 mg ORAL q 6 H PRN Or - ondansetron (PF) 4 mg injection (ZOFRAN) 4 mg INTRAVENOUS q 6 H PRN - polyethylene glycol 3350 17 g packet (MIRALAX, GLYCOLAX) 17 g ORAL DAILY - melatonin 3 mg tab(s) 3 mg ORAL DAILY (8 PM) - traMADol 50 mg tab(s) (ULTRAM) 50 mg ORAL q 6 H PRN - piperacillin-tazobactam iv piggyback 3.375 g in dextrose (iso-osmotic) 50 mL (ZOSYN) 3.375 g INTRAVENOUS q 12 H - vancomycin dosing and monitoring per pharmacy OTHER As Directed Allergies As of Date: 05/16/2021 Allergen Noted Reaction DOMONIQUE INHIBITORS 05/16/2021 Rash CEFTRIAXONE 05/16/2021 Myalgia GEMFIBROZIL 05/16/2021 Rash Fully Assessed 05/16/2021 COMPLETE REVIEW OF SYSTEMS: GENERAL: No weight loss, malaise or fevers HEENT: Negat (more content not included)... [facility] CONSULT HNO ID: [id number] Author: Darvin Coughlin PA-C Service: Orthopaedic Surgery Author Type: Physician Equipment Validation Specialist Type: Consults Filed: 05/17/2021 10:26 AM Note Text: Attestation signed by Jose Francisco Glez MD at 05/17/2021 5:01 PM Patient seen with above nurse practitioner Minimal pain to passive range of motion of the elbow joint. More suspicious of his discomfort and range of motion limitation is being secondary to swelling in the arm is related to the cellulitis. I recommend an MRI of the elbow to evaluate for any intra-articular effusion versus focal abscess formation of the subcutaneous tissue. If an abscess is identified or clinical suspicion for septic arthritis increases, incision and drainage may be indicated. We will reevaluate once the MRI is completed ORTHOPAEDIC CONSULT NOTE SERVICE DATE: 05/17/2021 SERVICE TIME: 9:42 AM PRIMARY CARE PHYSICIAN: Isaias Kaba MD ASSESSMENT AND PLAN Cellulitis of left arm - Discussed with Dr. Glez. Will order STAT MRI left elbow for further evaluation - CRP in ED (63), ESR pending - Continue vanc/zosyn pending ID consult - Medical management per primary SUBJECTIVE CHIEF COMPLAINT: consult to orthopaedics regarding left arm cellulitis HPI: Mychal Swanson is a 70 year old male with PMHx significant for HTN, HLD, and gout who was [facility] for left arm cellulitis, transaminitis and LLUVIA. Patient reports he first noticed a small area of excoriated skin about the size of a quarter on his posterior left elbow on 05/12. He denies trauma or injury. The patient states he works part-time for a [employer] company and believes this area of excoriation was from scratching his elbow on a piece of wood. He initially went to his PCP for this on 05/15 and was started on clindamycin which he took for 2 days with no relief. Patient reports he then gradually developed worsening swelling, redness, and pain that spread to his hand and upper arm which prompted him to go his local ED yesterday. Pain is described as aching primarily in the elbow. Aggravated with movement of his arm and palpation. Alleviated with elevation and patient reports the swelling, erythema and pain have all improved significantly after starting IV antibiotics yesterday. He does note a Tmax of 100.9 F on Saturday evening for which he took a dose of Aleve with resolution and no further recurrence of fevers. He also endorses some abdominal bloating, diminished appetite and nausea which also started on Saturday. He is not a diabetic. He denies hx of IVDA or EtOH abuse. He denies numbness/tingling in his arm or any other associated symptoms. PAST MEDICAL HISTORY: PAST MEDICAL HISTORY Diagnosis Date - BENIGN HYPERTENSION - GOUT NOS - MIXED HYPERLIPIDEMIA PAST SURGICAL HISTORY: PAST SURGICAL HISTORY Procedure Laterality Date - PAST SURGICAL HISTORY OF Appendix removed - PAST SURGICAL HISTORY OF Kidney stone removed by lithotripsy FAMILY HISTORY: FAMILY HISTORY Problem Relation Age of Onset - Heart No Family History - Stroke No Family History - Diabetes No Family History SOCIAL HISTORY: Social History Tobacco Use - Smoking status: Never Smoker - Smokeless tobacco: Not on file Substance Use Topics - Alcohol use: No - Drug use: No MEDICATIONS: Prior to Admission Medications clindamycin (CLEOCIN) 300 mg capsule, Take 600 mg by mouth three times daily., Disp: , Rfl: , 05/16/2021 at Unknown time ubidecarenone/vitamin E mixed (COQ10 SG 100 ORAL), Take 100 mg by mouth five times a week. mon thru sat, Disp: , Rfl: , 05/15/2021 at Unknown time Fewuh-8-LRL-EPA-Fish Oil (FISH OIL) 1,000 mg (120 mg-180 mg) cap, Take 4 g by mouth three times daily., Disp: , Rfl: , 05/15/2021 at Unknown time losartan (COZAAR) 100 mg tablet, Take 100 mg by mouth every evening., Disp: , Rfl: , 05/15/2021 at Unknown time atenolol (TENORMIN) 50 mg tablet, Take 50 mg by mouth every evening., Disp: , Rfl: , 05/15/2021 at Unknown time rosuvastatin calcium(CRESTOR 20 MG TAB), Take 40 mg by mouth once daily. , Disp: 30, Rfl: 11, 05/15/2021 at Unknown time psyllium seed/sucrose(METAMUCIL ORAL POWDER), Take one powder packet daily, Disp: , Rfl: 0, 05/15/2021 at Unknown time FENOFIBRATE 54 MG TAB, one tab daily with breakfast (Patient taking differently: Take 134 mg by mouth once daily. ), Disp: 30, Rfl: 3, 05/15/2021 at Unknown time ALLOPURINOL 300 MG TAB, Take one(1) tablet daily., Disp: 30, Rfl: 11, 05/15/2021 at Unknown time aspirin(JAVIER LOW STRENGTH 81 MG TAB), Take one(1) tablet daily., Disp: , Rfl: 0, 05/15/2021 at Unknown time ramipril(ALTACE 5 MG CAP), Take one(1) capsule daily., Disp: 30, Rfl: 11 MULTIVITAMIN TABLET, Take one(1) tablet daily., Disp: , Rfl: 0 CURRENT AL (more content not included)... [facility] CONSULT HNO ID: [id number] Author: Lambert Farmer MD Service: Gastroenterology Author Type: Physician Type: Consults Filed: 05/18/2021 7:33 AM Note Text: GASTROENTEROLOGY CONSULT NOTE PATIENT NAME: Mychal Swanson SERVICE DATE: May 17, 2021 SERVICE TIME: 9:41 AM PRIMARY CARE PHYSICIAN: Isaias Kaba MD ATTENDING PHYSICIAN: Yusra Nick MD REASON FOR ADMISSION: Acute kidney injury REASON FOR CONSULTATION: Transaminitis HPI: This is a 70 year old male with a past medical history significant for hemorrhoidectomy, HTN, Gout and HLD who presented to [facility] ED ([place]) on 05/16/21 due to left elbow pain and swelling as well as excoriation / erythema starting on Saturday. He was evaluated by his PCP on Saturday who had started the patient on Clindamycin 600 mg TID. Following 4 doses he reported that his elbow pain and swelling was becoming worse and was therefore instructed to present to the ED. ER evaluation was significant for anemia (10.5/30.7), normal WBC, LLUVIA BUN 73 and creatinine 6.95, CRP 63, Na 127, K 5.3, AST 550, ALT 260, AP 121 and normal bilirubin - these were normal in June 2020 as per Care Everywhere. Urine showed 6-10 WBC and 2+ bacteria. A CT A/P was completed at [facility] ED however I am unable to locate the report on the chart. Per IM HANDP -- CT A/P w/o contrast showed cholelithiasis with multiple calculi in the gallbladder however no reported obstruction or evidence of cholecystitis. There was also noted bilateral nephrolithiasis without evidence of hydronephrosis or obstruction but with some associated perinephric stranding. There was also finding of fecal retention as well as small fat containing L inguinal hernia. CD of imaging was sent down to radiology for further read/upload. A GI consult has been requested due to elevated LFT's. Patient states he was in his typical states of health prior to Saturday. Since this time he also report abdominal distention, nausea no vomiting and early satiety. He has had a decreased appetite and able to tolerate minimal oral intake due to his early satiety. He denies heartburn. Has gained a few pounds. No dysphagia or odynophagia. Reports a BM 3x/day with occasion bright red blood on the toilet paper with daily Metamucil use. Patient had recently undertaken a hemorrhoidectomy in October of this year. No change in bowel pattern. No melena. Takes Aspirin 81 mg daily. Recently started taking Advil 2-4 tablets every 4 hours due to his elbow pain. Was also started on Clindamycin 600 mg three times daily - has taken four doses prior to presenting to the ED. Denies previous blood transfusion. No supplements outside of Graham 3 and Fish Oil. No changes in medications outside of recent antibiotic use. Denies ETOH use. No previous liver history. ALLERGIES: ALLERGIES Allergen Reactions - Domonique Inhibitors Rash - Ceftriaxone Myalgia - Gemfibrozil Rash PAST MEDICAL HISTORY: PAST MEDICAL HISTORY Diagnosis Date - BENIGN HYPERTENSION - GOUT NOS - MIXED HYPERLIPIDEMIA PAST SURGICAL HISTORY: PAST SURGICAL HISTORY Procedure Laterality Date - PAST SURGICAL HISTORY OF Appendix removed - PAST SURGICAL HISTORY OF Kidney stone removed by lithotripsy MEDICATIONS: Prior to Admission Medications: clindamycin (CLEOCIN) 300 mg capsule, Take 600 mg by mouth three times daily., Disp: , Rfl: , 05/16/2021 at Unknown time ubidecarenone/vitamin E mixed (COQ10 SG 100 ORAL), Take 100 mg by mouth five times a week. mon thru fri, Disp: , Rfl: , 05/15/2021 at Unknown time Mlajl-9-MLE-EPA-Fish Oil (FISH OIL) 1,000 mg (120 mg-180 mg) cap, Take 4 g by mouth three times daily., Disp: , Rfl: , 05/15/2021 at Unknown time losartan (COZAAR) 100 mg tablet, Take 100 mg by mouth every evening., Disp: , Rfl: , 05/15/2021 at Unknown time atenolol (TENORMIN) 50 mg tablet, Take 50 mg by mouth every evening., Disp: , Rfl: , 05/15/2021 at Unknown time rosuvastatin calcium(CRESTOR 20 MG TAB), Take 40 mg by mouth once daily. , Disp: 30, Rfl: 11, 05/15/2021 at Unknown time psyllium seed/sucrose(METAMUCIL ORAL POWDER), Take one powder packet daily, Disp: , Rfl: 0, 05/15/2021 at Unknown time FENOFIBRATE 54 MG TAB, one tab daily with breakfast (Patient taking differently: Take 134 mg by mouth once daily. ), Disp: 30, Rfl: 3, 05/15/2021 at Unknown time ALLOPURINOL 300 MG TAB, Take one(1) tablet daily., Disp: 30, Rfl: 11, 05/15/2021 at Unknown time aspirin(JAVIER LOW STRENGTH 81 MG TAB), Take one(1) tablet daily., Disp: , Rfl: 0, 05/15/2021 at Unknown time ramipril(ALTACE 5 MG CAP), Take one(1) capsule daily., Disp: 30, Rfl: 11 MULTIVITAMIN TABLET, Take one(1) tablet daily., Disp: , Rfl: 0 Current Hospital Medications: Current Facility-Administered Medications Medication Dose Route Frequency - atenolol 50 mg tab(s) (TENORMIN) 50 mg ORAL DAILY - docusate sodium 100 mg cap(s) (COLACE) 100 mg ORAL BID PRN - heparin 5,000 (more content not included)... [facility] CONSULT Dex 05-17-2021 CONSULT PROG HNO ID: [id number] Author: Dayana Molina RPh Service: Pharmacy Author Type: Pharmacist Type: Consult Progress Note Filed: 05/17/2021 7:09 AM Note Text: PHARMACY VANCOMYCIN DOSING NOTE Patient Name: Mychal Swanson Admission Date: 05/16/2021 Date of Consult: 05/16/2021 Time of Consult: 11:33 PM Indication: Skin/Soft tissue infection Goal Range: 10-20 mcg/mL RECOMMENDATIONS/PLAN: Pharmacy consulted for vancomycin dosing for Mychal Swanson, a 70 year old, male who is being treated with vancomycin. 1. Patient is currently ordered Vancomycin 1.25 g IV q24h. Today is day 1 of therapy. 2. No vancomycin level has been drawn for this dosing regimen. 3. Will order a one-time dose of Vancomycin 1 g, and schedule vancomycin as dose by level. 4. The next vancomycin level has been ordered for 05/17/2021 @ 2300 (Completed) We will follow patient renal function, vancomycin levels and doses with you during the course of therapy. Additional recommendations will appear in follow up notes. If you have any questions, please contact pharmacy at [phone]. Age: [age] year old Allergies: ALLERGIES Allergen Reactions - Domonique Inhibitors Rash - Ceftriaxone Myalgia - Gemfibrozil Rash Last 3 Encounter Wt Readings: Date: Wt: 05/31/2009 69.7 kg (153 lb 11.2 oz) 12/07/2008 68.4 kg (150 lb 14.4 oz) 06/21/2008 67.7 kg (149 lb 4.8 oz) Last 1 Encounter Ht Readings: Date: Ht: 05/16/2021 162.6 cm (5' 4) CrCl: 9.1 mL/min Temp (24hrs), Av.6 ?C (97.9 ?F), Min:36.6 ?C (97.9 ?F), Max:36.6 ?C (97.9 ?F) - Current Temp: 36.6 ?C (97.9 ?F) Labs No results found for: BUN, CREATNo results found for: WBC Vancomycin Levels: No results found for: MARILYN Molina RPh [facility] Comp Metabolic Panelon 05-17 Albumin [Mass/Vol] 2.7 g/dL Low 3.9-4.9 [facility] Comment on above: Performed By: #### D NAAB, ANCAP, ANCAC, IFESC, ASO, SEPGRX, ANCA, C3COMP, C4COMP, ANAIFS, KLFRS #### [facility] [address] [phone] #### GBMBG #### [facility] [address] [place] [address] ALP [Catalytic activity/Vol] 184 U/L High 38-113 [facility] Comment on above: Performed By: #### D NAAB, ANCAP, ANCAC, IFESC, ASO, SEPGRX, ANCA, C3COMP, C4COMP, ANAIFS, KLFRS #### [place] [address] #### GBMBG #### [place] [phone] ALT [Catalytic activity/Vol] 199 U/L [facility] 10-54 [facility] Comment on above: Performed By: #### D NAAB, ANCAP, ANCAC, IFESC, ASO, SEPGRX, ANCA, C3COMP, C4COMP, ANAIFS, KLFRS #### [place] [id number] [place] [address] #### GBMBG #### [facility] [address] [place] [address] Anion gap [Moles/Vol] 24 mmol/L High 9-18 [facility] Comment on above: Performed By: #### D NAAB, ANCAP, ANCAC, IFESC, ASO, SEPGRX, ANCA, C3COMP, C4COMP, ANAIFS, KLFRS #### [place] [address] #### GBMBG #### [facility] [address] [place] [address] AST [Catalytic activity/Vol] 371 U/L [facility] 14-40 [facility] Comment on above: Performed By: #### D NAAB, ANCAP, ANCAC, IFESC, ASO, SEPGRX, ANCA, C3COMP, C4COMP, ANAIFS, KLFRS #### [place] [phone] #### GBMBG #### [facility] [address] [place] [address] Bilirubin [Mass/Vol] 0.3 mg/dL Normal 0.2-1.3 [facility] Comment on above: Performed By: #### D NAAB, ANCAP, ANCAC, IFESC, ASO, SEPGRX, ANCA, C3COMP, C4COMP, ANAIFS, KLFRS #### [place] [phone] #### GBMBG #### [place] [address] Calcium [Mass/Vol] 7.5 mg/dL Low 8.5-10.2 [facility] Comment on above: Performed By: #### D NAAB, ANCAP, ANCAC, IFESC, ASO, SEPGRX, ANCA, C3COMP, C4COMP, ANAIFS, KLFRS #### [place] [address] #### GBMBG #### [facility] [address] [place] [address] Chloride [Moles/Vol] 94 mmol/L Low 97-105 [facility] Comment on above: Performed By: #### D NAAB, ANCAP, ANCAC, IFESC, ASO, SEPGRX, ANCA, C3COMP, C4COMP, ANAIFS, KLFRS #### [place] [address] #### GBMBG #### [place] [address] CO2 [Moles/Vol] 10 mmol/L Low 22-30 [facility] Comment on above: Performed By: #### D NAAB, ANCAP, ANCAC, IFESC, ASO, SEPGRX, ANCA, C3COMP, C4COMP, ANAIFS, KLFRS #### [facility] [address] [place] [phone] #### GBMBG #### [place] [address] Creatinine [Mass/Vol] 6.96 mg/dL High 0.73-1.22 [facility] Comment on above: Performed By: #### D NAAB, ANCAP, ANCAC, IFESC, ASO, SEPGRX, ANCA, C3COMP, C4COMP, ANAIFS, KLFRS #### [place] [phone] #### GBMBG #### [place] [address] eGFR- Amer. 10 [facility] Comment on above: Performed By: #### D NAAB, ANCAP, ANCAC, IFESC, ASO, SEPGRX, ANCA, C3COMP, C4COMP, ANAIFS, KLFRS #### [place] [phone] #### GBMBG #### [address] [address] eGFR-All Other Races 8 . [facility] Comment on above: Result Comment: eGFR (Estimated GFR) Units of measure: mL/min/1.73 meters squared eGFR is derived from the reexpressed MDRD Study equation using the following parameters: serum creatinine, age, gender and race. The creatinine assay has been calibrated to be traceable to IDMS. An eGFR <60 mL/min/1.73m2 for >3 months is consistent with chronic kidney disease. Refer to KDOQI guidelines for clinical interpretation. In patients with unstable renal function, e.g. those with acute kidney injury, the eGFR may not accurately reflect actual GFR. Note: On 2021, the eGFR calculation will be updated to the NKF-ASN Task Force recommended 2020 CKD-EPI creatinine equation which does not include a race variable. For more information or to access a 2020 CKD-EPI calculator, visit the National Kidney Foundation website at kidney.org/professionals/kdoqi/gfr_calculator. Performed By: #### D NAAB, ANCAP, ANCAC, IFESC, ASO, SEPGRX, ANCA, C3COMP, C4COMP, ANAIFS, KLFRS #### [facility] [address] [address] #### GBMBG #### [facility] [address] [place] [address] Glucose [Mass/Vol] 26 mg/dL Critically low 74-99 [facility] Comment on above: Result Comment: The [place] Diabetes Association (ADA) provides guidance for cutoff values for fasting glucose and random glucose. The ADA defines fasting as no caloric intake for at least 8 hours. Fasting plasma glucose results between 100 to 125 mg/dL indicate increased risk for diabetes (prediabetes). Fasting plasma glucose results greater than or equal to 126 mg/dL meet the criteria for diagnosis of diabetes. In the absence of unequivocal hyperglycemia, results should be confirmed by repeat testing. In a patient with classic symptoms of hyperglycemia or hyperglycemic crisis, random plasma glucose results greater than or equal to 200 mg/dL meet the criteria for diagnosis of diabetes. Reference: Standards of Medical Care in Diabetes 2016, [place] Diabetes Association. Diabetes Care. 2016.39(Suppl 1). Called to and read back by: Nolan Toney [address] 05/17/21 836 [place] Performed By: #### D NAAB, ANCAP, ANCAC, IFESC, ASO, SEPGRX, ANCA, C3COMP, C4COMP, ANAIFS, KLFRS #### [facility] [address] [address] #### GBMBG #### [facility] [address] [place], [place] [id number] Potassium [Moles/Vol] 5.3 mmol/L High 3.7-5.1 [facility] Comment on above: Performed By: #### D NAAB, ANCAP, ANCAC, IFESC, ASO, SEPGRX, ANCA, C3COMP, C4COMP, ANAIFS, KLFRS #### [place] [phone] #### GBMBG #### [facility] [address] [place] [address] Protein [Mass/Vol] 6.1 g/dL Low 6.3-8.0 [facility] Comment on above: Performed By: #### D NAAB, ANCAP, ANCAC, IFESC, ASO, SEPGRX, ANCA, C3COMP, C4COMP, ANAIFS, KLFRS #### [place] [phone] #### GBMBG #### [place] [address] Sodium [Moles/Vol] 128 mmol/L Low 136-144 [facility] Comment on above: Performed By: #### D NAAB, ANCAP, ANCAC, IFESC, ASO, SEPGRX, ANCA, C3COMP, C4COMP, ANAIFS, KLFRS #### [place] [address] #### GBMBG #### [place] [address] Urea nitrogen [Mass/Vol] 77 mg/dL High 9-24 [facility] Comment on above: Performed By: #### D NAAB, ANCAP, ANCAC, IFESC, ASO, SEPGRX, ANCA, C3COMP, C4COMP, ANAIFS, KLFRS #### [place] [address] #### GBMBG #### [place] [address] Albumin [Mass/Vol] 2.7 g/dL Low 3.9-4.9 [facility] Comment on above: Performed By: #### M G1, CMP, URIC, CBC #### [facility] [address] [place] [address] #### HACUTP, WSR #### [facility] [phone] ALP [Catalytic activity/Vol] 128 U/L High 38-113 [facility] Comment on above: Performed By: #### M G1, CMP, URIC, CBC #### [facility] [address] [place] [address] #### HACUTP, WSR #### [place] [phone] ALT [Catalytic activity/Vol] 210 U/L High 10-54 [facility] Comment on above: Performed By: #### M G1, CMP, URIC, CBC #### [facility] [address] [place] [address] #### HACUTP, WSR #### [place] [phone] Anion gap [Moles/Vol] 26 mmol/L High 9-18 [facility] Comment on above: Performed By: #### M G1, CMP, URIC, CBC #### [facility] [address] [place] [address] #### HACUTP, WSR #### [place] [phone] AST [Catalytic activity/Vol] 415 U/L High 14-40 [facility] Comment on above: Performed By: #### M G1, CMP, URIC, CBC #### [facility] [address] [place] [address] #### HACUTP, WSR #### [place] [phone] Bilirubin [Mass/Vol] 0.3 mg/dL Normal 0.2-1.3 [facility] Comment on above: Performed By: #### M G1, CMP, URIC, CBC #### [facility] [address] [place] [address] #### HACUTP, WSR #### [facility] [phone] Calcium [Mass/Vol] 7.8 mg/dL Low 8.5-10.2 [facility] Comment on above: Performed By: #### M G1, CMP, URIC, CBC #### [facility] [address] [place] [address] #### HACUTP, WSR #### [facility] [address] [place], [place] [phone] Chloride [Moles/Vol] 92 mmol/L Low 97-105 [facility] Comment on above: Performed By: #### M G1, CMP, URIC, CBC #### [facility] [address] [place] [address] #### HACUTP, WSR #### [phone] CO2 [Moles/Vol] 10 mmol/L Low 22-30 [facility] Comment on above: Performed By: #### M G1, CMP, URIC, CBC #### [facility] [address] [place] [address] #### HACUTP, WSR #### [phone] Creatinine [Mass/Vol] 6.97 mg/dL High 0.73-1.22 [facility] Comment on above: Performed By: #### M G1, CMP, URIC, CBC #### [facility] [address] [place] [address] #### HACUTP, WSR #### [place] [phone] eGFR- Amer. 10 [facility] Comment on above: Performed By: #### M G1, CMP, URIC, CBC #### [facility] [address] [place] [address] #### HACUTP, WSR #### [facility] [address] [address] eGFR-All Other Races 8 . [facility] Comment on above: Result Comment: eGFR (Estimated GFR) Units of measure: mL/min/1.73 meters squared eGFR is derived from the reexpressed MDRD Study equation using the following parameters: serum creatinine, age, gender and race. The creatinine assay has been calibrated to be traceable to IDMS. An eGFR <60 mL/min/1.73m2 for >3 months is consistent with chronic kidney disease. Refer to KDOQI guidelines for clinical interpretation. In patients with unstable renal function, e.g. those with acute kidney injury, the eGFR may not accurately reflect actual GFR. Note: On 2021, the eGFR calculation will be updated to the NKF-ASN Task Force recommended 2020 CKD-EPI creatinine equation which does not include a race variable. For more information or to access a 2020 CKD-EPI calculator, visit the National Kidney Foundation website at kidney.org/professionals/kdoqi/gfr_calculator. Performed By: #### M G1, CMP, URIC, CBC #### [facility] [address] [facility] [phone] #### TEENA OD #### [place] [id number] [place] [address] Glucose [Mass/Vol] 75 mg/dL Normal 74-99 [facility] Comment on above: Result Comment: The [place] Diabetes Association (ADA) provides guidance for cutoff values for fasting glucose and random glucose. The ADA defines fasting as no caloric intake for at least 8 hours. Fasting plasma glucose results between 100 to 125 mg/dL indicate increased risk for diabetes (prediabetes). Fasting plasma glucose results greater than or equal to 126 mg/dL meet the criteria for diagnosis of diabetes. In the absence of unequivocal hyperglycemia, results should be confirmed by repeat testing. In a patient with classic symptoms of hyperglycemia or hyperglycemic crisis, random plasma glucose results greater than or equal to 200 mg/dL meet the criteria for diagnosis of diabetes. Reference: Standards of Medical Care in Diabetes 2016, [place] [employer] Association. Diabetes Care. 2016.39(Suppl 1). Performed By: #### M G1, CMP, URIC, CBC #### [facility] [address] [place] [address] #### HACUTP, WSR #### [place] [id number] [place] [phone] Potassium [Moles/Vol] 4.7 mmol/L Normal 3.7-5.1 [facility] Comment on above: Performed By: #### M G1, CMP, URIC, CBC #### [facility] [address] [place] [address] #### HACUTP, WSR #### [phone] Protein [Mass/Vol] 6.2 g/dL Low 6.3-8.0 [facility] Comment on above: Performed By: #### M G1, CMP, URIC, CBC #### [facility] [address] [place] [address] #### HACUTP, WSR #### [place] [phone] Sodium [Moles/Vol] 128 mmol/L Low 136-144 [facility] Comment on above: Performed By: #### M G1, CMP, URIC, CBC #### [facility] [address] [place] [address] #### HACUTP, WSR #### [place] [address] Urea nitrogen [Mass/Vol] 79 mg/dL High 9-24 [facility] Comment on above: Performed By: #### M G1, CMP, URIC, CBC #### [facility] [address] [place] [address] #### HACUTP, WSR #### [place] [address] DNA Antibodyon 05-17-2021 DNA Antibody <12 Normal <30 [facility] Comment on above: Result Comment: Nega tive for ds DNA Antibodies Negative: <30 IU/mL Equivocal: 30-74 IU/mL Positive: >74 IU/mL Performed By: #### M G1, CMP, URIC, CBC #### [facility] [address] [facility] [phone] #### ERNESTINA, WSR #### [facility] [address] [place] [address] Glom Base Mem Ab IgGon 05-17 GBM Ab, IgG (Bead) 0 AU/mL Normal 0-19 [facility] Comment on above: Result Comment: (NOT E) INTERPRETIVE INFORMATION: GBM Ab, IgG by Multiplex Bead Assay 19 AU/mL or Less ......... Negative 20-25 AU/mL .............. Equivocal 26 AU/mL or Greater ...... Positive The presence of anti-glomerular basement membrane (GBM) antibodies by Multiplex Bead Assay may aid in the diagnosis of Goodpasture syndrome. False positive results may occur due to reactivity against other chains of type IV collagen. If Multiplex Bead Assay is negative but there is a strong suspicion for disease, renal biopsy may be indicated. A renal biopsy may also be essential in suspected Goodpasture disease with renal involvement, allowing diagnostic confirmation and assessment of renal prognosis. Performed By: [facility] [address] [place] [id number] Branch Examiner: Kecia Borrero MD Performed By: #### M G1, CMP, URIC, CBC #### [facility] [address] [place] [address] #### ERNESTINA, WSR #### [facility] [address] [place] [address] HISTORY PHYSICALon HISTORY PHYSICAL HNO ID: [id number] Author: Sherita Wynne PA-C Service: Hospital Medicine Author Type: Physician Equipment Validation Specialist Type: HANDP Filed: 05/17/2021 12:18 AM Note Text: Attestation signed by Cara Vieira MD at 05/17/2021 5:33 AM I reviewed the plan of care and reviewed the note. Plan of care discussed with the PA in detail and I agree with it. Cara Vieira MD DEPARTMENT OF HOSPITAL MEDICINE HISTORY AND PHYSICAL EXAM SERVICE DATE: 05/16/2021 Code Status: Not on file SERVICE TIME: 11:17 PM Primary Care Physician: Isaias Kaba MD NIGHT AND WEEKEND COVERAGE: [place] COVERAGE: Days: [phone], please page attending physician. Nights: [phone], please page [facility] Night coverage pager [phone]. Subjective CHIEF COMPLAINT: Left arm swelling and pain, abdominal bloating HPI: This is a 70 year old male with a PMH significant for HTN, gout and HLD who presented to [facility] ED for evaluation of left arm pain and swelling. Patient states that on Saturday he noted some pain to his left elbow and upon further evaluation found a small red excoriation to his mid elbow with some surrounding erythema and swelling. Since that time patient reports that the elbow has become significantly more swollen, now with extension of the edema to the forearm, hand and up towards his shoulder. There is associated erythema extending from the elbow up the arm into his axillary region. He reports limited ROM of the elbow over the past 2 days secondary to the significant pain and swelling. He has been using advil four times daily since Saturday to manage the pain. He does note a fever of 100.9 F on Saturday evening for which he took a dose of alleve with resolution and no further recurrence. He does also note some abdominal bloating as well as diminished appetite and nausea which also started on Saturday. He reports inability tolerate any solid foods aside from some sips of water secondary to the discomfort from the bloating. He does report some right sided predominant discomfort which he describes as an aching sensation in both the RUQ and RLQ without radiation. He reports normal bowel movements without change in color or consistency; last BM this morning. He was seen by his PCP yesterday regarding his LUE and started on clindamycin for which he has taken a total of 3 doses. Otherwise patient denies any recent new medications. He does report history of kidney stones for which he previously required both lithotripsy and stenting (15 years ago) but denies any dysuria, decreased urine output, hematuria, or flank pain. Denies any CP, SOB, palpitations, URI symptoms, chills, melena, hematochezia, vomiting, numbness, tingling. Denies ETOH use. Information sent with patient from outside ED was extremely limited. He was afebrile, normotensive and without tachycardia per vitals chart sent with patient. Lab work was notable for Na (127), K+ (5.3), glucose (68), BUN (73), Creatinine (6.95--prior creatinine per care everywhere in 2020 was 1.01), AST (550), ALT(260), Alk phos (121), albumin (2.3), AG (25), WBC (11.7) Hgb (10.5), lipase (94), CRP (63). Lactate was WNL at 0.7. Bili also WNL. Urine showed 6-10 WBC and 2+ bacteria; nitrite and LE negative. COVID PCR negative.There were no formal radiology reports sent with the patient, however I was able to call the outside ED and have the provider relay imaging results to me. Per ED, CXR was without acute process. CT A/P w/o contrast showed cholelithiasis with multiple calculi in the gallbladder however no reported obstruction or evidence of cholecystitis. There was also noted bilateral nephrolithiasis without evidence of hydronephrosis or obstruction but with some associated perinephric stranding. There was also finding of fecal retention as well as small fat containing L inguinal hernia. CD of imaging was sent down to radiology for further read/upload. Patient received a total of 2L NS and was also started on IV Zosyn. PAST MEDICAL HISTORY Diagnosis Date - BENIGN HYPERTENSION - GOUT NOS - MIXED HYPERLIPIDEMIA PAST SURGICAL HISTORY Procedure Laterality Date - PAST SURGICAL HISTORY OF Appendix removed - PAST SURGICAL HISTORY OF Kidney stone removed by lithotripsy FAMILY HISTORY Problem Relation Age of Onset - Heart No Family History - Stroke No Family History - Diabetes No Family History Social History Tobacco Use - Smoking status: Never Smoker - Smokeless tobacco: Not on file Substance Use Topics - Alcohol use: No - Drug use: No PRIOR TO ADMISSION MEDICATIONS: clindamycin (CLEOCIN) 300 mg capsule, Take 600 mg by mouth three times daily., Disp: , Rfl: , 05/16/2021 at Unknown time ubidecarenone/vitamin E mixed (COQ10 SG 100 ORAL), Take 100 mg by mouth five aide (more content not included)... [facility] Hepatitis Acute Panel * [place]S [place] CLIENTS ONLY *on 05-17-2021 HBsAg Negative Normal Negative [facility] Comment on above: Performed By: #### M G1, CMP, URIC, CBC #### [facility] [address] [place] [address] #### HACUTP, WSR #### [place] [phone] Hep B Core Ab, IgM Negative Normal Negative [facility] Comment on above: Performed By: #### M G1, CMP, URIC, CBC #### [facility] [address] [place] [address] #### HACUTP, WSR #### [facility] [employer] [address] [place], [place] [phone] Hepatitis A Ab IgM Negative Normal Negative [facility] Comment on above: Performed By: #### M G1, CMP, URIC, CBC #### [facility] [address] [place] [address] #### HACUTP, WSR #### [facility] [employer] [address] [place], [place] [phone] Hepatitis C Ab IA Negative Normal Negative [facility] Comment on above: Performed By: #### M G1, CMP, URIC, CBC #### [facility] [address] [place] [address] #### HACUTP, WSR #### [place] [phone] [place] [phone] KAELYN Screen, Serumon 05-17-20 21 MPA Interpretation SEE COMMENT Normal [facility] Comment on above: Result Comment: Poor ly defined region of restricted mobility in IgG and lambda lanes. Pattern is less well defined or fainter than typically seen in monoclonal gammopathy. This could represent either an atypical presentation of polyclonal immunoglobulins or the presence of a low level IgG lambda monoclonal gammopathy. If clinically indicated, urine monoclonal protein analysis and serum free light chain measurements are recommended to evaluate further for monoclonal gammopathy. Clinical correlation is necessary. Performed By: #### M G1, CMP, URIC, CBC #### [facility] [address] [place] [address] #### HACUTP, WSR #### [place] [phone] MPA Result A poorly defined reg ion of restricted mobility is present that may represent an M protein. Critically abnormal No M protein is identified. [facility] Comment on above: Performed By: #### M G1, CMP, URIC, CBC #### [place] [address] #### HACUTP, WSR #### [place] [phone] Staff Review Reviewed by Ely Roth MD PhD ([id number]) Normal [facility] Comment on above: Performed By: #### M G1, CMP, URIC, CBC #### [place] [address] #### HACUTP, WSR #### [place] [phone] [employer],Free,Seron 2020 K/L Ratio, Serum 1.94 High 0.26-1.65 [facility] Comment on above: Performed By: #### M G1, CMP, URIC, CBC #### [facility] [address] [place] [address] #### HACUTP, WSR #### [place] [phone] [employer], Free, Serum 52.5 mg/L High 3.30-19.40 [facility] Comment on above: Result Comment: Test performed by an immunoturbidimetric assay on Optilite instrument from [employer]. Immunoglobulin free light chain assay results should be interpreted in conjunction with other tests and in correlation with clinical picture. Performed By: #### M G1, CMP, URIC, CBC #### [facility] [address] [place] [phone] #### HACUTP, WSR #### [facility] [address] [place] [address] Lambda, Free, Serum 27.1 mg/L High 5.7-26.3 [facility] Comment on above: Result Comment: Test performed by an immunoturbidimetric assay on [employer] instrument from [employer]. Immunoglobulin free light chain assay results should be interpreted in conjunction with other tests and in correlation with clinical picture. Performed By: #### M G1, CMP, URIC, CBC #### [facility] [address] [place] [phone] #### HACUTP, WSR #### [facility] [address] [place] [address] MRI ELBOW WO IVCON LTon 12-2 MRI ELBOW WO IVCON LT * * *Final Report* * * DATE OF EXAM: May 17 2021 4:53PM [facility] 0188 - MRI ELBOW WO IVCON LT / PROCEDURE REASON: Elbow erythema, swelling, cellulitis suspected * * * * Physician Interpretation * * * * LEFT ELBOW CLINICAL HISTORY: cellulitis vs abscess vs less likely septic arthritis or osteomyelitis SEPTIC LEFT ELBOW TECHNIQUE: Multiplanar multisequence MR imaging of the left elbow was performed without the administration of gadolinium. COMPARISON: Radiograph from May 16, 2021 FINDINGS: Small elbow joint effusion. Large areas of rate for cartilage irregularity involving the radial head and capitellum with associated osteophyte formation. No intra-articular bodies are seen. Medial and lateral ulnar collateral ligaments, radial collateral ligament, and annular ligament are intact. Low level signal involving the common extensor tendons at and adjacent to their insertions on the humeral epicondyles (series 5 images 11 through 14). Common flexor tendons are normal. Distal biceps tendon, brachialis tendon, and triceps tendon are intact. No evidence of bone fracture or contusion. Diffuse subcutaneous soft tissue edema or findings related to cellulitis. Possible prominent lymph nodes in the medial soft tissues of the distal forearm (series 3 image 6 and series 3 image 9). No defined abscess is seen. IMPRESSION: 1. Diffuse soft tissue edema or findings related to cellulitis. No abscess is seen. No evidence of osteomyelitis. 2. Probable prominent lymph nodes in the medial soft tissues of the distal upper arm. 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 4. Intact medial and lateral collateral ligaments. 5. No evidence of bone fracture or contusion. Plastic Maker: [facility] Transcribe Date/Time: May 17 2021 4:56P Dictated by : CINDY HASKINS MD This examination was interpreted and the report reviewed and electronically signed by: CINDY HASKINS MD on May 17 2021 5:16PM EST [id number] [facility] Magnesiumon 05-17-2021 Magnesium [Mass/Vol] 1.8 mg/dL Normal 1.7-2.3 [facility] Comment on above: Performed By: #### D NAAB, ANCAP, ANCAC, IFESC, ASO, SEPGRX, ANCA, C3COMP, C4COMP, ANAIFS, KLFRS #### [facility] [employer] [facility] [place] [address] #### GBMBG #### [address] [address] Magnesium [Mass/Vol] 1.8 mg/dL Normal 1.7-2.3 [facility] Comment on above: Performed By: #### M G1, CMP, URIC, CBC #### [facility] [address] [place] [address] #### HACUTP, WSR #### [facility] [employer] [facility] [place] [address] Myeloperoxid AutoAbon 2020 Myeloperoxid AutoAb <0.2 Normal <1.0 [facility] Comment on above: Performed By: #### M G1, CMP, URIC, CBC #### [facility] [address] [place] [address] #### HACUSTEVIE, WSR #### [place] [phone] Osmolality, Urineon 05-17-20 21 Osmolality, Urine 274 mOsm/kg Normal 50-1200 [facility] Comment on above: Performed By: #### M G1, CMP, URIC, CBC #### [facility] [address] [place] [address] #### HACUSTEVIE, WSR #### [place] [phone] Prot Elect with IFEon 2020 Albumin [Mass/Vol] 1.70 g/dL Low 3.37-4.23 [facility] Comment on above: Performed By: #### M G1, CMP, URIC, CBC #### [facility] [address] [place] [address] #### HACUSTEVIE, WSR #### [place] [phone] Alpha 1 Globulin 0.34 gm/dL High 0.18-0.31 [facility] Comment on above: Performed By: #### M G1, CMP, URIC, CBC #### [facility] [address] [place] [address] #### HADOROTHY, WSR #### [place] [phone] Alpha 2 Globulin 1.48 gm/dL High 0.52-0.97 [facility] Comment on above: Performed By: #### M G1, CMP, URIC, CBC #### [facility] [address] [place] [address] #### HACUTP, WSR #### [phone] Beta Globulin 0.61 gm/dL Low 0.84-1.36 [facility] Comment on above: Performed By: #### M G1, CMP, URIC, CBC #### [facility] [address] [place] [address] #### HACUTP, WSR #### [place] [address] Comment A reflex test for Monoclonal Protein analysis (immunofixation) has been ordered. Normal [facility] Comment on above: Performed By: #### M G1, CMP, URIC, CBC #### [place] [address] #### HACUSTEVIE, WSR #### [place] [address] Gamma Globulin 0.46 gm/dL Low 0.70-1.44 [facility] Comment on above: Performed By: #### M G1, CMP, URIC, CBC #### [place] [address] #### ERNESTINA, WSR #### [place] [address] Interpretation SEE COMMENT [facility] Comment on above: Result Comment: An a typical region of restricted mobility is identified on protein electrophoresis. The atypical region is relatively poorly defined and may represent an unusual presentation of polyclonal immunoglobulins, but cannot rule out the presence of a low level M protein. If clinically indicated, monoclonal protein analysis and serum free light chain analysis are suggested to evaluate further for monoclonal gammopathy. Performed By: #### M G1, CMP, URIC, CBC #### [place] [address] #### HACUSTEVIE, WSR #### [place] [address] M Protein Location N/A [facility] Comment on above: Performed By: #### M G1, CMP, URIC, CBC #### [facility] [address] [place] [address] #### HACUTP, WSR #### [place] [address] M Yao Concentratn 0.00 gm/dL Normal 0.00 [facility] Comment on above: Performed By: #### M G1, CMP, URIC, CBC #### [facility] [address] [place] [address] #### HACUTP, WSR #### [place] [phone] [place] [phone] Protein [Mass/Vol] 4.6 g/dL Low 6.3-8.0 [facility] Comment on above: Performed By: #### M G1, CMP, URIC, CBC #### [facility] [address] [place] [address] #### HACUTP, WSR #### [place] [phone] SPE Staff Review Reviewed by Ely Roth MD PhD ([id number]) [facility] Comment on above: Performed By: #### M G1, CMP, URIC, CBC #### [facility] [address] [place] [address] #### HACUTP, WSR #### [phone] Protein/Creatinine Ratioon 1 07-18-2020 Creatinine,Urine,R an 70.9 mg/dL [facility] Comment on above: Performed By: #### M G1, CMP, URIC, CBC #### [facility] [address] [place] [address] #### HACUTP, WSR #### [phone] Protein (U) [Mass/Vol] 70 mg/dL [facility] Comment on above: Performed By: #### M G1, CMP, URIC, CBC #### [facility] [address] [place] [address] #### HACUTP, WSR #### [place] [phone] Protein/Creatinine Ratio 1.0 [facility] Comment on above: Performed By: #### M G1, CMP, URIC, CBC #### [facility] [address] [place] [address] #### HADOROTHY, WSR #### [facility] [employer] [facility] [place] [phone] Proteinase 3 Abon 05-17-2021 Proteinase 3 Ab <0.2 Normal <1.0 [facility] Comment on above: Performed By: #### M G1, CMP, URIC, CBC #### [facility] [address] [place] [address] #### HACUSTEVIE, WSR #### [place] [phone] [phone] Sed Rate Westergrenon 2020 Sed Rate Westergren 137 mm/hr High 0-15 [facility] Comment on above: Performed By: #### M G1, CMP, URIC, CBC #### [facility] [address] [place] [address] #### ERNESTINA, WSR #### [phone] Sodium,Urine,Randomon 2020 Sodium (U) [Moles/Vol] 55 mmol/L Normal 14-216 [facility] Comment on above: Performed By: #### M G1, CMP, URIC, CBC #### [facility] [address] [place] [address] #### HADOROTHY, WSR #### [place] [phone] Staph aureus PCRon 1 MRSA PCR Negative [facility] Comment on above: Performed By: #### M G1, CMP, URIC, CBC #### [facility] [address] [place] [address] #### HACUTP, WSR #### [phone] S aureus Spec Source Nasal [facility] Comment on above: Performed By: #### M G1, CMP, URIC, CBC #### [facility] [address] [place] [address] #### HACUSTEVIE, WSR #### [facility] [address], [place] [address] Staph aureus PCR Negative [facility] Comment on above: Performed By: #### M G1, CMP, URIC, CBC #### [facility] [address] [facility] [phone] #### HACUTP, WSR #### [facility] [address] [place] [address] US ABD RIGHT UPPER QUADRANTo n 05-17-2021 US ABD RIGHT UPPER QUADRANT * * *Final Report* * * DATE OF EXAM: May 17 2021 8:29AM [facility]U 1032 - US ABD RIGHT UPPER QUADRANT / PROCEDURE REASON: Abn liver function tests (LFTs) * * * * Physician Interpretation * * * * EXAMINATION: RIGHT UPPER QUADRANT AND SPLEEN ULTRASOUND CLINICAL HISTORY: 70 years old Male with Abn liver function tests (LFTs), Cholelithiasis TECHNIQUE: Sonography of the right upper quadrant and spleen was performed. Images were obtained and stored in a permanent archive. MQ: URUQ_2 COMPARISON: None. RESULT: Pancreas: Normal sonographic appearance. Portions obscured: tail Liver: Echotexture: Normal, homogeneous. Echogenicity: Increased Surface contour: Smooth Lesions: None. Spleen: 10.7 cm in craniocaudal dimension, normal. Biliary: No intrahepatic biliary duct dilation. CBD: 5 mm at the hilum. Gallbladder: Normal caliber -Contents: Cholelithiasis -Wall: Normal -Other: No pericholecystic fluid. Ascites: None. Concurrently performed dedicated renal ultrasound dictated separately. IMPRESSION: Cholelithiasis without sonographic findings of acute cholecystitis. Hepatic steatosis. Plastic Maker: [employer] Transcribe Date/Time: May 17 2021 8:44A Dictated by : LURDES CONN DO This examination was interpreted and the report reviewed and electronically signed by: LURDES CONN DO on May 17 2021 8:49AM EST [id number] [facility] US ABD SPLEEN -NBon 05-17-20 US ABD SPLEEN -NB * * *Final Report* * * DATE OF EXAM: May 17 2021 8:29AM [facility] 1232 - US ABD SPLEEN -NB / PROCEDURE REASON: Abn liver function tests (LFTs) * * * * Physician Interpretation * * * * EXAMINATION: RIGHT UPPER QUADRANT AND SPLEEN ULTRASOUND CLINICAL HISTORY: 70 years old Male with Abn liver function tests (LFTs), Cholelithiasis TECHNIQUE: Sonography of the right upper quadrant and spleen was performed. Images were obtained and stored in a permanent archive. MQ: URUQ_2 COMPARISON: None. RESULT: Pancreas: Normal sonographic appearance. Portions obscured: tail Liver: Echotexture: Normal, homogeneous. Echogenicity: Increased Surface contour: Smooth Lesions: None. Spleen: 10.7 cm in craniocaudal dimension, normal. Biliary: No intrahepatic biliary duct dilation. CBD: 5 mm at the hilum. Gallbladder: Normal caliber -Contents: Cholelithiasis -Wall: Normal -Other: No pericholecystic fluid. Ascites: None. Concurrently performed dedicated renal ultrasound dictated separately. IMPRESSION: Cholelithiasis without sonographic findings of acute cholecystitis. Hepatic steatosis. Plastic Maker: [employer] Transcribe Date/Time: May 17 2021 8:44A Dictated by : LURDES CONN DO This examination was interpreted and the report reviewed and electronically signed by: LURDES CONN DO on May 17 2021 8:49AM EST [id number] [facility] US KIDNEY/BLADDERon 05-17-20 US KIDNEY/BLADDER * * *Final Report* * * DATE OF EXAM: May 17 2021 8:32AM [facility] 1055 - US KIDNEY/BLADDER / PROCEDURE REASON: Renal failure, acute (kidney injury) * * * * Physician Interpretation * * * * EXAMINATION: RENAL ULTRASOUND CLINICAL HISTORY: 70 years old Male with Renal failure, acute (kidney injury) TECHNIQUE: Sonography of the kidneys and urinary bladder was performed. Images were obtained and stored in a permanent archive. MQ: UR_1 COMPARISON: None RESULT: Right Kidney: -Renal length: 11.7 cm -Parenchyma: Normal parenchymal echogenicity. Normal parenchymal thickness. -Collecting system: No hydronephrosis. -Calculus: No echogenic, shadowing calculus. -Lesion: None. Left Kidney: -Renal length: 11.7 cm -Parenchyma: Normal parenchymal echogenicity. Normal parenchymal thickness. -Collecting system: No hydronephrosis. -Calculus: No echogenic, shadowing calculus. -Lesion: None. Bladder: Partially distended, otherwise normal sonographic appearance. IMPRESSION: Normal sonographic appearance of the kidneys. Plastic Maker: ORALIA Transcribe Date/Time: May 17 2021 8:45A Dictated by : LURDES CONN DO This examination was interpreted and the report reviewed and electronically signed by: LURDES CONN DO on May 17 2021 8:46AM EST [id number] [facility] Uric Acidon 05-17-2021 Urate [Mass/Vol] 6.7 mg/dL Normal 4.0-8.1 [facility] Comment on above: Performed By: #### M G1, CMP, URIC, CBC #### [facility] [address] [place] [address] #### HACUTP, WSR #### [place] [address] Urinalysison 05-17-2021 Bilirubin, Urine Negative Normal Negative [facility] Comment on above: Performed By: #### M G1, CMP, URIC, CBC #### [facility] [address] [place] [address] #### HACUTP, WSR #### [facility] [employer] [address] [place] [address] Clarity (U) Clear Normal Clear [facility] Comment on above: Performed By: #### M G1, CMP, URIC, CBC #### [facility] [address] [place] [address] #### HACUTP, WSR #### [facility] [employer] [address] [address] Color (U) Yellow Normal Yellow [facility] Comment on above: Performed By: #### M G1, CMP, URIC, CBC #### [facility] [address] [place] [address] #### HACUTP, WSR #### [place] [id number] Glucose Ql (U) Negative Normal Negative [facility] Comment on above: Performed By: #### M G1, CMP, URIC, CBC #### [facility] [address] [place] [address] #### HACUTP, WSR #### [place] [phone] Hemoglobin/Blood,U r 1+ Critically abnormal Negative [facility] Comment on above: Performed By: #### M G1, CMP, URIC, CBC #### [facility] [address] [place] [address] #### HACUTP, WSR #### [place] [phone] Ketones Ql (U) Trace Critically abnormal Negative [facility] Comment on above: Performed By: #### M G1, CMP, URIC, CBC #### [facility] [address] [place] [address] #### HACUTP, WSR #### [place] [phone] Leukest Negative Normal Negative [facility] Comment on above: Performed By: #### M G1, CMP, URIC, CBC #### [facility] [address] [place] [address] #### HACUTP, WSR #### [place] [phone] Nitrite Ql (U) Negative Normal Negative [facility] Comment on above: Performed By: #### M G1, CMP, URIC, CBC #### [facility] [address] [place] [address] #### HACUTP, WSR #### [place] [phone] pH (U) 6.0 [pH] Normal 5.0-8.0 [facility] Comment on above: Performed By: #### M G1, CMP, URIC, CBC #### [facility] [address] [place], [place] [id number] #### HACUSTEVIE, WSR #### [place] [phone] Protein, Urine 2+ Critically abnormal Negative [facility] Comment on above: Performed By: #### M G1, CMP, URIC, CBC #### [facility] [address] [place] [address] #### HACUSTEVIE, WSR #### [place] [phone] Specific [place], Ur 1.015 Normal 1.005-1.030 [facility] Comment on above: Performed By: #### M G1, CMP, URIC, CBC #### [facility] [address] [place] [address] #### ERNESTINA, WSR #### [place] [phone] Urobilinogen Qn (U) 0.2 {Mery'U}/dL Normal 0.2-1.0 [facility] Comment on above: Performed By: #### M G1, CMP, URIC, CBC #### [facility] [address] [place] [address] #### HACUSTEVIE, WSR #### [place] [phone] Urine Cultureon 05-17-2021 Bacteria identified Cx Nom (U) Sp. Request/Comment: - Specimen received in preservative Culture Result - No growth (<1,000 CFU/ml) Normal [facility] Comment on above: Performed By: #### M G1, CMP, URIC, CBC #### [facility] [address] [place] [address] #### HACUTP, WSR #### [place] [phone] Urine Microscopic (FOR LAB U SE ONLY)on 05-17-2021 Bacteria Occasional Critically abnormal 0 [facility] Comment on above: Performed By: #### D NAAB, ANCAP, ANCAC, IFESC, ASO, SEPGRX, ANCA, C3COMP, C4COMP, ANAIFS, KLFRS #### [facility] [address] [place] [address] #### GBMBG #### [facility] [address] [place] [address] Cast SEE COMMENT Normal 0 [facility] Comment on above: Result Comment: 0 Performed By: #### D NAAB, ANCAP, ANCAC, IFESC, ASO, SEPGRX, ANCA, C3COMP, C4COMP, ANAIFS, KLFRS #### [facility] [address] [place] [address] #### GBMBG #### [address] [id number] RBC 0-3 Normal 0-3 [facility] Comment on above: Performed By: #### D NAAB, ANCAP, ANCAC, IFESC, ASO, SEPGRX, ANCA, C3COMP, C4COMP, ANAIFS, KLFRS #### [facility] [address] [place] [address] #### GBMBG #### [facility] [address] [place] [address] WBC 0-5 Normal 0-5 [facility] Comment on above: Performed By: #### D NAAB, ANCAP, ANCAC, IFESC, ASO, SEPGRX, ANCA, C3COMP, C4COMP, ANAIFS, KLFRS #### [facility] [employer] [address] [place] [address] #### GBMBG #### [facility] [address] [place], [place] [phone] XR ELBOW 2V AP/LAT LTon 12-2 XR ELBOW 2V AP/LAT LT * * *Final Report* * * DATE OF EXAM: May 16 2021 11:50PM MDX 5322 - XR ELBOW 2V AP/LAT LT / PROCEDURE REASON: Elbow erythema, swelling, cellulitis suspected * * * * Physician Interpretation * * * * EXAMINATION: XR ELBOW 2V AP/LAT LT, XR FOREARM 2V AP/LAT LT HISTORY: pain swelling can not unbend elbow Elbow erythema, swelling, cellulitis suspected. TECHNIQUE: XR ELBOW 2V AP/LAT LT, XR FOREARM 2V AP/LAT LT Laterality: LEFT M: XB_1 COMPARISON: None RESULT: 2 views left elbow: Diffuse soft tissue swelling. Small osseous loose body 4 mm overlying anterior humeral fat pad. No joint effusion. No acute fracture or malalignment. Radial head degenerative osteophyte. 2 views left elbow: No acute fracture or malalignment. Diffuse soft tissue swelling. No osteolysis IMPRESSION: 1. Diffuse soft tissue swelling elbow and forearm without radiographic evidence of osteomyelitis 2. Left elbow intra-articular loose body 4 mm. Plastic Maker: ORALIA Transcribe Date/Time: May 17 2021 1:04A Dictated by : DAWOOD PELLETIER MD This examination was interpreted and the report reviewed and electronically signed by: DAWOOD PELLETIER MD on May 17 2021 1:09AM EST [id number] [facility] XR FOREARM 2V AP/LAT LTon XR FOREARM 2V AP/LAT LT * * *Final Report* * * DATE OF EXAM: May 16 2021 11:50PM MDX 5341 - XR FOREARM 2V AP/LAT LT / PROCEDURE REASON: Forearm erythema, swelling, cellulitis suspected * * * * Physician Interpretation * * * * EXAMINATION: XR ELBOW 2V AP/LAT LT, XR FOREARM 2V AP/LAT LT HISTORY: pain swelling can not unbend elbow Elbow erythema, swelling, cellulitis suspected. TECHNIQUE: XR ELBOW 2V AP/LAT LT, XR FOREARM 2V AP/LAT LT Laterality: LEFT M: XB_1 COMPARISON: None RESULT: 2 views left elbow: Diffuse soft tissue swelling. Small osseous loose body 4 mm overlying anterior humeral fat pad. No joint effusion. No acute fracture or malalignment. Radial head degenerative osteophyte. 2 views left elbow: No acute fracture or malalignment. Diffuse soft tissue swelling. No osteolysis IMPRESSION: 1. Diffuse soft tissue swelling elbow and forearm without radiographic evidence of osteomyelitis 2. Left elbow intra-articular loose body 4 mm. Plastic Maker: ORALIA Transcribe Date/Time: May 17 2021 1:04A Dictated by : DAWOOD PELLETIER MD This examination was interpreted and the report reviewed and electronically signed by: DAWOOD PELLETIER MD on May 17 2021 1:09AM EST [id number] [facility] Operative/Procedure Reporton 01-10-2018 Protein mass conc DICTATED BY:JOVAN KRISHNA MDSERVICE DATE:01/08/2018DATE OF SURGERY:01/08/2018PREOPERAT ERIK DIAGNOSIS:Right shoulder rotator cuff arthropathy.POSTOPERATIVE DIAGNOSIS:Right shoulder rotator cuff arthropathy.SURGEON:ANURAG HartISTANT(S):Robbie Degroot PA-C.PROCEDURE PERFORMED:Primary Right reverse total shoulder arthroplasty- Senior It Business Analyst: [employer] Comprehensive shoulder system- Humeral stem type: [employer] Comprehensive mini stem, size 14.- Humeral stem size: [employer] Comprehensive standard humeral tray- Humeral tray: ?- Humeral liner: [employer] Comprehensive standard +3 humeral liner- Glenosphere: 36 +3 glenosphereANESTHESIA:Gener al with interscalene block.ESTIMATED BLOOD LOSS:50FLUIDS:1800.DRAINS:Y es.COMPLICATIONS:None.DISPO SITION:The patient was brought to the recovery room in stable condition.CLINICAL INDICATION:The patient is a 67 year old male with right shoulder rotator cuff arthropathy. The patient underwent a trial of conservative treatment without lasting pain relief. After discussing the risks and benefits of both continued conservative care and operative intervention with shoulder arthroplasty, the patient elected to proceed with reverse total shoulder arthroplasty.DESCRIPTION OF PROCEDURE:The patient was identified in the pre-operative holding area and after informed consent was verified, the patient was brought to the operating room and placed in the supine position on the operating table. The patient was induced under general anesthesia and the head of bed was brought to the standard 45 degrees for a total shoulder arthroplasty. After prepping and draping the shoulder in standard fashion, a timeout was performed to verify the administration of IV antibiotics well as the correct extremity. Surgery was begun by first making the standard deltopectoral approach from the inferior border of the clavicle, just lateral to the coracoid, extending distally toward the lateral side of the humerus. Dissection was carried sharply down through the subcutaneous tissue. The cephalic vein was visualized and moved laterally. The crossing veins were cauterized. A deltoid retractor was placed under the deltoid and the shoulder was externally rotated. The Helene retractor was placed underneath the deltoid and conjoined tendon. The pectoralis major was released approximately 5 mm. With the shoulder externally rotated, the three sister vessels were visualized and cauterized. We then performed a standard subscapularis tenotomy leaving a 5 mm cuff of tissue laterally for future repair. The arm was externally rotated and extended to dislocate the humerus for humeral preparation.The humeral canal was reamed to a [employer] Comprehensive standard humeral tray and the cutting block was placed. The head was resected at 30 degrees of retroversion and then all osteophytes were removed. The humerus was broached to a [employer] Comprehensive standard humeral tray. The broach was left in place with a head protector on the humeral trial. Attention was then turned to the glenoid.A Homann retractor were placed superior on the glenoid and then a two-prong glenoid retractor posteriorly. We placed a ribbon retractor at the anteroinferior glenoid neck in order to protect the axillary nerve and other brachial plexus structures. We could palpate the axillary nerve deep beneath the inferior rim of the glenoid and care was taken to protect it well throughout the entire case. The guide pin was placed in the center of the glenoid vault with 10 degrees of inferior tilt. Reaming was performed to achieve as much baseplate contact with the glenoid bone without sacrificing the integrity of the glenoid vault. We impacted the base plate with excellent purchase and then placed locking screws peripherally and a large compression screw centrally. We irrigated the wound and then trialed the 36 +3 glenosphere in order to get our optimal inferior offset. We set the offset appropriately and then impacted the actual 36 +3 glenosphere.After completing the glenosphere insertion, we dislocated the humerus and placed the standard humeral trial to test the components. Adequate deltoid and conjoin tendon tension was achieved with a [employer] Comprehensive standard +3 humeral liner and ? humeral tray. There was outstanding range of motion and no impingement, indicating adequate position of the glenosphere and appropriate component sizing. The shoulder was stable on examination.The humeral trial was removed and then the [employer] Comprehensive mini stem, size 14 humeral implant was then placed. The humeral tray and liner were impacted onto the stem and the humerus was reduced with good tension. The wound was copiously irrigated the wound with saline under pulsatile lavage. Yes, the drains were used. The deltopectoral interval was reapproximated with #0 Vicryl sutures. The subcutaneous tissue was closed with 2-0 Vicryl sutures and the skin was closed with a 2-0 Monoderm stitch. After placing a sterile dressing and abduction sling, the patient was transferred the patient to the recovery room in stable condition. There were no immediate intraoperative complications noted.POSTOPERATIVE COURSE:The patient will receive appropriate postoperative management and be discharged once stable. The patient will abide by the typical rehabilitation protocol for total shoulder arthroplasty and will be seen in clinic in approximately 2 weeks for wound check and follow-up.ATTENDING/ASSISTI NG PARTICIPATION:This operation could not have been safely performed (without compromising the technical results or length of the procedure) without the assistance of a skilled assistant store manager operations, Robbie Degroot PA-C. A assistant store manager operations was medically necessary for positioning, retraction and instrumentation.I have advised the patient that this represents a major orthopedic surgical procedure. Post-operative pain may be of such severity that it may not be effectively managed with the 30 MED average limit and may require greater than 7 days of treatment. Therefore, appropriate narcotic dosing will be determined on a case by case basis.MYCHAL SWANSON EBirthdate: 1950MRN: [id number]#: [id number]/01/08/2018 17:29:17 T01/08/2018 18:43:58VOICE JOB ID:[id number] [place] thanks you for the opportunity to care for your patient.DID: [id number] Normal [facility] Basic Metabolic Panelon 12-25 Calcium mass conc 8.6 mg/dL Normal 8.5-10.6 [facility] Chloride molar conc 101 mmol/L Normal 98-107 [facility] CO2 molar conc 23 mmol/L Normal 21-32 [facility] Creatinine mass conc 1.44 mg/dL High 0.70-1.30 [facility] Glucose mass conc 101 mg/dL Normal 74-106 [facility] Potassium molar conc 4.3 mmol/L Normal 3.5-5.1 [facility] Sodium molar conc 138 mmol/L Normal 136-145 [facility] Urea nitrogen mass conc (BldV) 20 mg/dL High 7-18 [facility] Urea nitrogen/Creatinin e mass ratio 14 mg/mg Normal [facility] CBCon 01-09-2018 Erythrocyte distribution width Entitic volume (RBC) 13.6 % Normal 11.7-15.0 [facility] Hematocrit Auto Volume Fraction (Bld) 30.7 % Low 34.0-50.0 [facility] Hemoglobin mass conc (Bld) 10.5 g/dL Low 11.5-17.0 [facility] MCH Auto Entitic mass (RBC) 29.1 Picograms Normal 27.0-34.0 [facility] MCHC Auto mass conc (RBC) 34.1 g/dL Normal 32.0-36.0 [facility] MCV Auto Entitic volume (RBC) 85.1 fL Normal 80-98 [facility] Platelet mean volume Entitic volume (Bld) 7.7 FL Normal 7.5-11.2 [facility] Platelets Auto #/vol (Bld) 316 thou/mcL Normal 140-415 [facility] RBC Auto #/vol (Bld) 3.60 x(10)6/mcL Low 3.80-5.60 [facility] WBC Auto #/vol (Bld) 12.4 thou/mcL High 4.0-10.5 [facility] Clinical Summaryon 8 Clinical Summary CLINICAL SUMMARYPlea se take this summary document to your follow up appointments. [facility] 01/09/18 [id number] [place], [place]. [address]Mniwk: PATIENT INFORMATION ---- Name: MYCHAL SWANSON Address: [address] [place] [id number] Age: 67 Years Phone: [phone] : 1950 12:00 MRN: ([id number] Sex: Male Race: White Ethnicity: Not Hispan/Lat Admitted From: Clinic or [facility] Medical Service: Orthopedic Surgery Nurse Unit/Bed: (CO) 2NBN 246-01 Admit Date: 01/08/2018 08:34 PCP: Leonardo Holbrook MDPHYSICIANS INVOLVED WITH CARE Attending Physicians: None found Admitting Physician: None found Primary Care Physician:Enzo TRIPP , Leonardo Butler,Family Practice, - Consults: Zelda TRIPP , Kalyan Paniagua - Internal Medicine Diana TRIPP , Stanley S [facility] Problems Active Gout Hypertension High cholesterol ArthritisAllergies No Known Medication Allergies NKAProcedures Arthroplasty of shoulder (01/08/2018)MEASUREMENTS: Last Charted: Weight: Admission 67.60 kg /149 lbs 0 oz ( 01/08/18 10:10:00 )VITAL SIGNS: Last Charted:Pulse Rate: 71 BPM (01/09 07:31)Blood Pressure: 111/65 mm Hg (01/09 07:31) Pain Score: 0(01/09 04:21)MENTAL STATUS:Level of Conciousness: Alert (01/09 04:21)Orientation: Oriented x 4 (01/09 04:21)MEDICATIONS ORDERED / RECOMMENDED TO BE CONTINUED for: MYCHAL SWANSON Eaviktoriyaopurinol (allopurinol 300 mg oral tablet) 1 Tab(s) By Mouth once a day. am.aspirin (aspirin 81 mg oral tablet) 1 Tab(s) By Mouth once a day. am.NOTES TO PATIENT: resume when ok with surgeonfenofibrate (fenofibrate 134 mg oral capsule) 1 Capsule By Mouth once a day. am.Freetext Medication New prescriptions Baby Apsirin Tylenol Oxycodone Tramadol Celebrex Zofran.losartan (losartan 100 mg oral tablet) 1 Tab(s) By Mouth Bedtime.niacin (niacin 500 mg oral capsule) 2 Capsule By Mouth Twice a day.omega-3 polyunsaturated fatty acids (Graham-3 (Fish Oil) Capsule) 4 Capsule By Mouth Twice a day.NOTES TO PATIENT: may resume after follow up appopintment with surgeonrosuvastatin (Crestor 40 mg oral tablet) 1 Tab(s) By Mouth once a day. am.MEDICATION CHANGE DETAILS NEW MEDICATIONSNoneUPDATED MEDICATIONSNoneUNCHANGED MEDICATIONSOther Medicationsallopurinol (allopurinol 300 mg oral tablet) 1 Tab(s) By Mouth once a day. am.Comment asp irin (aspirin 81 mg oral tablet) 1 Tab(s) By Mouth once a day. am.NOTES TO PATIENT: resume when ok with surgeonComment _fenofibrate (fenofibrate 134 mg oral capsule) 1 Capsule By Mouth once a day. am.Comment Fre etext Medication New prescriptions Baby Apsirin Tylenol Oxycodone Tramadol Celebrex Zofran.Comment _losartan (losartan 100 mg oral tablet) 1 Tab(s) By Mouth Bedtime.Comment __niacin (niacin 500 mg oral capsule) 2 Capsule By Mouth Twice a day.Comment om ega-3 polyunsaturated fatty acids (Graham-3 (Fish Oil) Capsule) 4 Capsule By Mouth Twice a day.NOTES TO PATIENT: may resume after follow up appopintment with surgeonComment _rosuvastatin (Crestor 40 mg oral tablet) 1 Tab(s) By Mouth once a day. am.Comment STO P TAKING THESE MEDICATIONSNoneDO NOT TAKE UNTIL YOU TALK TO YOUR DOCTORNoneInpatient Medication History (active at the time of summary):Do not administer these medications until re-evaluated by a provider at the next level of care.Losartan 50 mg Tab (Cozaar GEq) (losartan) 100 mg = 2 Tab, PO, Tab, Bedtime,, x 30 Day(s), 01/09/18 21:00:00 EDTAllopurinol 100 mg Tab (Zyloprim GEq) (allopurinol) 300 mg = 3 Tab, PO, Tab, Daily,, x 30 Day(s), 01/09/18 9:00:00 EDT Last Dose: 01/09/18 08:31:00Fenofibrate 67 mg Cap (Lofibra GEq) (Fenofibrate Cap (Lofibra)) 134 mg = 2 Cap, PO, Cap, Daily,, x 30 Day(s), 01/09/18 9:00:00 EDT Last Dose: 01/09/18 08:31:00 COMMENTS and SPECIAL INSTRUCTIONS: Swallow whole, do not break, open, crush, dissolve, or chew.Atorvastatin 40 mg Tab (Lipitor GEq) (atorvastatin) 80 mg = 2 Tab, PO, Tab, Daily,, x 30 Day(s), 01/09/18 9:00:00 EDT Last Dose: 01/09/18 08:31:00Aspirin 81 mg Tab EC (Ecotrin GEq) (aspirin) 81 mg = 1 Tab, PO, Tab EC, BID, x 30 Day(s), 01/09/18 12:45:00 EDT Last Dose: 01/09/18 08:31:00Bethanechol 25 mg Tab (Urecholine GEq) (Bethanechol Oral) 25 mg = 1 Tab, PO, Tab, Q8h,, x, 01/08/18 13:10:00 EDT Last Dose: 01/09/18 08:30:00Niacin ER 500 mg Tab (Niaspan ER GEq) (Niacin ER) 1,000 mg = 2 Tab, PO, Tab ER, BID,, x 30 Day(s), 01/08/18 21:00:00 EDT Last Dose: 01/09/18 08:32:00 COMMENTS and SPECIAL INSTRUCTIONS: Do Not Chew, Crush Or DivideDocusate/Senna 50 mg/8.6 mg Tab (Senokot-S GEq) (Senna S) 1 Tab, PO, Tab, BID, x 30 Day(s),, 01/08/18 13:10:00 EDT Last Dose: 01/09/18 08:32:00 COMMENTS and SPECIAL INSTRUCTIONS: For Bowel ManagementPharmacy Communication Order Misc, Comm, Communication, x 30 Day(s)HYDROmorphone 0.5 mg/0.5 mL INJ 0.5 mL (Dilaudid GEq) (Dilaudid Inj) 0.5 mg = 0.5 mL, IV Push, Inject, Q2h, PRN, Pain - Breakthrough, x 30 Day(s), 01/08/18 13:10:00 EDTNaloxone 0.4 mg/mL Vial 1 mL (Narcan GEq) (naloxone) 0.4 mg = 1 mL, IV, Inject, PRN, PRN, See Comments, x 30 Day(s), 01/08/18 13:10:00 EDTOxyCODONE/Acetaminophen 5 mg/325 mg Tab (Percocet GEq) (Percocet 5 mg/325 mg) 2 Tab, PO, Tab, Q4h, x 30 Day(s), PRN See Comments, 01/08/18 13:10:00 EDT Last Dose: 01/09/18 06:10:00 COMMENTS and SPECIAL INSTRUCTIONS: Maximum 4 Gm Acetaminophen/Day for Adults Cyclobenzaprine 10 mg Tab (Flexeril GEq) (Flexeril) 10 mg = 1 Tab, PO, Tab, Q8h, PRN, Muscle Spasms, x 30 Day(s), 01/08/18 13:10:00 EDTAcetaminophen 325 mg Tab (Tylenol GEq) (Tylenol) 650 mg = 2 Tab, PO, Tab, Q4h, PRN, Pain-Mild/Fever greater than 100. 4 (38C), x 30 Day(s), 01/08/18 13:10:00 EDT COMMENTS and SPECIAL INSTRUCTIONS: Maximum 4 Gm Acetaminophen/Day for Adults Nalbuphine 10 mg/mL Inj 1 mL (Nubain GEq) (Nubain) 2.5 mg = 0.25 mL, IV Push, Inject, Q4h, PRN, Itching/Pruritus, x 30 Day(s), 01/08/18 13:10:00 EDTTraZODone 50 mg Tab (Desyrel GEq) (TraZODone) 50 mg = 1 Tab, PO, Tab, Bedtime, PRN, Insomnia/Sleep, x 30 Day(s), 01/08/18 13:10:00 EDTOndansetron 2 mg/mL Inj 2 mL (Zofran GEq) (Zofran Inj) 4 mg = 2 mL, IV Push, Inject, Q6h, PRN, Nausea/Vomiting, x 30 Day(s), 01/08/18 13:10:00 EDT COMMENTS and SPECIAL INSTRUCTIONS: Administer IV Over 2 MinutesPromethazine 25 mg Tab (Phenergan GEq) (promethazine) 25 mg = 1 Tab, PO, Tab, Q4h, PRN, Nausea/Vomiting, x 30 Day(s), 01/08/18 13:10:00 EDTPromethazine 25 mg Suppos (Phenergan GEq) (promethazine) 25 mg = 1 Suppos, Rectal, Suppos, Q4h, PRN, Nausea/Vomiting, x 30 Day(s), 01/08/18 13:10:00 EDTMagnesium Hydroxide 8% Susp 30 mL (Milk of Magnesia) (Milk of Magnesia 8%) 30 mL, PO, Susp, Daily, x 30 Day(s), PRN Constipation, 2,400 mg, 01/08/18 13:10:00 EDTBisacodyl 10 mg Suppos (Dulcolax GEq) (Dulcolax) 10 mg = 1 Suppos, Rectal, Suppos, BID, PRN, Constipation, x 30 Day(s), 01/08/18 13:10:00 EDTMylanta/Maalox Plus Susp 30 mL (GEq) (Mylanta) 30 mL, PO, Susp, QID, x 30 Day(s), PRN Indigestion/Heartburn, 01/08/18 13:10:00 EDT COMMENTS and SPECIAL INSTRUCTIONS: SHAKE WELLCloNIDine 0.1 mg Tab (Catapres GEq) (CloNIDine) 0.1 mg = 1 Tab, PO, Tab, Q6h, PRN, Blood Pressure - See Parameters in Order, x 30 Day(s), 01/08/18 9:01:00 EDTLactated Ringers 1,000 mL 1,000 ml, 100 mL/hr, IV, x 30 Day(s), 1,000 mL, Infusion, 01/08/18 12:45:00 EDT, 67.6 kg Last Dose: 01/09/18 06:59:59INACTIVE MEDICATIONS GIVEN IN THE LAST 36 HOURS:Medications Discontinued or Completed in the last 36 hours:Bethanechol 25 mg Tab (Urecholine GEq) 25 mg = 1 Tab, PO, Tab, Q8h,, x, 01/08/18 13:10:00 EDT Last Dose: 01/09/18 01:25:00Tranexamic Acid 650 mg Tab (Lysteda GEq) 1,300 mg = 2 Tab, PO, Tab, Once,, 01/08/18 12:45:00 EDT Last Dose: 01/08/18 14:15:00FentaNYL 50 mcg/mL Inj 2 mL (Sublimaze GEq) 50 mcg = 1 mL, IV, Inject, Once Last Dose: 01/08/18 11:29:00 COMMENTS and SPECIAL INSTRUCTIONS: 50mcg/1mL Dose/Total Volume (Anesthesia)Ondansetron 2 mg/mL Inj 2 mL (Zofran GEq) 8 mg = 4 mL, IV, Inject, Once Last Dose: 01/08/18 11:24:00 COMMENTS and SPECIAL INSTRUCTIONS: 8mg/4mL Dose/Total Volume (Anesthesia)FentaNYL 50 mcg/mL Inj 2 mL (Sublimaze GEq) 50 mcg = 1 mL, IV, Inject, Once Last Dose: 01/08/18 11:08:00 COMMENTS and SPECIAL INSTRUCTIONS: 50mcg/1mL Dose/Total Volume (Anesthesia)Rocuronium 10 mg/mL Inj 10 mL (Zemuron GEq) 45 mg = 4.5 mL, IV, Inject, Once Last Dose: 01/08/18 11:03:00 COMMENTS and SPECIAL INSTRUCTIONS: 45mg/4.5mL Dose/Total Volume (Anesthesia)Propofol 10 mg/mL Vial 20 mL (Diprivan GEq) 180 mg = 18 mL, IV, Inject, Once Last Dose: 01/08/18 11:02:00 COMMENTS and SPECIAL INSTRUCTIONS: 180mg/18mL Dose/Total Volume (Anesthesia)Lidocaine 2% Vial 5 mL PF (Xylocaine GEq) 80 mg = 4 mL, IV, Inject, Once Last Dose: 01/08/18 11:02:00 COMMENTS and SPECIAL INSTRUCTIONS: 80mg/4mL Dose/Total Volume (Anesthesia)Midazolam 1 mg/mL Vial 5 mL (Versed GEq) 5 mg = 5 mL, IV, Inject, Once,, 01/08/18 10:17:00 EDT Last Dose: 01/08/18 10:43:00Dexamethasone Sodium Phosphate PF 10 mg/mL Vial 1 mL (Decadron GEq) 10 mg = 1 mL, IV Push, Inject, Pre-Procedure, x 30 Day(s) Last Dose: 01/08/18 10:19:00Celecoxib 400 mg Cap (CeleBREX GEq) 400 mg = 1 Cap, PO, Cap, Pre-Procedure, x 30 Day(s) Last Dose: 01/08/18 10:05:00Aspirin 81 mg Tab EC (Ecotrin GEq)(unverified) 81 mg = 1 Tab, PO, Tab EC, 01/09/18 12:45:00 EDT Last Dose: 01/09/18 08:31:00docusate-senna(unve rified) 1 Tab, PO, Tab,, 01/08/18 13:10:00 EDT Last Dose: 01/09/18 08:32:00Allopurinol 100 mg Tab (Zyloprim GEq)(unverified) 300 mg = 3 Tab, PO, Tab,, 01/09/18 9:00:00 EDT Last Dose: 01/09/18 08:31:00Fenofibrate 67 mg Cap (Lofibra GEq)(unverified) 134 mg = 2 Cap, PO, Cap,, 01/09/18 9:00:00 EDT Last Dose: 01/09/18 08:31:00Atorvastatin 40 mg Tab (Lipitor GEq)(unverified) 80 mg = 2 Tab, PO, Tab,, 01/09/18 9:00:00 EDT Last Dose: 01/09/18 08:31:00Niacin ER 500 mg Tab (Niaspan ER GEq)(unverified) 1,000 mg = 2 Tab, PO, Tab ER,, 01/08/18 21:00:00 EDT Last Dose: 01/09/18 08:32:00Bethanechol 25 mg Tab (Urecholine GEq)(unverified) 25 mg = 1 Tab, PO, Tab,, 01/08/18 13:10:00 EDT Last Dose: 01/09/18 08:30:00CeFAZolin (RTU)(unverified) 1 Gm, IV, 01/08/18 18:45:00 EDT, Prophylaxis Last Dose: 01/09/18 00:19:00docusate-senna(unve rified) 1 Tab, PO, Tab,, 01/08/18 13:10:00 EDT Last Dose: 01/08/18 20:17:00Niacin ER 500 mg Tab (Niaspan ER GEq)(unverified) 1,000 mg = 2 Tab, PO, Tab ER,, 01/08/18 21:00:00 EDT Last Dose: 01/08/18 20:17:00CeFAZolin (RTU)(unverified) 1 Gm, IV, 01/08/18 18:45:00 EDT, Prophylaxis Last Dose: 01/08/18 16:53:00Sodium Chloride 0.9% 1000 mL Bag 500 mL, IV, Infusion, Once,, 01/09/18 6:10:00 EDT Last Dose: 01/09/18 06:15:00Lactated Ringers 1000 mL IV, 1,000 mL, Infusion, Once Last Dose: 01/08/18 11:27:00FOLLOW-UP APPOINTMENTS: Provider: Specialty: Address: Date: Jovan Krishna MD [address] [phone] (1) Two Weeks Provider: Specialty: Address: Date: Leonardo Holbrook MD [address] [phone] (1) Follow-up as needed Provider: Specialty: Address: Date: Discharge OPPT. OPPT script in folder. Follow-up as needed ADVANCE DIRECTIVE/HEALTH CARE DECISIONS:Advance Directive/Health Care Decisions Executed by Patient: : NoInformation Obtained From: PatientAdvance Directive Health Care Information Offered: Patient declinesSELECTED LAB RESULTS Lab Result Order DateHemoglobin 10.5 gm/dL 01/09/2018Hematocrit 30.7 % 01/09/2018WBC Count 12.4 thou/mcL 01/09/2018Platelet Count 316 thou/mcL 01/09/2018Sodium Level 138 mMol/L 01/09/2018Potassium Level 4.3 mMol/L 01/09/2018Creatinine 1.44 mg/dL 01/09/2018BUN 20 mg/dL 01/09/2018Glucose Level 101 mg/dL 01/09/2018 Physician Signature Date/Time PATIENT EDUCATIONPain Medicine Instructions; CO - Mindful Eating - Building New Habits (CUSTOM); CO - Between to Eating Healthy (CUSTOM) Normal [facility] OR Nursingon 01-09-2018 OR Nursing CO NA OR Nursing Rec ord Summary Primary Physician: Jovan Krishna MD Finalized Date/Time: 01/09/18 11:03:47 Pt. Name: MYCHAL SWANSON /Sex: 1950 Male Med Rec #: [id number] Physician: Jovan Krishna MD Financial #: [id number] Pt. Type: I Room/Bed: [facility] Admit/Disch: 01/08/18 08:34:00 - Institution: CO NA OR Case Times Entry 1 Patient Times Patient In Room 01/08/18 10:55:00 Patient Out Room 01/08/18 12:47:00 Surgical Times Start Time 01/08/18 11:36:00 Stop Time 01/08/18 12:41:00 Last Modified By: Thania RN Shirin 01/08/18 12:46:57 CO NA OR Delays Entry 1 Entry 2 Delay Reason OR Complex Care See OR Room Not Ready Comment Description POSITIONING AND DRAPING TURNING OVER ROOM FOR SHOULDER CASE Duration (minutes) 11 Min 5 Min Last Modified By: Thania RN , Shirin Mcarthur RN 01/08/18 11:39:28 C 01/08/18 11:41:19 CO NA OR Case Attendees Entry 1 Entry 2 Entry 3 Case Attendee Jovan Krishna MD, DO, Azam Moyer CRNA, Chelsea Role Performed Primary Surgeon Anesthesiologist Nurse Mover Time In 01/08/18 11:00:00 01/08/18 10:55:00 01/08/18 10:55:00 Time Out 01/08/18 12:17:00 01/08/18 12:47:00 01/08/18 11:05:00 Procedure Arthroplasty Shoulder Arthroplasty Shoulder Arthroplasty Shoulder Total Reverse Total Reverse Total Reverse Appr(Right) Appr(Right) Appr(Right) Attendee Comment COVERAGE Relief Reason Last Modified By: Lencho RN , Cele Del Toro RN , Cele Mccormick RN 01/09/18 11:03:36 N 01/09/18 11:03:36 N 01/09/18 11:03:36 Entry 4 Entry 5 Entry 6 Case Attendee Sid DUNBAR, Phillip Monteiro RN , Kala Silva Role Performed Nurse Mover food service driver First Scrub Time In 01/08/18 11:05:00 01/08/18 10:55:00 01/08/18 10:55:00 Time Out 01/08/18 12:47:00 01/08/18 11:49:00 01/08/18 12:47:00 Procedure Arthroplasty Shoulder Arthroplasty Shoulder Arthroplasty Shoulder Total Reverse Total Reverse Total Reverse Appr(Right) Appr(Right) Appr(Right) Attendee Comment Relief Reason Last Modified By: Lencho RN , Cele Del Toro RN , Cele Del Toro RN , Beckwourth N 01/09/18 11:03:36 N 01/09/18 11:03:36 N 01/09/18 11:03:36 Entry 7 Entry 8 Entry 9 Case Attendee Dunia RN , Sarah Medley RN , Pito Degroot PA , Robbie Sheffield Role Performed RN Scrub RN Scrub Physician Equipment Validation Specialist Time In 01/08/18 10:55:00 01/08/18 10:55:00 01/08/18 11:45:00 Time Out 01/08/18 12:47:00 01/08/18 11:49:00 01/08/18 12:47:00 Procedure Arthroplasty Shoulder Arthroplasty Shoulder Arthroplasty Shoulder Total Reverse Total Reverse Total Reverse Appr(Right) Appr(Right) Appr(Right) Attendee Comment Relief Reason Last Modified By: Lencho RN , Cele Del Toro RN , Cele Del Toro RN , Cele N 01/09/18 11:03:36 N 01/09/18 11:03:36 N 01/09/18 11:03:36 Entry 10 Entry 11 Entry 12 Case Attendee Nerissa Mcdaniels, Attendee Lety Medley RN , Pito Martin Role Performed Assistive Personnel Software Security Architect food service driver Time In 01/08/18 10:55:00 01/08/18 10:55:00 01/08/18 11:49:00 Time Out 01/08/18 12:47:00 01/08/18 12:47:00 01/08/18 12:20:00 Procedure Arthroplasty Shoulder Arthroplasty Shoulder Arthroplasty Shoulder Total Reverse Total Reverse Total Reverse Appr(Right) Appr(Right) Appr(Right) Attendee Comment ROXY FREDERICK Relief Reason Lunch Last Modified By: Lencho TONEY , Cele Del Toro RN , Cele Mccormick RN 01/09/18 11:03:36 N 01/09/18 11:03:36 N 01/09/18 11:03:36 Entry 13 Case Attendee Shirin Monteiro RN Role Performed food service driver Time In 01/08/18 12:20:00 Time Out 01/08/18 12:47:00 Procedure Arthroplasty Shoulder Total Reverse Appr(Right) Attendee Comment Relief Reason Last Modified By: Cele Del Toro RN 01/09/18 11:03:36 CO NA OR General Case Vice President Of Engineering 1 OR CO NA 06 ASA Class 2 Case Wound Class Clean Specialty Orthopedic Surgery Case Level Ortho Complex Diagnosis Preop Diagnosis M75.101 Postop Same As Preop Yes Postop Diagnosis M75.101 This is a down time No record. Last Modified By: Shirin Monteiro RN 01/08/18 11:44:15 CO NA OR Surgical Procedures Entry 1 Procedure Arthroplasty Shoulder Primary Procedure Yes Total Reverse Approach Modifiers Right Procedure Wound Clean Class Primary Surgeon Jovan Krishna MD Surgical Service Orthopedic Surgery Anesthesia Type General Procedure Performed Right total shoulder arthroplasty Start 01/08/18 11:36:00 Stop 01/08/18 12:41:00 Last Modified By: Cele Del Toro RN 01/09/18 11:03:33 General Comments: 01/09/18 MODIFIED ARTHROPLASTY SHOULDER TOTAL TO ARTHROPLASTY SHOULDER TOTAL REVERSE APPROACH ACCORDING TO PHYSICIAN OPERATIVE REPORT - CELE DEL TORO BSN RN CNOR NURSE YOUTH PROBATION OFFICER CO NA OR Patient Positioning Entry 1 Abdomen Pre N/A Skin Condition Warm, Dry, Intact Procedure Before Body Position Beach Chair Pressure Points Yes Assessed? Right Arm Position At side Left Arm Position On armboard Arm Secured Left Positioning Device Blankets, Foam, Bed Specialty, Kidney rest, Pillows Right Leg Position Flexed Left Leg Position Flexed Safety Strap Applied Yes Safety Strap Thighs Location Positioned By Shirin Monteiro RN Comment Beachchair position at C, Kailey DUNBAR , 45 degrees. Non-op arm Alejandra, Mcdaniels, Nerissa, secured on padded Jovan Krishna MD, armboard. Operative Sid DEEP SUBMERGENCE VEHICLE CREWMEMBER, Phlilip arm on bedside table. Kidney rest on non-op side. Lollipop pad on operative side. Black wedge under legs. Foam placed under heels. Procedure Arthroplasty Shoulder Total Reverse Appr(Right) Last Modified By: Cele Del Toro RN 01/09/18 11:03:39 CO NA OR Antithrombolytic Devices Entry 1 IPC Intermittent Right, Left IPC Setting Preset Pneumatic Compression IPC Size Knee KWAME Hose KWAME Hose Right, Left KWAME Size Thigh Foot Pump Last Modified By: Shirin Monteiro RN 01/08/18 11:44:45 CO NA OR Skin Prep Entry 1 Hair Removal Method None Skin Prep Prep Agents Chlorhexidine Gluconate Prep Site Operative shoulder, 2% w Alcohol entire arm to fingers, axilla Prep by Shirin Monteiro RN Procedure Arthroplasty Shoulder Total Reverse Appr(Right) Last Modified By: Cele Del Toro RN 01/09/18 11:03:39 CO NA OR Fire Risk Assessment Entry 1 Alcohol Based Prep Yes Solution Dry Time >3 Minutes or According to Manufactures Instructions. No Pooling Observed. (No Alcohol Prep used Select N/A) Fire Risk Factors Yes = 1, No or N/A = 0 Procedure Yes Open O2 Source No Site/Incision Above (Face Mask/Nasal Xyphoid Process Cannula) Ignition source Yes Fire Risk Total 2 (Cautery, Laser, Score Fiberoptic Light Source) Last Modified By: Shirin Monteiro RN 01/08/18 11:44:58 Post-Care Text: Standard Fire Safety precautions - Score 1 or 2 Prep drying time - minimum three minutes Protected heat source (i.e bovie watkins) Standard draping procedure HIGH RISK FIRE PRACTICES - SCORE 3 *RN verbalizes to the team the presence of high-risk score and verifies the fire triangle *Write High Risk on the white board *Verbally confirm lowest effective setting on the heat source *Minimize 02 entrapment by proper draping of the patient *Encourage use of wet sponges *Available basin with sterile water and bulb syringe for suppression *Anesthesia Awareness and communication of oxygen flows/concentration *Allow for dispersion of 02 at least 1 minute before and during electrosurgical and laser use and communicate to surgeon *Use lowest tolerable concentration of 02 (less than 30% when able) CO NA OR Surgical Safety Checklist Entry 1 TIme Out Verified 01/08/18 11:35:00 Procedure Arthroplasty Shoulder At: Total Reverse Appr(Right) Pre-Induction Patient confirms Before Introduction of Additional identity, site and Incision/Suspend surgical team and/or Verification procedure, Anesthesia all Activities new members, Entire safety check complete, (Before surgical team verbally pulse ox on, Confirm Incision/Start of confirm patient, site, patient allergies, Procedure) procedure, Surgeon Implants, devices, reviews: what are the special equipment critical or unexpected available and steps, operative functioning duration, and anticipated blood loss?, Anesthesia reviews: are there any patient-specific concerns?, Nursing team reviews: has sterility been confirmed and are there any patient-specific concerns?, Antibiotic infused/ing and redosing discussed if applicable, Relevant images and results properly labeled and correctly displayed if applicable Fire Risk Yes Assessment Completed Last Modified By: Cele Del Toro RN 01/09/18 11:03:37 CO NA OR Cautery Entry 1 Cautery and Settings Type Monopolar Unit ID Number 10 Coagulation Setting 35 Cut Setting 75 Grounding Pad Thigh right anterior Applied By Shirin Monteiro RN Location Last Modified By: Shirin Monteiro RN 01/08/18 11:45:31 CO NA OR Medication Entry 1 Medication COS VANCOMYCIN 1 GM Medication Dosage 1gm POWDER VANCOCIN Route of Topical Meds Administered By Jovan Krishna MD Administration Last Modified By: Shirin Monteiro RN 01/08/18 11:45:39 CO NA OR Irrigation Entry 1 Irrigant 0.9% Saline Irrigant Volume 1000 mL Last Modified By: Shirin Monteiro RN 01/08/18 11:45:44 CO NA OR Implants Entry 1 Entry 2 Entry 3 Description Reverse 25mm baseplate SCREW AMANDA BIOMET SCREW AMANDA BIOMET wadapter Type1 Reverse LOCKING TI 4.89R32WY LOCKING TI 4.46E31BS Type2 Baseplate [id number] Serial Number NA N/A N/A Lot Number [id number] Catalog Number [id number] Senior It Business Analyst BIOMET ORTHOPED BRACING AMANDA BIOMET [employer]TS Expiration Date 12/07/27 12/05/27 10/25/27 No Expiration Date No No No Implant Site RIGHT SHOULDER RIGHT SHOULDER RIGHT SHOULDER Quantity 1 1 1 Tissue Material Used to Prepare/Process Tissue Processed By: Last Modified By: Thania RN , Shirin Monteiro RN , Shirin Monteiro RN , Shirin Sheffield 01/08/18 11:46:19 C 01/08/18 12:17:08 C 01/08/18 12:17:08 Entry 4 Entry 5 Entry 6 Description SCREW AMANDA BIOMET SCREW AMANDA BIOMET [place] reverse CENTRAL 6.5X30MM [id number] LOCKING TI 4.30G48HB +3mm 36mm Type1 Reverse [id number] Type2 [place] [id number] Serial Number N/A N/A N/A Lot Number [id number] Catalog Number [id number] Senior It Business Analyst AMANDA BIOMET AMANDA BIOMET AMANDA BIOMET Expiration Date 10/29/27 11/15/27 12/10/27 No Expiration Date No No No Implant Site RIGHT SHOULDER RIGHT SHOULDER RIGHT SHOULDER Quantity 1 1 1 Tissue Material Used to Prepare/Process Tissue Processed By: Last Modified By: Thania TONEY , Shirin Monteiro RN , Shirin Monteiro RN , Shirin Sheffield 01/08/18 12:17:08 C 01/08/18 12:17:08 C 01/08/18 12:17:08 Entry 7 Entry 8 Entry 9 Description SCREW AMANDA BIOMET Primary stem 14mm mini SHOULDER HUMERAL TRAY LOCKING TI 4.94G33RP Material CC Type2 Stem REVERSE STD 44mm [id number] Serial Number N/A N/A N/A Lot Number [id number] Catalog Number [id number] Senior It Business Analyst AMANDA BIOMET AMANDA BIOMET BIOMET ORTHOPED BRACING [employer]ORTS Expiration Date 11/07/27 10/11/27 09/14/27 No Expiration Date No No No Implant Site RIGHT SHOULDER RIGHT SHOULDER RIGHT SHOULDER Quantity 1 1 1 Tissue Material Used to Prepare/Process Tissue Processed By: Yonathan Modified By: Thania TONEY , Shirin Monteiro RN , Shirin Monteiro RN , Shirin Sheffield 01/08/18 12:17:08 C 01/08/18 12:17:08 C 01/08/18 12:17:08 Entry 10 Description E1 44-36 STD +3 humeral bearing Material VE Type1 Reverse Type2 Liner [id number] Serial Number N/A Lot Number [id number] Catalog Number [id number] Senior It Business Analyst AMANDA [employer]OMET Expiration Date 08/13/22 No Expiration Date No Implant Site RIGHT SHOULDER Quantity 1 Tissue Material Used to Prepare/Process Tissue Processed By: Last Modified By: Shirin Monteiro RN 01/08/18 12:17:08 CO NA OR Counts Entry 1 Entry 2 Instrument Count N/A N/A Surgeon Notified of No Yes Count Sponge Count Initial Count Done 1st count correct X-ray Taken No No Sharps/Miscellaneous Initial Count Done 1st count correct Count RN Performing Count Shirin Monteiro RN, RN , Pito Martin Count Performed with Kala Flores Danielle J Comment Procedure Arthroplasty Shoulder Arthroplasty Shoulder Total Reverse Total Reverse Appr(Right) Appr(Right) Last Modified By: Cele Del Toro RN, RN, Octavia N 01/09/18 11:03:38 N 01/09/18 11:03:38 CO NA OR Dressing/Packing Entry 1 Dressing Dressing/Packing Operative Shoulder Site Dressing/Packing Incision closed with Comment Dermabond. Covered by Telfa, 4x4's, ABD, Medipore Tape. Ultrasling. Last Modified By: Shirin Monteiro RN 01/08/18 12:23:29 CO NA OR Temperature Regulation Entry 1 Unit ID 2 Site Lower Body Setting Per Anesthesia Warm blankets, Warm fluids Last Modified By: Shirin Monteiro RN 01/08/18 12:17:50 CO NA OR Final Count Entry 1 Sponges Correct Yes Sharps/Miscellaneous Yes Correct Instruments Correct n/a Count Performed with Jasmyne TONEY , Pito Martin RN Performing Count Shirin Monteiro RN Surgeon Notified of Yes Count X-ray Taken No Comment Final Count performed with Physician's Equipment Validation Specialist Procedure Arthroplasty Shoulder Total Reverse Appr(Right) Last Modified By: Cele Del Toro RN 01/09/18 11:03:38 CO NA OR PNDS Risk of Impaired Skin Entry 1 Interventions/Activi Identifies physical OUTCOME STATEMENTS: The patient is free ties: alterations that may from visible signs and affect symptoms of injury procedure-specific related to positioning, positioning., Positions immobilization, the patient., pressure and/or Implements protective shearing forces. measures to prevent skin or tissue injury due to thermal, chemical, or mechanical sources., Uses supplies and equipment within safe parameters., Evaluates for signs and symptoms of injury as a result of positioning, immobilization, pressure and/or shearing forces. Last Modified By: Shirin Monteiro RN 01/08/18 12:22:48 CO NA OR PNDS Risk of Altered Body Temp Entry 1 Interventions/Activi Monitors body OUTCOME STATEMENT: The patient is at or ties: temperature., returning to Implements normothermia at the thermoregulation conclusion of the measures., Evaluates operative period. response to thermoregulation. Last Modified By: Shirin Monteiro RN 01/08/18 12:22:53 CO NA OR PNDS Risk of Infection Entry 1 INTERVENTIONS/ACTIVI Implements aseptic OUTCOME STATEMENT: The patient is free of TIES: technique., Classifies signs and symptoms of surgical wound., infection at the Assesses susceptibility conclusion of the for infection., operative period. Performs skin preparations., Protects from cross-contamination., Monitors for signs and symptoms of infection., Minimizes the length of invasive procedure planning care., Administers prescribed prophylactic treatments., Initiates traffic control., Administers care to invasive device sites., Administers care to wound sites. Last Modified By: Shirin Monteiro RN 01/08/18 12:22:59 CO NA OR Patient Debriefing Entry 1 Patient Debriefing Verify name of Skin Assessment Warm, Dry, Intact procedure(s) performed After including site/side, Sponge and needle counts are correct, N/A review specimens and how each is labeled, Discuss equipment, instrument problems reported and case improvements, Review swenson concerns for further patient management Last Modified By: Shirin Monteiro RN 01/08/18 12:23:11 CO NA OR PNDS Risk of Injury Entry 1 Interventions/Activi Implements protective OUTCOME STATEMENT: The patient is free ties: measures to prevent from visible signs and injury due to symptoms of injury electrical sources., related to electrical, Implements protective mechanical, radiation measures to prevent or laser. injury due to mechanical sources, Implements latex allergy precautions as needed, Records devices implanted during invasive procedure., Performs required counts., Evaluates for signs and symptoms of laser, electrical, mechanical and radiation injury. Last Modified By: Shirin Monteiro RN 01/08/18 12:23:05 CO NA OR Transport from OR Entry 1 Patient Status Awakening Post-op Destination PACU Phase I Via Bed Last Modified By: Shirin Monteiro RN 01/08/18 12:23:21 Case Comments Finalized By: Cele Del Toro RN Document Signatures Signed By: Shirin Monteiro RN 01/08/18 12:47 Shirin Monteiro RN 01/08/18 12:47 Cele Del Toro RN 01/09/18 11:03 Normal [facility] Patient Summaryon 01-09-2018 Patient Summary PATIENT DISCHARGE INSTRUCTIONSIf you are having an emergency and are not able to reach your physician, CALL 911 or go to the nearest emergency room and take this document with you. [facility] 01/09/18 [id number] [place], [place]. [address]F[place]: PATIENT INFORMATION ---- Name: MYCHAL SWANSON Address: [address] [place] [address] [address] [place] [id number] Age: 67 Years Phone: [phone] : 1950 12:00 MRN: [facility][id number] Sex: Male Race: White Ethnicity: Not Hispan/Lat Admitted From: Clinic or [facility] Medical Service: Orthopedic Surgery Nurse Unit/Bed: (CO) 2NBN 246-01 Admit Date: 01/08/2018 08:34 PCP: Leonardo Holbrook MDPHYSICIANS INVOLVED WITH CARE Attending Physicians: None found Admitting Physician: None found Primary Care Physician:Enzo TRIPP , Leonardo Butler,Family Practice, - Consults: Zelda TRIPP , Kalyan Paniagua - Internal Medicine Diana TRIPP , Stanley Morales - Internal Medicine CORBIN Lewis - Internal Medicine FOLLOW-UP APPOINTMENTS: Provider: Specialty: Address: Date: Jovan Krishna MD [address] [facility] [place] [place] [address] [facility] [phone] (1) Two Weeks Provider: Specialty: Address: Date: Leonardo Holbrook MD Family Practice [id number] [facility] [phone] (1) Follow-up as needed Provider: Specialty: Address: Date: Discharge OPPT. OPPT script in folder. Follow-up as needed ALLERGIES: No Known Medication Allergies No Known Allergies MEASUREMENTS: Last Charted: Weight: Admission 67.60 kg /149 lbs 0 oz ( 01/08/18 10:10:00 ) MEDICATIONS For: CARSONMYCHAL is your list of medication(s). Keep it with you at all times. Your doctor may have changed doses, add, held or stopped some of your medications. Please share this information with your family doctor. Carry this list of medications with you in case of an emergency. Update it when medications are stopped, doses are changed, or new medications (including jpxw-xrv-vddbyjm products) are added. Ask your doctor if you have any questions. THESE ARE THE MEDICATIONS YOU SHOULD BE TAKINGallopurinol (allopurinol 300 mg oral tablet) 1 Tab(s) By Mouth once a day. am.aspirin (aspirin 81 mg oral tablet) 1 Tab(s) By Mouth once a day. am.NOTES TO PATIENT: resume when ok with surgeonfenofibrate (fenofibrate 134 mg oral capsule) 1 Capsule By Mouth once a day. am.Freetext Medication New prescriptions Baby Apsirin Tylenol Oxycodone Tramadol Celebrex Zofran.losartan (losartan 100 mg oral tablet) 1 Tab(s) By Mouth Bedtime.niacin (niacin 500 mg oral capsule) 2 Capsule By Mouth Twice a day.omega-3 polyunsaturated fatty acids (Graham-3 (Fish Oil) Capsule) 4 Capsule By Mouth Twice a day.NOTES TO PATIENT: may resume after follow up appopintment with surgeonrosuvastatin (Crestor 40 mg oral tablet) 1 Tab(s) By Mouth once a day. am.MEDICATION CHANGE DETAILS (Not your Final Home Medication List)During the course of your visit, your home medication list was updated with the most current information. The details of those changes are shown below: NEW MEDICATIONSNoneUPDATED MEDICATIONSNoneUNCHANGED MEDICATIONSOther Medicationsallopurinol (allopurinol 300 mg oral tablet) 1 Tab(s) By Mouth once a day. am.Comment asp irin (aspirin 81 mg oral tablet) 1 Tab(s) By Mouth once a day. am.NOTES TO PATIENT: resume when ok with surgeonComment _fenofibrate (fenofibrate 134 mg oral capsule) 1 Capsule By Mouth once a day. am.Comment Fre etext Medication New prescriptions Baby Apsirin Tylenol Oxycodone Tramadol Celebrex Zofran.Comment _losartan (losartan 100 mg oral tablet) 1 Tab(s) By Mouth Bedtime.Comment __niacin (niacin 500 mg oral capsule) 2 Capsule By Mouth Twice a day.Comment om ega-3 polyunsaturated fatty acids (Graham-3 (Fish Oil) Capsule) 4 Capsule By Mouth Twice a day.NOTES TO PATIENT: may resume after follow up appopintment with surgeonComment _rosuvastatin (Crestor 40 mg oral tablet) 1 Tab(s) By Mouth once a day. am.Comment STO P TAKING THESE MEDICATIONSNoneDO NOT TAKE UNTIL YOU TALK TO YOUR DOCTORNone NON-MEDICATION PRESCRIPTION SCHEDULING PHONE NUMBER: SELECTED LAB RESULTS Lab Result Order DateHemoglobin 10.5 gm/dL 01/09/2018Hematocrit 30.7 % 01/09/2018WBC Count 12.4 thou/mcL 01/09/2018Platelet Count 316 thou/mcL 01/09/2018Sodium Level 138 mMol/L 01/09/2018Potassium Level 4.3 mMol/L 01/09/2018Creatinine 1.44 mg/dL 01/09/2018BUN 20 mg/dL 01/09/2018Glucose Level 101 mg/dL 01/09/2018ADVANCE DIRECTIVE/HEALTH CARE DECISIONS:Advance Directive/Health Care Decisions Executed by Patient: : NoInformation Obtained From: PatientAdvance Directive Health Care Information Offered: Patient declinesSUICIDE HOTLINE: Your mental and emotional well-being are important. If you are in a mental health crisis, or having thoughts of suicide, please call the nationwide suicide hotline, anytime day or night, at 8-167-740-GTUA. Important information about accessing your health information through the [facility] [employer] patient portalIf you initiated the self-registration process for [employer] during your stay, please check your personal email for an invitation to enroll in [facility] and complete the steps outlined in the email. If you would prefer to enroll while in the hospital, ask a member of your care team. We would be happy to assist you. If you have already enrolled in [employer], go to [email or web address] to login and access your health information. Thank you for choosing [facility]. PATIENT EDUCATIONPain Medicine InstructionsHOW CAN PAIN MEDICINE AFFECT ME?You were given a prescription for pain medicine. This medicine may make you tired or drowsy and may affect your ability to think clearly. Pain medicine may also affect your ability to drive or perform certain physical activities. It may not be possible to make all of your pain go away, but you should be comfortable enough to move, breathe, and take care of yourself. HOW OFTEN SHOULD I TAKE PAIN MEDICINE AND HOW MUCH SHOULD I TAKE?Take pain medicine only as directed by your health care provider and only as needed for pain.???You do not need to take pain medicine if you are not having pain, unless directed by your health care provider.???You can take less than the prescribed dose if you find that a smaller amount of medicine controls your pain.WHAT RESTRICTIONS DO I HAVE WHILE TAKING PAIN MEDICINE?Follow these instructions after you start taking pain medicine, while you are taking the medicine, and for 8 hours after you stop taking the medicine:???Do not drive.???Do not operate machinery.???Do not operate power tools.???Do not sign legal documents.???Do not drink alcohol.???Do not take sleeping pills.???Do not supervise children by yourself. ???Do not participate in activities that require climbing or being in high places.???Do not enter a body of water?such as a mak, river, ocean, spa, or swimming pool?without an adult nearby who can monitor and help you.HOW CAN I KEEP OTHERS SAFE WHILE I AM TAKING PAIN MEDICINE?Store your pain medicine as directed by your health care provider. Make sure that it is placed where children and pets cannot reach it.???Never share your pain medicine with anyone.???Do not save any leftover pills. If you have any leftover pain medicine, get rid of it or destroy it as directed by your health care provider.WHAT ELSE DO I NEED TO KNOW ABOUT TAKING PAIN MEDICINE?Use a stool softener if you become constipated from your pain medicine. Increasing your intake of fruits and vegetables will also help with constipation.???Write down the times when you take your pain medicine. Look at the times before you take your next dose of medicine. It is easy to become confused while on pain medicine. Recording the times helps you to avoid an overdose.???If your pain is severe, do not try to treat it yourself by taking more pills than instructed on your prescription. Contact your health care provider for help.???You may have been prescribed a pain medicine that contains acetaminophen. Do not take any other acetaminophen while taking this medicine. An overdose of acetaminophen can result in severe liver damage. Acetaminophen is found in many kqha-vtw-vabvvmk (OTC) and prescription medicines. If you are taking any medicines in addition to your pain medicine, check the active ingredients on those medicines to see if acetaminophen is listed.WHEN SHOULD I CALL MY HEALTH CARE PROVIDER?Your medicine is not helping to make the pain go away.???You vomit or have diarrhea shortly after taking the medicine.???You develop new pain in areas that did not hurt before.???You have an allergic reaction to your medicine. This may include:???Itchiness.???Swe lling.???Dizziness.???Devel oping a new rash.WHEN SHOULD I CALL 911 OR GO TO THE EMERGENCY ROOM?You feel dizzy or you faint.???You are very confused or disoriented.???You repeatedly vomit.???Your skin or lips turn pale or bluish in color.???You have shortness of breath or you are breathing much more slowly than usual.???You have a severe allergic reaction to your medicine. This includes:???Developing tongue swelling.???Having difficulty breathing.This information is not intended to replace advice given to you by your health care provider. Make sure you discuss any questions you have with your health care provider.Document Released: 08/19/2001 Document Revised: 09/27/2015 Document Reviewed: 03/17/2015[employer] Interactive Patient Education ?2016 [employer]Mindful Eating - Building New HabitsHealth EducationMindful eating is a swenson part of good nutrition. Being mindful of what you are eating and enjoying the food you eat is an excellent habit to build. It can help you manage your weight, follow a special diet such as for diabetes, or eat healthier.You may find that you eat quickly or don't pay much attention to what or how much you are eating. This can lead to eating much more than you realize. When you eat mindlessly, you don't feel as satisfied as when you slow down and enjoy your food. Your mind needs to feel full - not just your stomach.Many people eat as a way of dealing with emotions and stress. Eating when you are bored, anxious or need comfort is very common. You may find yourself eating without even thinking about whether or not you are hungry.To increase your awareness:- Before eating anything make a conscious effort to ask yourself if you are really hungry.- Try keeping a food journal. Record how you are feeling as you begin and end eating, what you are eating, and the time you are eating.When you eat:- Slow down and savor each bite. Put down your fork between bites.- Try smelling your food. Enjoy the different scents of foods.- Focus on chewing food well and enjoying the tastes and textures of what you are eating.- Eat at the table. Put your food on a plate and sit down when you eat.- Don't multi-task while eating or eat in front of the TV or the computer.To avoid eating without thinking or overeating:- If there is food left on your plate and you are no longer hungry, cover it with a napkin or clear your plate. Clean up after meals.- Don't leave food sitting out and avoid candy dishes.- Don't keep food at your desk or in your office at work.- At parties, don't stand close to the food tables. Focus on enjoying the company.- Portion out your food. Never eat out of an original container such as a box of crackers or a bag of chips.Building mindful eating habits takes time and practice - just like any other skill. Share what you are doing with you friends and family members and ask them to support your efforts.Talk with your dietitian, nurse or doctor about any questions or concerns.To learn more about mindful eating:Eat What You Love and Love What You Eat by Jojo Camacho M.D.[email or web address] Mindfully: How to End Mindless Eating and Enjoy a Balanced Relationship with Food by Natalie Cedeño.eatingmindfullybeth omMindful Eating: A Guide to Rediscovering a Healthy and Joyful Relationship with Food by Zelalem Hameed Eating: Why We Eat More Than We Think by Geovanny Lindsey to Eating HealthyHealth EducationHealthful eating is one of the most important things you can do to improve your health. You may be able to decrease your risk of diabetes, obesity, heart disease, osteoporosis, and certain cancers. Use [employer]'s MyPlate and food labels as tools to plan and balance your choices over the course of the day or week. Eat a variety of foods from all the food groups. This is where [employer]'s My Plate (www.choosemyplate.gov) will come in handy. Each food group provides some, but not all, of the nutrients you need. No one food group is more important than another- for good health you need them all. If you avoid one whole food group, your diet may be out of balance and missing swenson nutrients. Eat 5 fruits and vegetables each day. Fruits and vegetables are a swenson part of your healthy eating plan. They are packed with fiber, vitamins, minerals, and cancer fighting antioxidants. ?? They make great healthful snacks and are easy to grab and eat when you are in a hurry. ?? You can include them in every meal by having fruit on your cereal at breakfast, salads at lunch, cooked veggies for dinner or fruit as dessert. Choose high fiber foods. Dietary fiber that occurs naturally in foods may help reduce the risk of cardiovascular disease, obesity, and type 2 diabetes. Whole grain breads and cereals, beans, legumes, fruits, and vegetables are all high in fiber. Choose foods lower in fat and cholesterol. Cut down on food that is high in fat and cholesterol to keep your heart healthy, help lower your cholesterol levels, and help control your weight. The goal is to get no more than 30% of your total calories from fat. Choose foods lower in salt. One easy way to eat less salt is to stop adding salt to your food. Remove the salt shaker from the table to help break the habit of salting food before tasting it. Use herbs and spices to add flavor to foods. Try salt-free seasonings such as Mrs. Mccord??.A healthful goal is to keep your salt intake to 2,300 mg of sodium per day. Your doctor may prescribe a lower sodium goal of 1,500 mg per day if you have high blood pressure, heart failure, or kidney disease. Read the food labels for sodium per serving to choose the foods that are lower in sodium. Everyone needs calcium.Our bodies need calcium throughout our lives for strong teeth and bones. Calcium is also important for our blood, nerves, and muscles. If you do not eat enough calcium, your body takes calcium from your bones, which can put you at risk for developing osteoporosis (a bone-thinning disease). The dairy group is a great source of calcium. If you do not drink milk, try eating other calcium-rich foods such as cheese, yogurt, dark leafy greens, broccoli, or calcium-fortified cereals and juice. The goal is 3 servings of calcium-rich foods every day. Children, teenagers, and women need 4 servings per day.Limit sugar and sweets. Limit the number of foods you eat that contain added sugars such as desserts, doughnuts, cookies, and candies. Skip regular soda. Don't skip meals.You will have more energy and feel better if you eat at least 3 times a day. It's hard to get all of the nutrients you need when you skip meals. You may be tempted to make poor choices and to overeat when you do sit down to eat. Be realistic. Give yourself time to learn new, healthful eating habits. Most foods can be included in moderation. Control your portion sizes and eat what you have planned. Balance out your day. If one meal went ??out of bounds,?? make another meal tail edger or go for a walk. Know your triggers, such as boredom or stress, which lead to overeating and find a healthful alternative such as exercise.The swenson to eating healthfully is to set your goals, choose wisely, and start today!More Resources Include:www.choosemyplate.g ov USDA's MyPlatewww.eatright.orgAmer ican Dietetic AssociationSample Food Label PATIENT DISCHARGE INSTRUCTIONSignature Page for: MYCHAL SWANSON EDate/Time: 01/09/2018 09:47:32A Clinician has explained the information on my discharge instructions and has provided me with a copy.My questions have been answered to my satisfaction. Patient Signature Date/Time Responsible Party Date/Time Relationship to Patient Clinician Signature ___ Date/Time _ [facility] PreOp Nursingon 01-09-2018 PreOp Nursing [place] NA PreOp Nursing Record Summary Primary Physician: Jovan Krishna MD Finalized Date/Time: 01/09/18 10:59:16 Pt. Name: MYCHAL SWANSON [place]/Sex: 1950 Male Med Rec #: [id number] Physician: Jovan Krishna MD Financial #: [id number] Pt. Type: I Room/Bed: [facility] Admit/Disch: 01/08/18 08:34:00 - Institution: [facility] NA OR PreOp Case Times Entry 1 PreOp Case Times In Room Time 01/08/18 09:21:00 Out Room Time 01/08/18 10:54:00 Last Modified By: Shirin Monteiro RN 01/08/18 10:57:33 CO NA OR PreOp Case Attendees Entry 1 Case Attendee Valery TONEY , Anne Martin Role Twin RN Last Modified By: Anne Rasmussen RN 01/08/18 10:09:16 Finalized By: Cele Del Toro RN Document Signatures Signed By: Shirin Monteiro RN 01/08/18 10:57 Lencho TONEY , Cele Sandy 01/09/18 10:59 Normal [facility] Progress Noteson 01-09-2018 Protein mass conc Patient: LINNEA SWANSON MRN: ([id number] Age: 67 years Sex: Male : 1950 Associated Diagnoses: None Author: Diana TRIPP , Stanley Morales Assessment Assessment Diagnosis: Osteoarthritis (EDB01-KW M19.011, Working, Medical). Plan Osteoarthritis Right Shoulder (M19.011), s/p Right TSADVT prophyl per primary surgical SVC, As recomend prophylaxis per 2012 ACCP concenses guidelines. Encourage Venous return exercises.Home medications have been reviewed and continued post surgery. Pain Control - resasonable and controlled on meds. Continue postop protocol. Hypertension(I10) - Continue home medications, losartan and will continue prn clonidine post-op. Last BP good shape 129/79Hyperlipidemia(E78.5) - Start home meds post-op, crestor, fenofibrate and niacin. This will help reduce cardiac risk. Holding fish oil. StableGout(M10.9) - resume home dose of allopurinol. No recent exacerbations. Denies any acute medical signs or symptoms Azotemia/Elevated Creatine ( R79.89) Noted and suspect d/t moderate volume depletion surrounding surgery with reduced po intake. Will continue IVF hydration with additional fluids as needed. Recomend holding diuretics if applicable. Encourage improving oral intake. Consider stopping NSAIDS/WOOTEN 2's if applicable. Will continue to monitor renal function and urine output while in hospital. Peeling creatinine today 20/1.44. On creatinine was 1.24Urinary retention - (R33.9) - acute - kim placed DOS d/t scan >400 - on urecholine - void trial this am. Leukocytosis - (D72.829) Reactive. Steroid with surgery. No Localizing signs of infection. Defer wound to the primary surgeon. Will continue to follow clinically in hospital.Acute Post Hemorhagic Anemia (D62)- Currently - 10.5 Tolerating well without significant orthostasis signs or symptoms. Preop HBG noted. Will continue to monitor clinically while in hospital.Medically acceptable for discharge if passing flatus, room air sat greater than 90%, meets PT goals, and acceptable to the surgical service. Home medication reconciliation completed, defer DVT prophylaxis, NSAIDs, anticoagulants, antibiotics, and pain medications to the surgical service. Supervising Physician Comments Documentation By: Consulting Physician. Chief Complaint Postoperative Medical Care Postoperative Information Postoperative Follow Up Postoperative Follow Up: Day 1. Anesthesia Sheet Reviewed - Gen / ISB Health Status Allergies Allergic Reactions (Selected)NKANo Known Medication Allergies Subjective Patient is resting in bed in NAD. Reports pain is being controlled. No c/o CP, SOB. Denies N/V, or abdominal pain, otherwise, ROS has been reviewed and is stated below.Rates pain -very mild 3 Flatus: yes Voiding: We placed day of surgery due to retention Family - NoneReview of SystemsConstitutional: denies fever, chillsHead/Neck: denies headache, neck painEye: denies eye pain, diplopiaEar/Nose/Mouth/Thro at: denies sore throat, hearing issuesNeurologic: no focal, denies new weaknessCardiovascular: denies chest pain, palpatationsRespiratory: denies dyspnea, or coughGastrointestinal: denies Nausea/Vomiting, abdominal pain. Genitourinary: denies Dysuria, frequencySkin: denies itching or rash. Objective Last Charted Vital Signs Temperature: 97.9 (01/09 04:47) Pulse: 73 (01/09 04:47) Respiration: 16 (01/09 04:47) BP: 129/73 (01/09 04:47) Activity: Awake (01/09 04:47) Pulse Ox: 96 (01/09 04:47) Oxygen Delivery: Room air (01/08 20:12) Pain Score: 0 (01/09 00:17) Exam General - No Apparant Distress, Appears comfortable, ConversantHEENT: NC/AT, Pupils Equal and round, Sclera Clear and non ictericSkin - No Rash, Normal TurgorNeck: Supple, No JVDCardiovascular - RRR, No MGR, No Peripheral EdemaRespiratory - CTA, Normal Resp. EffortGI - Soft Nontender, Good + normal BS, No HSMMusculoskeletal - Dorsiflexion Intact, No Calf Tenderness,Right Shoulder Bandaged, Sling in place, Wiggles fingers and thumbNeuro/Psych - A and Ox 3 Appropiate Mood and Affect, Follow Simple commands. Intake and Output (Previous 24Hrs) I and O Summary Begin date: 01/08 06:08 End date: 01/09 06:08 24 Hour Intake: 1481.67 Output: 1675.00 Balance: -193.33 Last BM: No BM Charted Results Review DATA SECTIONHBG Labs - Last 36 hours (Max 2 / lab test) CHEMISTRY So dium 138 (01/09 04:50) Potassium 4.3 (01/09 04:50) Chloride 101 (01/09 04:50) CO2 23 (01/09 04:50) Glucose 101 (01/09 04:50) Glucose POCT 77 (01/08 10:05) BUN 20 (01/09 04:50) Creatinine 1.44 (01/09 04:50) Calcium Total 8.6 (01/09 04:50) Magnesium No result HEMATOLOGY W BC 12.4 (01/09 04:50) RBC 3.60 (01/09 04:50) Hb 10.5 (01/09 04:50) Hematocrit 30.7 (01/09 04:50) Platelets 316 (01/09 04:50) MCV 85.1 (01/09 04:50) MCH 29.1 (01/09 04:50) RDW 13.6 (01/09 04:50) MCHC 34.1 (01/09 04:50) Neutrophil Ab No result Monocyte Ab No result Eosinophil Ab No result Basophil Ab No result Lymphocyte Ab No result OTHER LABS ___Est CrCl IBW (mL/min)-RX 41.68 mL/min (01/09 04:50) BUN / Creatinine Ratio 14 (01/09 04:50) MPV 7.7 FL (01/09 04:50) X-rays last 36 hours XR Shoulder 2+ Views RT: 01/08/18 13:20:00 See Radiology Report for More Detail Diagnosis Documentation Communication Normal [facility] Anesthesia Postoperative Not phani 01-08-2018 Surgical operation note anesthesia Narrative Patient: MYCHAL SWANSON MRN: ([facility])-[id number] Age: 67 years Sex: Male : 1950 Associated Diagnoses: None Author: Richard Linares DO Subjective Subjective: Patient participated in the evaluation: Yes. Nausea: not present. Vomiting: not present. Pain: acceptable pain control. Objective Objective: Vital Signs: Last Charted Vital Signs Temperature: 97.5 (01/08 17:00) Pulse: 84 (01/08 17:00) Respiration: 18 (01/08 17:00) BP: 121/70 (01/08 17:00) Activity: Awake (01/08 17:00) Pulse Ox: 97 (01/08 17:00) Oxygen Delivery: Nasal cannula (01/08 15:16) O2 Device Flow: 2 L/min Pain Score: 0 (01/08 17:27). Mental Status: alert and oriented. Postoperative hydration: adequate. Assessment Assessment: Post anesthetic condition: no anesthetic complications, the patient is doing well, pain is adequately controlled. Airway patent: yes. Plan Plan: Postanesthesia Plan: post anesthetic surveillance concluded. [facility] Anesthesia Preoperative Asse ssmenton 01-08-2018 Anesthesia Preoperative Assessment Patient: MYCHAL SWANSON MRN: ([facility])-[id number] Age: 67 years Sex: Male : 1950 Associated Diagnoses: None Author: Adama Brambila DO Preoperative Information Planned Procedure right total shoulder arthroplasty Histories Past Medical History: Active Arthritis Gout High cholesterol Hypertension, Cardiovascular: Greater than or equal to 4 metabolic equivalents (METS) without symptoms Social History: Smoking Status: Never smoked How Often Do You Drink ..: Never (0) Anesthesia History: No previous anesthetic complications Medications Allergies No Known Medication Allergies NKA Home Medications allopurinol (allopurinol 300 mg oral tablet) 1 Tab = 300 mg By Mouth once a day aspirin (aspirin 81 mg oral tablet) 1 Tab = 81 mg By Mouth once a day am fenofibrate (fenofibrate 134 mg oral capsule) 1 Cap = 134 mg By Mouth once a day am losartan (losartan 100 mg oral tablet) 1 Tab = 100 mg By Mouth Bedtime niacin (niacin 500 mg oral capsule) 2 Cap = 1,000 mg By Mouth Twice a day omega-3 polyunsaturated fatty acids (Graham-3 (Fish Oil) Capsule) 4 Cap By Mouth Twice a day rosuvastatin (Crestor 40 mg oral tablet) 1 Tab = 40 mg By Mouth once a day Physical Examination VS/Measurements: Breathing: Via room air. Mouth/Airway: Dental (from Forms) No dental information charted. Mallampati: Class 2. Dental status: Teeth in good repair. Neck: Full range of movement. Mouth: Mouth opening unrestricted. Jaw: Normal jaw. Respiratory: Breath sounds equal bilaterally, no wheezing, no rhonchi, no rales. Right lung: Clear to auscultation. Left lung: Clear to auscultation. Cardiovascular: Cardiac sounds: regular rhythm, no murmurs, no gallops. Rhythm: Regular. Neurologic: Oriented to person, time, place, and situation. No gross neurological deficits noted. Results Review General results Laboratory Last 90 Days Chemistry 12/18/17 11:04, Sodium = 137 mMol/L 12/18/17 11:04, Potassium = 4.7 mMol/L 12/18/17 11:04, Chloride = 101 mMol/L 12/18/17 11:04, CO2 = 28 mMol/L 12/18/17 11:04, Glucose = 58 mg/dL L 12/18/17 11:04, BUN = 23 mg/dL H 12/18/17 11:04, Creatinine = 1.24 mg/dL 12/18/17 11:04, Calcium Total = 9.4 mg/dL Hematology 12/18/17 11:04, WBC = 9.8 thou/mcL 12/18/17 11:04, RBC = 4.37 X(10)6/mcL 12/18/17 11:04, Hb = 12.7 gm/dL 12/18/17 11:04, Hematocrit = 37.6 % 12/18/17 11:04, Platelets = 371 thou/mcL 12/18/17 11:04, MCV = 86.0 FL 12/18/17 11:04, MCH = 29.1 Picograms 12/18/17 11:04, RDW = 14.1 % 12/18/17 11:04, MCHC = 33.8 gm/dL 12/18/17 11:04, Neutrophil Ab = 4.8 thou/mcL 12/18/17 11:04, Monocyte Ab = 0.7 thou/mcL 12/18/17 11:04, Eosinophil Ab = 0.4 thou/mcL 12/18/17 11:04, Basophil Ab = 0.1 thou/mcL 12/18/17 11:04, Lymphocyte Ab = 3.8 thou/mcL Coagulation 12/18/17 11:04, Partial Thromboplastin (aPTT) = 24 Sec L 12/18/17 11:04, INR = 0.9 12/18/17 11:04, Prothrombintime (PT) = 9.8 Sec Other Labs 12/18/17 11:04, Diff Method = AUTOMATED DIFFERENTIAL 12/18/17 11:04, Neutrophil Percent = 49.4 % 12/18/17 11:04, Lymphocyte Percent = 38.5 % 12/18/17 11:04, Monocyte Percent = 7.2 % 12/18/17 11:04, Eosinophil Percent = 3.8 % 12/18/17 11:04, Basophil Percent = 1.1 % 12/18/17 11:04, MPV = 7.9 FL 12/18/17 11:04, BUN / Creatinine Ratio = 19 Point Of Care Tests No point of care testing charted Assessment ASA Classification 2. Oral intake status Nothing after midnight. Plan Anesthesia Discussion The patient was interviewed:: Yes. The patient was examined:: Yes. Informed Consent:: Obtained. The anesthetic plan, options, risks, and benefits were discussed:: With the patient. Anesthesia Preoperative Plan The participation of Certified Registered Nurse Anesthetists was discussed: Yes. Proceed with surgery: Yes. Proposed Anesthesia Type: General, Cervical Plexus Block, Interscalene Block. Need for post-op ICU: No. Patient requests/comments: Blood Product Preference: Yes blood products. The following risks/potential anesthesia problems were discussed: Nausea, Vomiting, Sore throat. Normal [facility] Anesthesia Recordon 01-09-20 Anesthesia Record Patient: LINNEA SWANSON MRN: [facility])-[id number] Age: 67 years Sex: Male : 1950 Associated Diagnoses: None Author: Adama Brambila DO Procedure Time Out [place] Protocol: patient identity verified, site verified, side verified, procedure to be done verified, patient position verified. REGIONAL ANESTHESIA PROCEDURE Procedure date and begin time: See nurses notes. Procedure date and end time: See nurses notes. Performed by: Adama Brambila DO. Assisted by: no assistant vice president. Informed consent: signed by patient. Technique: Peripheral nerve blockade technique performed. Indication for Peripheral Nerve Block: post operative management of pain, at surgeon request. PERIPHERAL NERVE BLOCKADE Cervical plexus: superficial. sterile prep with chloraprep and drape. 22g 50mm peripheral nerve block needle placed perineural with ultrasound guidance. needle location confirmed. incremental injection. negative aspiration every 3cc. no paresthesia with injection. perineural spread continuously visualized with ultrasound. patient responsive and interactive throughout. Injectate: ropivacaine (concentration 0.5 %, volume 5 mL). Narrative: paresthesia: none, blood aspirated none, pain on injection noted none, resistance on injection normal. Monitored during procedure: EKG, heart rate, heart rhythm, blood pressure (NIBP), pulse oximetry. Procedure tolerated: well. Complications: none. Procedure done in: holding area. Findings-Comments: none. Estimated Blood Loss: none. Specimen(s) obtained: none. Impression and Plan Diagnosis and Plan: Diagnosis Preoperative Diagnosis: Shoulder Pain Postoperative Diagnosis: shoulder pain . Course: Good response to treatment. Normal [facility] Anesthesia Record Patient: LINNEA SWANSON MRN: [facility])-[id number] Age: 67 years Sex: Male : 1950 Associated Diagnoses: None Author: Adama Brambila DO Procedure Time Out [place] Protocol: patient identity verified, site verified, side verified, procedure to be done verified, patient position verified. REGIONAL ANESTHESIA PROCEDURE Procedure date and begin time: See nurses notes. Procedure date and end time: See nurses notes. Performed by: Adama Brambila DO. Assisted by: no assistant vice president. Informed consent: signed by patient. Technique: Peripheral nerve blockade technique performed. Medications-Sedation: sedate with meaningful contact maintained.. Local Anesthesia: 1% lidocaine. Indication for Peripheral Nerve Block: post operative management of pain, at surgeon request. Preparation for Peripheral Nerve Block: The skin was prepped with chlorhexidine in the usual fashion. PERIPHERAL NERVE BLOCKADE Interscalene block. sterile prep with chloraprep and drape. 22g 50mm peripheral nerve block needle placed perineural with ultrasound guidance. needle location confirmed. incremental injection. negative aspiration every 3cc. no paresthesia with injection. perineural spread continuously visualized with ultrasound. patient responsive and interactive throughout. Needle(s): 2 inches, 22 gauge. Injectate: ropivacaine (concentration 0.5 %, volume 25 mL). Narrative: paresthesia: none, blood aspirated none, pain on injection noted none, resistance on injection normal. Monitored during procedure: EKG, heart rate, heart rhythm, blood pressure (NIBP), pulse oximetry. Procedure tolerated: well. Complications: none. Procedure done in: holding area. Findings-Comments: none. Estimated Blood Loss: none. Specimen(s) obtained: none. Impression and Plan Diagnosis and Plan: Diagnosis Preoperative Diagnosis: SHOULDER PAIN Postoperative Diagnosis: Post op pain control, shoulder replacement . Normal [facility] PACU I Nursingon 01-08-2018 PACU I Nursing [facility] PACU I Nursing Record Summary Primary Physician: Jovan Krishna MD Finalized Date/Time: 01/08/18 14:18:03 Pt. Name: CARSONMYCHAL/Sex: 1950 Male Med Rec #: [id number] Physician: Jovan Krishna MD Financial #: [id number] Pt. Type: I Room/Bed: / Admit/Disch: 01/08/18 08:34:00 - Institution: [facility] OR [facility] PACU I Case Times Entry 1 In PACU I 01/08/18 12:48:00 Ready for PACU I 01/08/18 13:45:00 Discharge Discharge from PACU 01/08/18 14:17:00 PACU I Discharge Receiving Unit - RN I Delay Reason unavail for report Last Modified By: Sarahy Santos RN 01/08/18 14:17:50 General Comments: floor RN just received report on another patient CO NA OR Main PACU I Case Attendees Entry 1 Case Attendee Sarahy Santos RN Role Performed RN Last Modified By: Sarahy Santos RN 01/08/18 14:18:01 Finalized By: Sarahy Santos RN Document Signatures Signed By: Sarahy Santos RN 01/08/18 14:18 Normal [facility] Progress Noteson 01-08-2018 Protein mass conc Patient: LINNEA SWANSON MRN: ([facility])-[id number] Age: 67 years Sex: Male : 1950 Associated Diagnoses: None Author: Kalyan Ndiaye MD Assessment Assessment Diagnosis: Osteoarthritis ([id number] M19.011, Working, Medical). Right Shoulder Replacement. Dr. Krishna. Plan Stable medically in the PACU. Deep Vein Thrombosis prophylaxsis per surgery. Please follow the 2012 ACCP guidelines.I ordered all of the home medications for the floor. I also ordered the pain regimen which included IV Dilaudid. Hypertension(I10) - Continue home medications, losartan and will add prn clonidine post-op. Hyperlipidemia(E78.5) - Start home meds post-op, crestor, fenofibrate and niacin. This will help reduce cardiac risk. Holding fish oil.Gout(M10.9) - resume home dose of allopurinol. No recent exacerbations. Supervising Physician Comments Chief Complaint Postoperative Medical Care Postoperative Information Postoperative Follow Up Postoperative Follow Up: Day 0. Health Status Allergies Allergic Reactions (Selected)NKANo Known Medication Allergies Subjective Patient indicates that pain is controlled.Review of SystemsConstitutional: denies fever. Head/Neck: denies headache. Eye: denies eye pain. Ear/Nose/Mouth/Throat: denies sore throat. Neurologic: no focal, denies weakness. Cardiovascular: denies chest pain. Respiratory: denies dyspnea. Gastrointestinal: denies abdominal pain. Genitourinary: denies incomplete voiding. Skin: denies rash. Objective Last Charted Vital Signs Temperature: 98.2 (01/08 10:00) Pulse: 77 (01/08 10:50) Respiration: 23 (01/08 10:50) BP: 109/63 (01/08 11:15) Pulse Ox: 98 (01/08 10:50) Oxygen Delivery: Nasal cannula (01/08 10:50) O2 Device Flow: 2 L/min Pain Score: 2 (01/08 10:05) General - No Apparant DistressSkin - No Rash, Normal TurgorCardiovascular - RRR, No MGR, No Peripheral EdemaRespiratory - CTA, Normal Resp. EffortGI - Soft Nontender, + BS, No HSMMusculoskeletal - Dorsiflexion Intact, No Calf Tenderness. Right arm in a sling. Neuro/Psych - A and Ox3, Appropiate Mood and Affect Intake and Output (Previous 24Hrs) I and O Summary Begin date: 01/07 13:11 End date: 01/08 13:11 24 Hour Intake: 0.00 Output: 50.00 Balance: -50.00 Last BM: No BM Charted Results Review Labs - Last 36 hours (Max 2 / lab test) CHEMISTRY So dium No result Potassium No result Chloride No result CO2 No result Glucose No result Glucose POCT 77 (01/08 10:05) BUN No result Creatinine No result Calcium Total No result Magnesium No result HEMATOLOGY W BC No result RBC No result Hb No result Hematocrit No result Platelets No result MCV No result MCH No result RDW No result MCHC No result Neutrophil Ab No result Monocyte Ab No result Eosinophil Ab No result Basophil Ab No result Lymphocyte Ab No result X-rays last 36 hours XR Shoulder 2+ Views RT: 01/08/18 12:45:46 See Radiology Report for More Detail Diagnosis Documentation Communication Normal [facility] XR Shoulder 2+ Views RTon XR Shoulder - right 2 views EXAMINATION TYPE: XR Shoulder 2+ Views RT DATE OF EXAM : 01/08/2018 1:20 PMHISTORY: PostoperativeCOMPARISON: CT 12/18/2017FINDINGS: Status post reverse RIGHT total shoulder arthroplasty. No krista-implant fracture or dislocation is evident, given internal and external rotation views. Air within the surrounding soft tissues is consistent with recent postoperative state. Several ossific foci in the region of the acromion process, consistent with os acromiale, better appreciated on the comparison CT exam. Mild degenerative changes at the acromioclavicular joint.IMPRESSION: Status post reverse RIGHT total shoulder arthroplasty with recent postoperative changes.[facility] thanks you for the opportunity to care for your patient. Workstation ID: [id number] - [id number] FINAL REPORT Dictated By: Suresh Man MD 01/08/2018 13:52Assigned Physician: Suresh Man MD and Electronically Signed By: Suresh Man MD 01/08/2018 13:54Transcribed by: ANOOP 01/08/2018 13:52Technologist: WILLIAM Normal [facility] History and Physicalon 12-30 History and Physical CONSULTATIONDICTATED BY: NAJMA OCONNOR MDDATE OF SERVICE: 12/18/2017NAME: MYCHAL SWANSON.DATE OF : 1SURGERY DATE:01/08/2018REFERRING PHYSICIAN:RAVIN Hart DIAGNOSIS:Osteoarthritis of the right shoulder.CHIEF COMPLAINT:Preoperative medical risk stratification.HISTORY OF PRESENT ILLNESS:This is a 67-year-old male presents for preoperative medical risk stratification consult at the request of Dr. Krishna prior to right total shoulder replacement. The patient reports progressive right shoulder osteoarthritis over several years' duration. Symptoms have recently become severe and have failed nonsurgical options.PAST MEDICAL HISTORY:SURGERIES:1. Left hip replacement in 2014.2. Bilateral hernia surgery in 07/2014.MEDICAL ILLNESSES:1. Hypertension, currently being managed by his primary care physician.2. Hyperlipidemia.3. Gout.MEDICATIONS:1. Losartan 100 mg at bedtime.2. Allopurinol 300 mg q.a.m.3. Fenofibrate 134 mg q.a.m.4. Crestor 40 mg q.a.m.5. Aspirin 81 mg q.a.m.6. Graham 3 fish oil 100 mg 4 tablets b.i.d.7. Niacin 500 mg 2 tablets b.i.d.DRUG ALLERGIES:None.METAL ALLERGIES:None.TRANSFUSIONS :None.REACTIONS TO ANESTHESIA:Nausea.QUAKER BELIEFS TO RECEIVING TRANSFUSIONS:None.BLEEDING TENDENCIES:None.FAMILY MEDICAL HISTORY:Unknown as the patient is adopted.SOCIAL HISTORY:Tobacco: None. Alcohol: None. Substance abuse: None.REVIEW OF SYSTEMS:Positive for functional capacity of at least 4 metabolic equivalents with no active cardiopulmonary symptoms. Positive for hearing loss. Negative for: Constitutional, EENT, Cardiovascular, Respiratory, Gastrointestinal, Integumentary, Neurological, Psychiatric, Endocrine, Hematological, and/or Immunological Symptoms, except as listed above.PHYSICAL EXAMINATION:Vital Signs: Blood pressure 130/80, temperature 98.1, pulse 76, height 64, weight 153, BMI is 26.General: This is a pleasant, age-appropriate male, in no apparent distress.Skin: Normal turgor; No rashes.Eyes: Pupils equal bilaterally; Anicteric sclerae.ENMT: Hearing intact; Oropharynx clear with moist mucosa.Neck: Trachea midline; No goiter.Respiratory: Clear to auscultation bilaterally; No accessory muscle use noted.Cardiovascular: Regular rate and rhythm; No peripheral edema noted.Gastrointestinal: Soft and non-tender; No hepatosplenomegaly.Musculos keletal: No calf tenderness bilaterally; No clubbing or cyanosis of digits noted.Psychiatric: Alert and oriented x 3; Appropriate affect.LABORATORY:EKG: Read independently today reveals normal sinus rhythm with small Q-waves in the inferior leads possibly consistent with an inferior infarct. This appears chronic and unchanged from 11/2014.Pulse oximetry: 96% on room air.Blood work has been ordered.Medical records pertinent to preoperative risk stratification have been reviewed and include a favorable cardiac stress test from 2014.IMPRESSION AND PLAN:1. Preoperative medical risk stratification indicates that this patient is at medically acceptable risk for elective major orthopedic surgery, pending labs.2. Osteoarthritis of the right shoulder. The patient has been advised on avoidance of aspirin, nonsteroidal anti-inflammatory drugs, and herbal supplements for at least 1 week preoperatively.3. This patient has no active cardiac conditions, revised cardiac risk index score of zero, functional capacity is at least 4 metabolic equivalents. He is considered at acceptable cardiac risk based on current [place] [employer]/[place] [employer] guidelines.4. Hypertension. Well-controlled and optimized for surgery. The patient has been given advice on management of his antihypertensive regimen perioperatively.5. Hyperlipidemia. Managed with several medicines including statin therapy. He should be maintained on statin therapy perioperatively in order to reduce the risk of perioperative cardiovascular complications.6. Gout. Currently without acute exacerbation on allopurinol prophylaxis, which should be continued perioperatively.7. Body mass index of 26. The patient is at low probability for obstructive sleep apnea. He will follow up with his primary care physician for weight loss management.8. Nausea and vomiting with prior anesthesia. Perioperative antiemetic prophylaxis is recommended.Signed: STEPHON Shrestha EARL EBirthdate: 1950MRN: [id number]#: [id number]/12/18/2017 11:30:41 T12/18/2017 14:01:56VOICE JOB ID:[id number] [place] thanks you for the opportunity to care for your patient.DID: [id number] Normal [facility] Basic Metabolic Panelon 11-25 Calcium mass conc 9.4 mg/dL Normal 8.5-10.6 [facility] Chloride molar conc 101 mmol/L Normal 98-107 [facility] CO2 molar conc 28 mmol/L Normal 21-32 [facility] Creatinine mass conc 1.24 mg/dL Normal 0.70-1.30 [facility] Glucose mass conc 58 mg/dL Low 74-106 [facility] Potassium molar conc 4.7 mmol/L Normal 3.5-5.1 [facility] Sodium molar conc 137 mmol/L Normal 136-145 [facility] Urea nitrogen mass conc (BldV) 23 mg/dL High 7-18 [facility] Urea nitrogen/Creatinin e mass ratio 19 mg/mg Normal [facility] CBC with Differentialon 07-2 Basophils Auto #/vol (Bld) 0.1 thou/mcL Normal 0.0-0.2 [facility] Basophils/100 WBC Auto (Bld) 1.1 % Normal 0-3 [facility] Differential cell count method Nom (Bld) AUTOMATED DIFFERENTIAL Normal [facility] Eosinophils Auto #/vol (Bld) 0.4 thou/mcL Normal 0.0-0.4 [facility] Eosinophils/100 WBC Auto (Bld) 3.8 % Normal 0-7 [facility] Erythrocyte distribution width Entitic volume (RBC) 14.1 % Normal 11.7-15.0 [facility] Hematocrit Auto Volume Fraction (Bld) 37.6 % Normal 34.0-50.0 [facility] Hemoglobin mass conc (Bld) 12.7 g/dL Normal 11.5-17.0 [facility] Lymphocytes Auto #/vol (Bld) 3.8 thou/mcL Normal 0.7-4.5 [facility] Lymphocytes/100 WBC Auto (Bld) 38.5 % Normal 14-46 [facility] MCH Auto Entitic mass (RBC) 29.1 Picograms Normal 27.0-34.0 [facility] MCHC Auto mass conc (RBC) 33.8 g/dL Normal 32.0-36.0 [facility] MCV Auto Entitic volume (RBC) 86.0 fL Normal 80-98 [facility] Monocytes Auto #/vol (Bld) 0.7 thou/mcL Normal 0.1-1.0 [facility] Monocytes/100 WBC Auto (Bld) 7.2 % Normal 4-13 [facility] Neutrophils Auto #/vol (Bld) 4.8 thou/mcL Normal 1.5-7.8 [facility] Neutrophils/100 WBC Auto (Bld) 49.4 % Normal 40-74 [facility] Platelet mean volume Entitic volume (Bld) 7.9 FL Normal 7.5-11.2 [facility] Platelets Auto #/vol (Bld) 371 thou/mcL Normal 140-415 [facility] RBC Auto #/vol (Bld) 4.37 x(10)6/mcL Normal 3.80-5.60 [facility] WBC Auto #/vol (Bld) 9.8 thou/mcL Normal 4.0-10.[address] [facility] [address] U-Ext w/o Contrast RTon 0 12-18-2017 CT Upper extremity - right WO contrast EXAMINATION TYPE: CT U-Ext w/o Contrast RT DATE OF EXAM ORDERED: 12/18/2017 1:10 PMHISTORY: Rotator cuff arthropathy.COMPARISON: NONEFINDINGS: There are full-thickness rotator cuff tears of the supraspinatus and infraspinatus tendons with atrophy of the supraspinatus and infraspinatus muscles. There is atrophy of the subscapularis muscle. Full-thickness tear of the subscapularis tendon is not excluded. Cranial elevation of the humeral head due to the full-thickness rotator cuff tear.There is fragmentation of the os acromiale. The elevated humeral head is articulating with the undersurface of the acromium. Arthrosis of the AC joint with undersurface spurring. Degenerative subcortical fibrocystic changes in the greater tuberosity humerus. Labrum and biceps tendon is not well evaluated on CTArthrosis of the glenohumeral joint. No acute fractures about the shoulder. No osteonecrosis of the humeral head. The glenoid is intact. Right clavicle is intact. Degenerative changes of the right sternoclavicular joint.No mass or adenopathy in the right axilla. Right upper lung is clear.IMPRESSION: Full-thickness rotator cuff tears of the supraspinatus and infraspinatus tendons with tendon retraction and atrophy of the rotator cuff muscles. Possible full-thickness tear of the subscapularis tendon.Cranial elevation of the humeral head, articulating with the fragmented os acromiale.Arthrosis of the right glenohumeral joint and right AC joint.[facility] thanks you for the opportunity to care for your patient. Workstation ID: [id number] - [id number] FINAL REPORT Dictated By: Braden Jauregui MD 12/18/2017 13:48Assigned Physician: Braden Jauregui MD and Electronically Signed By: Braden Jauregui MD 12/18/2017 14:04Transcribed by: ANOOP 12/18/2017 13:48Technologist: WILLIAM Normal [facility] Partial Thromboplastin Time (aPTT)on 12-18-2017 aPTT Coag time (Bld) 24 Sec Low 24.4-37.5 [facility] Prothrombin Timeon 8 INR Coag RelTime (Bld) 0.9 {INR} Normal 0.8-1.2 [facility] Comment on above: Result Comment: ROBERTO MICHAEL THE INDUCTION PHASE OF ORAL ANTICOAGULATION, THE INR MAY NOT REFLECT THE ANTICOAGULANT STATUS OF THE PATIENT. THERAPEUTIC RANGES FOR INR'S ARE: MOST CLINICAL SITUATIONS: INR 2.0-3.0 MECHANICAL PROSTHETIC VALVES: INR 2.5-3.5 CRITICAL: INR 5.0 Prothrombin time (PT) Coag time (PPP) 9.8 Sec Normal 9.4-12.5 [facility] Vital Signs Date Time Vital Sign Value Performing Clinician Faci pauline 11-09-2024 14:44-0400 Body temperature 97.6 [degF] Dr. Dawood Hernandez DO Work Phone: [facility] 11-09-2024 14:44-0400 Diastolic blood pressure 80 mm[Hg] Dr. Dawood Hernandez DO Work Phone: [facility] 11-09-2024 14:44-0400 Heart rate 62 /min Dr. Dawood Hernandez DO Work Phone: [facility] 11-09-2024 14:44-0400 Respiratory rate 16 /min Dr. Dawood Hernandez DO Work Phone: [facility] 11-09-2024 14:44-0400 SaO2% (BldA) [Mass fraction] 98 % Dr. Dawood Hernandez DO Work Phone: [facility] 11-09-2024 14:44-0400 Systolic blood pressure 157 mm[Hg] Dr. Dawood Hernandez DO Work Phone: [facility] 11-09-2024 12:05-0400 Body height 162.[address] Dawood Hernandez DO Work Phone: [facility] 11-09-2024 12:05-0400 Body mass index (BMI) [Ratio] 24.5 kg/m2 Dr. Dawood Hernandez DO Work Phone: [facility] 11-09-2024 12:05-0400 Body weight [address] Dawood Hernandez DO Work Phone: [facility] 06-03-2024 13:29-0500 Body height 162.6 cm Aurea Mckenna MD Work Phone: [facility] 06-03-2024 13:29-0500 Body mass index (BMI) [Ratio] 24.89 kg/m2 Aurea Mckenna MD Work Phone: [facility] 06-03-2024 13:29-0500 Body weight 65.77 kg Aurea Mckenna MD Work Phone: [facility] 06-03-2024 13:29-0500 Diastolic blood pressure 72 mm[Hg] Aurea Mckenna MD Work Phone: [facility] 06-03-2024 13:29-0500 Heart rate 68 /min Aurea Mckenna MD Work Phone: [facility] 06-03-2024 13:29-0500 Systolic blood pressure 150 mm[Hg] Aurea Mckenna MD Work Phone: [facility] 06-20-2022 12:45-0500 Body height 158.8 cm Aurea Mckenna MD Work Phone: [facility] 06-20-2022 12:45-0500 Body weight 67.59 kg Aurea Mckenna MD Work Phone: [facility] 06-20-2022 12:45-0500 Diastolic blood pressure 64 mm[Hg] Aurea Mckenna MD Work Phone: [facility] 06-20-2022 12:45-0500 Heart rate 76 /min Aurea Mckenna MD Work Phone: [facility] 06-20-2022 12:45-0500 Systolic blood pressure 130 mm[Hg] Aurea Mckenna MD Work Phone: [facility] 12-20-2021 13:27-0400 Body height 161.3 cm Aurea Mckenna MD Work Phone: [facility] 12-20-2021 13:27-0400 Body weight 65.32 kg Aurea Mckenna MD Work Phone: [facility] 12-20-2021 13:27-0400 Diastolic blood pressure 66 mm[Hg] Aurea Mckenna MD Work Phone: [facility] 12-20-2021 13:27-0400 Heart rate 66 /min Aurea Mckenna MD Work Phone: [facility] 12-20-2021 13:27-0400 Systolic blood pressure 119 mm[Hg] Aurea Mckenna MD Work Phone: [facility] Encounters Encounter Date Encounter Type Care Provider Facility Start: 11-09-2024 ambulatory Dawood Amador ty:[facility] Start: 11-09-2024 End: 11-09-2024 Admission to same day surgery center Dr. Dawood Hernandez DO -[facility] Start: 11-09-2024 End: 11-09-[address] Dawood Hernandez DO Work Phone: [facility] Work Phone: Start: 11-04-2024 ambulatory ISAIAS KABA [facility] Start: 11-04-2024 End: 11-04-2024 Emergency department patient visit PITO MCGOWAN [facility] Start: 10-29-2024 End: 10-29-2024 ambulatory [facility] Start: 10-29-2024 End: 10-29-2024 Encounter for other preprocedural examination [facility] Start: 06-03-2024 End: 06-03-2024 Office outpatient visit 25 minutes Aurea cMkenna MD Work Phone: [facility] Comment on above: CKD stage G3a/A2, GF R 45-59 and albumin creatinine ratio 30- 299 mg/g (HCC) (Primary Dx); Anemia of renal disease; Stage 3a chronic kidney disease (HCC); Dietary counseling and surveillance; Vitamin D deficiency; Hypertension, essential; Hyperuricemia; Other proteinuria Start: 06-02-2024 End: 06-02-2024 ambulatory ISAIAS KABA Facility:[facility] Start: 02-04-2024 End: 02-04-2024 ambulatory ISAIAS TRIPP [facility] Start: 01-24-2024 End: 01-24-2024 ambulatory ISAIAS TRIPP [facility] Start: 11-19-2023 End: 11-19-2023 ambulatory ISAIAS TRIPP [facility] Start: 06-20-2022 End: 06-20-2022 Office outpatient visit 25 minutes Aurea Mckenna MD Work Phone: [facility] Comment on above: Stage 3a chronic kid deangelo disease (HCC) (Primary Dx); Chronic kidney disease-mineral and bone disorder; Vitamin D deficiency; Other proteinuria; Anemia of renal disease; Stage 2 chronic kidney disease; Dietary counseling and surveillance; Hypertension, essential; Hyperuricemia Start: 12-20-2021 End: 12-20-2021 Office outpatient visit 25 minutes Aurea Mckenna MD Work Phone: [facility] Comment on above: Stage 3a chronic kid deangelo disease (HCC) (Primary Dx); Anemia of renal disease; Chronic kidney disease-mineral and bone disorder; Dietary counseling and surveillance; Vitamin D deficiency; Hypertension, essential; Hyperuricemia; Other proteinuria Start: 05-24-2021 Orders Only Aurea daigle MD Work Phone: [facility] Comment on above: Chronic kidney disea se, unspecified CKD stage (Primary Dx); Essential hypertension, benign; Vitamin D deficiency; 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) Start: 01-09-2018 End: 01-09-2018 Evaluation and management of inpatient JOVAN KRISHNA Facility:[facility] Start: 12-18-2017 End: 12-19-2017 Patient encounter JOVAN KRISHNA Facility:[facility] Start: 12-18-2017 End: 12-19-2017 Patient encounter NAJMA OCONNOR Facility:[facility] Procedures Date Procedure Procedure Detail Performing Clinician Start: 11-09-2024 Fluoroscopic guidance Jaylan Hernandez DO Work Phone: Start: 11-09-2024 Open reduction with internal fixation Dr. Dawood Hernandez DO Work Phone: Start: 01-24-2024 PSA screening ISAIAS BABB Comment on above: Performed By: #### [id number] ####[facility],[address] [place] [address] Plan of Treatment Date Care Activity Detail Author Start: 12-16-2031 Urine microalbumin profile DTaP,Tdap,Td Vaccine (2 - Td or Tdap) [facility] Start: 11-16-2025 Diabetes Screening Diabetes Screening [facility] Start: 2025 RSV Vaccine (1 - 1-dose 75+ series) RSV Vaccine (1 - 1-dose 75+ series) [facility] Start: 06-09-2025 End: 06-09-2025 Patient encounter procedure 06/09/2025 1:00 PM EST Office Visit CP [facility] [address] [address] Aurea Mckenna MD [address] [facility] [address] [place] [address] 1 yr f/u [facility] Comment on above: 1 yr f/u Start: 06-03-2025 End: 09-02-2025 25-hydroxyvitamin D3 [Mass/volume] in Serum or Plasma VITAMIN D 25 HYDROXY Lab Routine Vitamin D deficiency Expected: 06/03/2025, Expires: 09/02/2025 [facility] Comment on above: Expected: 06/03/2025, Expires: Start: 06-03-2025 End: 09-02-2025 CBC W Auto Differential panel - Blood COMPLETE BLOOD COUNT AND DIFFERENTIAL Lab Routine Anemia of renal disease Expected: 06/03/2025, Expires: 09/02/2025 [facility] Work Phone: Comment on above: Expected: 06/03/2025, Expires: Start: 06-03-2025 End: 09-02-2025 Magnesium [Mass/volume] in Serum or Plasma MAGNESIUM Lab Routine Stage 3a chronic kidney disease (HCC) Expected: 06/03/2025, Expires: 09/02/2025 [facility] Comment on above: Expected: 06/03/2025, Expires: Start: 06-03-2025 End: 09-02-2025 Microalbumin/Creatinine [Mass Ratio] in Urine ALBUMIN/CREATININE RATIO, URINE Lab Routine Other proteinuria Expected: 06/03/2025, Expires: 09/02/2025 [facility] Comment on above: Expected: 06/03/2025, Expires: Start: 06-03-2025 End: 09-02-2025 Parathyrin.intact [Mass/volume] in Serum or Plasma PTH INTACT Lab Routine Stage 3a chronic kidney disease (HCC) Expected: 06/03/2025, Expires: 09/02/2025 [facility] Comment on above: Expected: 06/03/2025, Expires: Start: 06-03-2025 End: 09-02-2025 Renal function 2000 panel - Serum or Plasma RENAL FUNCTION PANEL Lab Routine Stage 3a chronic kidney disease (HCC) Expected: 06/03/2025, Expires: 09/02/2025 [facility] Comment on above: Expected: 06/03/2025, Expires: Start: 06-03-2025 End: 09-02-2025 Urate [Mass/volume] in Serum or Plasma URIC ACID Lab Routine Stage 3a chronic kidney disease (HCC) Expected: 06/03/2025, Expires: 09/02/2025 [facility] Comment on above: Expected: 06/03/2025, Expires: Start: 06-03-2025 End: 09-02-2025 Urinalysis complete panel - Urine URINALYSIS, WITH MICROSCOPIC Lab Routine Stage 3a chronic kidney disease (HCC) Expected: 06/03/2025, Expires: 09/02/2025 [facility] Comment on above: Expected: 06/03/2025, Expires: Start: 06-02-2025 Complete blood count Hemoglobin/Hematocrit [facility] Start: 06-02-2025 Creatinine measurement Serum Creatinine [facility] Start: 11-09-2024 Application of ice collar, cap or bag [facility] Start: 11-09-2024 Patient discharge [facility] Start: 11-09-2024 Catheterization of vein [facility] Start: 11-09-2024 Following clinical pathway protocol [facility] Start: 11-09-2024 Procedure discontinued [facility] Start: 11-09-2024 Taking patient vital signs [facility] Start: 11-09-2024 Vital signs measurements [facility] Start: 11-09-2024 [facility] Start: 11-09-2024 X-ray of ankle, two views Ankle 2 Views [facility] Start: 11-09-2024 XR Ankle 2 Views [facility] Start: 11-09-2024 Medication education [facility] Start: 05-27-2024 Advance Directive Discussion Advance Directive Discussion [facility] Start: 05-23-2024 DIABETES SCREEN DIABETES SCREEN [facility] Start: 01-26-2024 Covid-19 Vaccine ( season) Covid-19 Vaccine ( season) [facility] Start: 01-26-2024 Influenza vaccination Influenza Vaccine (#1) [facility] Start: 06-19-2023 SERUM CREATININE SERUM CREATININE [facility] Start: 12-20-2022 BP CONTROLLED (<130/80) BP CONTROLLED (<130/80) [facility] Start: 12-18-2022 HEMOGLOBIN/HEMATOCRIT HEMOGLOBIN/HEMATOCRIT [facility] Start: 12-18-2022 SERUM CREATININE SERUM CREATININE [facility] Start: 09-18-2022 End: 06-20-2023 25-hydroxyvitamin D3 [Mass/volume] in Serum or Plasma VITAMIN D 25 HYDROXY Lab Routine Vitamin D deficiency Expected: 09/18/2022, Expires: 06/20/2023 [facility] Work Phone: Comment on above: Expected: 09/18/2022, Expires: 4 Start: 09-18-2022 End: 11-18-2022 ALBUMIN/CREAT RATIO RND UR ALBUMIN/CREAT RATIO RND UR Lab Routine Other proteinuria Expected: 09/18/2022, Expires: 11/18/2022 [facility] Work Phone: Comment on above: Expected: 09/18/2022, Expires: 3 Start: 09-18-2022 End: 06-20-2023 CBC W Auto Differential panel - Blood CBC + DIFF Lab Routine Anemia of renal disease Expected: 09/18/2022, Expires: 06/20/2023 [facility] Work Phone: Comment on above: Expected: 09/18/2022, Expires: 4 Start: 09-18-2022 End: 06-20-2023 Magnesium [Mass/volume] in Serum or Plasma MAGNESIUM BLD Lab Routine Stage 2 chronic kidney disease Expected: 09/18/2022, Expires: 06/20/2023 [facility] Work Phone: Comment on above: Expected: 09/18/2022, Expires: 4 Start: 09-18-2022 End: 06-20-2023 Parathyrin.intact [Mass/volume] in Serum or Plasma PTH INTACT BLD Lab Routine Stage 2 chronic kidney disease Expected: 09/18/2022, Expires: 06/20/2023 [facility] Work Phone: Comment on above: Expected: 09/18/2022, Expires: 4 Start: 09-18-2022 End: 06-20-2023 Renal function 2000 panel - Serum or Plasma RENAL FUNCTION PANEL Lab Routine Stage 2 chronic kidney disease Expected: 09/18/2022, Expires: 06/20/2023 [facility] Work Phone: Comment on above: Expected: 09/18/2022, Expires: 4 Start: 09-18-2022 End: 06-20-2023 Urate [Mass/volume] in Serum or Plasma URIC ACID BLOOD Lab Routine Stage 2 chronic kidney disease Expected: 09/18/2022, Expires: 06/20/2023 [facility] Work Phone: Comment on above: Expected: 09/18/2022, Expires: 4 Start: 09-18-2022 End: 11-18-2022 Urinalysis complete panel - Urine URINALYSIS, WITH MICROSCOPIC Lab Routine Stage 2 chronic kidney disease Expected: 09/18/2022, Expires: 11/18/2022 [facility] Work Phone: Comment on above: Expected: 09/18/2022, Expires: 3 Start: 05-27-2022 ADVANCE DIRECTIVE DISCUSSION ADVANCE DIRECTIVE DISCUSSION [facility] Start: 05-27-2022 DEPRESSION ASSESSMENT DEPRESSION ASSESSMENT [facility] Start: 01-25-2022 Influenza vaccination INFLUENZA (#1) [facility] Start: 12-20-2021 End: 02-19-2022 25-hydroxyvitamin D3 [Mass/volume] in Serum or Plasma VITAMIN D 25 HYDROXY Lab Routine Vitamin D deficiency Expected: 12/20/2021, Expires: 02/19/2022 [facility] Work Phone: Comment on above: Expected: 12/20/2021, Expires: 2 Start: 12-20-2021 End: 02-19-2022 ALBUMIN/CREAT RATIO RND UR ALBUMIN/CREAT RATIO RND UR Lab Routine Other proteinuria Expected: 12/20/2021, Expires: 02/19/2022 [facility] Work Phone: Comment on above: Expected: 12/20/2021, Expires: 2 Start: 12-20-2021 End: 02-19-2022 CBC panel - Blood by Automated count CBC Lab Routine Anemia of renal disease Expected: 12/20/2021, Expires: 02/19/2022 [facility] Work Phone: Comment on above: Expected: 12/20/2021, Expires: 2 Start: 12-20-2021 End: 02-19-2022 Magnesium [Mass/volume] in Serum or Plasma MAGNESIUM BLD Lab Routine Stage 3a chronic kidney disease (HCC) Expected: 12/20/2021, Expires: 02/19/2022 [facility] Work Phone: Comment on above: Expected: 12/20/2021, Expires: 2 Start: 12-20-2021 End: 02-19-2022 Parathyrin.intact [Mass/volume] in Serum or Plasma PTH INTACT BLD Lab Routine Chronic kidney disease-mineral and bone disorder Expected: 12/20/2021, Expires: 02/19/2022 [facility] Work Phone: Comment on above: Expected: 12/20/2021, Expires: 2 Start: 12-20-2021 End: 02-19-2022 Renal function 2000 panel - Serum or Plasma RENAL FUNCTION PANEL Lab Routine Stage 3a chronic kidney disease (HCC) Expected: 12/20/2021, Expires: 02/19/2022 [facility] Work Phone: Comment on above: Expected: 12/20/2021, Expires: 2 Start: 12-20-2021 End: 02-19-2022 Urate [Mass/volume] in Serum or Plasma URIC ACID BLOOD Lab Routine Chronic kidney disease-mineral and bone disorder Expected: 12/20/2021, Expires: 02/19/2022 [facility] Work Phone: Comment on above: Expected: 12/20/2021, Expires: 2 Start: 12-20-2021 End: 02-19-2022 Urinalysis complete panel - Urine URINALYSIS, WITH MICROSCOPIC Lab Routine Stage 3a chronic kidney disease (HCC) Expected: 12/20/2021, Expires: 02/19/2022 [facility] Work Phone: Comment on above: Expected: 12/20/2021, Expires: 2 Start: 05-27-2021 ADVANCE DIRECTIVE DISCUSSION ADVANCE DIRECTIVE DISCUSSION [facility] Start: 05-24-2021 End: 05-24-2022 ALBUMIN/CREAT RATIO RND UR ALBUMIN/CREAT RATIO RND UR Lab Routine Chronic kidney disease, unspecified CKD stage Essential hypertension, benign Expected: 05/24/2021, Expires: 05/24/2022 [facility] Work Phone: Comment on above: Expected: 05/24/2021, Expires: 2 Start: 05-24-2021 End: 05-24-2022 CBC W Auto Differential panel - Blood CBC + DIFF Lab Routine Chronic kidney disease, unspecified CKD stage Essential hypertension, benign Expected: 05/24/2021, Expires: 05/24/2022 [facility] Work Phone: Comment on above: Expected: 05/24/2021, Expires: 2 Start: 05-24-2021 End: 05-24-2022 Magnesium [Mass/volume] in Serum or Plasma MAGNESIUM BLD Lab Routine Chronic kidney disease, unspecified CKD stage Essential hypertension, benign Expected: 05/24/2021, Expires: 05/24/2022 [facility] Work Phone: Comment on above: Expected: 05/24/2021, Expires: 2 Start: 05-24-2021 End: 05-24-2022 PTH INTACT BLD PTH INTACT BLD Lab Routine Chronic kidney disease, unspecified CKD stage Essential hypertension, benign 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) Expected: 05/24/2021, Expires: 05/24/2022 [facility] Work Phone: Comment on above: Expected: 05/24/2021, Expires: 2 Start: 05-24-2021 End: 05-24-2022 Renal function 2000 panel - Serum or Plasma RENAL FUNCTION PANEL Lab Routine Chronic kidney disease, unspecified CKD stage Essential hypertension, benign Expected: 05/24/2021, Expires: 05/24/2022 [facility] Work Phone: Comment on above: Expected: 05/24/2021, Expires: 2 Start: 05-24-2021 End: 05-24-2022 Urate [Mass/volume] in Serum or Plasma URIC ACID BLOOD Lab Routine Chronic kidney disease, unspecified CKD stage Essential hypertension, benign Expected: 05/24/2021, Expires: 05/24/2022 [facility] Work Phone: Comment on above: Expected: 05/24/2021, Expires: 2 Start: 05-24-2021 End: 05-24-2022 Urinalysis complete panel - Urine URINALYSIS, WITH MICROSCOPIC Lab Routine Chronic kidney disease, unspecified CKD stage Essential hypertension, benign Expected: 05/24/2021, Expires: 05/24/2022 [facility] Work Phone: Comment on above: Expected: 05/24/2021, Expires: 2 Start: 05-24-2021 End: 05-24-2022 VITAMIN D 25 HYDROXY VITAMIN D 25 HYDROXY Lab Routine Chronic kidney disease, unspecified CKD stage Essential hypertension, benign Expected: 05/24/2021, Expires: 05/24/2022 [facility] Work Phone: Comment on above: Expected: 05/24/2021, Expires: 2 Start: 01-25-2021 Influenza vaccination INFLUENZA (#1) [facility] Start: 2015 ADVANCE DIRECTIVE DISCUSSION ADVANCE DIRECTIVE DISCUSSION [facility] Start: 2015 PNEUMOCOCCAL: 65+ (1 - PCV) PNEUMOCOCCAL: 65+ (1 - PCV) [facility] Start: 2015 PNEUMOVAX AGE 65 AND OVER WITH 5YR LOOKBACK (#1) PNEUMOVAX AGE 65 AND OVER WITH 5YR LOOKBACK (#1) [facility] Start: 2000 Pneumococcal Vaccine: 50+ (1 of 1 - PCV) Pneumococcal Vaccine: 50+ (1 of 1 - PCV) [facility] Start: 2000 SHINGRIX VACCINE (1 of 2) SHINGRIX VACCINE (1 of 2) [facility] Start: 1995 COLOGUARD (FIT-DNA) COLOGUARD (FIT-DNA) [facility] Start: 1995 Colonoscopy COLONOSCOPY [facility] Start: 1995 COLORECTAL CANCER SCREENING COLORECTAL CANCER SCREENING [facility] Start: [address] COLONOGRAPHY [facility] Start: 1995 FECAL OCCULT BLOOD FECAL OCCULT BLOOD [facility] Start: 1995 Screening for malignant neoplasm of colon [facility] Start: 1995 SIGMOIDOSCOPY SIGMOIDOSCOPY [facility] Start: 1985 Lipid panel Lipid Screening [facility] Start: 1985 LIPID SCREEN LIPID SCREEN [facility] Start: 1969 Urine microalbumin profile DTAP,TDAP,TD (1 - Tdap) [facility] Start: 1968 ANNUAL PCP TEAM CHRONIC DISEASE VISIT ANNUAL PCP TEAM CHRONIC DISEASE VISIT [facility] Start: 1968 Anxiety Screening Anxiety Screening [facility] Start: 1968 BP CONTROLLED (<130/80) BP CONTROLLED (<130/80) [facility] Start: 1968 Depression Screening Depression Screening [facility] Start: 1962 Adult depression screening assessment DEPRESSION SCREENING [facility] Start: 1955 COVID-19 VACCINE (1) COVID-19 VACCINE (1) [facility] Start: 01-19-1951 COVID-19 VACCINE (#1) COVID-19 VACCINE (#1) [facility] Patient referral [facility] Work Phone: [facility] Immunizations Immunization Date Immunization Notes Care Provider Fa cility 12-15-2021 tetanus toxoid, redu stef diphtheria toxoid, and acellular pertussis vaccine, adsorbed Aurea Mckenna MD Work Phone: [facility] Payers Date Payer Category Payer Self-pay 2015 Medicare 2015 Medicare MEDICARE MEDICAR E A AND B [id number] 2015-Present [phone] [place] [address] Medicare [id number] 2015 Medicare [id number] 1950 Unknown [id number] 1950 Unknown [id number] 1950 Unknown [id number] 1950 Unknown [id number] 1950 Unknown [id number] 1950 Unknown [id number] 1950 Unknown [id number] Social History Date Type Detail Facility Start: 06-05-2023 End: 11-06-2024 Tobacco smoking status NHIS Never smoked tobacco [facility] Start: 06-21-2008 End: 06-03-2024 Alcohol intake Current non-drinker of alcohol (finding) [facility] Start: 1950 Sex Assigned At Not on file [facility] Exposure to SARS-CoV -2 (event) Not sure [facility] Start: 06-05-2023 Tobacco use and exposure Smokeless tobacco non-user [facility] Start: 06-03-2024 History of Social function [facility] Start: 06-03-2024 Tobacco use panel [facility] Start: 1950 Sex Assigned At Male [facility] Goals Date Patient Goal Desired Activity /State Mental Status Date Assessment Result Facility 11-09-2024 Cognitive function Voice/Name [facility] Work Phone: Clinical Notes 05-17-2021 to 11-09-2024 Note Date & Type Note Facility 11-09-2024 Consult note Note Date/Time November 09, 2024 1:02pm [facility] Medical Records Department [address] [place] [address] Pre-Anesthesia Evaluation 11/09/24 1250 MR#: [id number] Acct: [id number] Name: MYCHAL SWANSON Rep #:[id number] : 1950 74 From: Rito Henderson MD PCP: Dr. Isaias Kaba MD Status:REG SDC Y Race: C Location: [place] [address] ASA Classification* ASA Classification ASA Classification: 2 Assessment & Plan Anesthesia* Anesthesia Assessment Anesthesia Assessment: Discussed sedation and/or anesthesia options, risks, benefits, and alternatives with patient/parents/legal guardian/POA. Questions invited. The patient/parents/legal guardian/POA seems to understand and agrees to proceedwith anesthesia plan. Reviewed the physical assessment, medical history, allergy history and patient home medications list prior to surgery/procedure/anesthetic and documented any changes. Performed airway and anesthesia risk assessments. Anesthesia Type Anesthesia Type: General and Block (Patient is consented for postop block for pain.) History Source History Obtained from:: Patient and Chart Anesthesia Focused Assessment* Temperature: 97.4 F Pulse Rate: 63 Blood Pressure: 132/94 Respiratory Rate: 16 Pulse Ox: 99 Oxygen Delivery Method: Room Air Airway Assessment Mouth opens: >3 cm Mallampati Score: IV Teeth Condition: Intact Neck Range of motion (ROM): Limited ROM (Slight decrease in extension) Labs Anesthesia Preop lab: CBC CHEMISTRY COAG Pre-Assessment Diagnosis/Proposed Procedure Planned Operative Procedure(s): LEFT ANKLE OPEN REDUCTION W/ SYNDESMOSIS FIXATION Anesthesia History 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 When Was Last Pacemaker Check QUESTION #4 FULL TEXT: You/Your Family Experience fever (hyperthermia) with Anesthesia Last Oral Intake Last Oral intake: Last Oral Intake NPO since 19:30 11/09/24 12:05 Meds taken in AM with sips of Yes 11/09/24 12:05 water? 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 Female No 11/06/24 10:42 HX of Motion Sickness Yes 11/06/24 10:42 HX of N/V After Surgery Yes 11/06/24 10:42 Non-Smoker Yes 11/06/24 10:42 Duration of Surgery greater Yes 11/06/24 10:42 than 60 minutes Number of Risk Factors 4 11/06/24 10:42 PONV Score Severe Risk 11/06/24 10:42 Height & Weight Height & Weight: Anesthesia: Height & Weight Height 5 ft 4 in 11/09/24 12:05 Weight: 65 kg 11/09/24 12:05 Body Mass Index (BMI) 24.5 11/09/24 12:05 Respiratory Assessment Respiratory Assessment - school guidance counselor: Respiratory Tract Infection Hx - school guidance counselor Hx Respiratory Tract Infection No 11/06/24 10:42 STOP Sleep Apnea STOP Sleep Apnea - school guidance counselor: STOP Sleep Apnea - school guidance counselor Hx Hypertension Yes: CONTROLLED ON MED 11/06/24 10:42 Hx Sleep Apnea No 11/06/24 10:42 CPAP BIPAP Do you snore loudly (louder No 11/06/24 10:42 than talking or can be heard Do you often feel tired/ No 11/06/24 10:42 fatigued/ sleepy during daytime? Has anyone observed you stop No 11/06/24 10:42 breathing during sleep? STOP Results Negative 11/06/24 10:42 QUESTION #5 FULL TEXT : Do you snore loudly (louder than talking or can be heard through closed doors)? 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 Specify any problems Hx of Preganancy in last 3 N/A 11/06/24 10:42 Months Nurse Filling Out Transfusion VCHRISTIN 11/06/24 10:42 & Questions: Date: 11/06/24 11/06/24 10:42 Time: 10:44 11/06/24 10:42 Patient unable to answer at this time (ie. confused, unrespo /Reproduction History /Reproductive History - school guidance counselor: /Reproductive Hx- school guidance counselor Hx Now No 11/06/24 10:42 Gestational Age (in weeks): EDC: Hx Hx Para Hx Section SAB No 11/06/24 10:42 Active Medications Active Medications: Current Medications Generic Name Dose Route Start Last Admin Trade Name Freq PRN Reason Stop Dose Admin Cefazolin Sodium 2 gm/ Sodium 110 mls @ 150 mls/hr 11/09/24 13:15 Chloride IV 11/09/24 13:58 INTRAOP ONE Lactated Ringer's 1,000 mls @ 15 mls/hr 11/09/24 12:00 11/09/24 12:21 IV 15 mls/hr .Q48H RODOLFO Administration PFSH Medical History Wears hearing aid Wears glasses History of steroid therapy Lyme disease Swartz's palsy Gout Kidney stones High cholesterol Non-smoker History of stress test Hypertension Hx of sepsis Home Medications ?Medication ?Instructions ?Recorded ?Last Taken ?Type acyclovir 400 mg tablet 400 mg PO 5X/DAY 11/06/24 Un known History allopurinol 300 mg tablet 300 mg PO DAILY 11/06/24 Unk nown History aspirin 81 mg tablet 81 mg PO BID 11/06/24 History atenolol 50 mg tablet 50 mg PO QPM 11/06/24 History coenzyme Q10 100 mg capsule (Co 100 mg PO DAILY 11/05/24 History Q-10) doxycycline monohydrate 100 mg 100 mg PO BID 11/06/24 Unknown History tablet fenofibrate micronized 134 mg 134 mg PO DAILY 11/06/24 Unknown History capsule ginkgo biloba 40 mg tablet 40 mg PO DAILY 11/06/2405/20 History losartan 100 mg tablet 100 mg PO DAILY 11/06/24 07:00 History niacin 500 mg tablet 500 mg PO BID 11/06/24 Unkno wn History omega 0-tmr-byn-fish oil 1,200 mg 1 cap PO DAILY 11/0611/05/24 History (144 mg-216 mg) capsule (Fish Oil) prednisone 20 mg tablet 20 mg PO BID 11/06/24 Unknow n History psyllium husk 0.4 gram capsule 0.4 g PO DAILY 11/06/24 Unknown History (Daily Fiber) rosuvastatin 40 mg tablet 40 mg PO DAILY 11/06/24 Unkn own History Allergy/AdvReac Type Severity Reaction Status Date / Time DOMONIQUE Inhibitors Allergy Severe Rash Verified 11/09/24 12:02 gemfibrozil Allergy Severe Other Verified 11/09/24 12:02 Surgical History Hx of hemorrhoidectomy Hx of hernia repair Hx of appendectomy 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 11/09/24 1302 <Electronically signed by Rito lazo MD> Date _ Rito Henderson MD Cosigner Signature: Date CC: ~ Signed [facility] Work Phone: 1(220) 726-713206-16-2025 Consult note [facility] Medical Records Department [address] [place] [address] Anesthesia Postop Eval I 11/09/24 1404 MR#: [id number] Acct: [id number] Name: MYCHAL SWANSON Rep #:[id number] : 1950 74 From: Lily Chiu CRNA PCP: Dr. Isaias Kaba MD Status:REG [facility] Y Race: C Location: [place] [address] Anesthesia: Postop Eval I Current Vital Signs Temperature: 97.2 F Pulse Rate: 62 Blood Pressure: 148/84 Respiratory Rate: 16 Pulse Ox: 96 Oxygen Delivery Method: Room Air Assessment Airway patent: Yes Spontaneous unlabored respirations: Yes Mental status: Awake nausea: No Vomiting: No Anesthesia Complication: No Fluid Hydration Crystalloid volume administer (ml): 800 Total IV fluid infused: 800 Progress Note Anesthesia document: Postop Eval 1 completed: Yes 11/09/[address] [employer] SUBMERGENCE [employer]HICLE CREWMEMBER> Date _ Lily Chiu DEEP SUBMERGENCE [employer]HICLE CREWMEMBER Cosigner Signature: Date CC: ~ Signed [facility]06-16-2025 Procedure note [facility] Medical Records Department [address] [place] [address] Operative Report 11/09/24 1346 MR#: [id number] Acct: [id number] Name: MYCHAL SWANSON Rep #:[id number] : 1950 74 From: Dawood oconnell DO PCP: Dr. Isaias Kaba MD Status:REG [facility] Location: [place] [address] Operative Report (Standard) Operative Information Date of Procedure: 11/09/24 Pre-Operative Diagnosis: Left ankle syndesmosis rupture with Maisonneuve fracture Post-Operative Diagnosis: Left ankle syndesmosis rupture with Maisonneuve fracture Surgery/Procedure Performed: Open reduction internal fixation left ankle syndesmosis rn forensic: Yes Alum Mixer: Shauna Prescott Tasks completed by first beater: Opening & closing and Hemostasis: Electrocautery Type of Anesthesia: General RN Documented Start/Stop Times: Operation Date: 11/09/24 13:15 Case Time Into Pre-Op 11/09/24 11:46 Out of Pre-Op 11/09/24 13:04 Anesthesia Start 11/09/24 13:06 Into Room 11/09/24 13:06 Procedure Start 11/09/24 13:24 Procedure Start Time: 13:24 Procedure Stop Time: 13:53 Select all DRAINS/GRAFTS/IMPLANTS that apply: Implanted device Implanted device details: Arthrex tight rope 2 x 2, 2 hole third tubular plate Estimated Blood Loss: 2 cc Specimen collected: No Description of surgery: Patient was greeted in the same-day surgery holding area and identified by name,medical record number, and date of . The operative extremity was marked. All questions were answered to the patient's satisfaction. At time of his procedure, patient was brought the operative suite positioned supine a standard operating table. General anesthesia was induced and LMA placed. The left lowerextremitywas then prepared for surgery. Leg was elevated on bath blankets and a hip was placed in the patient's left hip. We prepped and draped the left lower extremity in a normal, sterile orthopedic fashion. We performed a timeoutconfirming the side, site, and operation to be performed. No concerns were voiced and we opted to proceed with surgery. 2 g Ancef administered IV prior toincision by anesthesiastaff. I then exsanguinated the left lower extremity with Esmarch bandage. Tourniquet was inflated 250 mmHg which remained elevated for 14 minutes. Esmarch was removed. Lateral approach to the distal fibula wasperformed in standard fashion, approximately 4 cm incision. Skin flaps were developed down to level of the periosteum. Periosteum was left intact. I then performed external rotation stress test which revealed syndesmotic instability as well as a cotton test. I then proceeded with reduction of the syndesmosis. I was able to palpate the syndesmosis and without articular incongruity noted I applied a gentle press on the lateral fibula. I then selected our 2 hole plate and secured to bonewith a BB tack. Appropriate positioning was noted on orthogonal fluoroscopy. I then used a long K wire to plantar trajectory of the tight ropes which were placed in the orientation of the syndesmosisparallel with the tibial plafond. I then drilled across the 4 cortices. Tight ropes were placed in standard fashion and deployed and sequentially tightened. Repeatstress testing was now stable. Orthogonal fluoroscopy was obtained demonstratedgood positioning. Tourniquet deflated. Hemostasis was excellent. Wound was irrigated with saline. Dermis was reapproximated buried 2-0 Vicryl suture and skinreapproximated with interrupted horizontal mattress 3-0 nylon suture. Medial and lateral field blocks were administered with 10 cc total quarter percent bupivacaine with epinephrine. Bulky sterile compression dressing was applied. Patient was placed in a short leg 3 sided AO type fiberglass splint inmaximal dorsiflexion. He was safely awakened in the operative suite and extubated. He was transferred to his gurney and subsequently PACU in stable condition. He tolerated the procedure well without apparent complication. Need for skilled assistant vice president: Shauna Prescott PA-C was critical to the outcome of thecase. During the course of the procedure the physician assistant vice president played a vitalrole. Her intimate knowledge of my stepsin the procedure aided in safe and expedient completion of the procedure. The PA played a vital role in positioning particularly in obtaining the appropriate positioning. The PA was also vital in theretraction of soft tissues during the exposure and protecting vital structures. The PA was also vital and obtaining bony reduction and assisting with hardware placement. She also played a vital role in closure and splint application with my direct supervision. Postoperative plan: Nonweightbearing to the operative extremity x 6 weeks. Transition to cam boot in 2 weeks for early range of motion of physical therapy. Multimodal pain management with Tylenol, NSAIDs and oxycodone. Ice and elevation. X-rays in splint 2 weeks postop. Aspirin 81 mg twice daily for DVT prophylaxis x 6 weeks. Surgical Findings: Syndesmosis instability, stable following failure of fixation x 2 Complications Complications: No Admit VTE Documentation VTE Present on Admission: No VTE Mechan Device Prophylaxis: SCD's VTE Pharm Prophylaxis ordered?: Yes 11/09/24 1354 Cosigner Signature (if applicable): CC: Dr. Isaias Kaba MD; Dr. Dawood Hernandez, DO~ Signed [facility]06-16-2025 Consult note [facility] Medical Records Department [address] [place] [address] Pre-Anesthesia Evaluation 11/09/24 1250 MR#: [id number] Acct: [id number] Name: MYCHAL SWANSON Rep #:[id number] : 1950 74 From: Rito Henderson MD PCP: Dr. Isaias Kaba MD Status:REG SDC Y Race: C Location: [place] [address] ASA Classification* ASA Classification ASA Classification: 2 Assessment & Plan Anesthesia* Anesthesia Assessment Anesthesia Assessment: Discussed sedation and/or anesthesia options, risks, benefits, and alternatives with patient/parents/legal guardian/POA. Questions invited. The patient/parents/legal guardian/POA seems to understand and agrees to proceedwith anesthesia plan. Reviewed the physical assessment, medical history, allergy history and patient home medications list prior to surgery/procedure/anesthetic and documented any changes. Performed airway and anesthesia risk assessments. Anesthesia Type Anesthesia Type: General and Block (Patient is consented for postop block for pain.) History Source History Obtained from:: Patient and Chart Anesthesia Focused Assessment* Temperature: 97.4 F Pulse Rate: 63 Blood Pressure: 132/94 Respiratory Rate: 16 Pulse Ox: 99 Oxygen Delivery Method: Room Air Airway Assessment Mouth opens: >3 cm Mallampati Score: IV Teeth Condition: Intact Neck Range of motion (ROM): Limited ROM (Slight decrease in extension) Labs Anesthesia Preop lab: CBC CHEMISTRY COAG Pre-Assessment Diagnosis/Proposed Procedure Planned Operative Procedure(s): LEFT ANKLE OPEN REDUCTION W/ SYNDESMOSIS FIXATION Anesthesia History 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 When Was Last Pacemaker Check QUESTION #4 FULL TEXT: You/Your Family Experience fever (hyperthermia) with Anesthesia Last Oral Intake Last Oral intake: Last Oral Intake NPO since 19:30 11/09/24 12:05 Meds taken in AM with sips of Yes 11/09/24 12:05 water? 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 Female No 11/06/24 10:42 HX of Motion Sickness Yes 11/06/24 10:42 HX of N/V After Surgery Yes 11/06/24 10:42 Non-Smoker Yes 11/06/24 10:42 Duration of Surgery greater Yes 11/06/24 10:42 than 60 minutes Number of Risk Factors 4 11/06/24 10:42 PONV Score Severe Risk 11/06/24 10:42 Height & Weight Height & Weight: Anesthesia: Height & Weight Height 5 ft 4 in 11/09/24 12:05 Weight: 65 kg 11/09/24 12:05 Body Mass Index (BMI) 24.5 11/09/24 12:05 Respiratory Assessment Respiratory Assessment - school guidance counselor: Respiratory Tract Infection Hx - school guidance counselor Hx Respiratory Tract Infection No 11/06/24 10:42 STOP Sleep Apnea STOP Sleep Apnea - school guidance counselor: STOP Sleep Apnea - school guidance counselor Hx Hypertension Yes: CONTROLLED ON MED 11/06/24 10:42 Hx Sleep Apnea No 11/06/24 10:42 CPAP BIPAP Do you snore loudly (louder No 11/06/24 10:42 than talking or can be heard Do you often feel tired/ No 11/06/24 10:42 fatigued/ sleepy during daytime? Has anyone observed you stop No 11/06/24 10:42 breathing during sleep? STOP Results Negative 11/06/24 10:42 QUESTION #5 FULL TEXT : Do you snore loudly (louder than talking or can be heard through closeddoors)? 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 Specify any problems Hx of Preganancy in last 3 N/A 11/06/24 10:42 Months Nurse Filling Out Transfusion VCHRISTIN 11/06/24 10:42 & Questions: Date: 11/06/24 11/06/24 10:42 Time: 10:44 11/06/24 10:42 Patient unable to answer at this time (ie. confused, unrespo /Reproduction History /Reproductive History - school guidance counselor: /Reproductive Hx- school guidance counselor Hx Now No 11/06/24 10:42 Gestational Age (in weeks): EDC: Hx Hx Para Hx Section SAB No 11/06/24 10:42 Active Medications Active Medications: Current Medications Generic Name Dose Route Start Last Admin Trade Name Freq PRN Reason Stop Dose Admin Cefazolin Sodium 2 gm/ Sodium 110 mls @ 150 mls/hr 11/09/24 13:15 Chloride IV 11/09/24 13:58 INTRAOP ONE Lactated Ringer's 1,000 mls @ 15 mls/hr 11/09/24 12:00 11/09/24 12:21 IV 15 mls/hr .Q48H RODOLFO Administration PFSH Medical History Wears hearing aid Wears glasses History of steroid therapy Lyme disease Swartz's palsy Gout Kidney stones High cholesterol Non-smoker History of stress test Hypertension Hx of sepsis Home Medications ?Medication ?Instructions ?Recorded ?Last Taken ?Type acyclovir 400 mg tablet 400 mg PO 5X/DAY 11/06/24 Un known History allopurinol 300 mg tablet 300 mg PO DAILY 11/06/24 Unk nown History aspirin 81 mg tablet 81 mg PO BID 11/06/24 History atenolol 50 mg tablet 50 mg PO QPM 11/06/24 History coenzyme Q10 100 mg capsule (Co 100 mg PO DAILY 11/05/24 History Q-10) doxycycline monohydrate 100 mg 100 mg PO BID 11/06/24 Unknown History tablet fenofibrate micronized 134 mg 134 mg PO DAILY 11/06/24 Unknown History capsule ginkgo biloba 40 mg tablet 40 mg PO DAILY 11/06/2405/20 History losartan 100 mg tablet 100 mg PO DAILY 11/06/24 07:00 History niacin 500 mg tablet 500 mg PO BID 11/06/24 Unkno wn History omega 5-eni-btu-fish oil 1,200 mg 1 cap PO DAILY 11/0611/05/24 History (144 mg-216 mg) capsule (Fish Oil) prednisone 20 mg tablet 20 mg PO BID 11/06/24 Unknow n History psyllium husk 0.4 gram capsule 0.4 g PO DAILY 11/06/24 Unknown History (Daily Fiber) rosuvastatin 40 mg tablet 40 mg PO DAILY 11/06/24 Unkn own History Allergy/AdvReac Type Severity Reaction Status Date / Time DOMONIQUE Inhibitors Allergy Severe Rash Verified 11/09/24 12:02 gemfibrozil Allergy Severe Other Verified 11/09/24 12:02 Surgical History Hx of hemorrhoidectomy Hx of hernia repair Hx of appendectomy 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 11/09/24 1302 clifton TRIPP> Date _ Rito Henderson MD Cosigner Signature: Date CC: ~ Signed [facility]02-02-2025 Consult note Author Lily Chiu [facility] Note Date/Time November 09, 2024 2:05 pm [facility] Medical Records Department [address] [place] [address] Anesthesia Postop Eval I 11/09/24 1404 MR#: [id number] Acct: [id number] Name: MYCHAL SWANSON Rep #:[id number] : 1950 74 From: Lily Chiu CRNA PCP: Dr. Isaias Kaba MD Status:REG SDC Y Race: C Location: [place] [address] Anesthesia: Postop Eval I Current Vital Signs Temperature: 97.2 F Pulse Rate: 62 Blood Pressure: 148/84 Respiratory Rate: 16 Pulse Ox: 96 Oxygen Delivery Method: Room Air Assessment Airway patent: Yes Spontaneous unlabored respirations: Yes Mental status: Awake nausea: No Vomiting: No Anesthesia Complication: No Fluid Hydration Crystalloid volume administer (ml): 800 Total IV fluid infused: 800 Progress Note Anesthesia document: Postop Eval 1 completed: Yes 11/09/241404 <Electronically signed by Lily patel CRNA> Date _ Lily Chiu [employer] Cosigner Signature: Date CC: ~ Signed [facility] Work Phone: [phone]) 477-830001-08-2025 History of Present illness Narrative* Aurea Mckenna MD - 06/03/2024 1:33 PM EST SUBJECTIVE: Mychal Swanson is a 73 year old White male with past medical history significant for : Hypertension,gout, hyperlipidemia, hemorrhoidectomy Patient denies any new diagnosis or symptoms. Denies intercurrent illness or hospitalization since last visit. Patient denies any other new medications. Patient denies NSAIDs use. Patient's blood pressure is well controlled at home. Patient's denies any dysuria, hematuria, foamy urine or other voiding complaints. Patient denies any leg swelling, SOB/HINES, orthopnea, PND or other symptoms of fluid overload. Patient denies any overt symptoms of uremia. pt was recently also was in 07 May 2021 with acute kidney injury secondary to ATN. FENa was more than 1%. Patient with a significant use of NSAID for 5 days. Also had hyperkalemia, hypovolemichyponatremia, severe metabolic acidosis and hypocalcemia. Patient also had a urinary transmitted bladder distention partially although there was no hydronephrosis. Since creatinine decreased at 3.43 mg/dL upon admission. His peak serum creatinine was 6.97. PAST MEDICAL HISTORY Diagnosis Date Essential hypertension, benign Gout, unspecified Mixed hyperlipidemia ALLERGIES Allergen Reactions Domonique Inhibitors Rash Ceftriaxone Myalgia Gemfibrozil Rash Current Outpatient Medications Medication Sig fenofibrate (LOFIBRA) 134 mg capsule Take 134 mg by mouth once daily. losartan (COZAAR) 100 mg tablet Take 100 mg by mouth daily at bedtime. ubidecarenone/vitamin E mixed (COQ10 SG 100 ORAL) Take 100 mg by mouth five times a week. mon thru sat Lonsk-8-AMC-EPA-Fish Oil (FISH OIL) 1,000 mg (120 mg-180 mg) cap Take 4 g by mouth three times daily. atenolol (TENORMIN) 50 mg tablet Take 50 mg by mouth every evening. rosuvastatin calcium(CRESTOR 20 MG TAB) Take 40 mg by mouth once daily. psyllium seed/sucrose(METAMUCIL ORAL POWDER) Take one powder packet daily ALLOPURINOL 300 MG TAB Take one(1) tablet daily. aspirin(JAVIER LOW STRENGTH 81 MG TAB) Take one(1) tablet daily. MULTIVITAMIN TABLET Take one(1) tablet daily. No current facility-administered medications for this visit. Social History Tobacco Use Smoking status: Never Smokeless tobacco: Never Vaping Use Vaping status: Never Used Substance Use Topics Alcohol use: No Drug use: No PAST SURGICAL HISTORY Procedure Laterality Date PAST SURGICAL HISTORY OF Appendix removed PAST SURGICAL HISTORY OF Kidney stone removed by lithotripsy ACTIVE PROBLEM LIST Mixed Hyperlipidemia Unspecified Essential Hypertension Essential Hypertension, Benign Acute Kidney Injury (Hcc) Cellulitis of Left Arm Transaminitis Cholelithiasis Hyponatremia Malnutrition of Mild Degree (Hcc) FAMILY HISTORY Problem Relation Age of Onset Heart No Family History Stroke No Family History Diabetes No Family History FAMILY HISTORY OF: CVA:No CAD: No DIABETES: No HTN: No KIDNEY DISEASE: No NEPHROLITHIASIS: No REVIEW OF SYSTEMS: CONSTITUTIONAL: Denies fevers, chills, and weight changes. Denies fatigue/malaise. EYES: No acute vision change or ocular pain. Denies dryness or redness of eyes. ENT: No difficulties with hearing. No sinus pain or sore throat.No epistaxis, nasal discharge/congestion. No dry mouth, oral ulceration, or gingivitis. PULMONARY: Denies shortness of breath, wheezing, cough or hemoptysis. CARDIOLOGY: Denies chest pain, palpitations, HINES, orthopnea or PND. GI: No anorexia, nausea, vomiting, dysphagia, diarrhea, constipation, abdominal pain, hematochezia or melena. : No urinary hesitancy or dribbling. No nocturia or urinary frequency. No abnormal discharge. No hematuria, dysuria, or flank pain. MUSCULO-SKELETAL: No joint pain, swelling or erythema. ENDO: Denies any Cold or Heat Intolerance. Denies any polyuria or polydipsia. HEME: Denies any bleeding problems, clotting problems or easy Bruising. SKIN: Denies any rashes or skin changes. No itching. NEUROLOGIC: Denies any headache, Dizziness or seizures. No numbness, tingling, weakness or tremors. EXTREMITIES: Denies any lower Extremity edema. Denies any claudication or peripheral ulcer. [A full 12 point ROS was obtained and is negative other than that cited above.] PHYSICAL EXAMINATION: BP 150/72 Pulse 68 Ht 162.6 cm (5' 4) Wt 65.8 kg (145 lb) BMI 24.89 kg/m BMI 24.89 kg/(m^2) GENERAL: Well developed and well nourished, NAD. EYES: Conjunctivae- pink, Non-icterus sclera, Pupils are equal bilaterally, Normal appearing eyelids. HEENT : Normocephalic, atraumatic, oral pharynx clear, mucus membranes moist and pink. no salivary gland enlargement. Inspection of Nasal mucosa WNL. External ear wnl. NECK : Supple, No JVD. No cervical lymphadenopathy or masses. No thyro megaly or tenderness. RESPIRATORY: Resp efforts are WNL. Bilat equal air entry. Clear to auscultation bilaterally CVS : Regular rate and rhythm. Pericardial friction rub is absent. S1, S2 Normal. No Murmer, or gallops. EDEMA none VASCULAR: carotid pulses is palpable bilaterally; carotid bruit is absent; No Abdominal bruit. Peripheral pulse palpable . ABDOMEN: soft, non-distended, non-tender, Normoactive BS. No hepatospleenomegaly. : NO CVA tenderness. bladder is not distended. LYMPHATICS: No cervical, axillary, inguinal lymphadenopathy. MUSULOSKELATAL: No swollen, tender, or warm joints present. No clubbing cyanosis or petechiae. SKIN: No rashes or ulcers present. No induration of skin or subcutaneous area. NEUROLOGIC: Grossly intact. No focal neurological deficit. PSYCH : Orientation to time, place and person. Judgment and insight are WNL. LAB DATA Component Latest Ref Rng & Units 05/30/2021 05/30/2021 05/30/2021 05/30/2021 06/20/2021 10:54 AM 10:54 AM 10:55 AM 10:56 AM WBC 3.70 - 11.00 k/uL 4.83 8.26 RBC 4.20 - 6.00 m/uL 3.07 (L) 3.49 (L) Hemoglobin 13.0 - 17.0 g/dL 8.9 (L) 10.2 (L) Hematocrit 39.0 - 51.0 % 27.2 (L) 30.8 (L) MCV 80.0 - 100.0 fL 88.6 88.3 MCH 26.0 - 34.0 pG 29.0 29.2 MCHC 30.5 - 36.0 g/dL 32.7 33.1 RDW-CV 11.5 - 15.0 % 14.6 14.6 Platelet Count 150 - 400 k/uL 499 (H) 257 MPV 9.0 - 12.7 fL 9.1 8.9 (L) Neut% % 50.5 39.3 Abs Neut (ANC) 1.45 - 7.50 k/uL 2.43 3.23 Lymph% % 32.3 47.5 Abs Lymph 1.00 - 4.00 k/uL 1.56 3.92 [place]% % 11.4 7.3 Abs [place] <0.87 k/uL 0.55 0.60 Eosin% % 3.5 4.1 Abs Eosin <0.46 k/uL 0.17 0.34 Baso% % 2.3 1.8 Abs Baso <0.11 k/uL 0.11 (H) 0.15 (H) Nucleated Reds 0 /100 WBC 0.0 0.0 Absolute nRBC <0.01 k/uL <0.01 <0.01 Diff Type Auto Diff Auto Diff Color Yellow Straw (A) Light Yellow (A) Clarity Clear Clear Clear Glucose, Urine Negative mg/dL Negative Negative Bilirubin, Urine Negative Negative Negative Ketones, Urine Negative Negative Negative Specific [place], Ur 1.005 - 1.030 1.012 1.013 Hemoglobin/Blood,Ur Negative Negative Negative pH, Urine 5.0 - 8.0 6.0 6.0 Protein, Urine Negative 1+ (A) Negative Urobilinogen Negative E.U./dL Negative Negative Nitrites Negative Negative Negative Leukest Negative Negative Negative Comment SEE COMMENT SEE COMMENT Urine Alok Comment SEE COMMENT SEE COMMENT WBC, Urine 0 - 5 /HPF 0-5 0-5 RBC, Urine 0 - 3 /HPF 0-3 0-3 Epithelial Cells /HPF SEE COMMENT Albumin 3.9 - 4.9 g/dL 3.4 (L) 3.4 (L) 4.4 Calcium 8.5 - 10.2 mg/dL 9.0 9.0 9.1 Phosphorus 2.7 - 4.8 mg/dL 4.7 4.6 3.8 Glucose 74 - 99 mg/dL 145 (H) 151 (H) 90 BUN 9 - 24 mg/dL 23 24 26 (H) Creatinine 0.73 - 1.22 mg/dL 1.76 (H) 1.81 (H) 1.37 (H) Sodium 136 - 144 mmol/L 134 (L) 133 (L) 137 Potassium 3.7 - 5.1 mmol/L 4.1 4.1 4.5 Chloride 97 - 105 mmol/L 98 98 102 CO2 22 - 30 mmol/L 21 (L) 22 19 (L) Anion Gap 9 - 18 mmol/L 15 13 16 eGFR- 47 45 >60 eGFR-All Other Races . 38 37 51 Creatinine, Ur Random (UCRR) 20 - 300 mg/dL 72.8 87.6 Albumin, Urine Random mg/L 85.1 37.0 Albumin/Creat Ratio <30 mg/g 117 (H) 42 (H) Magnesium 1.7 - 2.3 mg/dL 1.6 (L) 1.9 Uric Acid 4.0 - 8.1 mg/dL 4.4 PTH, Intact 15 - 65 pg/mL 56 Vitamin D 25 Hydroxy 31.0 - 80.0 ng/mL 25.0 (L) Component Latest Ref Rng & Units 12/18/2021 Color Yellow Light Yellow Clarity Clear Clear Glucose, Urine Negative Negative Bilirubin, Urine Negative Negative Ketones, Urine Negative Negative Specific [place], Ur 1.005 - 1.030 1.012 Hemoglobin/Blood,Ur Negative Negative pH, Urine 5.0 - 8.0 6.0 Protein, Urine Negative Negative Urobilinogen Negative Negative Nitrites Negative Negative Leukest Negative Negative WBC, Urine 0-5 /HPF 0-5 /HPF RBC, Urine 0-3 /HPF 0-3 /HPF Albumin 3.9 - 4.9 g/dL 4.4 Calcium 8.5 - 10.2 mg/dL 9.3 Phosphorus 2.7 - 4.8 mg/dL 4.5 Glucose 74 - 99 mg/dL 87 BUN 9 - 24 mg/dL 25 (H) Creatinine 0.73 - 1.22 mg/dL 1.58 (H) Sodium 136 - 144 mmol/L 138 Potassium 3.7 - 5.1 mmol/L 4.5 Chloride 97 - 105 mmol/L 102 CO2 22 - 30 mmol/L 22 Anion Gap 9 - 18 mmol/L 14 eGFR >=60 mL/min/1.73m 46 (L) WBC 3.70 - 11.00 k/uL 7.68 RBC 4.20 - 6.00 m/uL 3.37 (L) Hemoglobin 13.0 - 17.0 g/dL 10.0 (L) Hematocrit 39.0 - 51.0 % 30.7 (L) MCV 80.0 - 100.0 fL 91.1 MCH 26.0 - 34.0 pg 29.7 MCHC 30.5 - 36.0 g/dL 32.6 RDW-CV 11.5 - 15.0 % 13.5 Platelet Count 150 - 400 k/uL 352 MPV 9.0 - 12.7 fL 9.7 Absolute nRBC <0.01 k/uL <0.01 Creatinine, Ur Random (UCRR) 20.0 - 300.0 mg/dL 88.6 Albumin, Urine Random mg/L 14.6 Albumin/Creat Ratio <30 mg/g 16 Magnesium 1.7 - 2.3 mg/dL 2.1 PTH, Intact 15 - 65 pg/mL 29 Vitamin D 25 Hydroxy 31.0 - 80.0 ng/mL 28.3 (L) Uric Acid 4.0 - 8.1 mg/dL 4.5 Component Latest Ref Rng & Units 06/19/2022 WBC 3.70 - 11.00 k/uL 9.60 RBC 4.20 - 6.00 m/uL 3.74 (L) Hemoglobin 13.0 - 17.0 g/dL 10.7 (L) Hematocrit 39.0 - 51.0 % 33.5 (L) MCV 80.0 - 100.0 fL 89.6 MCH 26.0 - 34.0 pg 28.6 MCHC 30.5 - 36.0 g/dL 31.9 RDW-CV 11.5 - 15.0 % 14.0 Platelet Count 150 - 400 k/uL 333 MPV 9.0 - 12.7 fL 9.3 Neut% % 53.8 Abs Neut (ANC) 1.45 - 7.50 k/uL 5.18 Lymph% % 33.8 Abs Lymph 1.00 - 4.00 k/uL 3.24 [place]% % 6.4 Abs [place] <0.87 k/uL 0.61 Eosin% % 4.4 Abs Eosin <0.46 k/uL 0.42 Baso% % 1.3 Abs Baso <0.11 k/uL 0.12 (H) Immature Gran % % 0.3 IMMATURE GRANS (ABS) <0.10 k/uL 0.03 NRBC /100 WBC 0.0 Absolute nRBC <0.01 k/uL <0.01 DTYPE Auto Color Yellow Colorless Clarity Clear Clear Glucose, Urine Trace, Negative Negative Bilirubin, Urine Negative Negative Ketones, Urine Trace, Negative Negative Specific [place], Ur 1.005 - 1.030 1.014 Hemoglobin/Blood,Ur Negative, Trace Negative pH, Urine 5.0 - 8.0 6.0 Protein, Urine Trace, Negative Negative Urobilinogen Negative Negative Nitrites Negative Negative Leukest Negative, 25 Eve/mL Negative WBC, Urine 0-5 /HPF 0-5 /HPF RBC, Urine 0-3 /HPF 0-3 /HPF Albumin 3.9 - 4.9 g/dL 4.5 Calcium 8.5 - 10.2 mg/dL 9.1 Phosphorus 2.7 - 4.8 mg/dL 2.6 (L) Glucose 74 - 99 mg/dL 124 (H) BUN 9 - 24 mg/dL 25 (H) Creatinine 0.73 - 1.22 mg/dL 1.10 Sodium 136 - 144 mmol/L 138 Potassium 3.7 - 5.1 mmol/L 3.9 Chloride 97 - 105 mmol/L 103 CO2 22 - 30 mmol/L 21 (L) Anion Gap 9 - 18 mmol/L 14 eGFR >=60 mL/min/1.73m 72 Creatinine, Ur Random (UCRR) 20.0 - 300.0 mg/dL 60.8 Albumin, Urine Random mg/L <12.0 Albumin/Creat Ratio <30 mg/g <20 Magnesium 1.7 - 2.3 mg/dL 2.0 PTH, Intact 15 - 65 pg/mL 30 Uric Acid 4.0 - 8.1 mg/dL 5.3 Vitamin D 25 Hydroxy 31.0 - 80.0 ng/mL 33.0 Component Latest Ref Rng & Units 06/04/2023 WBC 3.70 - 11.00 k/uL 6.90 RBC 4.20 - 6.00 m/uL 3.97 (L) Hemoglobin 13.0 - 17.0 g/dL 11.5 (L) Hematocrit 39.0 - 51.0 % 34.9 (L) MCV 80.0 - 100.0 fL 87.9 MCH 26.0 - 34.0 pg 29.0 MCHC 30.5 - 36.0 g/dL 33.0 RDW-CV 11.5 - 15.0 % 13.2 Platelet Count 150 - 400 k/uL 368 MPV 9.0 - 12.7 fL 9.5 Neut% % 46.8 Abs Neut (ANC) 1.45 - 7.50 k/uL 3.22 Lymph% % 41.7 Abs Lymph 1.00 - 4.00 k/uL 2.88 [place]% % 5.5 Abs [place] <0.87 k/uL 0.38 Eosin% % 4.9 Abs Eosin <0.46 k/uL 0.34 Baso% % 0.7 Abs Baso <0.11 k/uL 0.05 Immature Gran % % 0.4 IMMATURE GRANS (ABS) <0.10 k/uL 0.03 NRBC /100 WBC 0.0 Absolute nRBC <0.01 k/uL <0.01 DTYPE Auto Color Yellow Yellow Clarity Clear Clear Glucose, Urine Negative Negative Bilirubin, Urine Negative Negative Ketones, Urine Negative Negative Specific [place], Ur 1.005 - 1.030 1.018 Hemoglobin/Blood,Ur Negative Negative pH, Urine <8.5 6.5 Protein, Urine Negative Negative Urobilinogen 0.2-1.0 EU/dL 0.2 EU/dL Nitrites Negative Negative Leukest Negative Negative WBC, Urine 0-5 /HPF 0-5 /HPF RBC, Urine 0-2 /HPF 0-2 /HPF Bacteria Negative /HPF Negative Epithelial Cells /HPF None Seen Hyaline Cast 0 /LPF 0 /LPF Albumin 3.9 - 4.9 g/dL 4.5 Calcium 8.5 - 10.2 mg/dL 10.2 Phosphorus 2.7 - 4.8 mg/dL 3.2 Glucose 74 - 99 mg/dL 92 BUN 9 - 24 mg/dL 34 (H) Creatinine 0.73 - 1.22 mg/dL 1.49 (H) Sodium 136 - 144 mmol/L 139 Potassium 3.7 - 5.1 mmol/L 4.6 Chloride 97 - 105 mmol/L 103 CO2 22 - 30 mmol/L 26 Anion Gap 9 - 18 mmol/L 10 eGFR >=60 mL/min/1.73m 50 (L) Magnesium 1.7 - 2.3 mg/dL 2.3 Uric Acid 4.0 - 8.1 mg/dL 3.6 (L) PTH, Intact 15 - 65 pg/mL 21 Vitamin D 25 Hydroxy 31.0 - 80.0 ng/mL 35.9 Latest Ref [facility] 06/02/2024 WBC 3.70 - 11.00 k/uL 8.71 RBC 4.20 - 6.00 m/uL 4.19 (L) Hemoglobin 13.0 - 17.0 g/dL 12.0 (L) Hematocrit 39.0 - 51.0 % 37.0 (L) MCV 80.0 - 100.0 fL 88.3 MCH 26.0 - 34.0 pg 28.6 MCHC 30.5 - 36.0 g/dL 32.4 RDW-CV 11.5 - 15.0 % 13.9 Platelet Count 150 - 400 k/uL 311 MPV 9.0 - 12.7 fL 9.7 Neut% % 55.2 Abs Neut (ANC) 1.45 - 7.50 k/uL 4.80 Lymph% % 35.0 Abs Lymph 1.00 - 4.00 k/uL 3.05 [place]% % 7.0 Abs [place] <0.87 k/uL 0.61 Eosin% % 1.7 Abs Eosin <0.46 k/uL 0.15 Baso% % 0.9 Abs Baso <0.11 k/uL 0.08 Immature Gran % % 0.2 IMMATURE GRANS (ABS) <0.10 k/uL <0.03 NRBC /100 WBC 0.0 Absolute nRBC <0.01 k/uL <0.01 DTYPE Auto Color Yellow Yellow Clarity Clear Clear Glucose, Urine Negative Negative Bilirubin, Urine Negative Negative Ketones, Urine Negative Negative Specific [place], Ur 1.005 - 1.030 1.014 Hemoglobin/Blood,Ur Negative Negative pH, Urine <8.5 6.5 Protein, Urine Negative Negative Urobilinogen 0.2-1.0 EU/dL 0.2 EU/dL Nitrites Negative Negative Leukest Negative Negative WBC, Urine 0-5 /HPF 0-5 /HPF RBC, Urine 0-2 /HPF 0-2 /HPF Bacteria Negative /HPF Negative Epithelial Cells /HPF None Seen Hyaline Cast 0 /LPF 0 /LPF Albumin 3.9 - 4.9 g/dL 4.5 Calcium 8.5 - 10.2 mg/dL 9.6 Phosphorus 2.7 - 4.8 mg/dL 3.3 Glucose 74 - 99 mg/dL 80 BUN 9 - 24 mg/dL 27 (H) Creatinine 0.73 - 1.22 mg/dL 1.32 (H) Sodium 136 - 144 mmol/L 137 Potassium 3.7 - 5.1 mmol/L 4.4 Chloride 98 - 107 mmol/L 98 CO2 22 - 30 mmol/L 23 Anion Gap 8 - 15 mmol/L 16 (H) eGFR >=60 mL/min/1.73m 57 (L) Creatinine, Ur Random (UCRR) 20.0 - 300.0 mg/dL 83.2 Albumin, Urine Random mg/L 35.8 Albumin/Creat Ratio <30 mg/g 43 (H) Magnesium 1.7 - 2.3 mg/dL 2.1 Uric Acid 4.0 - 8.1 mg/dL 5.8 PTH, Intact 15 - 65 pg/mL 31 Vitamin D 25 Hydroxy 31.0 - 80.0 ng/mL 34.3 Testosterone 193 - 824 ng/dL 425 Assessment and plan: 1. Acute kidney injury secondary to ATN and now resolving. Renal fn stable BUN 27 Cr 1.3 down from 1.49 GFR 57 up from 50 Albumin/creatinine ratio 43 mg/g. G3a A2 Losartan 100 mg po daily and atenolol 50 mg po qhs Lytes Ok Acid base : Ok All electrolytes within normal limits. Urinalysis unremarkable. Mg 2.3 PTH 21 and vitamin D 35 Patient was started on vitamin D. 2. CKD 3 1. Stage 3a chronic kidney disease (HCC) - ICD9: 585.3, ICD10: N18.31 (primary diagnosis) Baseline CR 1.1-1.6 gFR 50-55 HTN nephrosclerosis - MAGNESIUM BLD - URINALYSIS, WITH MICROSCOPIC - RENAL FUNCTION PANEL 3. Anemia of renal disease - ICD9: 285.21, ICD10: N18.9, D63.1 - CBC - no need for Epo - start taking iron 4. Chronic kidney disease-mineral and bone disorder - ICD9: 585.9, 275.9, 733.90, ICD10: N18.9, E83.9, M89.9 - Reviewed the need for Calcium and Vitamin D supplements and weight bearing exercise as tolerated - PTH INTACT BLD 31 - URIC ACID BLOOD 5.8 5. Dietary counseling and surveillance - ICD9: V65.3, ICD10: Z71.3 Low salt diet 6. Vitamin D deficiency - ICD9: 268.9, ICD10: E55.9 - VITAMIN D 25 HYDROXY 34 7. Hypertension, essential - ICD9: 401.9, ICD10: I10 - good control - Continue current medication(s) - Recommended regular aerobic exercise. - Recommend home blood pressure monitoring, to bring results in on next visit - Goal of BP <130/80 8. Hyperuricemia - ICD9: 790.6, ICD10: E79.0 Check uric acid 9. Other proteinuria - ICD9: 791.0, ICD10: R80.8 - ALBUMIN/CREAT RATIO RND UR 10. Nephrolithiasis hx of lithotripsy Recently passed kidney stone Aurea Mckenna MD No follow-ups on file. [facility] of Present illness Narrative* Aurea Mckenna MD - 06/20/2022 12:58 PM EST SUBJECTIVE: Mychal Swanson is a 71 year old White male with past medical history significant for : Hypertension,gout, hyperlipidemia, hemorrhoidectomy Patient denies any new diagnosis or symptoms. Denies intercurrent illness or hospitalization since last visit. Patient denies any other new medications. Patient denies NSAIDs use. Patient's blood pressure is well controlled at home. Patient's denies any dysuria, hematuria, foamy urine or other voiding complaints. Patient denies any leg swelling, SOB/HINES, orthopnea, PND or other symptoms of fluid overload. Patient denies any overt symptoms of uremia. pt was recently also was in 07 May 2021 with acute kidney injury secondary to ATN. FENa was more than 1%. Patient with a significant use of NSAID for 5 days. Also had hyperkalemia, hypovolemichyponatremia, severe metabolic acidosis and hypocalcemia. Patient also had a urinary transmitted bladder distention partially although there was no hydronephrosis. Since creatinine decreased at 3.43 mg/dL upon admission. His peak serum creatinine was 6.97. PAST MEDICAL HISTORY Diagnosis Date BENIGN HYPERTENSION GOUT NOS MIXED HYPERLIPIDEMIA ALLERGIES Allergen Reactions Domonique Inhibitors Rash Ceftriaxone Myalgia Gemfibrozil Rash Current Outpatient Medications Medication Sig fenofibrate (LOFIBRA) 134 mg capsule Take 134 mg by mouth once daily. losartan (COZAAR) 100 mg tablet Take 100 mg by mouth daily at bedtime. ubidecarenone/vitamin E mixed (COQ10 SG 100 ORAL) Take 100 mg by mouth five times a week. mon thru fri [id number]-[id number]-EPA-Fish Oil (FISH OIL) 1,000 mg (120 mg-180 mg) cap Take 4 g by mouth three times daily. atenolol (TENORMIN) 50 mg tablet Take 50 mg by mouth every evening. rosuvastatin calcium(CRESTOR 20 MG TAB) Take 40 mg by mouth once daily. psyllium seed/sucrose(METAMUCIL ORAL POWDER) Take one powder packet daily ALLOPURINOL 300 MG TAB Take one(1) tablet daily. aspirin(JAVIER LOW STRENGTH 81 MG TAB) Take one(1) tablet daily. MULTIVITAMIN TABLET Take one(1) tablet daily. No current facility-administered medications for this visit. Social History Tobacco Use Smoking status: Never Substance Use Topics Alcohol use: No Drug use: No PAST SURGICAL HISTORY Procedure Laterality Date PAST SURGICAL HISTORY OF Appendix removed PAST SURGICAL HISTORY OF Kidney stone removed by lithotripsy ACTIVE PROBLEM LIST Mixed Hyperlipidemia Unspecified Essential Hypertension Essential Hypertension, Benign Acute Kidney Injury (Hcc) Cellulitis of Left Arm Transaminitis Cholelithiasis Hyponatremia Malnutrition of Mild Degree (Hcc) FAMILY HISTORY Problem Relation Age of Onset Heart No Family History Stroke No Family History Diabetes No Family History FAMILY HISTORY OF: CVA:No CAD: No DIABETES: No HTN: No KIDNEY DISEASE: No NEPHROLITHIASIS: No REVIEW OF SYSTEMS: CONSTITUTIONAL: Denies fevers, chills, and weight changes. Denies fatigue/malaise. EYES: No acute vision change or ocular pain. Denies dryness or redness of eyes. ENT: No difficulties with hearing. No sinus pain or sore throat.No epistaxis, nasal discharge/congestion. No dry mouth, oral ulceration, or gingivitis. PULMONARY: Denies shortness of breath, wheezing, cough or hemoptysis. CARDIOLOGY: Denies chest pain, palpitations, HINES, orthopnea or PND. GI: No anorexia, nausea, vomiting, dysphagia, diarrhea, constipation, abdominal pain, hematochezia or melena. : No urinary hesitancy or dribbling. No nocturia or urinary frequency. No abnormal discharge. No hematuria, dysuria, or flank pain. MUSCULO-SKELETAL: No joint pain, swelling or erythema. ENDO: Denies any Cold or Heat Intolerance. Denies any polyuria or polydipsia. HEME: Denies any bleeding problems, clotting problems or easy Bruising. SKIN: Denies any rashes or skin changes. No itching. NEUROLOGIC: Denies any headache, Dizziness or seizures. No numbness, tingling, weakness or tremors. EXTREMITIES: Denies any lower Extremity edema. Denies any claudication or peripheral ulcer. [A full 12 point ROS was obtained and is negative other than that cited above.] PHYSICAL EXAMINATION: BP 130/64 Pulse 76 Ht 158.8 cm (5' 2.5) Wt 67.6 kg (149 lb) BMI 26.82 kg/m BMI 26.82 kg/(m^2) GENERAL: Well developed and well nourished, NAD. EYES: Conjunctivae- pink, Non-icterus sclera, Pupils are equal bilaterally, Normal appearing eyelids. HEENT : Normocephalic, atraumatic, oral pharynx clear, mucus membranes moist and pink. no salivary gland enlargement. Inspection of Nasal mucosa WNL. External ear wnl. NECK : Supple, No JVD. No cervical lymphadenopathy or masses. No thyro megaly or tenderness. RESPIRATORY: Resp efforts are WNL. Bilat equal air entry. Clear to auscultation bilaterally CVS : Regular rate and rhythm. Pericardial friction rub is absent. S1, S2 Normal. No Murmer, or gallops. EDEMA none VASCULAR: carotid pulses is palpable bilaterally; carotid bruit is absent; No Abdominal bruit. Peripheral pulse palpable . ABDOMEN: soft, non-distended, non-tender, Normoactive BS. No hepatospleenomegaly. : NO CVA tenderness. bladder is not distended. LYMPHATICS: No cervical, axillary, inguinal lymphadenopathy. MUSULOSKELATAL: No swollen, tender, or warm joints present. No clubbing cyanosis or petechiae. SKIN: No rashes or ulcers present. No induration of skin or subcutaneous area. NEUROLOGIC: Grossly intact. No focal neurological deficit. PSYCH : Orientation to time, place and person. Judgment and insight are WNL. LAB DATA Component Latest Ref Rng & Units 05/30/2021 05/30/2021 05/30/2021 05/30/2021 06/20/2021 10:54 AM 10:54 AM 10:55 AM 10:56 AM WBC 3.70 - 11.00 k/uL 4.83 8.26 RBC 4.20 - 6.00 m/uL 3.07 (L) 3.49 (L) Hemoglobin 13.0 - 17.0 g/dL 8.9 (L) 10.2 (L) Hematocrit 39.0 - 51.0 % 27.2 (L) 30.8 (L) MCV 80.0 - 100.0 fL 88.6 88.3 MCH 26.0 - 34.0 pG 29.0 29.2 MCHC 30.5 - 36.0 g/dL 32.7 33.1 RDW-CV 11.5 - 15.0 % 14.6 14.6 Platelet Count 150 - 400 k/uL 499 (H) 257 MPV 9.0 - 12.7 fL 9.1 8.9 (L) Neut% % 50.5 39.3 Abs Neut (ANC) 1.45 - 7.50 k/uL 2.43 3.23 Lymph% % 32.3 47.5 Abs Lymph 1.00 - 4.00 k/uL 1.56 3.92 [place]% % 11.4 7.3 Abs [place] <0.87 k/uL 0.55 0.60 Eosin% % 3.5 4.1 Abs Eosin <0.46 k/uL 0.17 0.34 Baso% % 2.3 1.8 Abs Baso <0.11 k/uL 0.11 (H) 0.15 (H) Nucleated Reds 0 /100 WBC 0.0 0.0 Absolute nRBC <0.01 k/uL <0.01 <0.01 Diff Type Auto Diff Auto Diff Color Yellow Straw (A) Light Yellow (A) Clarity Clear Clear Clear Glucose, Urine Negative mg/dL Negative Negative Bilirubin, Urine Negative Negative Negative Ketones, Urine Negative Negative Negative Specific [place], Ur 1.005 - 1.030 1.012 1.013 Hemoglobin/Blood,Ur Negative Negative Negative pH, Urine 5.0 - 8.0 6.0 6.0 Protein, Urine Negative 1+ (A) Negative Urobilinogen Negative E.U./dL Negative Negative Nitrites Negative Negative Negative Leukest Negative Negative Negative Comment SEE COMMENT SEE COMMENT Urine Alok Comment SEE COMMENT SEE COMMENT WBC, Urine 0 - 5 /HPF 0-5 0-5 RBC, Urine 0 - 3 /HPF 0-3 0-3 Epithelial Cells /HPF SEE COMMENT Albumin 3.9 - 4.9 g/dL 3.4 (L) 3.4 (L) 4.4 Calcium 8.5 - 10.2 mg/dL 9.0 9.0 9.1 Phosphorus 2.7 - 4.8 mg/dL 4.7 4.6 3.8 Glucose 74 - 99 mg/dL 145 (H) 151 (H) 90 BUN 9 - 24 mg/dL 23 24 26 (H) Creatinine 0.73 - 1.22 mg/dL 1.76 (H) 1.81 (H) 1.37 (H) Sodium 136 - 144 mmol/L 134 (L) 133 (L) 137 Potassium 3.7 - 5.1 mmol/L 4.1 4.1 4.5 Chloride 97 - 105 mmol/L 98 98 102 CO2 22 - 30 mmol/L 21 (L) 22 19 (L) Anion Gap 9 - 18 mmol/L 15 13 16 eGFR- 47 45 >60 eGFR-All Other Races . 38 37 51 Creatinine, Ur Random (UCRR) 20 - 300 mg/dL 72.8 87.6 Albumin, Urine Random mg/L 85.1 37.0 Albumin/Creat Ratio <30 mg/g 117 (H) 42 (H) Magnesium 1.7 - 2.3 mg/dL 1.6 (L) 1.9 Uric Acid 4.0 - 8.1 mg/dL 4.4 PTH, Intact 15 - 65 pg/mL 56 Vitamin D 25 Hydroxy 31.0 - 80.0 ng/mL 25.0 (L) Component Latest Ref Rng & Units 12/18/2021 Color Yellow Light Yellow Clarity Clear Clear Glucose, Urine Negative Negative Bilirubin, Urine Negative Negative Ketones, Urine Negative Negative Specific [place], Ur 1.005 - 1.030 1.012 Hemoglobin/Blood,Ur Negative Negative pH, Urine 5.0 - 8.0 6.0 Protein, Urine Negative Negative Urobilinogen Negative Negative Nitrites Negative Negative Leukest Negative Negative WBC, Urine 0-5 /HPF 0-5 /HPF RBC, Urine 0-3 /HPF 0-3 /HPF Albumin 3.9 - 4.9 g/dL 4.4 Calcium 8.5 - 10.2 mg/dL 9.3 Phosphorus 2.7 - 4.8 mg/dL 4.5 Glucose 74 - 99 mg/dL 87 BUN 9 - 24 mg/dL 25 (H) Creatinine 0.73 - 1.22 mg/dL 1.58 (H) Sodium 136 - 144 mmol/L 138 Potassium 3.7 - 5.1 mmol/L 4.5 Chloride 97 - 105 mmol/L 102 CO2 22 - 30 mmol/L 22 Anion Gap 9 - 18 mmol/L 14 eGFR >=60 mL/min/1.73m 46 (L) WBC 3.70 - 11.00 k/uL 7.68 RBC 4.20 - 6.00 m/uL 3.37 (L) Hemoglobin 13.0 - 17.0 g/dL 10.0 (L) Hematocrit 39.0 - 51.0 % 30.7 (L) MCV 80.0 - 100.0 fL 91.1 MCH 26.0 - 34.0 pg 29.7 MCHC 30.5 - 36.0 g/dL 32.6 RDW-CV 11.5 - 15.0 % 13.5 Platelet Count 150 - 400 k/uL 352 MPV 9.0 - 12.7 fL 9.7 Absolute nRBC <0.01 k/uL <0.01 Creatinine, Ur Random (UCRR) 20.0 - 300.0 mg/dL 88.6 Albumin, Urine Random mg/L 14.6 Albumin/Creat Ratio <30 mg/g 16 Magnesium 1.7 - 2.3 mg/dL 2.1 PTH, Intact 15 - 65 pg/mL 29 Vitamin D 25 Hydroxy 31.0 - 80.0 ng/mL 28.3 (L) Uric Acid 4.0 - 8.1 mg/dL 4.5 Component Latest Ref Rng & Units 06/19/2022 WBC 3.70 - 11.00 k/uL 9.60 RBC 4.20 - 6.00 m/uL 3.74 (L) Hemoglobin 13.0 - 17.0 g/dL 10.7 (L) Hematocrit 39.0 - 51.0 % 33.5 (L) MCV 80.0 - 100.0 fL 89.6 MCH 26.0 - 34.0 pg 28.6 MCHC 30.5 - 36.0 g/dL 31.9 RDW-CV 11.5 - 15.0 % 14.0 Platelet Count 150 - 400 k/uL 333 MPV 9.0 - 12.7 fL 9.3 Neut% % 53.8 Abs Neut (ANC) 1.45 - 7.50 k/uL 5.18 Lymph% % 33.8 Abs Lymph 1.00 - 4.00 k/uL 3.24 [place]% % 6.4 Abs [place] <0.87 k/uL 0.61 Eosin% % 4.4 Abs Eosin <0.46 k/uL 0.42 Baso% % 1.3 Abs Baso <0.11 k/uL 0.12 (H) Immature Gran % % 0.3 IMMATURE GRANS (ABS) <0.10 k/uL 0.03 NRBC /100 WBC 0.0 Absolute nRBC <0.01 k/uL <0.01 DTYPE Auto Color Yellow Colorless Clarity Clear Clear Glucose, Urine Trace, Negative Negative Bilirubin, Urine Negative Negative Ketones, Urine Trace, Negative Negative Specific [place], Ur 1.005 - 1.030 1.014 Hemoglobin/Blood,Ur Negative, Trace Negative pH, Urine 5.0 - 8.0 6.0 Protein, Urine Trace, Negative Negative Urobilinogen Negative Negative Nitrites Negative Negative Leukest Negative, 25 [place]/mL Negative WBC, Urine 0-5 /HPF 0-5 /HPF RBC, Urine 0-3 /HPF 0-3 /HPF Albumin 3.9 - 4.9 g/dL 4.5 Calcium 8.5 - 10.2 mg/dL 9.1 Phosphorus 2.7 - 4.8 mg/dL 2.6 (L) Glucose 74 - 99 mg/dL 124 (H) BUN 9 - 24 mg/dL 25 (H) Creatinine 0.73 - 1.22 mg/dL 1.10 Sodium 136 - 144 mmol/L 138 Potassium 3.7 - 5.1 mmol/L 3.9 Chloride 97 - 105 mmol/L 103 CO2 22 - 30 mmol/L 21 (L) Anion Gap 9 - 18 mmol/L 14 eGFR >=60 mL/min/1.73m 72 Creatinine, Ur Random (UCRR) 20.0 - 300.0 mg/dL 60.8 Albumin, Urine Random mg/L <12.0 Albumin/Creat Ratio <30 mg/g <20 Magnesium 1.7 - 2.3 mg/dL 2.0 PTH, Intact 15 - 65 pg/mL 30 Uric Acid 4.0 - 8.1 mg/dL 5.3 Vitamin D 25 Hydroxy 31.0 - 80.0 ng/mL 33.0 Assessment and plan: 1. Acute kidney injury secondary to ATN and now resolving. Last creatinine 1.1 , down from 1.6 with a GFR 72 Albumin/creatinine ratio 16 mg/g. Losartan 100 mg po daily atenolol 50 mg po qhs All electrolytes within normal limits. Urinalysis unremarkable. Mg 2.1 PTH 30 and vitamin D 33 Patient was started on vitamin D. 2. CKD 3 ASSESSMENT/PLAN: 1. Stage 3a chronic kidney disease (HCC) - ICD9: 585.3, ICD10: N18.31 (primary diagnosis) - MAGNESIUM BLD - URINALYSIS, WITH MICROSCOPIC - RENAL FUNCTION PANEL 2. LLUVIA (acute kidney injury) (HCC) - ICD9: 584.9, ICD10: N17.9 2/2 ATN 3. Anemia of renal disease - ICD9: 285.21, ICD10: N18.9, D63.1 - CBC - no need for Epo - start taking iron 4. Chronic kidney disease-mineral and bone disorder - ICD9: 585.9, 275.9, 733.90, ICD10: N18.9, E83.9, M89.9 - Reviewed the need for Calcium and Vitamin D supplements and weight bearing exercise as tolerated - PTH INTACT BLD - URIC ACID BLOOD 5. Dietary counseling and surveillance - ICD9: V65.3, ICD10: Z71.3 Low salt diet 6. Vitamin D deficiency - ICD9: 268.9, ICD10: E55.9 - VITAMIN D 25 HYDROXY 33 7. Hypertension, essential - ICD9: 401.9, ICD10: I10 - good control - Continue current medication(s) - Recommended regular aerobic exercise. - Recommend home blood pressure monitoring, to bring results in on next visit - Goal of BP <130/80 8. Hyperuricemia - ICD9: 790.6, ICD10: E79.0 Check uric acid 9. Other proteinuria - ICD9: 791.0, ICD10: R80.8 - ALBUMIN/CREAT RATIO RND UR 10. Nephrolithiasis hx of lithotripsy Recently passed kidney stone Aurea Mckenna MD No follow-ups on file. [facility]* Diagnosis Stage 3a chronic kidney disease (HCC)- Primary Chronic kidney disease-mineral and bone disorder Vitamin D deficiency Unspecified vitamin D deficiency Other proteinuria Anemia of renal disease Anemia in chronic kidney disease Stage 2 chronic kidney disease Dietary counseling and surveillance Dietary surveillance and counseling Hypertension, essential Unspecified essential hypertension Hyperuricemia Other abnormal blood chemistry documented in [facility] History of Present illness Narrative* Aurea Mckenna MD - 12/20/2021 1:39 PM EDT SUBJECTIVE: Mychal Swanson is a 71 year old White male with past medical history significant for : Hypertension,gout, hyperlipidemia, hemorrhoidectomy Patient denies any new diagnosis or symptoms. Denies intercurrent illness or hospitalization since last visit. Patient denies any other new medications. Patient denies NSAIDs use. Patient's blood pressure is well controlled at home. Patient's denies any dysuria, hematuria, foamy urine or other voiding complaints. Patient denies any leg swelling, SOB/HINES, orthopnea, PND or other symptoms of fluid overload. Patient denies any overt symptoms of uremia. pt was recently also was in 07 May 2021 with acute kidney injury secondary to ATN. FENa was more than 1%. Patient with a significant use of NSAID for 5 days. Also had hyperkalemia, hypovolemichyponatremia, severe metabolic acidosis and hypocalcemia. Patient also had a urinary transmitted bladder distention partially although there was no hydronephrosis. Since creatinine decreased at 3.43 mg/dL upon admission. His peak serum creatinine was 6.97. PAST MEDICAL HISTORY Diagnosis Date BENIGN HYPERTENSION GOUT NOS MIXED HYPERLIPIDEMIA ALLERGIES Allergen Reactions Domonique Inhibitors Rash Ceftriaxone Myalgia Gemfibrozil Rash Current Outpatient Medications Medication Sig Cholecalciferol-Soy Isoflavone 2,000-64 unit-mg tab Take 1 tablet by mouth once daily. ferrous sulfate (IRON) 325 mg (65 mg iron) tablet Take 1 tablet by mouth daily with breakfast. ubidecarenone/vitamin E mixed (COQ10 SG 100 ORAL) Take 100 mg by mouth five times a week. mon thru fri [id number]-EPA-Fish Oil (FISH OIL) 1,000 mg (120 mg-180 mg) cap Take 4 g by mouth three times daily. atenolol (TENORMIN) 50 mg tablet Take 50 mg by mouth every evening. rosuvastatin calcium(CRESTOR 20 MG TAB) Take 40 mg by mouth once daily. psyllium seed/sucrose(METAMUCIL ORAL POWDER) Take one powder packet daily FENOFIBRATE 54 MG TAB one tab daily with breakfast (Patient taking differently: Take 134 mg by mouth once daily. ) ALLOPURINOL 300 MG TAB Take one(1) tablet daily. aspirin(JAVIER LOW STRENGTH 81 MG TAB) Take one(1) tablet daily. MULTIVITAMIN TABLET Take one(1) tablet daily. losartan (COZAAR) 100 mg tablet Take 100 mg by mouth daily at bedtime. No current facility-administered medications for this visit. Social History Tobacco Use Smoking status: Never Smoker Smokeless tobacco: Not on file Substance Use Topics Alcohol use: No Drug use: No PAST SURGICAL HISTORY Procedure Laterality Date PAST SURGICAL HISTORY OF Appendix removed PAST SURGICAL HISTORY OF Kidney stone removed by lithotripsy ACTIVE PROBLEM LIST Mixed Hyperlipidemia Unspecified Essential Hypertension Essential Hypertension, Benign Acute Kidney Injury (Hcc) Cellulitis of Left Arm Transaminitis Cholelithiasis Hyponatremia Malnutrition of Mild Degree (Hcc) FAMILY HISTORY Problem Relation Age of Onset Heart No Family History Stroke No Family History Diabetes No Family History FAMILY HISTORY OF: CVA:No CAD: No DIABETES: No HTN: No KIDNEY DISEASE: No NEPHROLITHIASIS: No REVIEW OF SYSTEMS: CONSTITUTIONAL: Denies fevers, chills, and weight changes. Denies fatigue/malaise. EYES: No acute vision change or ocular pain. Denies dryness or redness of eyes. ENT: No difficulties with hearing. No sinus pain or sore throat.No epistaxis, nasal discharge/congestion. No dry mouth, oral ulceration, or gingivitis. PULMONARY: Denies shortness of breath, wheezing, cough or hemoptysis. CARDIOLOGY: Denies chest pain, palpitations, HINES, orthopnea or PND. GI: No anorexia, nausea, vomiting, dysphagia, diarrhea, constipation, abdominal pain, hematochezia or melena. : No urinary hesitancy or dribbling. No nocturia or urinary frequency. No abnormal discharge. No hematuria, dysuria, or flank pain. MUSCULO-SKELETAL: No joint pain, swelling or erythema. ENDO: Denies any Cold or Heat Intolerance. Denies any polyuria or polydipsia. HEME: Denies any bleeding problems, clotting problems or easy Bruising. SKIN: Denies any rashes or skin changes. No itching. NEUROLOGIC: Denies any headache, Dizziness or seizures. No numbness, tingling, weakness or tremors. EXTREMITIES: Denies any lower Extremity edema. Denies any claudication or peripheral ulcer. [A full 12 point ROS was obtained and is negative other than that cited above.] PHYSICAL EXAMINATION: BP 119/66 Pulse 66 Ht 161.3 cm (5' 3.5) Wt 65.3 kg (144 lb) BMI 25.11 kg/m BMI 25.11 kg/(m^2) GENERAL: Well developed and well nourished, NAD. EYES: Conjunctivae- pink, Non-icterus sclera, Pupils are equal bilaterally, Normal appearing eyelids. HEENT : Normocephalic, atraumatic, oral pharynx clear, mucus membranes moist and pink. no salivary gland enlargement. Inspection of Nasal mucosa WNL. External ear wnl. NECK : Supple, No JVD. No cervical lymphadenopathy or masses. No thyro megaly or tenderness. RESPIRATORY: Resp efforts are WNL. Bilat equal air entry. Clear to auscultation bilaterally CVS : Regular rate and rhythm. Pericardial friction rub is absent. S1, S2 Normal. No Murmer, or gallops. EDEMA none VASCULAR: carotid pulses is palpable bilaterally; carotid bruit is absent; No Abdominal bruit. Peripheral pulse palpable . ABDOMEN: soft, non-distended, non-tender, Normoactive BS. No hepatospleenomegaly. : NO CVA tenderness. bladder is not distended. LYMPHATICS: No cervical, axillary, inguinal lymphadenopathy. MUSULOSKELATAL: No swollen, tender, or warm joints present. No clubbing cyanosis or petechiae. SKIN: No rashes or ulcers present. No induration of skin or subcutaneous area. NEUROLOGIC: Grossly intact. No focal neurological deficit. PSYCH : Orientation to time, place and person. Judgment and insight are WNL. LAB DATA Component Latest Ref Rng & Units 05/30/2021 05/30/2021 05/30/2021 05/30/2021 06/20/2021 10:54 AM 10:54 AM 10:55 AM 10:56 AM WBC 3.70 - 11.00 k/uL 4.83 8.26 RBC 4.20 - 6.00 m/uL 3.07 (L) 3.49 (L) Hemoglobin 13.0 - 17.0 g/dL 8.9 (L) 10.2 (L) Hematocrit 39.0 - 51.0 % 27.2 (L) 30.8 (L) MCV 80.0 - 100.0 fL 88.6 88.3 MCH 26.0 - 34.0 pG 29.0 29.2 MCHC 30.5 - 36.0 g/dL 32.7 33.1 RDW-CV 11.5 - 15.0 % 14.6 14.6 Platelet Count 150 - 400 k/uL 499 (H) 257 MPV 9.0 - 12.7 fL 9.1 8.9 (L) Neut% % 50.5 39.3 Abs Neut (ANC) 1.45 - 7.50 k/uL 2.43 3.23 Lymph% % 32.3 47.5 Abs Lymph 1.00 - 4.00 k/uL 1.56 3.92 [place]% % 11.4 7.3 Abs [place] <0.87 k/uL 0.55 0.60 Eosin% % 3.5 4.1 Abs Eosin <0.46 k/uL 0.17 0.34 Baso% % 2.3 1.8 Abs Baso <0.11 k/uL 0.11 (H) 0.15 (H) Nucleated Reds 0 /100 WBC 0.0 0.0 Absolute nRBC <0.01 k/uL <0.01 <0.01 Diff Type Auto Diff Auto Diff Color Yellow Straw (A) Light Yellow (A) Clarity Clear Clear Clear Glucose, Urine Negative mg/dL Negative Negative Bilirubin, Urine Negative Negative Negative Ketones, Urine Negative Negative Negative Specific [place], Ur 1.005 - 1.030 1.012 1.013 Hemoglobin/Blood,Ur Negative Negative Negative pH, Urine 5.0 - 8.0 6.0 6.0 Protein, Urine Negative 1+ (A) Negative Urobilinogen Negative E.U./dL Negative Negative Nitrites Negative Negative Negative Leukest Negative Negative Negative Comment SEE COMMENT SEE COMMENT Urine Alok Comment SEE COMMENT SEE COMMENT WBC, Urine 0 - 5 /HPF 0-5 0-5 RBC, Urine 0 - 3 /HPF 0-3 0-3 Epithelial Cells /HPF SEE COMMENT Albumin 3.9 - 4.9 g/dL 3.4 (L) 3.4 (L) 4.4 Calcium 8.5 - 10.2 mg/dL 9.0 9.0 9.1 Phosphorus 2.7 - 4.8 mg/dL 4.7 4.6 3.8 Glucose 74 - 99 mg/dL 145 (H) 151 (H) 90 BUN 9 - 24 mg/dL 23 24 26 (H) Creatinine 0.73 - 1.22 mg/dL 1.76 (H) 1.81 (H) 1.37 (H) Sodium 136 - 144 mmol/L 134 (L) 133 (L) 137 Potassium 3.7 - 5.1 mmol/L 4.1 4.1 4.5 Chloride 97 - 105 mmol/L 98 98 102 CO2 22 - 30 mmol/L 21 (L) 22 19 (L) Anion Gap 9 - 18 mmol/L 15 13 16 eGFR- 47 45 >60 eGFR-All Other Races . 38 37 51 Creatinine, Ur Random (UCRR) 20 - 300 mg/dL 72.8 87.6 Albumin, Urine Random mg/L 85.1 37.0 Albumin/Creat Ratio <30 mg/g 117 (H) 42 (H) Magnesium 1.7 - 2.3 mg/dL 1.6 (L) 1.9 Uric Acid 4.0 - 8.1 mg/dL 4.4 PTH, Intact 15 - 65 pg/mL 56 Vitamin D 25 Hydroxy 31.0 - 80.0 ng/mL 25.0 (L) Component Latest Ref Rng & Units 12/18/2021 Color Yellow Light Yellow Clarity Clear Clear Glucose, Urine Negative Negative Bilirubin, Urine Negative Negative Ketones, Urine Negative Negative Specific [place], Ur 1.005 - 1.030 1.012 Hemoglobin/Blood,Ur Negative Negative pH, Urine 5.0 - 8.0 6.0 Protein, Urine Negative Negative Urobilinogen Negative Negative Nitrites Negative Negative Leukest Negative Negative WBC, Urine 0-5 /HPF 0-5 /HPF RBC, Urine 0-3 /HPF 0-3 /HPF Albumin 3.9 - 4.9 g/dL 4.4 Calcium 8.5 - 10.2 mg/dL 9.3 Phosphorus 2.7 - 4.8 mg/dL 4.5 Glucose 74 - 99 mg/dL 87 BUN 9 - 24 mg/dL 25 (H) Creatinine 0.73 - 1.22 mg/dL 1.58 (H) Sodium 136 - 144 mmol/L 138 Potassium 3.7 - 5.1 mmol/L 4.5 Chloride 97 - 105 mmol/L 102 CO2 22 - 30 mmol/L 22 Anion Gap 9 - 18 mmol/L 14 eGFR >=60 mL/min/1.73m 46 (L) WBC 3.70 - 11.00 k/uL 7.68 RBC 4.20 - 6.00 m/uL 3.37 (L) Hemoglobin 13.0 - 17.0 g/dL 10.0 (L) Hematocrit 39.0 - 51.0 % 30.7 (L) MCV 80.0 - 100.0 fL 91.1 MCH 26.0 - 34.0 pg 29.7 MCHC 30.5 - 36.0 g/dL 32.6 RDW-CV 11.5 - 15.0 % 13.5 Platelet Count 150 - 400 k/uL 352 MPV 9.0 - 12.7 fL 9.7 Absolute nRBC <0.01 k/uL <0.01 Creatinine, Ur Random (UCRR) 20.0 - 300.0 mg/dL 88.6 Albumin, Urine Random mg/L 14.6 Albumin/Creat Ratio <30 mg/g 16 Magnesium 1.7 - 2.3 mg/dL 2.1 PTH, Intact 15 - 65 pg/mL 29 Vitamin D 25 Hydroxy 31.0 - 80.0 ng/mL 28.3 (L) Uric Acid 4.0 - 8.1 mg/dL 4.5 Assessment and plan: 1. Acute kidney injury secondary to ATN and now resolving. Last creatinine 1.58 ( up from 1.37 ) with a GFR 46 down from 51. Albumin/creatinine ratio 16 mg/g. Losartan 100 mg po daily atenolol 50 mg po qhs All electrolytes within normal limits. Urinalysis unremarkable. Mg 2.1 PTH 29 and vitamin D 28.3 Patient was started on vitamin D. 2. CKD 3 ASSESSMENT/PLAN: 1. Stage 3a chronic kidney disease (HCC) - ICD9: 585.3, ICD10: N18.31 (primary diagnosis) - MAGNESIUM BLD - URINALYSIS, WITH MICROSCOPIC - RENAL FUNCTION PANEL 2. LLUVIA (acute kidney injury) (HCC) - ICD9: 584.9, ICD10: N17.9 2/2 ATN 3. Anemia of renal disease - ICD9: 285.21, ICD10: N18.9, D63.1 - CBC - no need for Epo - start taking iron 4. Chronic kidney disease-mineral and bone disorder - ICD9: 585.9, 275.9, 733.90, ICD10: N18.9, E83.9, M89.9 - Reviewed the need for Calcium and Vitamin D supplements and weight bearing exercise as tolerated - PTH INTACT BLD - URIC ACID BLOOD 5. Dietary counseling and surveillance - ICD9: V65.3, ICD10: Z71.3 Low salt diet 6. Vitamin D deficiency - ICD9: 268.9, ICD10: E55.9 - VITAMIN D 25 HYDROXY 7. Hypertension, essential - ICD9: 401.9, ICD10: I10 - good control - Continue current medication(s) - Recommended regular aerobic exercise. - Recommend home blood pressure monitoring, to bring results in on next visit - Goal of BP <130/80 8. Hyperuricemia - ICD9: 790.6, ICD10: E79.0 Check uric acid 9. Other proteinuria - ICD9: 791.0, ICD10: R80.8 - ALBUMIN/CREAT RATIO RND UR 10. Nephrolithiasis hx of lithotripsy Recently passed kidney stone Aurea Mckenna MD No follow-ups on file. [facility] Diagnosis Stage 3a chronic kidney disease (HCC)- Primary Anemia of renal disease Anemia in chronic kidney disease Chronic kidney disease-mineral and bone disorder Dietary counseling and surveillance Dietary surveillance and counseling Vitamin D deficiency Unspecified vitamin D deficiency Hypertension, essential Unspecified essential hypertension Hyperuricemia Other abnormal blood chemistry Other proteinuria documented in this encounter [facility] NoteHNO ID: [id number] Author: Karen Rodriguez RN Service: Care Management Author Type: Registered Nurse Type: Care Mgt Progress Note Filed: 05/23/2021 3:24 PM Note Text: CARE MANAGEMENT DISCHARGE NOTE SERVICE DATE: 05/23/2021 SERVICE TIME: 3:23 PM LOS: 7 days Admission Date: 05/16/2021 DISCHARGE ARRANGEMENT Discharge Arrangement: Home with Self Care CAREGIVER ASSESSMENT: Caregiver is ready, willing and able to meet the patient's needs as recommended by the inter-professional team:: No Caregiver needed Patient's transition needs and plan for meeting these needs: Home with self care HANDOFF COMMUNICATION: Handoff to: Primary Care Physician Primary Care Physician Name/Phone: Lee Holbrook MD/[phone] TRANSPORTATION ARRANGEMENTS: Transportation Arrangements: Car ADDITIONAL CONTACT RESOURCES: N/A Needs Prior to Discharge: None;Ready for Discharge Discharge order written for today. RN CM met with the patient and his spouse at bedside to discuss discharge plans. No skilled needs identified. DTR to transport home. SIGNATURE: Karen Rodriguez RN PATIENT NAME: Mychal Swanson DATE: May 23, 2021 TIME: 3:23 PM PAGER/CONTACT #: [phone] [id number] NoteHNO ID: [id number] Author: Karen Rodriguez RN Service: Care Management Author Type: Registered Nurse Type: Care Mgt Progress Note Filed: 05/23/2021 3:17 PM Note Text: CARE MANAGEMENT DISCHARGE NOTE SERVICE DATE: 05/23/2021 SERVICE TIME: 3:17 PM LOS: 7 days IMM Follow Up Copy Given: Yes Copy given to:: Patient Method: In Person SIGNATURE: Karen Rodriguez RN PATIENT NAME: Mychal Swanson DATE: May 23, 2021 TIME: 3:17 PM PAGER/CONTACT #: [phone] NoteHNO ID: [id number] Author: Livia Burleson (Marine Diesel Mechanic) Service: Pharmacy Author Type: ? Type: Plan of Care Filed: 05/23/2021 2:24 PM Note Text: PHARMACY BEDSIDE DELIVERY SERVICE Patient Name: Mychal Swanson The marked outpatient medications were Filled at: [facility] and delivered to the patient's bedside to 221-1 Medication List START taking these medications linezolid 600 mg tablet Commonly known as: ZYVOX Take 1 tablet by mouth every 12 hours for 10 days. X meclizine 25 mg Tab Commonly known as: ANTIVERT Take 1 tablet by mouth three times daily as needed (Dizziness). X CHANGE how you take these medications Fenofibrate 54 mg tablet Commonly known as: LOFIBRA one tab daily with breakfast What changed: See the new instructions. CONTINUE taking these medications atenolol 50 mg tablet Commonly known as: TENORMIN Javier Low Strength 81 mg EC tablet Generic drug: aspirin, enteric coated COQ10 SG 100 ORAL CRESTOR 20 mg tablet Generic drug: rosuvastatin Fish OiL 1,000 mg (120 mg-180 mg) Cap Generic drug: Kmbqk-9-NMO-EPA-Fish Oil METAMUCIL (SUGAR) Generic drug: Psyllium Seed-Sucrose multivitamin tablet Take one(1) tablet daily. You might also be taking other medications not listed above. If you have questions about any of your other medications, talk to the person who prescribed them or your Primary Care Provider. STOP taking these medications clindamycin 300 mg capsule Commonly known as: SANJIV Burleson ([place]) PAGER: [phone] May 23, 2021 2:23 PMCity [id number] NoteHNO ID: [id number] Author: Brendan Milner MD Service: Infectious Disease Author Type: Physician Type: Progress Notes Filed: 05/23/2021 10:53 PM Note Text: INFECTIOUS DISEASE PROGRESS NOTE Patient Name: Mychal Swanson ASSESSMENT: LUE cellulitis Leukocytosis LLUVIA Transaminitis ? RECOMMENDATIONS: Discharge planning on PO Linezolid t ? INTERVAL HISTORY: Afebrile, continues to have LE edema, now weeping. LFT's continue to improve. No abd pain, Pain markedly improved in left arm and elbow. Afebrile. MRI not suggestive of OM/ SA or abscess. Vanco level is high at 26 Blood cultures ngtd MEDICATIONS: reviewed. PHYSICAL EXAM: Vital signs: BP 140/73 Pulse 67 Temp 36.7 ?C (98.1 ?F) (Oral) Resp 16 Ht 162.6 cm (5' 4) Wt 79.1 kg (174 lb 4.8 oz) SpO2 93% BMI 29.92 kg/m? Temp (24hrs), Av.5 ?C (97.7 ?F), Min:36.4 ?C (97.5 ?F), Max:36.8 ?C (98.2 ?F) General: alert, oriented, NAD Lungs: bilaterally clear to auscultation Heart: regular rate and rhythm Abdomen: soft, non tender, non distended, BS+ Extremities: no swollen joints Skin: no rash IV sites - wnl Lab data: reviewed Recent Labs 05/23/2105/22/21 0544 05/21/21 0456 WBC 8.68 8.19 7.12 HB 8.7* 8.6* 8.1* PLT 281 236 212 NA 133* 134* 135* 133* K 3.9 3.9 3.8 3.9 CO2 23 25 23 27 BUN 51* 54* 61* 73* CREAT 3.43* 3.48* 3.85* 4.60* AST 18 15 14 ALT 24 30 36 TBILI 0.3 0.3 0.2 ALKPHOS 90 97 95 Microbiology data: reviewed Imaging data: reviewed Brendan Milner MD [phone] 05/23/2021 10:52 AMCity [id number] NoteHNO ID: [id number] Author: Smiley Acosta APRN.CNP Service: Hospital Medicine Author Type: Nurse Practitioner Type: Progress Notes Filed: 05/22/2021 3:51 PM Note Text: DEPARTMENT OF HOSPITAL MEDICINE PROGRESS NOTE SERVICE DATE: 05/22/2021 SERVICE TIME: 10:35 AM Hospital Medicine/Primary Attending: Yusra Nick MD NIGHT AND WEEKEND COVERAGE: [employer] COVER[employer]: Days: [phone], please page attending physician. Nights: [phone], please page [facility] Night coverage pager [phone]. Subjective CC: LUE swelling, pain, redness INTERVAL HPI: Renal function continues to improve. EVE also better each day- good ROM, decreased erythema. Dizziness improved with meclizine. Complains of edema to the extremities and abdomen- stopped IVF. Discussed with nephro- okay to give 1 x dose of IV lasix. Noted shortness of breath while laying flat- CXR obtained with interval development of bilateral patchy airspace opacities representing atelectasis or infiltrates- suspect FVO. Current Facility-Administered Medications Medication Dose Route Frequency - atenolol 50 mg tab(s) (TENORMIN) 50 mg ORAL DAILY - docusate sodium 100 mg cap(s) (COLACE) 100 mg ORAL BID PRN - heparin 5,000 Units injection 5,000 Units SUBCUTANEOUS q 12 H - NaCl 0.9% iv flush bag 20 mL INTRAVENOUS PRN - sodium chloride 0.9 % (flush) 3-5 mL (BD POSIFLUSH) 3-5 mL INTRAVENOUS q 12 H - ondansetron orally disintegrating 4 mg tab(s) (ZOFRAN ODT) 4 mg ORAL q 6 H PRN Or - ondansetron (PF) 4 mg injection (ZOFRAN) 4 mg INTRAVENOUS q 6 H PRN - melatonin 3 mg tab(s) 3 mg ORAL DAILY (8 PM) - psyllium 1 Packet (METAMUCIL) 1 Packet ORAL AT BEDTIME - linezolid 600 mg tab(s) (ZYVOX) 600 mg ORAL q 12 H - sodium chloride 0.65 % 2 [place] (AYR, OCEAN) 2 [place] EACH NOSTRIL PRN - acetaminophen 650 mg tab(s) (TYLENOL) 650 mg ORAL q 6 H PRN - traMADol 50 mg tab(s) (ULTRAM) 50 mg ORAL q 12 H PRN - famotidine 20 mg tab(s) (PEPCID) 20 mg ORAL DAILY - meclizine 25 mg tab(s) (ANTIVERT) 25 mg ORAL TID - LORazepam 0.25 mg tab(s) (ATIVAN) 0.25 mg ORAL HS PRN - benzocaine-menthol 1 Lozenge (CEPACOL) 1 Lozenge MUCOUS MEMBRANE (TOPICAL MOUTH AND THROAT) q 2 H PRN - ipratropium-albuterol 3 mL nebulizer solution (DUONEB) 3 mL INHALATION q 4 H PRN Objective PHYSICAL EXAM: BP 136/66 Pulse 68 Temp (Src) 97.5 (Oral) Resp 18 Ht 5' 4 (1.63m) Wt 174 lb 4.8 oz (79.1kg) SpO2 93% BMI 29.90 kg/(m2). O2 Therapy: Nasal Cannula, Liters: 2.00 Physical Exam Performed GENERAL: Alert, no distress, cooperative. Sitting up in bedside chair SKIN: LUE with edema, erythema, and warmth - improved each day NECK: No jugulovenous distention, supple LUNGS: Lungs clear to auscultation. Good diaphragmatic excursion. He is speaking in full sentences CARDIAC: RRR; no rubs, murmurs, or gallops ABDOMEN: Abdomen soft, non-tender. BS present EXTREMITIES: 1+ pitting edema to BLE, no vascular discoloration to the lower extremities NEURO: Face symmetric, speech is clear, moves all extremities. Non focal neurological exam Lines, Drains, and Airways Line Peripheral 05/18/21 1850 Short Right Forearm 22 Gauge 3 days Reviewed lines and needs to be continued: REASONS: Intravenous fluids and Intravenous antibiotics DATA: Diagnostic tests reviewed for today's visit: Most recent labs Most recent imaging EKG- NSR, no acute ischemia 05/20/2021 Recent Labs 05/22/21 0544 05/21/21 0456 05/20/21 0447 WBC 8.19 7.12 10.30 HB 8.6* 8.1* 8.9* PLT 236 212 250 NA 135* 133* 130* K 3.8 3.9 3.6* CO2 23 27 24 BUN 61* 73* 84* CREAT 3.85* 4.60* 5.12* AST 15 14 21 ALT 30 36 53 TBILI 0.3 0.2 0.3 ALKPHOS 97 95 133* Assessment/Plan HOSPITAL COURSE: Pt admitted with sepsis 2/2 LUE cellulitis. Initially treated with Vanco and Zosyn. ID consulted and transitioned to oral linezolid. Ortho consulted- MRI obtained which is consistent with LUE cellulitis- continue with conservative management. Pt also found to be in renal failure with Creatinine near 7 (baseline ~1). Associated electrolyte disturbances, high anion gap acidosis, bicarb 10. Nephrology following. Started on bicarb drip and renal function is improving. GI consulted for mild transaminitis. RUQ US - cholelithiasis w/o cholecystitis. LFTs improving HOSPITAL PROBLEMS: Cellulitis of left arm - Patient presenting with 5 day history of worsening erythema and edema of the left upper extremity with origin along the olecranon process - Suspect may have started as possible olecranon bursitis with now progression to cellulitis - There was concern for possible septic left elbow joint given significant limited ROM - Ortho consulted, MRI obtained reassuring of cellulitis - Started Vanco and Zosyn - ID consulted and transitioned to oral linezolid - Leukocytosis resolved, afebrile, blood cultures NGTD ? Acute kidney injury (HCC) - Creatinine on admission 6.95; most recent creat (more content not included)... [facility] [id number] NoteHNO ID: [id number] Author: Felicia Mendez APRN.OPERATING SYSTEM DESIGNER Service: Hospital Medicine Author Type: Nurse Practitioner Type: Plan of Care Filed: 05/21/2021 11:53 PM Note Text: New cough CXR with infiltrate Vs atelectasis IS and Duoneb ordered Procalcitonin ordered. Felicia Jaimes APRN.CNP May 21, 2021 11:53 PMCity [id number] NoteHNO ID: [id number] Author: Smiley Acosta APRN.CNP Service: Hospital Medicine Author Type: Nurse Practitioner Type: Progress Notes Filed: 05/21/2021 3:37 PM Note Text: DEPARTMENT OF HOSPITAL MEDICINE PROGRESS NOTE SERVICE DATE: 05/21/2021 SERVICE TIME: 12:36 PM Hospital Medicine/Primary Attending: Yusra Nick MD NIGHT AND WEEKEND COVERAGE: [employer] COVER[employer]: Days: [phone], please page attending physician. Nights: [phone], please page [facility] Night coverage pager [phone]. Subjective CC: LUE swelling, pain, redness INTERVAL HPI: Renal function continues to improve. EVE also better each day- good ROM, decreased erythema, edema, and warmth. No fever or chills. Complains of dizziness with associated nausea- worse with moving quickly. This has been ongoing for the past few days. Checking orthos- will also start meclizine for possible vertigo Current Facility-Administered Medications Medication Dose Route Frequency - atenolol 50 mg tab(s) (TENORMIN) 50 mg ORAL DAILY - docusate sodium 100 mg cap(s) (COLACE) 100 mg ORAL BID PRN - heparin 5,000 Units injection 5,000 Units SUBCUTANEOUS q 12 H - NaCl 0.9% iv flush bag 20 mL INTRAVENOUS PRN - sodium chloride 0.9 % (flush) 3-5 mL (BD POSIFLUSH) 3-5 mL INTRAVENOUS q 12 H - ondansetron orally disintegrating 4 mg tab(s) (ZOFRAN ODT) 4 mg ORAL q 6 H PRN Or - ondansetron (PF) 4 mg injection (ZOFRAN) 4 mg INTRAVENOUS q 6 H PRN - melatonin 3 mg tab(s) 3 mg ORAL DAILY (8 PM) - psyllium 1 Packet (METAMUCIL) 1 Packet ORAL AT BEDTIME - linezolid 600 mg tab(s) (ZYVOX) 600 mg ORAL q 12 H - sodium chloride 0.65 % 2 [place] (AYR, OCEAN) 2 [place] EACH NOSTRIL PRN - NaCl 0.9% iv infusion 100 mL/hr INTRAVENOUS CONTINUOUS - acetaminophen 650 mg tab(s) (TYLENOL) 650 mg ORAL q 6 H PRN - traMADol 50 mg tab(s) (ULTRAM) 50 mg ORAL q 12 H PRN - famotidine 20 mg tab(s) (PEPCID) 20 mg ORAL DAILY - meclizine 25 mg tab(s) (ANTIVERT) 25 mg ORAL TID - LORazepam 0.25 mg tab(s) (ATIVAN) 0.25 mg ORAL HS PRN Objective PHYSICAL EXAM: BP 128/57 Pulse 62 Temp (Src) 97.9 (Oral) Resp 18 Ht 5' 4 (1.63m) Wt 162 lb 4.1 oz (73.6kg) SpO2 94% BMI 27.84 kg/(m2). O2 Therapy: Nasal Cannula, Liters: 1.00 Physical Exam Performed GENERAL: Alert, no distress, cooperative SKIN: LUE with edema, erythema, and warmth NECK: No jugulovenous distention, supple LUNGS: Lungs clear to auscultation. Good diaphragmatic excursion. He is speaking in full sentences CARDIAC: RRR; no rubs, murmurs, or gallops ABDOMEN: Abdomen soft, non-tender. BS present EXTREMITIES: No edema or vascular discoloration to the lower extremities NEURO: Face symmetric, speech is clear, moves all extremities. Non focal neurological exam Lines, Drains, and Airways Line Peripheral 05/18/21 1850 Short Right Forearm 22 Gauge 2 days Reviewed lines and needs to be continued: REASONS: Intravenous fluids and Intravenous antibiotics DATA: Diagnostic tests reviewed for today's visit: Most recent labs Most recent imaging EKG- NSR, no acute ischemia 05/20/2021 Recent Labs 05/21/21 0456 05/20/21 0447 05/19/21 1045 05/19/21 0002 WBC 7.12 10.30 13.99* 13.46* -- HB 8.1* 8.9* 9.3* 9.1* -- PLT 212 250 237 239 -- NA 133* 130* 129* 128* -- K 3.9 3.6* 3.9 3.8 -- CO2 27 24 22 22 -- BUN 73* 84* 80* 80* -- CREAT 4.60* 5.12* 6.02* 6.02* -- AST 14 21 30 -- ALT 36 53 68* -- TBILI 0.2 0.3 0.3 -- ALKPHOS 95 133* 144* -- VANCORA -- -- -- 26.1* Assessment/Plan HOSPITAL COURSE: Pt admitted with sepsis 2/2 LUE cellulitis. Initially treated with Vanco and Zosyn. ID consulted and transitioned to oral linezolid. Ortho consulted- MRI obtained which is consistent with LUE cellulitis- continue with conservative management. Pt also found to be in renal failure with Creatinine near 7 (baseline ~1). Associated electrolyte disturbances, high anion gap acidosis, bicarb 10. Nephrology following. Started on bicarb drip and renal function is improving. GI consulted for mild transaminitis. RUQ US - cholelithiasis w/o cholecystitis. LFTs improving HOSPITAL PROBLEMS: Cellulitis of left arm - Patient presenting with 5 day history of worsening erythema and edema of the left upper extremity with origin along the olecranon process - Suspect may have started as possible olecranon bursitis with now progression to cellulitis - There was concern for possible septic left elbow joint given significant limited ROM - Ortho consulted, MRI obtained reassuring of cellulitis - Started Vanco and Zosyn - ID consulted and transitioned to oral linezolid - Leukocytosis resolved, afebrile, blood cultures NGTD ? Acute kidney injury (HCC) - Creatinine on admission 6.95; most recent creatinine per care everywhere from 06/2020 was 1.01 - Nephrology consulted - Started bicarb drip - Losartan on hold - Suspect prerenal, intravascular volume depletion, ATN possi (more content not included)...[facility] [id number] NoteHNO ID: [id number] Author: Roman Tinoco MD Service: Orthopaedic Surgery Author Type: Physician Type: Progress Notes Filed: 05/21/2021 7:46 AM Note Text: Inpatient Progress Note Orthopaedic Surgery If urgent AND unable to reach myself OR if 5p-7a/Wknd: page 2BONE Assessment Mychal Swanson is admitted for left arm cellulitis with consultation to orthopaedic for concern of left elbow septic arthritis. MRI reassuring against tense elbow effusion or abscess, consistent with cellulitis. Plan - Consider PO Tylenol and judicious tramadol/oxy as well as protonix to avoid nausea associated with IV narcotics - Continue management of cellulitis per ID/Primary team - Monitor for worsening elbow pain - No surgical intervention at this time - Orthopaedics following Rounding Subjective Complains of nausea, dry heaves and dry cough after receiving a dose of IV narcotics. Left arm pain was bad last night but stable now. Minimal elbow pain. Objective Blood pressure 124/62, pulse 64, temperature 36.6 ?C (97.9 ?F), temperature source Oral, resp. rate 18, height 162.6 cm (5' 4), weight 73.6 kg (162 lb 4.1 oz), SpO2 92 %. Physical Exam AAOx3, NAD Breathing comfortably at rest Left Upper Extremity Inspection: Erythema with blistering over distal more so than proximal arm or antecubital fossa. Stable. Compartments: Soft, compressible Sensory: SILT to M/R/U distributions Motor: + FPL/EPL/Finger flexion/extension, sup/pro, elbow flex/ext Tolerates near full AROM sup/pro and flex/ext at elbow Lab Review Creatinine (mg/dL) Date Value 05/21/2021 4.60 (H) 05/20/2021 5.12 (H) 05/19/2021 6.02 (H) 05/19/2021 6.02 (H) Sodium (mmol/L) Date Value 05/21/2021 133 (L) 05/20/2021 130 (L) 05/19/2021 128 (L) 05/19/2021 129 (L) Potassium (mmol/L) Date Value 05/21/2021 3.9 05/20/2021 3.6 (L) 05/19/2021 3.8 05/19/2021 3.9 Hemoglobin (g/dL) Date Value 05/21/2021 8.1 (L) 05/20/2021 8.9 (L) 05/19/2021 9.3 (L) 05/19/2021 9.1 (L) Hematocrit (%) Date Value 05/21/2021 24.0 (L) 05/20/2021 25.2 (L) 05/19/2021 26.7 (L) 05/19/2021 26.3 (L) WBC (k/uL) Date Value 05/21/2021 7.12 05/20/2021 10.30 05/19/2021 13.99 (H) 05/19/2021 13.46 (H) No results found for: INR Glucose, Point of Care (mg/dL) Date Value 05/20/2021 170 (A) 05/20/2021 123 (A) 05/17/2021 88 05/17/2021 65 05/17/2021 129 (A) 05/17/2021 37 (AA) Please scroll above for Assessment AND Plan. Roman Tinoco MD Adult Reconstruction Fellow Orthopaedic SurgeryCity [id number] Note HNO ID: [id number] Author: Smiley Acosta APRN.CNP Service: Hospital Medicine Author Type: Nurse Practitioner Type: Progress Notes Filed: 05/20/2021 8:27 AM Note Text: DEPARTMENT OF HOSPITAL MEDICINE PROGRESS NOTE SERVICE DATE: 05/20/2021 SERVICE TIME: 8:02 AM Hospital Medicine/Primary Attending: Yusra Nick MD NIGHT AND WEEKEND COVERAGE: [employer] COVERAGE: Days: [phone], please page attending physician. Nights: [phone], please page [facility] Night coverage pager [phone]. Subjective CC: LUE swelling, pain, redness INTERVAL HPI: Complains of GI upset/epigastric discomfort this morning. EKG obtained while this provider at bedside; showed NSR without acute ischemia. Also had episode of gasping for air in the middle of the night. States that when he falls asleep- he wakens gasping for air. No history of sleep apnea- no work up in the past. Endorses that EVE cellulitis is improved- less swelling, no drainage. Renal function improving- reports good urine output. Current Facility-Administered Medications Medication Dose Route Frequency - atenolol 50 mg tab(s) (TENORMIN) 50 mg ORAL DAILY - docusate sodium 100 mg cap(s) (COLACE) 100 mg ORAL BID PRN - heparin 5,000 Units injection 5,000 Units SUBCUTANEOUS q 12 H - NaCl 0.9% iv flush bag 20 mL INTRAVENOUS PRN - sodium chloride 0.9 % (flush) 3-5 mL (BD POSIFLUSH) 3-5 mL INTRAVENOUS q 12 H - ondansetron orally disintegrating 4 mg tab(s) (ZOFRAN ODT) 4 mg ORAL q 6 H PRN Or - ondansetron (PF) 4 mg injection (ZOFRAN) 4 mg INTRAVENOUS q 6 H PRN - melatonin 3 mg tab(s) 3 mg ORAL DAILY (8 PM) - sodium bicarbonate 150 mEq in D5W 1,000 mL iv infusion 150 mEq INTRAVENOUS CONTINUOUS - psyllium 1 Packet (METAMUCIL) 1 Packet ORAL AT BEDTIME - linezolid 600 mg tab(s) (ZYVOX) 600 mg ORAL q 12 H - sodium chloride 0.65 % 2 [place] (AYR, OCEAN) 2 [place] EACH NOSTRIL PRN - aluminum-magnesium hydroxide-simethicone 200-200-20 mg/5 mL 30 mL (MAALOX,MYLANTA,MAG-AL PLUS) 30 mL ORAL ONCE And - lidocaine viscous 2 % 15 mL (XYLOCAINE) 15 mL ORAL ONCE - famotidine 20 mg tab(s) (PEPCID) 20 mg ORAL ONCE Objective PHYSICAL EXAM: BP 127/72 Pulse 70 Temp (Src) 98.6 (Oral) Resp 18 Ht 5' 4 (1.63m) Wt 162 lb 4.1 oz (73.6kg) SpO2 93% BMI 27.84 kg/(m2). O2 Therapy: Room Air, Liters: 1 Physical Exam Performed GENERAL: Alert, no distress, cooperative SKIN: LUE with edema, erythema, and warmth NECK: No jugulovenous distention, supple LUNGS: Lungs clear to auscultation. Good diaphragmatic excursion. He is speaking in full sentences CARDIAC: RRR; no rubs, murmurs, or gallops ABDOMEN: Abdomen soft, non-tender. BS present EXTREMITIES: No edema or vascular discoloration to the lower extremities NEURO: Face symmetric, speech is clear, moves all extremities Lines, Drains, and Airways Line Peripheral 05/18/21 1850 Short Right Forearm 22 Gauge 1 day Peripheral 05/18/21 1851 Short Right Antecubital 22 Gauge 1 day Reviewed lines and needs to be continued: REASONS: Intravenous fluids and Intravenous antibiotics DATA: Diagnostic tests reviewed for today's visit: Most recent labs Most recent imaging EKG- NSR, no acute ischemia 05/20/2021 Recent Labs 05/20/21 0447 05/19/21 1045 05/19/21 0002 05/18/21 0656 05/17/21 2314 WBC 10.30 13.99* 13.46* -- 14.61* -- HB 8.9* 9.3* 9.1* -- 9.1* -- PLT 250 237 239 -- 244 -- NA 130* 129* 128* -- 128* -- K 3.6* 3.9 3.8 -- 4.1 -- CO2 -- 16* -- BUN 84* 80* 80* -- 86* -- CREAT 5.12* 6.02* 6.02* -- 7.09* -- AST 21 30 -- 99* -- ALT 53 68* -- 113* -- TBILI 0.3 0.3 -- 0.3 -- ALKPHOS 133* 144* -- 137* -- VANCORA -- -- 26.1* -- 13.4 Assessment/Plan HOSPITAL COURSE: Pt admitted with sepsis 2/2 LUE cellulitis. Initially treated with Vanco and Zosyn. ID consulted and transitioned to oral linezolid. Ortho consulted- MRI obtained which is consistent with LUE cellulitis- continue with conservative management. Pt also found to be in renal failure with Creatinine near 7 (baseline ~1). Associated electrolyte disturbances, high anion gap acidosis, bicarb 10. Nephrology following. Started on bicarb drip and renal function is improving. GI consulted for mild transaminitis. RUQ US - cholelithiasis w/o cholecystitis. LFTs improving HOSPITAL PROBLEMS: Cellulitis of left arm - Patient presenting with 5 day history of worsening erythema and edema of the left upper extremity with origin along the olecranon process - Suspect may have started as possible olecranon bursitis with now progression to cellulitis - There was concern for possible septic left elbow joint given significant limited ROM - Ortho consulted, MRI obtained reassuring of cellulitis - Started Vanco and Zosyn - ID consulted and transitioned to oral linezolid - Leukocytosis resolved, afebrile, blood cultures NGTD ? Acute kidney injury (HCC) - Creatinine on admission 6.9 (more content not included)...[facility] 05-20-2021 NoteHNO ID: [id number] Author: Roman Tinoco MD Service: Orthopaedic Surgery Author Type: Physician Type: Progress Notes Filed: 05/20/2021 7:34 AM Note Text: Inpatient Progress Note Orthopaedic Surgery If urgent AND unable to reach myself OR if 5p-7a/Wknd: page 2BONE Assessment Mychal Swanson is admitted for left arm cellulitis with consultation to orthopaedic for concern of left elbow septic arthritis. MRI reassuring against tense elbow effusion or abscess, consistent with cellulitis. Plan - Continue management of cellulitis per ID/Primary team - Monitor for worsening elbow pain - No surgical intervention at this time - Orthopaedics following Rounding Subjective Episode of SOB yesterday managed with O2 and tums for GERD, improved but not resolved. LUE pain continues to improve. Now using left hand for his phone and feeding. Objective Blood pressure 135/70, pulse 67, temperature 36.3 ?C (97.3 ?F), temperature source Oral, resp. rate 22, height 162.6 cm (5' 4), weight 73.6 kg (162 lb 4.1 oz), SpO2 94 %. Physical Exam AAOx3, NAD Breathing comfortably at rest Left Upper Extremity Inspection: Erythema with blistering over distal more so than proximal arm or antecubital fossa. Stable from yesterday Compartments: Soft, compressible Sensory: SILT to M/R/U distributions Motor: + FPL/EPL/Finger flexion/extension, sup/pro, elbow flex/ext Tolerates near full AROM sup/pro and flex/ext at elbow Lab Review Creatinine (mg/dL) Date Value 05/20/2021 5.12 (H) 05/19/2021 6.02 (H) 05/19/2021 6.02 (H) Sodium (mmol/L) Date Value 05/20/2021 130 (L) 05/19/2021 128 (L) 05/19/2021 129 (L) Potassium (mmol/L) Date Value 05/20/2021 3.6 (L) 05/19/2021 3.8 05/19/2021 3.9 Hemoglobin (g/dL) Date Value 05/20/2021 8.9 (L) 05/19/2021 9.3 (L) 05/19/2021 9.1 (L) Hematocrit (%) Date Value 05/20/2021 25.2 (L) 05/19/2021 26.7 (L) 05/19/2021 26.3 (L) WBC (k/uL) Date Value 05/20/2021 10.30 05/19/2021 13.99 (H) 05/19/2021 13.46 (H) No results found for: INR Glucose, Point of Care (mg/dL) Date Value 05/20/2021 123 (A) 05/17/2021 88 05/17/2021 65 05/17/2021 129 (A) 05/17/2021 37 (AA) Please scroll above for Assessment AND Plan. Roman Tinoco MD Adult Reconstruction Fellow Orthopaedic SurgeryCity [id number] Note HNO ID: [id number] Author: Esther Suarez PA-C Service: Hospital Medicine Author Type: Physician Equipment Validation Specialist Type: Plan of Care Filed: 05/20/2021 5:02 AM Note Text: BP 135/70 Pulse 67 Temp 36.3 ?C (97.3 ?F) (Oral) Resp 22 Ht 162.6 cm (5' 4) Wt 73.6 kg (162 lb 4.1 oz) SpO2 94% BMI 27.85 kg/m? RN paged that patient is feeling short of breath and like he is dying. VSS stable at that time. He was placed on 1L NC for comfort. I personally assessed patient who was resting comfortably when I walked into the room. He stated he was having some heartburn which made it harder to breathe. Lungs slightly diminished at bases otherwise clear. Fluids currently on hold. Will give Tums for the heartburn. Esther Suarez PA-C 5:02 AMCity [id number] NoteHNO ID: [id number] Author: Brendan Milner MD Service: Infectious Disease Author Type: Physician Type: Progress Notes Filed: 05/19/2021 4:26 PM Note Text: INFECTIOUS DISEASE PROGRESS NOTE Patient Name: Mychal Swanson ASSESSMENT: LUE cellulitis Leukocytosis LLUVIA Transaminitis ? RECOMMENDATIONS: Continue vancomycin, holding dose for level of 26 Reports mylagias with Ceftriaxone? F/u blood cultures Monitor CBC/ temps ? INTERVAL HISTORY: Afebrile, continues to have LE edema, now weeping. LFT's continue to improve. No abd pain, Pain markedly improved in left arm and elbow. Afebrile. MRI not suggestive of OM/ SA or abscess. Vanco level is high at 26 Blood cultures ngtd WBC 14 Discharge planning on PO Linezolid x 10 days more. Scripts sent MEDICATIONS: reviewed. Current Facility-Administered Medications Medication Dose Route Frequency - atenolol 50 mg tab(s) (TENORMIN) 50 mg ORAL DAILY - docusate sodium 100 mg cap(s) (COLACE) 100 mg ORAL BID PRN - heparin 5,000 Units injection 5,000 Units SUBCUTANEOUS q 12 H - NaCl 0.9% iv flush bag 20 mL INTRAVENOUS PRN - sodium chloride 0.9 % (flush) 3-5 mL (BD POSIFLUSH) 3-5 mL INTRAVENOUS q 12 H - ondansetron orally disintegrating 4 mg tab(s) (ZOFRAN ODT) 4 mg ORAL q 6 H PRN Or - ondansetron (PF) 4 mg injection (ZOFRAN) 4 mg INTRAVENOUS q 6 H PRN - melatonin 3 mg tab(s) 3 mg ORAL DAILY (8 PM) - traMADol 50 mg tab(s) (ULTRAM) 50 mg ORAL q 6 H PRN - vancomycin dosing and monitoring per pharmacy OTHER As Directed - sodium bicarbonate 150 mEq in D5W 1,000 mL iv infusion 150 mEq INTRAVENOUS CONTINUOUS - psyllium 1 Packet (METAMUCIL) 1 Packet ORAL AT BEDTIME PHYSICAL EXAM: Vital signs: BP 133/63 Pulse 66 Temp 36.8 ?C (98.2 ?F) (Oral) Resp 18 Ht 162.6 cm (5' 4) Wt 73.6 kg (162 lb 4.1 oz) SpO2 92% BMI 27.85 kg/m? Temp (24hrs), Av.5 ?C (97.7 ?F), Min:36.4 ?C (97.5 ?F), Max:36.8 ?C (98.2 ?F) General: alert, oriented, NAD Lungs: bilaterally clear to auscultation Heart: regular rate and rhythm Abdomen: soft, non tender, non distended, BS+ Extremities: no swollen joints Skin: no rash IV sites - wnl Lab data: reviewed Recent Labs 05/19/21 1045 05/19/21 0002 05/18/21 0656 05/17/21 2314 05/17/21 0529 05/17/21 0139 WBC 13.99* 13.46* -- 14.61* -- 14.65* 13.30* HB 9.3* 9.1* -- 9.1* -- 9.1* 9.2* PLT 237 239 -- 244 -- 253 232 NA 129* 128* -- 128* -- 128* 128* K 3.9 3.8 -- 4.1 -- 5.3* 4.7 CO2 -- 16* -- 10* 10* BUN 80* 80* -- 86* -- 77* 79* CREAT 6.02* 6.02* -- 7.09* -- 6.96* 6.97* AST 30 -- 99* -- 371* 415* ALT 68* -- 113* -- 199* 210* TBILI 0.3 -- 0.3 -- 0.3 0.3 ALKPHOS 144* -- 137* -- 184* 128* WSR -- -- -- -- -- 137* VANCORA -- 26.1* -- 13.4 -- -- Microbiology data: reviewed Imaging data: reviewed Brendan Milner MD [phone] 05/19/2021 4:11 PMCity [id number] NoteHNO ID: [id number] Author: Sabino Sweeney PA-C Service: Hospital Medicine Author Type: Physician Equipment Validation Specialist Type: Progress Notes Filed: 05/19/2021 2:25 PM Note Text: DEPARTMENT OF HOSPITAL MEDICINE PROGRESS NOTE SERVICE DATE: 05/19/2021 SERVICE TIME: 9:36 AM Hospital Medicine/Primary Attending: Yusra Nick MD NIGHT AND WEEKEND COVERAGE: [employer] COVER[employer]: Days: [phone], please page attending physician. Nights: [phone], please page [facility] Night coverage pager [phone]. Subjective INTERVAL HPI: Pt admitted with sepsis from cellulitis LUE, concern for septic arthritis of elbow. On zosyn, vanc (renally dose). MRI showed cellulitis, no abscess or OM. Ortho: no surgical intervention at this time. Renal function similar to yesterday. Bicarb improving on bicarb drip. LFTs improving. Current Facility-Administered Medications Medication Dose Route Frequency - atenolol 50 mg tab(s) (TENORMIN) 50 mg ORAL DAILY - docusate sodium 100 mg cap(s) (COLACE) 100 mg ORAL BID PRN - heparin 5,000 Units injection 5,000 Units SUBCUTANEOUS q 12 H - NaCl 0.9% iv flush bag 20 mL INTRAVENOUS PRN - sodium chloride 0.9 % (flush) 3-5 mL (BD POSIFLUSH) 3-5 mL INTRAVENOUS q 12 H - ondansetron orally disintegrating 4 mg tab(s) (ZOFRAN ODT) 4 mg ORAL q 6 H PRN Or - ondansetron (PF) 4 mg injection (ZOFRAN) 4 mg INTRAVENOUS q 6 H PRN - polyethylene glycol 3350 17 g packet (MIRALAX, GLYCOLAX) 17 g ORAL DAILY - melatonin 3 mg tab(s) 3 mg ORAL DAILY (8 PM) - traMADol 50 mg tab(s) (ULTRAM) 50 mg ORAL q 6 H PRN - vancomycin dosing and monitoring per pharmacy OTHER As Directed - sodium bicarbonate 150 mEq in D5W 1,000 mL iv infusion 150 mEq INTRAVENOUS CONTINUOUS Objective PHYSICAL EXAM: BP 114/54 Pulse 66 Temp (Src) 97.5 (Oral) Resp 20 Ht 5' 4 (1.63m) Wt 162 lb 4.1 oz (73.6kg) SpO2 92% BMI 27.84 kg/(m2). O2 Therapy: Room Air Physical Exam Performed GENERAL: alert, no distress, cooperative SKIN: Skin color, texture, turgor normal. No rashes or lesions. NECK: no jugulovenous distention, supple BACK: Back symmetric, Normal curvature, ROM normal, No CVAT. LUNGS: Lungs clear to auscultation. Good diaphragmatic excursion. CARDIAC: RRR; no rubs, murmurs, or gallops ABDOMEN: Abdomen soft, non-tender. BS normal. No masses or organomegaly. EXTREMITIES: improvement in edema/erythema to LUE. NEURO: Sensation grossly intact., Cranial nerves II-XII intact Lines, Drains, and Airways Line Peripheral 05/18/21 1850 Short Right Forearm 22 Gauge <1 day Peripheral 05/18/21 1851 Short Right Antecubital 22 Gauge <1 day Reviewed lines and needs to be continued: REASONS: Intravenous fluids and Intravenous antibiotics DATA: Diagnostic tests reviewed for today's visit: Most recent labs Most recent imaging Assessment/Plan Problem List Cellulitis of left arm POA: Yes Essential hypertension, benign POA: Yes Acute kidney injury (HCC) POA: Yes Transaminitis POA: Yes Cholelithiasis POA: Yes Hyperkalemia POA: Yes Hyponatremia POA: Yes HOSPITAL COURSE: Pt admitted with sepsis likely 2/2 septic arthritis of left elbow. On zosyn, vanc (renally dose). Ortho reccs stat MRI. Pt also found to be in renal failure with Creatinine near 7 (baseline ~1). Associated electrolyte disturbances, high anion gap acidosis, bicarb 10. Nephrology following. Started on bicarb drip. GI consulted for transaminitis. RUQ US - cholelithiasis w/o cholecystitis. Checking hepatitis panel. Cellulitis of right arm --Patient presenting with 5 day history of worsening erythema and edema of the left upper extremity with origin along the olecranon process --Suspect may have started as possible olecranon bursitis with now progression to cellulitis and concern for possible septic left elbow joint given significant limited ROM (patient holds limb in slight flexion but is unable to fully extend or flex secondary to pain) --Check MRSA nasal PCR --CRP in ED (63); will also check ESR --Obtain blood cultures as not checked in ED --Patient does have history of gout although typically with ankle, toe and knee involvement---check uric acid level --ID consult --Ortho consult--no surgical intervention at this time -- MRI: MRI showed cellulitis, no abscess or OM. --continue vanco ? Acute kidney injury (HCC) --Creatinine on admission 6.95; most recent creatinine per care everywhere from 06/2020 was 1.01 --May be pre-renal component as patient does report poor oral intake over the past 5 days but did also have noted bilateral nephrolithiasis with associated perinephric stranding per ED report of radiology read. Per report there was no associated hydronephrosis and there was no noted obstruction from the stones. Size of stones was not mentioned in report per ED provider --Check post void residual to ensure no urinary retention and monitor strict I/Os --Nephrology consultation --check renal (more content not included)...[facility] [id number] NoteHNO ID: [id number] Author: Roman Tinoco MD Service: Orthopaedic Surgery Author Type: Physician Type: Progress Notes Filed: 05/19/2021 7:09 AM Note Text: Inpatient Progress Note Orthopaedic Surgery If urgent AND unable to reach myself OR if 5p-7a/Wknd: page 2BONE Assessment Mychal Swanson is admitted for left arm cellulitis with consultation to orthopaedic for concern of left elbow septic arthritis. MRI reassuring against tense elbow effusion or abscess, consistent with cellulitis. Plan - Continue management of cellulitis per ID/Primary team - Monitor for worsening elbow pain - No surgical intervention at this time - Orthopaedics following Rounding Subjective No o/n issues. Pain markedly improved in left arm and elbow. Afebrile. Reports improved ROM at elbow Objective Blood pressure 147/76, pulse 71, temperature 36.4 ?C (97.5 ?F), temperature source Oral, resp. rate 18, height 162.6 cm (5' 4), weight 73.6 kg (162 lb 4.1 oz), SpO2 93 %. Physical Exam AAOx3, NAD Breathing comfortably at rest Left Upper Extremity Inspection: Erythema with blistering over distal more so than proximal arm or antecubital fossa. Improved per patient Palpation: TTP to erythematous areas Compartments: Soft, compressible Sensory: SILT to M/R/U distributions Motor: + FPL/EPL/Finger flexion/extension, sup/pro, elbow flex/ext Tolerates near full sup/pro and 60 degree arc flex/ext at elbow Lab Review Creatinine (mg/dL) Date Value 05/18/2021 7.09 (H) 05/17/2021 6.96 (H) 05/17/2021 6.97 (H) Sodium (mmol/L) Date Value 05/18/2021 128 (L) 05/17/2021 128 (L) 05/17/2021 128 (L) Potassium (mmol/L) Date Value 05/18/2021 4.1 05/17/2021 5.3 (H) 05/17/2021 4.7 Hemoglobin (g/dL) Date Value 05/18/2021 9.1 (L) 05/17/2021 9.1 (L) 05/17/2021 9.2 (L) Hematocrit (%) Date Value 05/18/2021 26.2 (L) 05/17/2021 27.0 (L) 05/17/2021 27.0 (L) WBC (k/uL) Date Value 05/18/2021 14.61 (H) 05/17/2021 14.65 (H) 05/17/2021 13.30 (H) No results found for: INR Glucose, Point of Care (mg/dL) Date Value 05/17/2021 88 05/17/2021 65 05/17/2021 129 (A) 05/17/2021 37 (AA) Please scroll above for Assessment AND Plan. Roman Tinoco MD Adult Reconstruction Fellow Orthopaedic [facility]12-23-2021 Note HNO ID: [id number] Author: Brendan Milner MD Service: Infectious Disease Author Type: Physician Type: Progress Notes Filed: 05/19/2021 4:10 PM Note Text: INFECTIOUS DISEASE PROGRESS NOTE Patient Name: Mychal Swanson Date: 05/18/2021 ASSESSMENT: LUE cellulitis Leukocytosis LLUVIA Transaminitis ? RECOMMENDATIONS: Continue vancomycin , d/c Zosyn Reports mylagias with Ceftriaxone? F/u blood cultures Monitor CBC/ temps ? INTERVAL HISTORY: Afebrile, continues to have LE edema, now weeping MRI not suggestive of OM/ SA or abscess Blood cultures ngtd WBC 14.6 MEDICATIONS: reviewed. Current Facility-Administered Medications Medication Dose Route Frequency - atenolol 50 mg tab(s) (TENORMIN) 50 mg ORAL DAILY - docusate sodium 100 mg cap(s) (COLACE) 100 mg ORAL BID PRN - heparin 5,000 Units injection 5,000 Units SUBCUTANEOUS q 12 H - NaCl 0.9% iv flush bag 20 mL INTRAVENOUS PRN - sodium chloride 0.9 % (flush) 3-5 mL (BD POSIFLUSH) 3-5 mL INTRAVENOUS q 12 H - ondansetron orally disintegrating 4 mg tab(s) (ZOFRAN ODT) 4 mg ORAL q 6 H PRN Or - ondansetron (PF) 4 mg injection (ZOFRAN) 4 mg INTRAVENOUS q 6 H PRN - polyethylene glycol 3350 17 g packet (MIRALAX, GLYCOLAX) 17 g ORAL DAILY - melatonin 3 mg tab(s) 3 mg ORAL DAILY (8 PM) - traMADol 50 mg tab(s) (ULTRAM) 50 mg ORAL q 6 H PRN - piperacillin-tazobactam iv piggyback 3.375 g in dextrose (iso-osmotic) 50 mL (ZOSYN) 3.375 g INTRAVENOUS q 12 H - vancomycin dosing and monitoring per pharmacy OTHER As Directed - sodium bicarbonate 150 mEq in D5W 1,000 mL iv infusion 150 mEq INTRAVENOUS CONTINUOUS PHYSICAL EXAM: Vital signs: BP 126/64 Pulse 67 Temp 36.5 ?C (97.7 ?F) (Oral) Resp 20 Ht 162.6 cm (5' 4) Wt 73.6 kg (162 lb 4.1 oz) SpO2 95% BMI 27.85 kg/m? Temp (24hrs), Av.4 ?C (97.6 ?F), Min:36.4 ?C (97.5 ?F), Max:36.5 ?C (97.7 ?F) General: alert, oriented, NAD Lungs: bilaterally clear to auscultation Heart: regular rate and rhythm Abdomen: soft, non tender, non distended, BS+ Extremities: no swollen joints Skin: no rash IV sites - wnl Lab data: reviewed Recent Labs 05/18/21 0656 05/17/21 2314 05/17/21 0529 05/17/21 0139 WBC 14.61* -- 14.65* 13.30* HB 9.1* -- 9.1* 9.2* PLT 244 -- 253 232 NA 128* -- 128* 128* K 4.1 -- 5.3* 4.7 CO2 16* -- 10* 10* BUN 86* -- 77* 79* CREAT 7.09* -- 6.96* 6.97* AST 99* -- 371* 415* ALT 113* -- 199* 210* TBILI 0.3 -- 0.3 0.3 ALKPHOS 137* -- 184* 128* WSR -- -- -- 137* VANCORA -- 13.4 -- -- Microbiology data: reviewed Imaging data: reviewed Zara Conn FLIGHT OPERATIONS MANAGER-C [facility] Answering Service: [phone] May 18, 2021 3:09 PM I reviewed the plan of care and reviewed the note. Plan of care discussed with the FLIGHT OPERATIONS MANAGER in detail and I agree with it. Brendan Milner MD [phone] 05/18/2021 4:10 PMCity [id number] NoteHNO ID: [id number] Author: Sabino Sweeney PA-C Service: Hospital Medicine Author Type: Physician Equipment Validation Specialist Type: Progress Notes Filed: 05/18/2021 2:04 PM Note Text: DEPARTMENT OF HOSPITAL MEDICINE PROGRESS NOTE SERVICE DATE: 05/18/2021 SERVICE TIME: 10:31 AM Hospital Medicine/Primary Attending: Yusra Nick MD NIGHT AND WEEKEND COVERAGE: [employer] COVERAGE: Days: [phone], please page attending physician. Nights: [phone], please page [facility] Night coverage pager [phone]. Subjective INTERVAL HPI: Pt admitted with sepsis from cellulitis LUE, concern for septic arthritis of elbow. On zosyn, vanc (renally dose). MRI showed cellulitis, no abscess or OM. Ortho: no surgical intervention at this time. Renal function similar to yesterday. Bicarb improving on bicarb drip. LFTs improving. Current Facility-Administered Medications Medication Dose Route Frequency - atenolol 50 mg tab(s) (TENORMIN) 50 mg ORAL DAILY - docusate sodium 100 mg cap(s) (COLACE) 100 mg ORAL BID PRN - heparin 5,000 Units injection 5,000 Units SUBCUTANEOUS q 12 H - NaCl 0.9% iv flush bag 20 mL INTRAVENOUS PRN - sodium chloride 0.9 % (flush) 3-5 mL (BD POSIFLUSH) 3-5 mL INTRAVENOUS q 12 H - ondansetron orally disintegrating 4 mg tab(s) (ZOFRAN ODT) 4 mg ORAL q 6 H PRN Or - ondansetron (PF) 4 mg injection (ZOFRAN) 4 mg INTRAVENOUS q 6 H PRN - polyethylene glycol 3350 17 g packet (MIRALAX, GLYCOLAX) 17 g ORAL DAILY - melatonin 3 mg tab(s) 3 mg ORAL DAILY (8 PM) - traMADol 50 mg tab(s) (ULTRAM) 50 mg ORAL q 6 H PRN - piperacillin-tazobactam iv piggyback 3.375 g in dextrose (iso-osmotic) 50 mL (ZOSYN) 3.375 g INTRAVENOUS q 12 H - vancomycin dosing and monitoring per pharmacy OTHER As Directed - sodium bicarbonate 150 mEq in D5W 1,000 mL iv infusion 150 mEq INTRAVENOUS CONTINUOUS - calcium gluconate 2 g in NaCl 0.9% 100 mL 2 g INTRAVENOUS ONCE Objective PHYSICAL EXAM: BP 106/59 Pulse 65 Temp (Src) 97.5 (Oral) Resp 18 Ht 5' 4 (1.63m) Wt 162 lb 4.1 oz (73.6kg) SpO2 96% BMI 27.84 kg/(m2). O2 Therapy: Room Air Physical Exam Performed GENERAL: alert, no distress, cooperative SKIN: Skin color, texture, turgor normal. No rashes or lesions. NECK: no jugulovenous distention, supple BACK: Back symmetric, Normal curvature, ROM normal, No CVAT. LUNGS: Lungs clear to auscultation. Good diaphragmatic excursion. CARDIAC: RRR; no rubs, murmurs, or gallops ABDOMEN: Abdomen soft, non-tender. BS normal. No masses or organomegaly. EXTREMITIES: Extremities normal. No deformities, edema, clubbing or skin discoloration., No ulcers NEURO: Sensation grossly intact., Cranial nerves II-XII intact Lines, Drains, and Airways Line Peripheral 05/16/21 Right Forearm 22 Gauge 2 days Reviewed lines and needs to be continued: REASONS: Intravenous fluids and Intravenous antibiotics DATA: Diagnostic tests reviewed for today's visit: Most recent labs Most recent imaging Assessment/Plan Problem List Cellulitis of left arm POA: Yes Essential hypertension, benign POA: Yes Acute kidney injury (HCC) POA: Yes Transaminitis POA: Yes Cholelithiasis POA: Yes Hyperkalemia POA: Yes Hyponatremia POA: Yes HOSPITAL COURSE: Pt admitted with sepsis likely 2/2 septic arthritis of left elbow. On zosyn, vanc (renally dose). Ortho reccs stat MRI. Pt also found to be in renal failure with Creatinine near 7 (baseline ~1). Associated electrolyte disturbances, high anion gap acidosis, bicarb 10. Nephrology following. Started on bicarb drip. GI consulted for transaminitis. RUQ US - cholelithiasis w/o cholecystitis. Checking hepatitis panel. Cellulitis of right arm --Patient presenting with 5 day history of worsening erythema and edema of the left upper extremity with origin along the olecranon process --Suspect may have started as possible olecranon bursitis with now progression to cellulitis and concern for possible septic left elbow joint given significant limited ROM (patient holds limb in slight flexion but is unable to fully extend or flex secondary to pain) --Continue Zosyn as initiated in ED, will need MRSA coverage as well so started on renally dosed Vancomycin with pharmacy consult --Check MRSA nasal PCR --CRP in ED (63); will also check ESR --Obtain blood cultures as not checked in ED --Pain control and elevation of extremity --Will obtain STAT XR of L elbow and forearm as no imaging of extremity completed in ED --Pending XR results and response to antibiotics may potentially need further advanced imaging such as MRI --Patient does have history of gout although typically with ankle, toe and knee involvement---check uric acid level --ID consult --Ortho consult--may need joint aspiration - stat MRI. ? Acute kidney injury (HCC) --Creatinine on admission 6.95; most recent creatinine per care everywhere from 06/2020 was 1.01 --May be pre-renal component as patient (more content not included)...City [id number] NoteHNO ID: [id number] Author: Rosario Weathers RN Service: Care Management Author Type: Registered Nurse Type: Care Mgt Initial Assessment Filed: 05/17/2021 3:29 PM Note Text: CARE MANAGEMENT: ASSESSMENT AND DISCHARGE PLAN SERVICE DATE: May 17, 2021 SERVICE TIME: 3:25 PM PRIMARY CARE PHYSICIAN: Lee Holbrook MD *confirmed* ADMISSION STATUS: Inpatient Needs Prior to Discharge: To Be Determined MEDICAL: MEDICARE A AND B Patient/Refractory Specialist Stated Goals: To have reduction in pain;To have reduction in symptoms;To return home to life as it was Health Insurance: Medicare Health Issues Impacting Discharge Plan: Chronic;Newly diagnosed Newly Diagnosed: Cellulitis Left Arm r/o Septic Elbow; cholelithias, [place] Chronic: HTN, gout, Normocytic Anemia Last Discharge Date: N/A Is this Within the Past 30 days? Last discharge within 30 days: No Advance Directive: Current Advance Directive: Health Care Power of Lead Welder In Chart: No Health LiteracyHow often do you need to have someone help you when you read instructions, pamphlets, or other written material from your doctor or pharmacy? : 1 - Never How confident are you filling out medical forms by yourself?: 1 - Extremely Baseline Mental Status Prior to this Illness what was the patient's Baseline Mental Status?: Alert AND Oriented Prior to this illness, has anyone described the patient having any of the following behaviors?: Not Applicable Relationship of the informant to the patient:: Spouse Name of Informant: : Nash Functional Status: Independent Does Patient Currently Receive Any Community Services or Home Care?: None Equipment Prior to Admission: None Has the Patient Been in a Group Home Facility in the Past 30 days?: No SOCIAL: Living Arrangements: Home Lives With: Spouse Financial Resources: Retired Primary Contact: Extended Emergency Contact Information Primary Emergency Contact: NASH SWANSON Relation: Spouse Supportive Patient Contact:: Yes Contact Resources: Family Family Name/Phone: Nash/spouse Caregiver AssessmentCaregiver is ready, willing and able to meet the patient's needs as recommended by the inter-professional team:: No Caregiver needed Does the patient have an acute stroke diagnosis, or has the patient had a stroke during this admission?: No Patient's transition needs and plan for meeting these needs: Lives at home with spouse with plan to return. Patient's perception of need for this admission: My elbow hurt; weakness; not feeling well. Medication Adherance I am convinced of the importance of my prescription medication: 0 - Agree Completely I worry that my prescription medication will do more harm than good to me : 0 - Disagree Completely I feel financially burdened by my [id number] expenses for my prescription medication:: 0 - Disagree Completely Risk Score: 0 Patient is categorized as: Low risk < 2 Are you interested in bedside delivery of your medications? Yes Is Patient Psychosocially Complex?: No ASSESSMENT AND PLAN: Medical Needs: Medical Needs: None Psychosocial Needs: Psychosocial Needs: None FREEDOM OF CHOICE EXPLAINED: [place] of Choice Given: No Reason Not Given: No placements necessary POTENTIAL TRANSITION PLANS To Be Determined Spoke with Mrs. Swanson as Mr Swanson wasn't feeling well; lives at home [place]; bed and bath on 1st floor with 1 step in; independent at baseline; Mrs. Swanson is agreeable to any services needed for discharge planning ie [facility]; case management will follow patient for transition planning. SIGNATURE: Rosario Weathers RN [facility] PATIENT NAME: Mychal Swanson DATE: May 17, 2021 TIME: 3:25 PM PAGER/CONTACT #: [phone] History of Past illness Narrative* Problem Noted Date Resolved Date Hyperkalemia 05/17/2021 05/23/2021 documented as of this encounter (statuses as of 05/24/2021) [facility]12-22-2021 History of Past illness Narrative* Problem Noted Date Resolved Date Hyperkalemia 05/17/2021 05/23/2021 documented as of this encounter (statuses as of 12/20/2021) [facility]12-22-2021 History of Past illness Narrative* Problem Noted Date Resolved Date Hyperkalemia 05/17/2021 05/23/2021 documented as of this encounter (statuses as of 06/20/2022) [facility]12-22-2021 NoteHNO ID: [id number] Author: Sabino Sweeney PA-C Service: Hospital Medicine Author Type: Physician Equipment Validation Specialist Type: Progress Notes Filed: 05/17/2021 12:55 PM Note Text: DEPARTMENT OF HOSPITAL MEDICINE PROGRESS NOTE SERVICE DATE: 05/17/2021 SERVICE TIME: 10:15 AM Hospital Medicine/Primary Attending: Yusra Nick MD NIGHT AND WEEKEND COVERAGE: [place] COVERAGE: : [phone], please page attending physician. Nights: [phone], please page [facility] Night coverage pager [phone]. Subjective INTERVAL HPI: Pt admitted with sepsis likely 2/2 septic arthritis of left elbow. On zosyn, vanc (renally dose). Ortho reccs stat MRI. Pt also found to be in renal failure with Creatinine near 7 (baseline ~1). Associated electrolyte disturbances, high anion gap acidosis, bicarb 10. Nephrology following. Started on bicarb drip. Current Facility-Administered Medications Medication Dose Route Frequency - atenolol 50 mg tab(s) (TENORMIN) 50 mg ORAL DAILY - docusate sodium 100 mg cap(s) (COLACE) 100 mg ORAL BID PRN - heparin 5,000 Units injection 5,000 Units SUBCUTANEOUS q 12 H - NaCl 0.9% iv flush bag 20 mL INTRAVENOUS PRN - sodium chloride 0.9 % (flush) 3-5 mL (BD POSIFLUSH) 3-5 mL INTRAVENOUS q 12 H - NaCl 0.9% iv infusion 100 mL/hr INTRAVENOUS CONTINUOUS - ondansetron orally disintegrating 4 mg tab(s) (ZOFRAN ODT) 4 mg ORAL q 6 H PRN Or - ondansetron (PF) 4 mg injection (ZOFRAN) 4 mg INTRAVENOUS q 6 H PRN - polyethylene glycol 3350 17 g packet (MIRALAX, GLYCOLAX) 17 g ORAL DAILY - melatonin 3 mg tab(s) 3 mg ORAL DAILY (8 PM) - traMADol 50 mg tab(s) (ULTRAM) 50 mg ORAL q 6 H PRN - piperacillin-tazobactam iv piggyback 3.375 g in dextrose (iso-osmotic) 50 mL (ZOSYN) 3.375 g INTRAVENOUS q 12 H - vancomycin dosing and monitoring per pharmacy OTHER As Directed Objective PHYSICAL EXAM: BP 110/55 Pulse 80 Temp (Src) 97.5 (Oral) Resp 18 Ht 5' 4 (1.63m) Wt 162 lb 4.1 oz (73.6kg) SpO2 97% BMI 27.84 kg/(m2). O2 Therapy: Room Air Physical Exam Performed GENERAL: alert, no distress, cooperative SKIN: Skin color, texture, turgor normal. No rashes or lesions. NECK: no jugulovenous distention, supple BACK: Back symmetric, Normal curvature, ROM normal, No CVAT. LUNGS: Lungs clear to auscultation. Good diaphragmatic excursion. CARDIAC: RRR; no rubs, murmurs, or gallops ABDOMEN: Abdomen soft, non-tender. BS normal. No masses or organomegaly. EXTREMITIES: Extremities normal. No deformities, edema, clubbing or skin discoloration., No ulcers NEURO: Sensation grossly intact., Cranial nerves II-XII intact Lines, Drains, and Airways Line Peripheral 05/16/21 Right Forearm 22 Gauge 1 day Reviewed lines and needs to be continued: REASONS: Intravenous fluids and Intravenous antibiotics DATA: Diagnostic tests reviewed for today's visit: Most recent labs Most recent imaging Assessment/Plan Problem List Cellulitis of right arm POA: Yes Essential hypertension, benign POA: Yes Acute kidney injury (HCC) POA: Yes Transaminitis POA: Yes Cholelithiasis POA: Yes Hyperkalemia POA: Yes Hyponatremia POA: Yes HOSPITAL COURSE: Pt admitted with sepsis likely 2/2 septic arthritis of left elbow. On zosyn, vanc (renally dose). Ortho reccs stat MRI. Pt also found to be in renal failure with Creatinine near 7 (baseline ~1). Associated electrolyte disturbances, high anion gap acidosis, bicarb 10. Nephrology following. Started on bicarb drip. GI consulted for transaminitis. RUQ US - cholelithiasis w/o cholecystitis. Checking hepatitis panel. Cellulitis of right arm --Patient presenting with 5 day history of worsening erythema and edema of the left upper extremity with origin along the olecranon process --Suspect may have started as possible olecranon bursitis with now progression to cellulitis and concern for possible septic left elbow joint given significant limited ROM (patient holds limb in slight flexion but is unable to fully extend or flex secondary to pain) --Continue Zosyn as initiated in ED, will need MRSA coverage as well so started on renally dosed Vancomycin with pharmacy consult --Check MRSA nasal PCR --CRP in ED (63); will also check ESR --Obtain blood cultures as not checked in ED --Pain control and elevation of extremity --Will obtain STAT XR of L elbow and forearm as no imaging of extremity completed in ED --Pending XR results and response to antibiotics may potentially need further advanced imaging such as MRI --Patient does have history of gout although typically with ankle, toe and knee involvement---check uric acid level --ID consult --Ortho consult--may need joint aspiration - stat MRI. ? 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) Secondary hyperparathyroidism (of renal origin) documented in this encounter [facility] note* Diagnosis CKD stage G3a/A2, GFR 45-59 and albumin creatinine ratio 30-299 mg/g (HCC)- Primary Anemia of renal disease Anemia in chronic kidney disease Stage 3a chronic kidney disease (HCC) Dietary counseling and surveillance Dietary surveillance and counseling Vitamin D deficiency Unspecified vitamin D deficiency Hypertension, essential Unspecified essential hypertension Hyperuricemia Other abnormal blood chemistry Other proteinuria documented in this encounter [facility] noteNo assessment information availableWBl[facility] Work Phone: Reason for referral (narrative)No reason for referral information availableWBlanchard Valley [facility] Work Phone: Summary Purpose Family History No Family History Records FoundNo Family History Records FoundNo Family History Records FoundNo Family History Records FoundNo Family History Records FoundNo Family History Records Found Advance Directives Documents on File Type Date Recorded Patient Refractory Specialist Expl anation Advance Directive(s) 05/17/2021 2:49 PM Advance Directive Response Recorded Date/ Time Do you have a Healthcare Power of Lead Welder? No November 06, 2024 10:42am Additional Source Comments (unrecognized sect ion and content) No Status Records FoundNo Status Records FoundNo Status Records FoundNo Status Records FoundNo Status Records FoundNo Status Records Found INFORMATION SOURCE (unrecogn ized section and content) DATE CREATED AUTHOR 01/10/2018 [facility] DATE CREATED AUTHOR AUTHOR'S ORGANIZ ATION 06/08/2021 [facility] DATE CREATED AUTHOR AUTHOR'S ORGANIZ ATION 09/14/2023 [facility] ([place] DATE CREATED AUTHOR AUTHOR'S ORGANIZ ATION 11/07/[address] [facility] DATE CREATED AUTHOR AUTHOR'S ORGANIZ ATION 11/08/2024 [facility] DATE CREATED AUTHOR AUTHOR'S ORGANIZ ATION 11/09/2024 [facility] Source Comments (unrecognize d section and content) In the event this informatio n is protected by the Federal Confidentiality of Alcohol and Drug Abuse Patient Records regulations: The Federal rules restrict any use of the information to criminally investigate or prosecute any alcohol or drug abuse patient.[facility] the event this information is protected by the Federal Confidentiality of Alcohol and Drug Abuse Patient Records regulations: The Federal rules restrict any use of the information to criminally investigate or prosecute any alcohol or drug abuse patient.[facility] the event this information is protected by the Federal Confidentiality of Alcohol and Drug Abuse Patient Records regulations: The Federal rules restrict any use of the information to criminally investigate or prosecute any alcohol or drug abuse patient.[facility] the event this information is protected by the Federal Confidentiality of Alcohol and Drug Abuse Patient Records regulations: The Federal rules restrict any use of the information to criminally investigate or prosecute any alcohol or drug abuse patient.[facility] Care Teams (unrecognized sec tion and content) 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 Specialty Start Date End Date Leonardo Holbrook [address] [place] [address] PCP - General Family Practice 05/17/21 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 Specialty Start Date End Date Leonardo Holbrook MD [address] [place], [place] [id number] PCP - General Family Practice 05/17/21 Aurea Mckenna MD [address] [address] Physician Nephrology 12/14/21 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 Isaias Kaba MD Primary Care Provider Active Team Status: Inactive Member Role Status Dates Dr. Dawood Hernandez DO Attending Provider Active Start: November 09, 2024 End: November 09, 2024 Dr. Dawood Hernandez DO Referring Provider Active Start: November 09, 2024 End: November 09, 2024 Dr. Isaias Kaba MD Primary Care Provider Active Start: November 09, 2024 End: November 09, 2024 Reason for Visit (unrecogniz ed section and content) Reason Comments Chronic Kidney Disease 6 month f/u Reason Comments Chronic Kidney Disease 1 yr f/u FOR RECORDS PERTAINING TO PATIENTS WHO ARE OR HAVE BEEN ENROLLED IN A CHEMICAL DEPENDENCY/SUBSTANCEABUSE PROGRAM, SOME INFORMATION MAY BE OMITTED. This clinical summary was aggregated from multiple sources. Caution should be exercised in using it in the provision of clinical care. This summary normalizes information from multiple sources, and as a consequence, information in this document may materially change the coding, format and clinical context of patient data. In addition, data may be omitted in some cases. CLINICAL DECISIONS SHOULD BE BASED ON THE PRIMARY CLINICAL RECORDS. [employer] [facility]. provides no warranty or guarantee of the accuracy or completeness of information in this document.
== END 2024-11-09 15:36 | disposition home or self-care (01) ==
LOC: SDC 11:41 → AC 11:42
PROVIDERS: PCP Internal Medicine; Referring Provider Student in an Organized Health Care Education/Training Program; Visit Provider Student in an Organized Health Care Education/Training Program
PROC: (CPT 27792; principal; 2024-11-09 12:55)
DX: S82.862A Displaced Maisonneuve's fracture of left leg, initial encounter for closed fracture (principal); I10 Essential (primary) hypertension; E66.3 Overweight; Z79.82 Long term (current) use of aspirin; Z79.899 Other long term (current) drug therapy; X58.XXXA Exposure to other specified factors, initial encounter; Z68.25 Body mass index [BMI] 25.0-25.9, adult
CPT/HCPCS: 27792; 64450; 01480; 73600; 76000; C1713; J2405